=== PATIENT | male | born 1955 | race African-American/Black ===

== ENCOUNTER 2016-09-05 10:52 | Emergency (ER) | payer MEDICAID ==
--- NOTE | 2016-09-05 11:24 | ER Document Report ---
ED Medical Screen (RME) - General Stated Complaint: HEADACHE Notes: Patient complains of intermittent headache for 2-3 weeks. Patient also reports cold symptoms. He is diabetic and states his sugars have been "okay". Last sugar when he checked was 97. states he has had sinus infections in the past. No vision disturbances, but does state his hearing is intermittently muffled. Patient states he has had sinus surgery in the past. I have greeted and performed a rapid initial assessment of this patient. A comprehensive ED assessment and evaluation of the patient, analysis of test results and completion of the medical decision making process will be conducted by additional ED providers. TRAVEL OUTSIDE OF THE [place] IN LAST 30 DAYS: No - Related Data Allergies/Adverse Reactions: Penicillins Allergy (Verified 09/05/16 11:18) Past Medical History - Social History Family history: DM, Malignancy - Past Medical History Cardiac Medical History: Reports: Hx Hypertension Neurological Medical History: Reports: Hx Seizures Endocrine Medical History: Reports: Hx Diabetes Mellitus Type 1 Past Surgical History: Reports: Hx Neurologic Surgery - craniotomy, Hx Nose Surgery - Immunizations Hx Diphtheria, Pertussis, Tetanus Vaccination: Yes Physical Exam - HEENT Head: Normocephalic Eyes: Normal Extraocular movements intact: Yes Pupils: PERRL
[2016-09-05] MEDS ORDERED: IBUPROFEN 800 MG TABLET PO ONE (11:25)
[2016-09-05 12:08] LABS: ABSOLUTE EOSINOPHILS # (AUTO) 0.1 10^3/uL (0.0-0.6); ABSOLUTE LYMPHOCYTES (AUTO) 2.4 10^3/uL (0.5-4.7); ABSOLUTE MONOCYTES (AUTO) 0.4 10^3/uL (0.1-1.4); ABSOLUTE NEUT (AUTO) 2.5 10^3/uL (1.7-8.2); BASOPHILS % (AUTO) 0.5 % (0-2); EOSINOPHILS % (AUTO) 1.4 % (0-6); HEMATOCRIT 43.8 % (37.9-51.0); HEMOGLOBIN 15.3 g/dL (13.5-17.0); HGB HCT DIFFERENCE 2.1; LYMPHOCYTES % (AUTO) 44.1 % (13-45); MEAN CORPUSCULAR HEMOGLOBIN 32.3 pg (27.0-33.4); MEAN CORPUSCULAR VOLUME 92 fl (80-97); RED BLOOD COUNT 4.74 10^6/uL (4.35-5.55); RED CELL DISTRIBUTION WIDTH 13.2 % (11.5-14.0); WHITE BLOOD COUNT 5.3 10^3/uL (4.0-10.5)
[2016-09-05 12:10] LABS: APPEARANCE,URINE CLEAR; BILIRUBIN,URINE NEGATIVE (NEGATIVE); GLUCOSE, URINE NEGATIVE (NEGATIVE); KETONES,URINE NEGATIVE (NEGATIVE); LEUKOCYTE ESTERASE,URINE NEGATIVE (NEGATIVE); NITRITE,URINE NEGATIVE (NEGATIVE); PROTEIN,URINE NEGATIVE (NEGATIVE); URINE SPECIFIC GRAVITY 1.025; UROBILINOGEN,URINE NEGATIVE mg/dL (<2.0)
[2016-09-05 12:23] LABS: ALANINE AMINOTRANSFERASE 90 U/L (21-72); ALBUMIN 4.2 g/dL (3.5-5.0); ALKALINE PHOSPHATASE 100 U/L (38-126); ANION GAP 15 (5-19); ASPARTATE AMINO TRANSFERASE 74 U/L (17-59); BILIRUBIN,DIRECT 0.3 mg/dL (0.0-0.4); BILIRUBIN,TOTAL 0.8 mg/dL (0.2-1.3); BLOOD UREA NITROGEN 17 mg/dL (7-20); CALCIUM 9.6 mg/dL (8.4-10.2); CARBON DIOXIDE 26 mmol/L (22-30); CHLORIDE 107 mmol/L (98-107); CREATININE RESULT 0.71 mg/dL (0.52-1.25); GLUCOSE 106 mg/dL (75-110); POTASSIUM 4.1 mmol/L (3.6-5.0); SODIUM 147.5 mmol/L (137-145); TOTAL PROTEIN 8.9 g/dL (6.3-8.2)
--- NOTE | 2016-09-05 16:00 | ER Document Report ---
ED Headache - General Chief Complaint: Headache Stated Complaint: HEADACHE Time seen by provider: 15:56 Mode of Arrival: Ambulatory Information source: Patient Notes: 61-year-old male presents to ED for intermittent headaches 2-3 weeks. Symptoms of cold. He is a diabetic but his sugars been okay left sugar was 97. Has a history of craniotomy and of no surgery does have a history of blood pressure seizures diabetes migraines. TRAVEL OUTSIDE OF THE [place] IN LAST 30 DAYS: No - HPI Patient complains to provider of: "Migraine" Onset: Other - Over 2 weeks Onset was: Gradual - Intermittent Timing: Still present Quality of pain: Achy Severity: Moderate Pain Level: 3 Exacerbated by: Movement, Position Similar symptoms previously: Yes Recently seen / treated by doctor: No - Related Data Allergies/Adverse Reactions: Penicillins Allergy (Verified 09/05/16 11:18) Past Medical History - General Information source: Patient - Social History Smoking Status: Unknown if Ever Smoked Cigarette use (# per day): No Chew tobacco use (# tins/day): No Smoking Education Provided: No Frequency of alcohol use: None Drug Abuse: None Lives with: Alone Family History: Reviewed & Not Pertinent Patient has suicidal ideation: No Patient has homicidal ideation: No - Past Medical History Cardiac Medical History: Reports: Hx Hypertension Pulmonary Medical History: Reports: None Neurological Medical History: Reports: Hx Migraine, Hx Seizures Endocrine Medical History: Reports: Hx Diabetes Mellitus Type 1 Renal/ Medical History: Reports: None Malignancy Medical History: Reports None GI Medical History: Reports: None Musculoskeltal Medical History: Reports None Skin Medical History: Reports None Psychiatric Medical History: Reports: None Traumatic Medical History: Reports: None Infectious Medical History: Reports: None Past Surgical History: Reports: Hx Neurologic Surgery - craniotomy, Hx Nose Surgery - Immunizations Immunizations up to date: Yes Hx Diphtheria, Pertussis, Tetanus Vaccination: Yes Review of Systems - Review of Systems Constitutional: Recent illness EENT: No symptoms reported, Nose discharge, Sinus discharge Cardiovascular: No symptoms reported Respiratory: No symptoms reported Gastrointestinal: No symptoms reported Genitourinary: No symptoms reported Male Genitourinary: No symptoms reported Musculoskeletal: No symptoms reported Skin: No symptoms reported Hematologic/Lymphatic: No symptoms reported Neurological/Psychological: Headaches -: Yes All other systems reviewed and negative Physical Exam - Vital signs Vitals: Temp Pulse Resp BP Pulse Ox 97.7 F 107 H 20 141/93 H 97 09/05/16 16:15 09/05/16 16:15 09/05/16 16:15 09/05/16 16:15 09/05/16 16:15 Interpretation: Normal - General General appearance: Appears well, Alert - HEENT Head: Normocephalic, Atraumatic, Other - Surgical scars to her head where patient had previous craniotomy and nasal surgery Eyes: Normal Pupils: PERRL Ears: Normal External canal: Normal Tympanic membrane: Normal Sinus: Normal Nasal: Purulent discharge, Swelling Mouth/Lips: Normal Mucous membranes: Normal Pharynx: Normal Neck: Normal - Respiratory Respiratory status: No respiratory distress Chest status: Nontender Breath sounds: Normal Chest palpation: Normal - Cardiovascular Rhythm: Regular Heart sounds: Normal auscultation Murmur: No - Abdominal Inspection: Normal Distension: No distension Bowel sounds: Normal Tenderness: Nontender Organomegaly: No organomegaly - Back Back: Normal, Nontender - Extremities General upper extremity: Normal inspection, Nontender, Normal color, Normal ROM , Normal temperature General lower extremity: Normal inspection, Nontender, Normal color, Normal ROM , Normal temperature, Normal weight bearing. No: Meet's sign - Neurological Neuro grossly intact: Yes Cognition: Normal Orientation: AAOx4 [place] Coma Scale Eye Opening: Spontaneous [place] Coma Scale Verbal: Oriented [place] Coma Scale Motor: Obeys Commands [place] Coma Scale Total: 15 Speech: Normal Motor strength normal: LUE, RUE, LLE, RLE Sensory: Normal - Psychological Associated symptoms: Normal affect, Normal mood - Skin Skin Temperature: Warm Skin Moisture: Dry Skin Color: Normal Course - Re-evaluation Re-evalutation: 09/05/16 20:49 Discussed history and evaluation with Dr. Avila he recommended a CT of the head which was completed. Results of CT discussed with Dr. Avila on the patient. Patient treated with clindamycin for his chronic and acute sinusitis. Patient discharged home with a prescription for clindamycin. - Vital Signs Vital signs: Temp Pulse Resp BP Pulse Ox 98.0 F 98 16 140/92 H 98 09/05/16 18:10 09/05/16 18:10 09/05/16 18:10 09/05/16 18:10 09/05/16 18:10 - Laboratory Result Diagrams: 09/05/16 11:46 09/05/16 11:46 Laboratory results interpreted by me: 09/05/16 11:46 Sodium 147.5 H AST 74 H ALT 90 H Total Protein 8.9 H - Diagnostic Test Radiology reviewed: Image reviewed, Reports reviewed Discharge - Discharge Clinical Impression: Sinusitis Qualifiers: Sinusitis location: unspecified location Chronicity: acute Recurrence: recurrent Qualified Code(s): J01.91 - Acute recurrent sinusitis, unspecified Condition: Stable Disposition: HOME, SELF-CARE Additional Instructions: Sinusitis You have sinusitis, an infection of the sinus cavities of the face. The sinuses are air-filled chambers which open into the inside of the nose. Bacteria and pus fill a sinus, causing pain, drainage, and fever. Sinusitis is treated with antibiotics. Often, expectorants (to thin the sinus mucous) or decongestants (to reduce swelling) are prescribed as well. Healing requires seven to 10 days. Avoid chemical fumes, pollens, dusts, and smoke (especially cigarette smoke ). Keep the air humidified in your bedroom and work area and take plenty of liquids by mouth. This condition can be serious if the infection spreads. If your symptoms worsen, or if you develop severe headache, high fever, stiff neck, or a rash, you must call the doctor or return for re-evaluation. Clindamycin You have been given a prescription for the antibiotic clindamycin. It is often prescribed for infections in the mouth, such as dental infections or abscesses, and for skin infections due to MRSA. It's important that you take all the medication, unless instructed otherwise by your physician. Failure to complete the entire course can result in relapse of your condition. Common side effects of antibiotics include nausea, intestinal cramping, or diarrhea. Women may develop vaginal yeast infections, and babies can get yeast (thrush) in the mouth following the use of antibiotics. Contact your physician if you develop significant side effects from this medication. Allergy to this antibiotic can result in hives, wheezing, faintness, or itching. If symptoms of allergy occur, stop the medication and call the doctor. Acetaminophen Acetaminophen may be taken for pain relief or fever control. It's much safer than aspirin, offering a wider range of "safe" dosages. It is safe during . Some brand names are Tylenol, Panadol, Datril, Anacin 3, Tempra, and Liquiprin. Acetaminophen can be repeated every four hours. The following are maximum recommended dosages: WEIGHT Dose Drops Elixir Chewable( 80mg) (LBS.) drprs=droppers tsp=teaspoon 6 40 mg .4 ml (1/2) 6-11 80 mg .8 ml (full) 1/2 tsp 1 tab 12-16 120 mg 1 1/2 drprs 3/4 tsp 1 1/2 tabs 17-23 160 mg 2 drprs 1 tsp 2 tabs 24-30 240 mg 3 drprs 1 1/2 tsp 3 tabs 30-35 320 mg 2 tsp 4 tabs 36-41 360 mg 2 1/4 tsp 4 1 /2 tabs 42-47 400 mg 2 1/2 tsp 5 tabs 48-53 480 mg 3 tsp 6 tabs 54-59 520 mg 3 1/4 tsp 6 1 /2 tabs 60-64 560 mg 3 1/2 tsp 7 tabs 65-70 600 mg 3 3/4 tsp 7 1 /2 tabs 71-76 640 mg 4 tsp 8 tabs 77-82 720 mg 4 1/2 tsp 9 tabs 83-88 800 mg 5 tsp 10 tabs >89 pounds or adults 650 mg to 900 mg Acetaminophen can be repeated every four hours. Maximum daily dose not to exceed 4000 mg. These maximum recommended dosages are slightly higher than the dosages written on the product container, but these dosages are very safe and well below the toxic dosage for acetaminophen. FOLLOW-UP CARE: If you have been referred to a physician for follow-up care, call the physician s office for an appointment as you were instructed or within the next two days. If you experience worsening or a significant change in your symptoms, notify the physician immediately or return to the Emergency Department at any time for re-evaluation. Prescriptions: Clindamycin HCl 300 mg PO QID 10 Days Forms: Elevated Blood Pressure Referrals: CHARLIE PETIT, [employer] [Primary Care Provider] - Follow up in 3-5 days
[2016-09-05 18:15] VITALS: BP 140/92
== END 2016-09-05 18:10 | disposition home or self-care (01) ==
LOC: ER 10:52
DX: J01.91 Acute recurrent sinusitis, unspecified (principal); R51 Headache; Z98.890 Other specified postprocedural states
CPT/HCPCS: 99284; 36415; 85025; 80053; 81001; 70450; J3490

== ENCOUNTER 2016-10-10 17:53 | Inpatient (IN) | payer MEDICAID ==
[2016-10-10 18:26] LABS: ABSOLUTE LYMPHOCYTES (AUTO) 1.4 10^3/uL (0.5-4.7); ABSOLUTE MONOCYTES (AUTO) 0.5 10^3/uL (0.1-1.4); ABSOLUTE NEUT (AUTO) 2.6 10^3/uL (1.7-8.2); BASOPHILS % (AUTO) 0.9 % (0-2); EOSINOPHILS % (AUTO) 0.1 % (0-6); HEMATOCRIT 45.7 % (37.9-51.0); HEMOGLOBIN 15.7 g/dL (13.5-17.0); HGB HCT DIFFERENCE 1.4; LYMPHOCYTES % (AUTO) 29.7 % (13-45); MEAN CORPUSCULAR HEMOGLOBIN 31.8 pg (27.0-33.4); MEAN CORPUSCULAR HGB CONC 34.4 g/dL (32.0-36.0); MEAN CORPUSCULAR VOLUME 93 fl (80-97); MONOCYTES % (AUTO) 11.2 % (3-13); RED BLOOD COUNT 4.94 10^6/uL (4.35-5.55); RED CELL DISTRIBUTION WIDTH 13.1 % (11.5-14.0); SEGMENTED NEUTROPHILS % (AUTO) 58.1 % (42-78); WHITE BLOOD COUNT 4.6 10^3/uL (4.0-10.5)
[2016-10-10 18:29] LABS: VENOUS BLOOD BASE EXCESS -0.9 mmol/L; VENOUS BLOOD HCO3 23.6 mmol/L (20-32); VENOUS BLOOD PCO2 39.2 mmHg (35-63); VENOUS BLOOD PH 7.4 (7.30-7.42)
[2016-10-10 18:45] LABS: ALANINE AMINOTRANSFERASE 107 U/L (21-72); ALBUMIN 4.1 g/dL (3.5-5.0); ALKALINE PHOSPHATASE 104 U/L (38-126); ANION GAP 15 (5-19); ASPARTATE AMINO TRANSFERASE 107 U/L (17-59); BILIRUBIN,DIRECT 0.5 mg/dL (0.0-0.4); BILIRUBIN,TOTAL 0.9 mg/dL (0.2-1.3); BLOOD UREA NITROGEN 9 mg/dL (7-20); CALCIUM 9.3 mg/dL (8.4-10.2); CARBON DIOXIDE 23 mmol/L (22-30); CHLORIDE 101 mmol/L (98-107); CREATININE RESULT 0.89 mg/dL (0.52-1.25); GLUCOSE 107 mg/dL (75-110); POTASSIUM 3.9 mmol/L (3.6-5.0); SODIUM 139.2 mmol/L (137-145); TOTAL PROTEIN 8.6 g/dL (6.3-8.2)
[2016-10-10] MEDS ORDERED: ACETAMINOPHEN 325 MG TABLET PO ONE (18:47)
[2016-10-10] MEDS ORDERED: OXYCODONE HCL SR 10 MG TABLET PO ONE (18:51)
--- NOTE | 2016-10-10 18:52 | ER Document Report ---
ED General - General Chief Complaint: General Weakness Stated Complaint: DIFFICULTY BREATHING Mode of Arrival: Medic Information source: Patient Notes: 61-year-old male history of sinusitis for which he is on clindamycin and Bactrim. Presents with complaints of generalized body aches fever . Patient denies any cough shortness of breath headaches nausea vomiting TRAVEL OUTSIDE OF THE [place] IN LAST 30 DAYS: No - HPI Onset: Other - Three-day duration Onset/Duration: Persistent Quality of pain: Achy Severity: Mild Pain Level: 1 Associated symptoms: Body/muscle aches, Fever Exacerbated by: Denies Relieved by: Denies Similar symptoms previously: Yes Recently seen / treated by doctor: Yes - Related Data Allergies/Adverse Reactions: Penicillins Allergy (Verified 09/05/16 11:18) Past Medical History - Social History Smoking Status: Never Smoker Cigarette use (# per day): No Chew tobacco use (# tins/day): No Smoking Education Provided: No Frequency of alcohol use: None Drug Abuse: None Family History: Reviewed & Not Pertinent - Past Medical History Cardiac Medical History: Reports: Hx Hypertension Neurological Medical History: Reports: Hx Migraine, Hx Seizures Endocrine Medical History: Reports: Hx Diabetes Mellitus Type 1 Renal/ Medical History: Denies: Hx Peritoneal Dialysis Past Surgical History: Reports: Hx Neurologic Surgery - craniotomy, Hx Nose Surgery - Immunizations Immunizations up to date: Yes Hx Diphtheria, Pertussis, Tetanus Vaccination: Yes Review of Systems - Review of Systems Notes: REVIEW OF SYSTEMS: CONSTITUTIONAL : Admits to fever and recent illness EENT: Denies eye, ear, throat, or mouth pain or symptoms. Denies nasal or sinus congestion or discharge. Denies throat, tongue, or mouth swelling or difficulty swallowing. CARDIOVASCULAR: Denies chest pain. Denies palpitations or racing or irregular heart beat. Denies ankle edema. RESPIRATORY: Denies cough, cold, or chest congestion. Denies shortness of breath, difficulty breathing, or wheezing. GASTROINTESTINAL: Denies abdominal pain or distention. Denies nausea, vomiting , or diarrhea. Denies blood in vomitus, stools, or per rectum. Denies black, tarry stools. Denies constipation. GENITOURINARY: Denies difficulty urinating, painful urination, burning, frequency, blood in urine, or discharge. MUSCULOSKELETAL: Denies back or neck pain or stiffness. Denies joint pain or swelling. SKIN: Denies rash, lesions or sores. HEMATOLOGIC : Denies easy bruising or bleeding. LYMPHATIC: Denies swollen, enlarged glands. NEUROLOGICAL: Denies confusion or altered mental status. Denies passing out or loss of consciousness. Denies dizziness or lightheadedness. Denies headache. Denies weakness or paralysis or loss of use of either side. Denies problems with gait or speech. Denies sensory loss, numbness, or tingling. Denies seizures. PSYCHIATRIC: Denies anxiety or stress. Denies depression, suicidal ideation, or homicidal ideation. ALL OTHER SYSTEMS REVIEWED AND NEGATIVE. Dictation was performed using [employer] voice recognition software PHYSICAL EXAMINATION: GENERAL: Well-appearing, well-nourished and in no acute distress. Febrile HEAD: Postsurgical changes noted EYES: Pupils equal round and reactive to light, extraocular movements intact, sclera anicteric, conjunctiva are normal. ENT: Nares patent, oropharynx clear without exudates. Moist mucous membranes. NECK: Normal range of motion, supple without lymphadenopathy LUNGS: Breath sounds clear to auscultation bilaterally and equal. No wheezes rales or rhonchi. HEART: Mildly tachycardic ABDOMEN: Soft, nontender, nondistended abdomen. No guarding, no rebound. No masses appreciated. Musculoskeletal: Normal range of motion, no pitting or edema. No cyanosis. NEUROLOGICAL: Cranial nerves grossly intact. Normal speech, normal gait. Normal sensory, motor exams PSYCH: Normal mood, normal affect. SKIN: Warm, Dry, normal turgor, no rashes or lesions noted. Physical Exam - Vital signs Vitals: Temp Pulse Resp BP Pulse Ox 100.5 F H 110 H 28 H 130/88 H 93 10/10/16 18:14 10/10/16 18:14 10/10/16 18:14 10/10/16 18:14 10/10/16 18:14 Course - Re-evaluation Re-evalutation: 10/10/16 18:51 Lab work notes no significant abnormality chest x-ray was normal. CT of the head and urinalysis are pending to locate the source of infection may be secondary to this sinusitis 10/10/16 22:15 I am not finding specific cause of the patient's fever at this time, 10/10/16 22:43 CT noted no acute abnormality I will discharge home for patient to follow-up with his own primary care physician After performing a Medical Screening Examination, I estimate there is LOW risk for ACUTE CORONARY SYNDROME, RESPIRATORY FAILURE, SEPSIS OR MENINGITIS, thus I consider the discharge disposition reasonable. I have reevaluated this patient multiple times and no significant life threatening changes are noted. The patient and I have discussed the diagnosis and risks, and we agree with discharging home with close follow-up. We also discussed returning to the Emergency Department immediately if new or worsening symptoms occur. We have discussed the symptoms which are most concerning (e.g., changing or worsening pain, trouble swallowing or breathing, neck stiffness, fever) that necessitate immediate return. - Vital Signs Vital signs: Temp Pulse Resp BP Pulse Ox 100.5 F H 110 H 19 105/74 91 L 10/10/16 18:14 10/10/16 18:14 10/10/16 22:01 10/10/16 22:01 10/10/16 22:01 - Laboratory Result Diagrams: 10/10/16 18:13 10/10/16 18:13 Laboratory results interpreted by me: 10/10/16 10/10/16 18:13 19:06 Direct Bilirubin 0.5 H AST 107 H ALT 107 H Total Protein 8.6 H Urine Protein 30 H Urine Ketones TRACE H Urine Blood MODERATE H Urine Urobilinogen 4.0 H - Diagnostic Test Radiology reviewed: Image reviewed, Reports reviewed Discharge - Discharge Clinical Impression: Body aches Fever Qualifiers: Fever type: unspecified Qualified Code(s): R50.9 - Fever, unspecified Condition: Stable Disposition: HOME, SELF-CARE Instructions: Fever ([facility]) Referrals: CHARLIE PETIT FNP-C [Primary Care Provider] - Follow up tomorrow
--- NOTE | 2016-10-10 19:08 | EKG REPORT ---
SEVERITY:- OTHERWISE NORMAL ECG - SINUS TACHYCARDIA BORDERLINE LEFT AXIS DEVIATION : Confirmed by: Jesus Waters MD 10-Oct-2016 19:07:57
[2016-10-10 19:50] LABS: APPEARANCE,URINE CLEAR; BILIRUBIN,URINE NEGATIVE (NEGATIVE); GLUCOSE, URINE NEGATIVE (NEGATIVE); KETONES,URINE TRACE mg/dL (NEGATIVE); LEUKOCYTE ESTERASE,URINE NEGATIVE (NEGATIVE); NITRITE,URINE NEGATIVE (NEGATIVE); PROTEIN,URINE 30 mg/dL (NEGATIVE); URINE SPECIFIC GRAVITY 1.016
[2016-10-10] MEDS ORDERED: NORMAL SALINE 1000 ML 1,000 ML IV PRN (23:13)
[2016-10-10] MEDS ORDERED: AZTREONAM INJ 1 GM VIAL IV ONE (23:24)
[2016-10-10] MEDS ORDERED: AZITHROMYCIN INJ 500 MG VIAL IV ONE (23:24)
[2016-10-11] MEDS ORDERED: DEXTROSE 40% GEL 15 GM TUBE PO PRN ×2 (01:05)
[2016-10-11] MEDS ORDERED: GLUCAGON,HUMAN RECOMB 1 MG INJ IM PRN (01:05)
[2016-10-11] MEDS ORDERED: INSULIN LISPRO 100 UNIT/ML 3 ML VIAL SUBCUT PRN (01:05)
[2016-10-11] MEDS ORDERED: DEXTROSE 50%-WATER 25 GM/50 ML DISP.SYRIN IV PRN ×2 (01:05)
[2016-10-11] MEDS ORDERED: IPRATROPIUM/ALBUTEROL 0.5-2.5 MG/3 ML AMPUL NEB PRN (01:06)
[2016-10-11] MEDS ORDERED: POTASSI CL 20 MEQ/NS 1L 1,000 ML IV PRN (01:08)
--- NOTE | 2016-10-11 01:30 | PDOC H&P ---
History of Present Illness Admission Date/PCP: 10/11/16 00:00 Ashlee Victoria, [place], [place] Patient complains of: fever, cough, body aches History of Present Illness: YUNI GARCIA is a 61 year old -Lao male with known chronic sinusitis , having undergone 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 Patient has been discussed with emergency room physician who evaluated the patient. Emergency room physician was actually in the process of discharging the patient. However, when he stood, systolic pressures were noted to be in the 60s , checked on 3 occasions. Fortunately, pressures have stabilized nicely after receiving almost 2 L of normal saline as a bolus. He describes "a little bit" of diarrhea over the past 24 hours. Cough productive of green sputum. Fever to 100.5 at home. No chest or abdominal pain, nausea vomiting. No "sore spots" anywhere on his body other than again feeling sore all over. Primary pain is in the area of his sinuses. No rash. No chronic pulmonary disease, including emphysema, COPD, or asthma no history of pneumonia.. He is currently resting quietly, primarily complaining of hurting "all over." Discomfort worsens with certain movements. Laboratory results are listed in [employer] and are reviewed. X-ray summary results are listed below, with full report(s) reviewed. . EKG reviewed. Social history/personal habits: Single. Lives alone. No children. Unemployed. No use of alcohol tobacco or illicit drugs. Allergies/adverse reactions are listed in [employer] and are reviewed. Penicillin causes "swelling." Uncertain if he can tolerate cephalosporins. Home medications Home medications initially autopopulated into [employer] may not accurately reflect patient's true medications, dosages, and/or frequencies. 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 Unfortunately, patient uncertain of medications/dosages/frequencies. REVIEW OF SYSTEMS: Constitutional: See history and present illness. Eyes: No current vision complaints. ENT: No swallowing problems or complaints. Partial hearing loss. See history and present illness. Pulmonary: See history and present illness. Cardiovascular: No current complaints, including chest pain. Gastrointestinal: See history and present illness. Skin: No current complaints, including rashes. Hematologic: No unusual easy bruising or bleeding. Neurologic: No current complaints, including numbness or tingling. Musculoskeletal: No current complaints, including painful joints. Psychiatric: No current complaints, including anxiety or depression. Endocrine: No current complaints, including polyuria. Genitourinary: No current complaints, including dysuria. PHYSICAL EXAMINATION: 5 feet 4 inches tall. 81.6 kg. BMI 30.9 kg/m. Blood pressure 111/74. Pulse 85 and regular. 99% saturation on 2 L oxygen per nasal cannula. Respirations are 23 and unlabored. Temperature 100.5 earlier; skin feels normothermic at present. Slightly obese otherwise well-developed -Lao male appearing a bit younger than his stated age. Pleasant awake alert and cooperative. No obvious distress other than perhaps mildly anxious. No agitation. Appears not to feel very well. Skin is warm and dry. No grossly obvious evidence of rash in areas of skin examined. No subcutaneous nodules palpated. ENT: Hearing grossly normal to normal conversation. Tongue midline on protrusion pink and slightly tacky. Eyes: No scleral icterus. Pupils equal and reactive to light at 4 mm. Coolin conjunctivae. Neck is supple and nontender to gentle active range of motion and palpation. Midline trachea. No palpable thyroid nodule mass enlargement or tenderness. Lymphatic: No palpable cervical or clavicular nodes. Neck and lymphatic exams limited by patient body habitus. Psychiatric: Reasonable insight into acute and chronic medical issues. Oriented to time location and why here. Lungs: Auscultation reveals clear and equal breath sounds bilaterally. No use of accessory respiratory muscles. Cardiovascular: Heart regular rate and rhythm, without gallop murmur or rub. No carotid or abdominal aortic bruits. No ankle or pedal edema. palpable dorsalis pedis pulses. Abdomen: soft, somewhat obese, nontender with positive bowel sounds. Unable to adequately evaluate abdomen for masses or organomegaly due to body habitus. Extremities: Feet are warm and dry. No calf tenderness to compression. No grossly obvious visual evidence of calf swelling. Gentle manipulation of lower extremities fails to reveal any obvious evidence of injury or instability to knees hips or ankles. Neurologic: Moves upper extremities grossly normally. Patellar reflexes absent. Absent Babinski. Light touch is intact at feet. Dorsiflexion and plantarflexion of feet 5 / 5 and symmetric. Past Medical History Cardiac Medical History: Reports: Hypertension Denies: Congestive Heart Failure, DVT, Myocardial Infarction, Hyperlipidema, Pulmonary Embolism Pulmonary Medical History: Denies: Asthma, Chronic Obstructive Pulmonary Disease (COPD), Pneumonia, Sleep Apnea EENT Medical History: Reports: Ears - Partial hearing loss, Other - Chronic sinusitis Denies: Eyes, Throat Neurological Medical History: Reports: Ischemic CVA - 2016; No residual after effects, Migraine, Seizures - Last episode 2016; uncertain current antiepileptic. Denies: Hemorrhagic CVA Endocrine Medical History: Reports: Diabetes Mellitus Type 1 Denies: Diabetes Mellitus Type 2, Hyperthyroidism, Hypothyroidism Renal/ Medical History: Denies: Chronic Kidney Disease, Nephrolithiasis GI Medical History: Denies: Cirrhosis, Gastroesophageal Reflux Disease, Hepatitis, Peptic Ulcer Disease Musculoskeltal Medical History: Denies: Arthritis Skin Medical History: Reports: None Psychiatric Medical History: Denies: Alcohol Dependency, Depression, General Anxiety Disorder, Substance Abuse, Tobacco Dependency Hematology: Reports: None Infectious Medical History: Denies: Clostridium Difficile, Hepatitis B, Hepatitis C, Methicillin- Resistant Staph Aureus Past Surgical History Past Surgical History: Reports: Other - Craniotomy for empyema from sinusitis; sinus surgery. No cardiac surgery. Social History Information Source: Patient, Emergency Med Personnel, [facility] Records Lives with: Alone Smoking Status: Never Smoker Frequency of Alcohol Use: None Hx Recreational Drug Use: No Drugs: None - Advance Directive Resuscitation Status: Full Code Surrogate healthcare decision maker:: Uncertain at this point in time. Family History Family History: Reviewed & Not Pertinent Parental Family History Reviewed: Yes - uncertain cause of parents' deaths. Children Family History Reviewed: NA Sibling(s) Family History Reviewed.: Yes - Healthy Medication/Allergy Home Medications: Amitriptyline HCl [Elavil 50 Mg Tablet] 50 mg PO QHS 10/11/16 Insulin Glargine,Hum.rec.anlog [Lantus Solostar] 20 unit SQ BID 10/11/16 Lisinopril [Prinivil] 20 mg PO DAILY 10/11/16 Allergies/Adverse Reactions: Penicillins Allergy (Verified 09/05/16 11:18) Physical Exam Vital Signs: Temp Pulse Resp BP Pulse Ox 100.5 F H 110 H 23 H 97/70 L 93 10/10/16 18:14 10/10/16 18:14 10/10/16 23:41 10/10/16 23:41 10/10/16 23:41 Results Impressions: Chest X-Ray 10/10/16 18:01 IMPRESSION: NO ACUTE RADIOGRAPHIC FINDING IN THE CHEST. Head CT 10/10/16 18:48 IMPRESSION: The previously described postsurgical changes in sinus changes appears stable. No acute changes are identified. Other findings as noted above Chest/Abdomen CTA 10/10/16 20:10 IMPRESSION: Somewhat limited study as noted above. No evidence for pulmonary embolic disease. No acute consolidations or pleural effusions are identified. Other findings as noted above Assessment & Plan - Diagnosis (1) Elevated LFTs Is this a current diagnosis for this admission?: YesPlan: Uncertain etiology; medications?? Denies underlying biliary disease. Follow- up chemistry. (2) Fever Qualifiers: Fever type: unspecified Qualified Code(s): R50.9 - Fever, unspecified Is this a current diagnosis for this admission?: YesPlan: Uncertain source, but feel more than likely this is pulmonary in origin. (3) Hypotension Qualifiers: Hypotension type: unspecified hypotension type Qualified Code(s): I95.9 - Hypotension, unspecified Is this a current diagnosis for this admission?: YesPlan: Resolved nicely with 2 L bolus of saline. Suspect pneumonia as the source, with negative imaging studies likely a result of antibiotics he has been on for the past several days.. Patient will be admitted under pneumonia protocol. Incentive spirometry twice a day. PRN DuoNeb's. Antibiotics will consist of aztreonam and intravenous Zithromax.. Patient is a full code. I have strongly encouraged patient not to get out of bed without notifying staff , , to avoid a fall with injury. Knee high SCDs for DVT prophylaxis, along with subcutaneous Lovenox Impression and plans were discussed with patient, who concurs. Time spent in evaluation and management of patient: 65 minutes. (4) Productive cough Is this a current diagnosis for this admission?: Yes (5) Chronic sinusitis Qualifiers: Sinusitis location: unspecified location Qualified Code(s): J32.9 - Chronic sinusitis, unspecified Is this a current diagnosis for this admission?: Yes (6) Diabetes mellitus type 1 Qualifiers: Diabetes mellitus complication status: without complication Qualified Code(s): E10.9 - Type 1 diabetes mellitus without complications Is this a current diagnosis for this admission?: YesPlan: Resume home medications as appropriate once these have been determined and reviewed.
[2016-10-11] MEDS ORDERED: AZITHROMYCIN 500 MG in DEXTROSE 5%-WATER 250 ML IV SCH ×2 (02:00→22:00)
[2016-10-11] MEDS ORDERED: AZITHROMYCIN INJ 500 MG VIAL IV PRN (02:00)
[2016-10-11] MEDS ORDERED: AZTREONAM INJ 1 GM VIAL IV PRN (06:00)
[2016-10-11] MEDS ORDERED: AZTREONAM 1 GM in DEXTROSE 5%-WATER 50 ML IV SCH ×2 (06:00→10:00)
[2016-10-11 08:08] LABS: ABSOLUTE MONOCYTES (AUTO) 0.5 10^3/uL (0.1-1.4); ABSOLUTE NEUT (AUTO) 2.2 10^3/uL (1.7-8.2); BASOPHILS % (AUTO) 1.1 % (0-2); HEMOGLOBIN 16.1 g/dL (13.5-17.0); HGB HCT DIFFERENCE 1.3; LYMPHOCYTES % (AUTO) 27.5 % (13-45); MEAN CORPUSCULAR HEMOGLOBIN 32.5 pg (27.0-33.4); MEAN CORPUSCULAR HGB CONC 34.4 g/dL (32.0-36.0); MEAN CORPUSCULAR VOLUME 95 fl (80-97); MONOCYTES % (AUTO) 12.9 % (3-13); RED BLOOD COUNT 4.96 10^6/uL (4.35-5.55); RED CELL DISTRIBUTION WIDTH 13.7 % (11.5-14.0); SEGMENTED NEUTROPHILS % (AUTO) 58.5 % (42-78); WHITE BLOOD COUNT 3.7 10^3/uL (4.0-10.5)
[2016-10-11 09:27] LABS: ALANINE AMINOTRANSFERASE 108 U/L (21-72); ALBUMIN 3.6 g/dL (3.5-5.0); ALKALINE PHOSPHATASE 90 U/L (38-126); ANION GAP 14 (5-19); ASPARTATE AMINO TRANSFERASE 118 U/L (17-59); BILIRUBIN,DIRECT 0.6 mg/dL (0.0-0.4); BILIRUBIN,TOTAL 0.9 mg/dL (0.2-1.3); BLOOD UREA NITROGEN 11 mg/dL (7-20); CALCIUM 8.4 mg/dL (8.4-10.2); CARBON DIOXIDE 23 mmol/L (22-30); CHLORIDE 102 mmol/L (98-107); CREATININE RESULT 0.93 mg/dL (0.52-1.25); GLUCOSE 108 mg/dL (75-110); POTASSIUM 4.1 mmol/L (3.6-5.0); SODIUM 139.3 mmol/L (137-145); TOTAL PROTEIN 7.8 g/dL (6.3-8.2)
[2016-10-11] MEDS: ENOXAPARIN SODIUM INJ 40 MG/0.4 ML DISP.SYRIN SUBCUT SCH (11:52)
[2016-10-11] MEDS ORDERED: LISINOPRIL 10 MG TABLET PO ONE (13:00)
[2016-10-11] MEDS ORDERED: LEVOFLOXACIN 750 MG/D5W RTU 750 MG/150 ML RTUPB IV SCH (13:00)
[2016-10-11] MEDS ORDERED: NORMAL SALINE 1000 ML 1,000 ML IV ONE (14:17)
[2016-10-11] MEDS: NORMAL SALINE 1000 ML 1,000 ML IV PRN ×2 (14:29→14:45)
[2016-10-11] MEDS ORDERED: VANCOMYCIN HCL 0 MG in DEXTROSE 5%-WATER 250 ML IV NR (14:45)
[2016-10-11 15:02] LABS: PROTHROMBIN TIME 14.4 SEC (11.4-15.4)
[2016-10-11 15:18] LABS: ALANINE AMINOTRANSFERASE 112 U/L (21-72); ALBUMIN 3.6 g/dL (3.5-5.0); ALKALINE PHOSPHATASE 86 U/L (38-126); ANION GAP 15 (5-19); ASPARTATE AMINO TRANSFERASE 126 U/L (17-59); BILIRUBIN,DIRECT 0.5 mg/dL (0.0-0.4); BILIRUBIN,TOTAL 0.9 mg/dL (0.2-1.3); BLOOD UREA NITROGEN 12 mg/dL (7-20); CALCIUM 8.8 mg/dL (8.4-10.2); CARBON DIOXIDE 21 mmol/L (22-30); CHLORIDE 101 mmol/L (98-107); CREATINE KINASE 167 U/L (55-170); GLUCOSE 171 mg/dL (75-110); MAGNESIUM 1.8 mg/dL (1.6-2.3); POTASSIUM 4.2 mmol/L (3.6-5.0); SODIUM 136.6 mmol/L (137-145); TOTAL PROTEIN 7.5 g/dL (6.3-8.2)
[2016-10-11 15:29] LABS: CREATINE KINASE MB 0.83 ng/mL (<4.55)
[2016-10-11 15:43] LABS: TROPONIN I 0.407 ng/mL
[2016-10-11 15:59] LABS: ADD HIVPANEL? NO; HIV (1 AND 2) ANTIBODY NEGATIVE (NEGATIVE)
[2016-10-11] MEDS ORDERED: VANCOMYCIN HCL 2,000 MG in DEXTROSE 5%-WATER 500 ML IV ONE (16:30)
[2016-10-11] MEDS: ACETAMINOPHEN 325 MG TABLET PO PRN (16:37)
[2016-10-11 16:52] LABS: APPEARANCE ALL TUBES CLEAR; RBC DILUENT USED NONE USED; RBC DILUTION FACTOR 1; RBC SIDE 1 0; RBC SIDE 2 0; TOTAL RBC SQUARES COUNTED 225
[2016-10-11 16:53] LABS: WHITE BLOOD CELL,CSF 4 /uL (0-5)
[2016-10-11 17:00] LABS: GLUCOSE,CSF 83 mg/dL (40-70)
[2016-10-11 17:36] LABS: CSF CULTURED REQUIRED CSF CULTURE ORDERED (CSFY); H. INFLUENZAE TYPE B AG NEGATIVE (NEGATIVE); S. PNEUMONIAE AG NEGATIVE (NEGATIVE); STREP. GROUP B AG NEGATIVE (NEGATIVE)
[2016-10-11 17:49] LABS: ARTERIAL BLOOD BASE EXCESS -3.5 mmol/L; ARTERIAL BLOOD O2 SATURATION 96.8 % (94-98)
[2016-10-11 18:14] LABS: APPEARANCE ALL TUBES CLEAR
[2016-10-11 18:15] LABS: RBC DILUENT USED NONE USED; RBC DILUTION FACTOR 1; RBC SIDE 1 0; RBC SIDE 2 0; TOTAL RBC SQUARES COUNTED 225; WHITE BLOOD CELL,CSF 3 /uL (0-5)
[2016-10-11] MEDS ORDERED: KETOROLAC TROMETHAMINE INJ/PF 30 MG/1 ML SDV IV PRN (18:41)
--- NOTE | 2016-10-11 19:03 | EKG REPORT ---
SEVERITY:- BORDERLINE ECG - SINUS TACHYCARDIA BORDERLINE LEFT AXIS DEVIATION CONSIDER ANTERIOR INFARCT : Confirmed by: Jesus Waters MD 11-Oct-2016 19:02:55
[2016-10-11] MEDS: ACYCLOVIR SODIUM 750 MG in NORMAL SALINE 250 ML IV SCH (19:58)
[2016-10-11] MEDS: CEFTRIAXONE 2 GM/D5W RTU 50 ML IV SCH (22:54)
[2016-10-11] MEDS: AMITRIPTYLINE HCL 50 MG TABLET PO SCH (22:54)
[2016-10-11] MEDS: INSULIN GLARGINE,HUM.REC.ANLOG 300 UNIT/3 ML INSULN.PEN SUBCUT SCH (22:54)
[2016-10-11] MEDS ORDERED: CEFTRIAXONE INJ 1000 MG VIAL ONE (22:58)
[2016-10-12] MEDS: ACYCLOVIR SODIUM 750 MG in NORMAL SALINE 250 ML IV SCH (02:51)
[2016-10-12] MEDS: NORMAL SALINE 1000 ML 1,000 ML IV PRN ×2 (02:52→16:47)
[2016-10-12] MEDS: ACETAMINOPHEN 325 MG TABLET PO PRN ×2 (02:57→11:59)
[2016-10-12] MEDS ORDERED: VANCOMYCIN HCL 1,000 MG in DEXTROSE 5%-WATER 250 ML IV SCH (06:00)
[2016-10-12] MEDS ORDERED: OXYCODONE HCL IR 5 MG TABLET PO PRN (07:32)
[2016-10-12] MEDS: ENOXAPARIN SODIUM INJ 40 MG/0.4 ML DISP.SYRIN SUBCUT SCH (08:02)
--- NOTE | 2016-10-12 08:26 | EKG REPORT ---
SEVERITY:- ABNORMAL ECG - SINUS RHYTHM BORDERLINE LEFT AXIS DEVIATION CONSIDER ANTERIOR INFARCT NONSPECIFIC ST-T CHANGES- INFERIOR LEADS : Confirmed by: Jesus Waters MD 12-Oct-2016 08:25:42
[2016-10-12 09:57] LABS: HEMATOCRIT 38.5 % (37.9-51.0); HGB HCT DIFFERENCE 1.4; MEAN CORPUSCULAR HGB CONC 34.5 g/dL (32.0-36.0); MEAN CORPUSCULAR VOLUME 93 fl (80-97); RED BLOOD COUNT 4.15 10^6/uL (4.35-5.55); RED CELL DISTRIBUTION WIDTH 13.5 % (11.5-14.0); WHITE BLOOD COUNT 2.8 10^3/uL (4.0-10.5)
[2016-10-12] MEDS ORDERED: LISINOPRIL 10 MG TABLET PO SCH (10:00)
[2016-10-12 10:15] LABS: HEMOGLOBIN 13.3 g/dL (13.5-17.0)
[2016-10-12 10:16] LABS: ANION GAP 11 (5-19); BLOOD UREA NITROGEN 10 mg/dL (7-20); CALCIUM 8.3 mg/dL (8.4-10.2); CARBON DIOXIDE 23 mmol/L (22-30); CHLORIDE 106 mmol/L (98-107); CREATININE RESULT 0.79 mg/dL (0.52-1.25); GLUCOSE 134 mg/dL (75-110); SODIUM 139.6 mmol/L (137-145)
[2016-10-12] MEDS: DOCUSATE SODIUM 100 MG CAPSULE PO SCH ×2 (10:18→17:22)
[2016-10-12] MEDS: INSULIN GLARGINE,HUM.REC.ANLOG 300 UNIT/3 ML INSULN.PEN SUBCUT SCH ×2 (10:18→22:45)
[2016-10-12] MEDS: LISINOPRIL 10 MG TABLET PO SCH (10:19)
[2016-10-12] MEDS: CEFTRIAXONE 2 GM/D5W RTU 50 ML IV SCH (10:20)
[2016-10-12 10:23] LABS: BAND NEUTROPHILS % (MANUAL) 4 % (3-5); BASOPHILS % (MANUAL) 1 % (0-2); EOSINOPHILS % (MANUAL) 0 % (0-6); LYMPHOCYTES % (MANUAL) 12 % (13-45); TOTAL CELLS COUNTED 100
[2016-10-12 10:25] LABS: POIKILOCYTOSIS SLIGHT
--- NOTE | 2016-10-12 10:26 | PDOC CONSULTATION ---
Consultation Consult Date: 10/11/16 Attending physician:: BREANNA COX Consult reason:: Abnormal troponin I elevation History of Present Illness Admission Date/PCP: 10/11/16 17:05 REGINE NICHOLS Patient complains of: General fatigue and tiredness. Fever chills and diaphoresis History of Present Illness: YUNI GARCIA is a 61 year old -[place] male with known chronic sinusitis , having undergone 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 Patient was noted to have generalized body ache, marked fatigue and tiredness. He has also noted some fever with chills. Patient has noted a productive cough with greenish sputum production. Patient also describes an episode of diarrhea. He denied any chest pain as such or any shortness of breath, palpitations, syncope, near syncope. Patient subsequently was noted to have elevated troponin I. I was therefore asked to evaluate patient. His 12-lead EKG did not show any acute ST-T wave changes. Patient denied any prior history of myocardial infarction, angina, congestive heart failure. Patient has a history of chronic sinus infection. Past Medical History Cardiac Medical History: Reports: Hypertension Denies: Congestive Heart Failure, DVT, Myocardial Infarction, Hyperlipidema, Pulmonary Embolism Pulmonary Medical History: Denies: Asthma, Chronic Obstructive Pulmonary Disease (COPD), Pneumonia, Sleep Apnea EENT Medical History: Reports: Ears - Partial hearing loss, Other - Chronic sinusitis Denies: Eyes, Throat Neurological Medical History: Reports: Ischemic CVA - 2016; No residual after effects, Migraine, Seizures - Last episode 2016; uncertain current antiepileptic. Denies: Hemorrhagic CVA Endocrine Medical History: Reports: Diabetes Mellitus Type 1 Denies: Diabetes Mellitus Type 2, Hyperthyroidism, Hypothyroidism Renal/ Medical History: Denies: Chronic Kidney Disease, Nephrolithiasis GI Medical History: Denies: Cirrhosis, Gastroesophageal Reflux Disease, Hepatitis, Peptic Ulcer Disease Musculoskeltal Medical History: Denies: Arthritis Skin Medical History: Reports: None Psychiatric Medical History: Denies: Alcohol Dependency, Depression, General Anxiety Disorder, Substance Abuse, Tobacco Dependency Hematology: Reports: None, Other - Chronic sinusitis Infectious Medical History: Denies: Clostridium Difficile, Hepatitis B, Hepatitis C, Methicillin- Resistant Staph Aureus Past Surgical History Past Surgical History: Reports: Other - Craniotomy for empyema from sinusitis; sinus surgery. No cardiac surgery. Social History Information Source: Patient Lives with: Alone Smoking Status: Former Smoker Last Time Smoked: 2006 Frequency of Alcohol Use: None Hx Recreational Drug Use: No Drugs: None Hx Prescription Drug Abuse: No - Advance Directive Resuscitation Status: Full Code Family History Family History: Reviewed & Not Pertinent Parental Family History Reviewed: Yes Children Family History Reviewed: Yes Sibling(s) Family History Reviewed.: Yes Medication/Allergy Home Medications: Amitriptyline HCl [Elavil 50 Mg Tablet] 50 mg PO QHS 10/11/16 Insulin Glargine,Hum.rec.anlog [Lantus Solostar] 20 unit SQ BID 10/11/16 Lisinopril [Prinivil] 20 mg PO DAILY 10/11/16 Allergies/Adverse Reactions: Penicillins Allergy (Verified 09/05/16 11:18) Review of Systems Review of Systems: Please see history of present illness and past medical history as wall. Constitutional: Fever and chills reported. Head : No recent chronic headaches, recent head injury. History of craniotomy for sinus infection. Patient describes history of intermittent headaches. Eyes: No recent eye pain, diplopia, redness, discharge, acute visual changes. Ears: No recent chronic ear pain, acute hearing loss, ear discharge. Oral cavity: No recent ulcerations, bleeding, oral cavity discomfort. Neck: No recent acute neck pain reported. Hematologic: No recent easy bruising or bleeding or hematologic malignancy reported. Lymphatic: No recent lymphatic malignancy, chronic lymphadenopathy reported yet Cardiovascular system review: See history of present illness. No prior cardiac history. Respiratory system review: Noted cough with sputum production but no hemoptysis , blood clots in the lungs reported. Mild Shortness of breath on exertion Gastrointestinal system review: Negative for any recent acute or chronic abdominal pain, hematemesis, melena, patient does report one episode of diarrhea. Genitourinary system review: No recent acute or chronic hematuria, flank pain, UTI etc. reported. Skin system review: Negative for any recent abnormal bruising, no rash, no pruritus reported. Neurologic: History of prior strokes, seizure disorder. Psychologic: No history of major psychosis or major depression reported. Musculoskeletal: Minor aches and pains reported. No acute joint swelling reported. Endocrine: No recent polyuria, polydipsia, recent heat or cold intolerance. Physical Exam Vital Signs: Temp Pulse Resp BP Pulse Ox 98.0 F 90 20 111/66 95 10/11/16 19:52 10/11/16 19:52 10/11/16 19:52 10/11/16 19:52 10/11/16 19:52 Exam: GENERAL: well-nourished and in no acute distress. Alert and oriented x3 HEAD: Atraumatic, normocephalic. Craniotomy scar noted EYES: Pupils equal round and reactive to light, extraocular movements intact, sclera anicteric, conjunctiva are normal. ENT: TMs normal, nares patent, oropharynx clear without exudates. Moist mucous membranes. No oral ulcerations or bleeding gums noted NECK: supple without lymphadenopathy. Trachea is central. No cervical or axillary lymphadenopathy noted. Carotids are 2+, JVD WNL LUNGS: Respiration seems nonlabored, no significant accessory muscle action noted. Breath sounds clear to auscultation bilaterally and equal noted. No wheezes rales or rhonchi noted. No significant dullness noted on percussion. CHEST: Palpation of the chest wall shows no significant chest wall tenderness. No other significant abnormalities noted. 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 ABDOMEN: Soft, no significant tenderness appreciated, normoactive bowel sounds. No guarding, no rebound. No rigidity noted . No masses appreciated. EXTREMITIES: Pedal pulses are 1-2+, no calf tenderness noted. No clubbing or cyanosis.trace to 1+ pedal edema noted NEUROLOGICAL: Focused neurological exam showed no significant neurologic deficit. Normal speech, no focal weakness appreciated. PSYCH: Normal mood, normal affect. Judgment and insight within normal limits. SKIN: No significant ecchymosis, rash, ulcerations or signs of pruritus noted. Some generalized shining of the skin noted. MUSCULOSKELETAL EXAM: No significant joint swelling noted. Results Laboratory Results: 10/11/16 17:33 Carbonic Acid 0.78 L HCO3/H2CO3 Ratio 23:1 ABG pH 7.47 H ABG pCO2 26.0 L ABG pO2 82.0 ABG HCO3 18.5 L ABG O2 Saturation 96.8 ABG Base Excess -3.5 FiO2 21% EKG Comments: Showed sinus rhythm, no acute ST-T wave changes noted. Impressions: Head CT 10/10/16 18:48 IMPRESSION: The previously described postsurgical changes in sinus changes appears stable. No acute changes are identified. Other findings as noted above Chest/Abdomen CTA 10/10/16 20:10 IMPRESSION: Somewhat limited study as noted above. No evidence for pulmonary embolic disease. No acute consolidations or pleural effusions are identified. Other findings as noted above Chest X-Ray 10/11/16 00:00 IMPRESSION: NO SIGNIFICANT RADIOGRAPHIC FINDING IN THE CHEST. Facial Bones CT 10/11/16 00:00 IMPRESSION: EXTENSIVE SINUS DISEASE AND SURGICAL CHANGES. RELATIVELY STABLE APPEARANCE COMPARED TO THE PRIOR STUDY. NO SIGNIFICANT CHANGE. Guidance Fluoroscopy 10/11/16 00:00 IMPRESSION: LUMBAR PUNCTURE UNDER FLUOROSCOPY. NO IMMEDIATE COMPLICATION. Lumbar Puncture 10/11/16 00:00 IMPRESSION: LUMBAR PUNCTURE UNDER FLUOROSCOPY. NO IMMEDIATE COMPLICATION. Assessment & Plan - Diagnosis (1) Fever Qualifiers: Fever type: unspecified Qualified Code(s): R50.9 - Fever, unspecified Is this a current diagnosis for this admission?: Yes (2) HTN (hypertension) Is this a current diagnosis for this admission?: Yes (3) Elevated troponin I level Is this a current diagnosis for this admission?: Yes (4) Elevated LFTs Is this a current diagnosis for this admission?: Yes - Notes Notes: Patient's presents with fever and chills. He does have some generalized body ache. His troponin I has come back in the suggestive range but he really does not have any chest discomfort nor has an EKG changes. Therefore he does not satisfy criteria for acute [place] and troponin I elevation could be just related to viremia, bacteremia, hypoglycemia, possible vasculitis from allergic reaction to drugs etc. At this point to evaluate patient's condition will order a 2-D echo. Once patient is stabilized will consider a nuclear stress test since patient has some cardiac risk factors. Will continue to follow patient. Since patient had lumbar puncture, do not feel anticoagulation is indicated at this time. Will continue to follow patient closely. - Time Time Spent: 30 to 50 Minutes Medications reviewed and adjusted accordingly: Yes - CODE STATUS was discussed, patient remains full code.
--- NOTE | 2016-10-12 10:50 | PDOC PROGRESS REPORT ---
Subjective Progress Note for:: 10/12/16 Subjective:: Patient continues to have body aches. Patient continues to denies any specific chest discomfort. He had electrocardiogram this morning which is basically unchanged from yesterday. Did not show any acute ST-T wave changes. Patient does however have nonprogression of R-wave and left axis deviation, left anterior hemiblock. Physical Exam Vital Signs: Temp Pulse Resp BP Pulse Ox 100.1 F 101 H 22 H 130/79 H 95 10/12/16 07:54 10/12/16 07:54 10/12/16 07:54 10/12/16 07:54 10/12/16 07:54 Intake & Output 10/11/16 10/12/16 10/13/16 06:59 06:59 06:59 Intake Total 2750 Output Total 2150 Balance 600 Exam: GENERAL: well-nourished and in no acute distress. Alert and oriented x3 HEAD: Atraumatic, normocephalic. Craniotomy scar noted. EYES: Pupils equal round and reactive to light, extraocular movements intact, sclera anicteric, conjunctiva are normal. ENT: TMs normal, nares patent, oropharynx clear without exudates. Moist mucous membranes. No oral ulcerations or bleeding gums noted NECK: supple without lymphadenopathy. Trachea is central. No cervical or axillary lymphadenopathy noted. Carotids are 2+, JVD WNL LUNGS: Respiration seems nonlabored, no significant accessory muscle action noted. Breath sounds clear to auscultation bilaterally and equal noted. No wheezes rales or rhonchi noted. No significant dullness noted on percussion. CHEST: Palpation of the chest wall shows no significant chest wall tenderness. No other significant abnormalities noted. 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 ABDOMEN: Soft, no significant tenderness appreciated, normoactive bowel sounds. No guarding, no rebound. No rigidity noted . No masses appreciated. EXTREMITIES: Pedal pulses are 1-2+, no calf tenderness noted. No clubbing or cyanosis.trace to 1+ pedal edema noted NEUROLOGICAL: Focused neurological exam showed no significant neurologic deficit. Normal speech, no focal weakness appreciated. PSYCH: Normal mood, normal affect. Judgment and insight within normal limits. SKIN: No significant ecchymosis, rash, ulcerations or signs of pruritus noted. Patient noted to have somewhat tight skin which is a little bit shiny. MUSCULOSKELETAL EXAM: No significant joint swelling noted. Results Laboratory Results: 10/12/16 05:10 10/12/16 05:10 10/11/16 10/12/16 10/12/16 17:33 05:10 05:10 WBC 2.8 L RBC 4.15 L Hgb 13.3 L D Hct 38.5 MCV 93 MCH 32.0 MCHC 34.5 RDW 13.5 Plt Count 127 L Seg Neutrophils % Not Reportable Lymphocytes % Not Reportable Monocytes % Not Reportable Eosinophils % Not Reportable Basophils % Not Reportable Absolute Neutrophils Not Reportable Absolute Lymphocytes Not Reportable Absolute Monocytes Not Reportable Absolute Eosinophils Not Reportable Absolute Basophils Not Reportable Carbonic Acid 0.78 L HCO3/H2CO3 Ratio 23:1 ABG pH 7.47 H ABG pCO2 26.0 L ABG pO2 82.0 ABG HCO3 18.5 L ABG O2 Saturation 96.8 ABG Base Excess -3.5 FiO2 21% Sodium 139.6 Potassium 4.0 Chloride 106 Carbon Dioxide 23 Anion Gap 11 BUN 10 Creatinine 0.79 Est GFR ( Amer) > 60 Est GFR (Non-Af Amer) > 60 Glucose 134 H Calcium 8.3 L 10/11/16 10/12/16 22:22 05:10 Troponin I 0.044 0.615 Impressions: Head CT 10/10/16 18:48 IMPRESSION: The previously described postsurgical changes in sinus changes appears stable. No acute changes are identified. Other findings as noted above Chest/Abdomen CTA 10/10/16 20:10 IMPRESSION: Somewhat limited study as noted above. No evidence for pulmonary embolic disease. No acute consolidations or pleural effusions are identified. Other findings as noted above Chest X-Ray 10/11/16 00:00 IMPRESSION: NO SIGNIFICANT RADIOGRAPHIC FINDING IN THE CHEST. Facial Bones CT 10/11/16 00:00 IMPRESSION: EXTENSIVE SINUS DISEASE AND SURGICAL CHANGES. RELATIVELY STABLE APPEARANCE COMPARED TO THE PRIOR STUDY. NO SIGNIFICANT CHANGE. Guidance Fluoroscopy 10/11/16 00:00 IMPRESSION: LUMBAR PUNCTURE UNDER FLUOROSCOPY. NO IMMEDIATE COMPLICATION. Lumbar Puncture 10/11/16 00:00 IMPRESSION: LUMBAR PUNCTURE UNDER FLUOROSCOPY. NO IMMEDIATE COMPLICATION. Assessment & Plan - Diagnosis (1) Fever Qualifiers: Fever type: unspecified Qualified Code(s): R50.9 - Fever, unspecified Is this a current diagnosis for this admission?: Yes (2) HTN (hypertension) Is this a current diagnosis for this admission?: Yes (3) Elevated troponin I level Is this a current diagnosis for this admission?: Yes (4) Elevated LFTs Is this a current diagnosis for this admission?: Yes - Notes Notes: Patient continues to have low-grade fever and generalized body aches. His troponins levels been fluctuating. EKG is unchanged. He remains free of any chest pain. Have ordered a stat 2-D echo to look for any wall motion abnormalities. I did review patient's CTA which shows enlarged right ventricle and no coronary calcification. Have ordered liver function tests again. I believe the troponin I elevation could be a false positive test. Have added total CK and CK-MB to troponin I. At this point continue to observe and treat patient clinically. May consider obtaining antinuclear antibody, ESR, heterophile antibody etc. Will discuss with Dr. Hunt. Next Addendum: Patient labs reviewed. Troponin I now trending down. CRP and ESR elevated. Patient was also noted to have intermittent fever. 2-D echo results reviewed. It was technically difficult but LVEF is noted to be relatively well preserved. No significant valvular regurgitation was noted. BNP came back within normal limits. - Time Time with patient: Greater than 35 minutes - CODE STATUS was discussed, patient remains full code. Surrogate decision-maker unchanged. Multiple medical problems were addressed.More than 50% of the time spent coordinating care, discussing management plans with involved caregivers. Management plans discussed with involved personnels. Medical decision making was of high complexity, patient's has multiple severe comorbidities. Medications reviewed and adjusted accordingly: Yes
[2016-10-12 12:17] LABS: PROTHROMBIN TIME 14.1 SEC (11.4-15.4)
[2016-10-12 12:18] LABS: PARTIAL THROMBOPLASTIN TIME 38.2 SEC (23.5-35.8)
[2016-10-12 12:43] LABS: CREATINE KINASE MB 1.7 ng/mL (<4.55); TROPONIN I 0.578 ng/mL
--- NOTE | 2016-10-12 13:01 | XCELERA REPORT ---
[address] [id number] Transthoracic Echocardiogram Report Name: YUNI GARCIA Age: 61 yrs Gender: Male : 1955 Patient Status: Inpatient Patient Location: [id number]\318\[id number] Study Date: 10/12/2016 11:23 AM Height: 64 in Weight: 180 lb BSA: 1.9 m2 Procedure: A complete two-dimensional transthoracic echocardiogram was performed (2D, M-mode, spectral and color flow Doppler). The study was technically difficult with many images being suboptimal in quality. Reason For Study: NSTEMI Ordering Physician: FARRAH PONCE Performed By: Elizabeth Wellington Interpretation Summary The study was technically difficult with many images being suboptimal in quality. The left ventricular ejection fraction is normal. Doppler measurements suggest pseudonormalized left ventricular relaxation, which is associated with grade II/IV or mild to moderate diastolic dysfunction Wall motion cannot be accurately commented on, but no definite regional wall motion abnormalities noted. There is mild concentric left ventricular hypertrophy. The left ventricle is grossly normal size. The right ventricle is mildly dilated. The right ventricular systolic function is normal. The left atrial size is normal. The right atrium is mildly dilated. There is a trace to mild amount of mitral regurgitation There is no mitral valve stenosis. No aortic regurgitation is present. There is no aortic valve stenosis There is a trace or physiologic amount of tricuspid regurgitation Tricuspid regurgitation jet envelope not well defined to measure RV systolic pressure accurately. The aortic root is not well visualized but is probably normal size. The inferior vena cava appeared normal and decreased > 50% with respiration (RAP 5-10 mmHg) There is no pericardial effusion. MMode/2D Measurements \T\ Calculations RVDd: 2.8 cm LVIDd: 4.3 cm FS: 20.8 % Ao root diam: 2.5 cm IVSd: 1.1 cm LVIDs: 3.4 cm EDV(Teich): 83.4 ml LVPWd: 1.1 cm ESV(Teich): 47.9 ml Ao root area: 4.8 cm2 EF(Teich): 42.6 % LA dimension: 3.0 cm Doppler Measurements \T\ Calculations MV E max dorian: MV P1/2t max dorian: Ao V2 max: LV V1 max P.8 cm/sec 54.8 cm/sec 161.8 cm/sec 5.4 mmHg MV A max dorian: MV P1/2t: 61.5 msec Ao max PG: LV V1 max: 74.0 cm/sec 10.5 mmHg 116.0 cm/sec MV E/A: 0.74 MVA(P1/2t): 3.6 cm2 MV dec slope: 261.0 cm/sec2 PA V2 max: TR max dorian: 116.0 cm/sec 252.5 cm/sec PA max PG: TR max P.5 mmHg 5.4 mmHg Left Ventricle The left ventricle is grossly normal size. There is mild concentric left ventricular hypertrophy. The left ventricular ejection fraction is normal. Doppler measurements suggest pseudonormalized left ventricular relaxation, which is associated with grade II/IV or mild to moderate diastolic dysfunction. Wall motion cannot be accurately commented on, but no definite regional wall motion abnormalities noted. Right Ventricle The right ventricle is mildly dilated. There is normal right ventricular wall thickness. The right ventricular systolic function is normal. Atria The right atrium is mildly dilated. The left atrial size is normal. Interarterial septum not well visualized and not well dopplered. Cannot comment on ASD/PFO presence. Mitral Valve The mitral valve leaflets are sclerotic and show some degree of functional abnormality. There is no mitral valve stenosis. There is a trace to mild amount of mitral regurgitation. Aortic Valve The aortic valve is not well visualized secondary to technical limitations. There is no aortic valve stenosis. No aortic regurgitation is present. Tricuspid Valve The tricuspid valve is not well visualized, but is grossly normal. There is no tricuspid stenosis. There is a trace or physiologic amount of tricuspid regurgitation. Tricuspid regurgitation jet envelope not well defined to measure RV systolic pressure accurately. Pulmonic Valve The pulmonic valve is not well visualized. Great Vessels The aortic root is not well visualized but is probably normal size. The inferior vena cava appeared normal and decreased > 50% with respiration (RAP 5-10 mmHg). Effusions There is no pericardial effusion. : FARRAH PONCE > Farrah Ponce
[2016-10-12] MEDS: METRONIDAZOLE 500 MG/NS RTU 100 ML IV SCH ×2 (17:22→22:42)
--- NOTE | 2016-10-12 19:45 | PDOC PROGRESS REPORT ---
Subjective Progress Note for:: 10/12/16 Subjective:: Patient complains of headache frontal. He complains of generalized joint pain and pain all over. He feels and general fatigue. Patient denies chest pain, shortness of breath, abdominal pain, nausea, vomiting, chills, diarrhea, constipation. Physical Exam Vital Signs: Temp Pulse Resp BP Pulse Ox 99.6 F 95 24 H 114/69 96 10/12/16 06:13 10/12/16 06:41 10/12/16 06:13 10/12/16 06:13 10/12/16 06:13 Intake & Output 10/11/16 10/12/16 10/13/16 06:59 06:59 06:59 Intake Total 2750 Output Total 2150 Balance 600 Exam: General: Awake alert and oriented x3, no acute respiratory distress HEENT: Large craniotomy scar, PERRL, oropharynx is moist, pink, no scleral icterus, no conjunctival injection Neck: No JVD, trachea midline Chest: Clear to auscultation bilaterally, no wheezes rhonchi or rales CV: Regular rate and rhythm, normal S1 and S2, no murmur, rub, or gallop Abdomen: Soft, nontender to palpation, nondistended, active bowel sounds; no rebound, rigidity, or guarding Extremities: No cyanosis, clubbing or edema Neuro: Cranial nerves II through XII are grossly intact without focal deficits Psych: Normal mood and affect Results Laboratory Results: 10/11/16 17:33 Carbonic Acid 0.78 L HCO3/H2CO3 Ratio 23:1 ABG pH 7.47 H ABG pCO2 26.0 L ABG pO2 82.0 ABG HCO3 18.5 L ABG O2 Saturation 96.8 ABG Base Excess -3.5 FiO2 21% 10/11/16 10/12/16 22:22 05:10 Troponin I 0.044 0.615 Impressions: Head CT 10/10/16 18:48 IMPRESSION: The previously described postsurgical changes in sinus changes appears stable. No acute changes are identified. Other findings as noted above Chest/Abdomen CTA 10/10/16 20:10 IMPRESSION: Somewhat limited study as noted above. No evidence for pulmonary embolic disease. No acute consolidations or pleural effusions are identified. Other findings as noted above Chest X-Ray 10/11/16 00:00 IMPRESSION: NO SIGNIFICANT RADIOGRAPHIC FINDING IN THE CHEST. Facial Bones CT 10/11/16 00:00 IMPRESSION: EXTENSIVE SINUS DISEASE AND SURGICAL CHANGES. RELATIVELY STABLE APPEARANCE COMPARED TO THE PRIOR STUDY. NO SIGNIFICANT CHANGE. Guidance Fluoroscopy 10/11/16 00:00 IMPRESSION: LUMBAR PUNCTURE UNDER FLUOROSCOPY. NO IMMEDIATE COMPLICATION. Lumbar Puncture 10/11/16 00:00 IMPRESSION: LUMBAR PUNCTURE UNDER FLUOROSCOPY. NO IMMEDIATE COMPLICATION. Assessment & Plan - Diagnosis (1) Thrombocytopenia Is this a current diagnosis for this admission?: YesPlan: We'll check rickettsial diseases. (2) Elevated LFTs Is this a current diagnosis for this admission?: YesPlan: Have placed orders for rickettsial as well as hepatitis antibodies. (3) Elevated troponin I level Is this a current diagnosis for this admission?: YesPlan: Have consulted cardiology. Have concern for underlying rheumatologic disease. Have sent HEIKE, scleroderma antibodies. Also concern for amyloid pending echo. (4) Fever Qualifiers: Fever type: unspecified Qualified Code(s): R50.9 - Fever, unspecified Is this a current diagnosis for this admission?: YesPlan: At this time, have discussed case with Dr. Parker of [facility]. At this time I plan to hold antibiotics and resume if patient developed fever at which time we will reculture. (5) Hypotension Qualifiers: Hypotension type: unspecified hypotension type Qualified Code(s): I95.9 - Hypotension, unspecified Is this a current diagnosis for this admission?: YesPlan: Resolved continue IV fluids. (6) Chronic sinusitis Qualifiers: Sinusitis location: unspecified location Qualified Code(s): J32.9 - Chronic sinusitis, unspecified Is this a current diagnosis for this admission?: YesPlan: Chronic pansinusitis. Patient may need aspiration of this by ENT. (7) Diabetes mellitus type 1 Qualifiers: Diabetes mellitus complication status: without complication Qualified Code(s): E10.9 - Type 1 diabetes mellitus without complications Is this a current diagnosis for this admission?: YesPlan: Continue sliding scale in addition to his normal home insulin. (8) HTN (hypertension) Is this a current diagnosis for this admission?: Yes (9) History of craniotomy Is this a current diagnosis for this admission?: Yes - Time Time Spent with patient: 35 or more minutes Medications reviewed and adjusted accordingly: Yes
[2016-10-12] MEDS: AMITRIPTYLINE HCL 50 MG TABLET PO SCH (22:41)
[2016-10-12] MEDS: OXYCODONE HCL IR 5 MG TABLET PO PRN (22:41)
[2016-10-13 05:36] LABS: HEMATOCRIT 37.4 % (37.9-51.0); HEMOGLOBIN 12.8 g/dL (13.5-17.0); MEAN CORPUSCULAR HEMOGLOBIN 31.9 pg (27.0-33.4); MEAN CORPUSCULAR HGB CONC 34.1 g/dL (32.0-36.0); MEAN CORPUSCULAR VOLUME 93 fl (80-97); RED BLOOD COUNT 4.01 10^6/uL (4.35-5.55); RED CELL DISTRIBUTION WIDTH 13.1 % (11.5-14.0)
[2016-10-13 05:52] LABS: ALANINE AMINOTRANSFERASE 109 U/L (21-72); ALBUMIN 2.8 g/dL (3.5-5.0); ALKALINE PHOSPHATASE 87 U/L (38-126); ANION GAP 10 (5-19); ASPARTATE AMINO TRANSFERASE 125 U/L (17-59); BILIRUBIN,DIRECT 0.5 mg/dL (0.0-0.4); BILIRUBIN,TOTAL 0.7 mg/dL (0.2-1.3); BLOOD UREA NITROGEN 7 mg/dL (7-20); CALCIUM 8.2 mg/dL (8.4-10.2); CARBON DIOXIDE 22 mmol/L (22-30); CHLORIDE 107 mmol/L (98-107); CREATININE RESULT 0.72 mg/dL (0.52-1.25); GLUCOSE 105 mg/dL (75-110); MAGNESIUM 1.9 mg/dL (1.6-2.3); PHOSPHORUS 2.8 mg/dL (2.5-4.5); POTASSIUM 3.6 mmol/L (3.6-5.0); SODIUM 139.4 mmol/L (137-145); TOTAL PROTEIN 6.4 g/dL (6.3-8.2)
[2016-10-13 05:59] LABS: PREALBUMIN 4.1 mg/dL (17.6-36.0)
[2016-10-13 06:03] LABS: BAND NEUTROPHILS % (MANUAL) 2 % (3-5); BASOPHILS % (MANUAL) 0 % (0-2); EOSINOPHILS % (MANUAL) 0 % (0-6); LYMPHOCYTES % (MANUAL) 37 % (13-45); TOTAL CELLS COUNTED 100
[2016-10-13 06:04] LABS: CREATINE KINASE MB 1.17 ng/mL (<4.55); RBC MORPHOLOGY COMMENT NORMO-CYTIC/CHROMIC
[2016-10-13 06:13] LABS: TROPONIN I 0.136 ng/mL
[2016-10-13] MEDS: METRONIDAZOLE 500 MG/NS RTU 100 ML IV SCH ×4 (06:15→23:40)
[2016-10-13 07:49] LABS: APPEARANCE,URINE CLEAR; BILIRUBIN,URINE NEGATIVE (NEGATIVE); GLUCOSE, URINE NEGATIVE (NEGATIVE); KETONES,URINE TRACE mg/dL (NEGATIVE); LEUKOCYTE ESTERASE,URINE NEGATIVE (NEGATIVE); NITRITE,URINE NEGATIVE (NEGATIVE); PROTEIN,URINE NEGATIVE (NEGATIVE); URINE SPECIFIC GRAVITY 1.006; UROBILINOGEN,URINE NEGATIVE mg/dL (<2.0)
--- NOTE | 2016-10-13 08:12 | EKG REPORT ---
SEVERITY:- BORDERLINE ECG - SINUS RHYTHM PROBABLE LEFT ATRIAL ABNORMALITY BORDERLINE LEFT AXIS DEVIATION : Confirmed by: Jesus Waters MD 13-Oct-2016 08:11:33
[2016-10-13] MEDS ORDERED: POTASSIUM CHLORIDE 10 MEQ TABLET.SA PO ONE (08:30)
[2016-10-13] MEDS: LISINOPRIL 10 MG TABLET PO SCH (09:14)
[2016-10-13] MEDS: DOCUSATE SODIUM 100 MG CAPSULE PO SCH ×2 (09:14→17:21)
[2016-10-13] MEDS: INSULIN GLARGINE,HUM.REC.ANLOG 300 UNIT/3 ML INSULN.PEN SUBCUT SCH ×2 (09:15→22:09)
[2016-10-13] MEDS: LEVOFLOXACIN 750 MG/D5W RTU 150 ML IV SCH (09:16)
[2016-10-13 11:40] LABS: JO-1 ANTIBODY (ANACOMP) <0.2 AI (0.0-0.9)
--- NOTE | 2016-10-13 12:05 | PDOC PROGRESS REPORT ---
Subjective Progress Note for:: 10/13/16 Subjective:: Patient continues to have body aches. Patient continues to denies any specific chest discomfort. He had electrocardiogram this morning which is basically unchanged from yesterday and is negative for any acute ST-T wave changes. Patient is feeling somewhat better but still has headaches. Patient's troponin I is now trending down. 2-D echo results shows normal LVEF. No evidence of cardiac amyloid noted based on echo appearance of myocardium. Physical Exam Vital Signs: Temp Pulse Resp BP Pulse Ox 98.7 F 92 20 123/75 97 10/13/16 11:30 10/13/16 11:30 10/13/16 11:30 10/13/16 11:30 10/13/16 11:30 Intake & Output 10/12/16 10/13/16 10/14/16 06:59 06:59 06:59 Intake Total 2750 3935 200 Output Total 2150 1250 1450 Balance 600 2685 -1250 Exam: GENERAL: well-nourished and in no acute distress. Alert and oriented x3 HEAD: Atraumatic, normocephalic. Craniotomy scars noted. EYES: Pupils equal round and reactive to light, extraocular movements intact, sclera anicteric, conjunctiva are normal. ENT: TMs normal, nares patent, oropharynx clear without exudates. Moist mucous membranes. No oral ulcerations or bleeding gums noted NECK: supple without lymphadenopathy. Trachea is central. No cervical or axillary lymphadenopathy noted. Carotids are 2+, JVD WNL LUNGS: Respiration seems nonlabored, no significant accessory muscle action noted. Breath sounds clear to auscultation bilaterally and equal noted. No wheezes rales or rhonchi noted. No significant dullness noted on percussion. CHEST: Palpation of the chest wall shows no significant chest wall tenderness. No other significant abnormalities noted. 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 ABDOMEN: Soft, no significant tenderness appreciated, normoactive bowel sounds. No guarding, no rebound. No rigidity noted . No masses appreciated. EXTREMITIES: Pedal pulses are 1-2+, no calf tenderness noted. No clubbing or cyanosis.trace pedal edema noted NEUROLOGICAL: Focused neurological exam showed no significant neurologic deficit. Normal speech, no focal weakness appreciated. PSYCH: Normal mood, normal affect. Judgment and insight within normal limits. SKIN: No significant ecchymosis, rash, ulcerations or signs of pruritus noted. MUSCULOSKELETAL EXAM: No significant joint swelling noted. Results Laboratory Results: 10/13/16 05:10 10/13/16 05:10 10/12/16 10/12/16 10/12/16 12:02 12:02 12:02 WBC RBC Hgb Hct MCV MCH MCHC RDW Plt Count Seg Neutrophils % Lymphocytes % Monocytes % Eosinophils % Basophils % Absolute Neutrophils Absolute Lymphocytes Absolute Monocytes Absolute Eosinophils Absolute Basophils Retic Count (auto) 1.23 Absolute Retic 0.055 Sodium Potassium Chloride Carbon Dioxide Anion Gap BUN Creatinine Est GFR ( Amer) Est GFR (Non-Af Amer) Glucose Calcium Phosphorus Magnesium Iron 32.8 L TIBC 287 % Saturation 11 Ferritin 334.00 Total Bilirubin AST ALT Alkaline Phosphatase C-Reactive Protein 46.2 H Total Protein Albumin Prealbumin Vitamin B12 590.0 Folate 12.30 Urine Color Urine Appearance Urine pH Ur Specific [place] Urine Protein Urine Glucose (UA) Urine Ketones Urine Blood Urine Nitrite Ur Leukocyte Esterase Urine WBC (Auto) Urine RBC (Auto) Stool Occult Blood 10/12/16 10/13/16 10/13/16 20:00 05:10 05:10 WBC 3.0 L RBC 4.01 L Hgb 12.8 L Hct 37.4 L MCV 93 MCH 31.9 MCHC 34.1 RDW 13.1 Plt Count 138 L Seg Neutrophils % Not Reportable Lymphocytes % Not Reportable Monocytes % Not Reportable Eosinophils % Not Reportable Basophils % Not Reportable Absolute Neutrophils Not Reportable Absolute Lymphocytes Not Reportable Absolute Monocytes Not Reportable Absolute Eosinophils Not Reportable Absolute Basophils Not Reportable Retic Count (auto) Absolute Retic Sodium 139.4 Potassium 3.6 Chloride 107 Carbon Dioxide 22 Anion Gap 10 BUN 7 Creatinine 0.72 Est GFR ( Amer) > 60 Est GFR (Non-Af Amer) > 60 Glucose 105 Calcium 8.2 L Phosphorus 2.8 Magnesium 1.9 Iron TIBC % Saturation Ferritin Total Bilirubin 0.7 AST 125 H ALT 109 H Alkaline Phosphatase 87 C-Reactive Protein Total Protein 6.4 Albumin 2.8 L Prealbumin 4.1 L Vitamin B12 Folate Urine Color Cancelled Urine Appearance Cancelled Urine pH Cancelled Ur Specific [place] Cancelled Urine Protein Cancelled Urine Glucose (UA) Cancelled Urine Ketones Cancelled Urine Blood Cancelled Urine Nitrite Cancelled Ur Leukocyte Esterase Cancelled Urine WBC (Auto) Cancelled Urine RBC (Auto) Cancelled Stool Occult Blood 10/13/16 10/13/16 07:08 07:40 WBC RBC Hgb Hct MCV MCH MCHC RDW Plt Count Seg Neutrophils % Lymphocytes % Monocytes % Eosinophils % Basophils % Absolute Neutrophils Absolute Lymphocytes Absolute Monocytes Absolute Eosinophils Absolute Basophils Retic Count (auto) Absolute Retic Sodium Potassium Chloride Carbon Dioxide Anion Gap BUN Creatinine Est GFR ( Amer) Est GFR (Non-Af Amer) Glucose Calcium Phosphorus Magnesium Iron TIBC % Saturation Ferritin Total Bilirubin AST ALT Alkaline Phosphatase C-Reactive Protein Total Protein Albumin Prealbumin Vitamin B12 Folate Urine Color YELLOW Urine Appearance CLEAR Urine pH 6.0 Ur Specific [place] 1.006 Urine Protein NEGATIVE Urine Glucose (UA) NEGATIVE Urine Ketones TRACE H Urine Blood NEGATIVE Urine Nitrite NEGATIVE Ur Leukocyte Esterase NEGATIVE Urine WBC (Auto) 0 Urine RBC (Auto) 1 Stool Occult Blood NEGATIVE 10/11/16 10/12/16 10/12/16 22:22 05:10 12:02 Creatine Kinase CK-MB (CK-2) 1.70 Troponin I 0.044 0.615 0.578 NT-Pro-B Natriuret Pep 563 10/12/16 10/12/16 10/12/16 12:02 17:15 20:55 Creatine Kinase 242 H 244 H CK-MB (CK-2) Troponin I 0.288 NT-Pro-B Natriuret Pep 10/12/16 10/13/16 23:06 05:10 Creatine Kinase CK-MB (CK-2) 1.17 Troponin I 0.213 0.136 NT-Pro-B Natriuret Pep Impressions: Head CT 10/10/16 18:48 IMPRESSION: The previously described postsurgical changes in sinus changes appears stable. No acute changes are identified. Other findings as noted above Chest/Abdomen CTA 10/10/16 20:10 IMPRESSION: Somewhat limited study as noted above. No evidence for pulmonary embolic disease. No acute consolidations or pleural effusions are identified. Other findings as noted above Facial Bones CT 10/11/16 00:00 IMPRESSION: EXTENSIVE SINUS DISEASE AND SURGICAL CHANGES. RELATIVELY STABLE APPEARANCE COMPARED TO THE PRIOR STUDY. NO SIGNIFICANT CHANGE. Guidance Fluoroscopy 10/11/16 00:00 IMPRESSION: LUMBAR PUNCTURE UNDER FLUOROSCOPY. NO IMMEDIATE COMPLICATION. Lumbar Puncture 10/11/16 00:00 IMPRESSION: LUMBAR PUNCTURE UNDER FLUOROSCOPY. NO IMMEDIATE COMPLICATION. Chest X-Ray 10/12/16 00:00 IMPRESSION: NO SIGNIFICANT RADIOGRAPHIC FINDING IN THE CHEST. Assessment & Plan - Diagnosis (1) Fever Qualifiers: Fever type: unspecified Qualified Code(s): R50.9 - Fever, unspecified Is this a current diagnosis for this admission?: Yes (2) HTN (hypertension) Is this a current diagnosis for this admission?: Yes (3) Elevated troponin I level Is this a current diagnosis for this admission?: Yes (4) Elevated LFTs Is this a current diagnosis for this admission?: Yes - Notes Notes: Elevated troponin I are now trending down. Therefore feel that troponin I elevation was true elevation but secondary to systemic inflammatory response syndrome rather than a false elevation. However the elevation is related to fever, systemic inflammatory response syndrome, rather than acute coronary syndrome. 2-D echo although technically difficult did not show any significant wall motion abnormalities. Also CTA chest did not show any coronary calcification. Patient would benefit from a stress test but I believe this can be arranged as an outpatient once patient infection is under control. Hypertension: This is under satisfactory control. Blood pressure goal 135/85 in this patient. Abnormal liver function test: It seems patient now has hepatitis C antibody positive. Febrile illness: Seems most likely related to sinusitis. Hospitalist has been in touch with ID and antibiotics are being continued and adjusted as needed. - Time Time with patient: 15-25 minutes - CODE STATUS was discussed, patient remains full code. Surrogate decision-maker unchanged. Multiple medical problems were addressed.More than 50% of the time spent coordinating care, discussing management plans with involved caregivers. Management plans discussed with involved personnels. Medical decision making was of moderate to high complexity , patient's has multiple severe comorbidities. Medications reviewed and adjusted accordingly: Yes
[2016-10-13] MEDS ORDERED: FUROSEMIDE 20 MG TABLET PO ONE (13:45)
[2016-10-13] MEDS: OXYCODONE HCL IR 5 MG TABLET PO PRN (17:50)
--- NOTE | 2016-10-13 18:39 | PDOC PROGRESS REPORT ---
Subjective Progress Note for:: 10/13/16 Subjective:: Patient complains of headache frontal. He complains of generalized joint pain and pain all over. Patient complains of leg weakness. He does admit to some slight abdominal distention. Patient denies chest pain, shortness of breath, abdominal pain, nausea, vomiting, chills, diarrhea, constipation. Physical Exam Vital Signs: Temp Pulse Resp BP Pulse Ox 98.7 F 93 17 123/75 97 10/13/16 11:30 10/13/16 12:56 10/13/16 12:56 10/13/16 11:30 10/13/16 11:30 Intake & Output 10/12/16 10/13/16 10/14/16 06:59 06:59 06:59 Intake Total 2750 3935 200 Output Total 2150 1250 1450 Balance 600 2685 -1250 Exam: General: Awake alert and oriented x3, mild respiratory distress, tachypnea HEENT: Large craniotomy scar, PERRL, oropharynx is moist, pink, no scleral icterus, no conjunctival injection Neck: No JVD, trachea midline Chest: Diminished bilateral bases CV: Regular rate and rhythm, normal S1 and S2, no murmur, rub, or gallop Abdomen: Soft, nontender to palpation, mildly, active bowel sounds; no rebound, rigidity, or guarding Extremities: No cyanosis, clubbing; 1+edema Neuro: Cranial nerves II through XII are grossly intact without focal deficits Psych: Flat mood and affect Results Laboratory Results: 10/13/16 05:10 10/13/16 05:10 10/12/16 10/12/16 10/12/16 12:02 12:02 20:00 WBC RBC Hgb Hct MCV MCH MCHC RDW Plt Count Seg Neutrophils % Lymphocytes % Monocytes % Eosinophils % Basophils % Absolute Neutrophils Absolute Lymphocytes Absolute Monocytes Absolute Eosinophils Absolute Basophils Retic Count (auto) 1.23 Absolute Retic 0.055 Sodium Potassium Chloride Carbon Dioxide Anion Gap BUN Creatinine Est GFR ( Amer) Est GFR (Non-Af Amer) Glucose Calcium Phosphorus Magnesium Iron 32.8 L TIBC 287 % Saturation 11 Ferritin 334.00 Total Bilirubin AST ALT Alkaline Phosphatase Total Protein Albumin Prealbumin Vitamin B12 590.0 Folate 12.30 Urine Color Cancelled Urine Appearance Cancelled Urine pH Cancelled Ur Specific [place] Cancelled Urine Protein Cancelled Urine Glucose (UA) Cancelled Urine Ketones Cancelled Urine Blood Cancelled Urine Nitrite Cancelled Ur Leukocyte Esterase Cancelled Urine WBC (Auto) Cancelled Urine RBC (Auto) Cancelled Stool Occult Blood 10/13/16 10/13/16 10/13/16 05:10 05:10 07:08 WBC 3.0 L RBC 4.01 L Hgb 12.8 L Hct 37.4 L MCV 93 MCH 31.9 MCHC 34.1 RDW 13.1 Plt Count 138 L Seg Neutrophils % Not Reportable Lymphocytes % Not Reportable Monocytes % Not Reportable Eosinophils % Not Reportable Basophils % Not Reportable Absolute Neutrophils Not Reportable Absolute Lymphocytes Not Reportable Absolute Monocytes Not Reportable Absolute Eosinophils Not Reportable Absolute Basophils Not Reportable Retic Count (auto) Absolute Retic Sodium 139.4 Potassium 3.6 Chloride 107 Carbon Dioxide 22 Anion Gap 10 BUN 7 Creatinine 0.72 Est GFR ( Amer) > 60 Est GFR (Non-Af Amer) > 60 Glucose 105 Calcium 8.2 L Phosphorus 2.8 Magnesium 1.9 Iron TIBC % Saturation Ferritin Total Bilirubin 0.7 AST 125 H ALT 109 H Alkaline Phosphatase 87 Total Protein 6.4 Albumin 2.8 L Prealbumin 4.1 L Vitamin B12 Folate Urine Color YELLOW Urine Appearance CLEAR Urine pH 6.0 Ur Specific [place] 1.006 Urine Protein NEGATIVE Urine Glucose (UA) NEGATIVE Urine Ketones TRACE H Urine Blood NEGATIVE Urine Nitrite NEGATIVE Ur Leukocyte Esterase NEGATIVE Urine WBC (Auto) 0 Urine RBC (Auto) 1 Stool Occult Blood 10/13/16 07:40 WBC RBC Hgb Hct MCV MCH MCHC RDW Plt Count Seg Neutrophils % Lymphocytes % Monocytes % Eosinophils % Basophils % Absolute Neutrophils Absolute Lymphocytes Absolute Monocytes Absolute Eosinophils Absolute Basophils Retic Count (auto) Absolute Retic Sodium Potassium Chloride Carbon Dioxide Anion Gap BUN Creatinine Est GFR ( Amer) Est GFR (Non-Af Amer) Glucose Calcium Phosphorus Magnesium Iron TIBC % Saturation Ferritin Total Bilirubin AST ALT Alkaline Phosphatase Total Protein Albumin Prealbumin Vitamin B12 Folate Urine Color Urine Appearance Urine pH Ur Specific [place] Urine Protein Urine Glucose (UA) Urine Ketones Urine Blood Urine Nitrite Ur Leukocyte Esterase Urine WBC (Auto) Urine RBC (Auto) Stool Occult Blood NEGATIVE 10/11/16 10/12/16 10/12/16 22:22 05:10 12:02 Creatine Kinase CK-MB (CK-2) 1.70 Troponin I 0.044 0.615 0.578 NT-Pro-B Natriuret Pep 563 10/12/16 10/12/16 10/12/16 12:02 17:15 20:55 Creatine Kinase 242 H 244 H CK-MB (CK-2) Troponin I 0.288 NT-Pro-B Natriuret Pep 10/12/16 10/13/16 23:06 05:10 Creatine Kinase CK-MB (CK-2) 1.17 Troponin I 0.213 0.136 NT-Pro-B Natriuret Pep Impressions: Head CT 10/10/16 18:48 IMPRESSION: The previously described postsurgical changes in sinus changes appears stable. No acute changes are identified. Other findings as noted above Chest/Abdomen CTA 10/10/16 20:10 IMPRESSION: Somewhat limited study as noted above. No evidence for pulmonary embolic disease. No acute consolidations or pleural effusions are identified. Other findings as noted above Facial Bones CT 10/11/16 00:00 IMPRESSION: EXTENSIVE SINUS DISEASE AND SURGICAL CHANGES. RELATIVELY STABLE APPEARANCE COMPARED TO THE PRIOR STUDY. NO SIGNIFICANT CHANGE. Guidance Fluoroscopy 10/11/16 00:00 IMPRESSION: LUMBAR PUNCTURE UNDER FLUOROSCOPY. NO IMMEDIATE COMPLICATION. Lumbar Puncture 10/11/16 00:00 IMPRESSION: LUMBAR PUNCTURE UNDER FLUOROSCOPY. NO IMMEDIATE COMPLICATION. Chest X-Ray 10/12/16 00:00 IMPRESSION: NO SIGNIFICANT RADIOGRAPHIC FINDING IN THE CHEST. Assessment & Plan - Diagnosis (1) Sepsis Qualifiers: Sepsis type: sepsis due to unspecified organism Qualified Code(s): A41.9 - Sepsis, unspecified organism Is this a current diagnosis for this admission?: YesPlan: Patient meets sepsis criteria with fever, leukopenia, and tachypnea. However, clear source is unavailable at this time. Suspect sinus infection. Currently on Levaquin and Flagyl. Concern for underlying rheumatologic disorder. (2) Hepatitis C antibody positive in blood Is this a current diagnosis for this admission?: YesPlan: We'll send a hepatitis C RNA PCR. Patient is unaware that he is positive for this. This may Patient's elevated LFTs. Patient also reports a history of alcoholism. (3) Thrombocytopenia Is this a current diagnosis for this admission?: Yes (4) Elevated troponin I level Is this a current diagnosis for this admission?: YesPlan: Have consulted cardiology. Have concern for underlying rheumatologic disease. Have sent HEIKE, scleroderma antibodies. Likely secondary to sepsis (5) Fever Qualifiers: Fever type: unspecified Qualified Code(s): R50.9 - Fever, unspecified Is this a current diagnosis for this admission?: YesPlan: At this time, have discussed case with Dr. Parker of [facility]. Patient has been recultured. All cultures are currently negative. (6) Chronic sinusitis Qualifiers: Sinusitis location: unspecified location Qualified Code(s): J32.9 - Chronic sinusitis, unspecified Is this a current diagnosis for this admission?: YesPlan: Chronic pansinusitis. Patient may need aspiration of this by ENT. (7) Diabetes mellitus type 1 Qualifiers: Diabetes mellitus complication status: without complication Qualified Code(s): E10.9 - Type 1 diabetes mellitus without complications Is this a current diagnosis for this admission?: YesPlan: Continue sliding scale in addition to his normal home insulin. (8) HTN (hypertension) Is this a current diagnosis for this admission?: Yes (9) History of craniotomy Is this a current diagnosis for this admission?: Yes - Time Time Spent with patient: 35 or more minutes Medications reviewed and adjusted accordingly: Yes Anticipated discharge: Other - Recommend assisted living
[2016-10-13] MEDS: AMITRIPTYLINE HCL 50 MG TABLET PO SCH (22:08)
[2016-10-13] MEDS: GABAPENTIN 300 MG CAPSULE PO SCH (22:08)
[2016-10-13 23:36] LABS: Q FEVER PHASE I AB Negative (Neg:<1:16); ROCKY MTN SPOTTED FEV IGG EIA Negative (Negative)
[2016-10-14] MEDS: METRONIDAZOLE 500 MG/NS RTU 100 ML IV SCH ×3 (05:30→17:47)
[2016-10-14 08:49] LABS: ABSOLUTE EOSINOPHILS # (AUTO) 0.1 10^3/uL (0.0-0.6); ABSOLUTE MONOCYTES (AUTO) 0.8 10^3/uL (0.1-1.4); ABSOLUTE NEUT (AUTO) 1.9 10^3/uL (1.7-8.2); BASOPHILS % (AUTO) 0.3 % (0-2); EOSINOPHILS % (AUTO) 1.2 % (0-6); HEMOGLOBIN 12.7 g/dL (13.5-17.0); HGB HCT DIFFERENCE 1.1; LYMPHOCYTES % (AUTO) 41.7 % (13-45); MEAN CORPUSCULAR HEMOGLOBIN 31.8 pg (27.0-33.4); MEAN CORPUSCULAR HGB CONC 34.4 g/dL (32.0-36.0); MEAN CORPUSCULAR VOLUME 92 fl (80-97); MONOCYTES % (AUTO) 16.2 % (3-13); RED BLOOD COUNT 4.01 10^6/uL (4.35-5.55); RED CELL DISTRIBUTION WIDTH 13.3 % (11.5-14.0); SEGMENTED NEUTROPHILS % (AUTO) 40.6 % (42-78); WHITE BLOOD COUNT 4.7 10^3/uL (4.0-10.5)
[2016-10-14 09:08] LABS: ANION GAP 11 (5-19); BLOOD UREA NITROGEN 7 mg/dL (7-20); CALCIUM 8.9 mg/dL (8.4-10.2); CARBON DIOXIDE 24 mmol/L (22-30); CHLORIDE 106 mmol/L (98-107); CREATININE RESULT 0.72 mg/dL (0.52-1.25); GLUCOSE 81 mg/dL (75-110); POTASSIUM 3.9 mmol/L (3.6-5.0); SODIUM 141.4 mmol/L (137-145)
[2016-10-14] MEDS: LISINOPRIL 10 MG TABLET PO SCH (09:28)
[2016-10-14] MEDS: INSULIN GLARGINE,HUM.REC.ANLOG 300 UNIT/3 ML INSULN.PEN SUBCUT SCH ×2 (09:28→21:41)
[2016-10-14] MEDS: LEVOFLOXACIN 750 MG/D5W RTU 150 ML IV SCH (09:29)
[2016-10-14] MEDS: DOCUSATE SODIUM 100 MG CAPSULE PO SCH ×2 (09:29→17:47)
[2016-10-14] MEDS ORDERED: IBUPROFEN 600 MG TABLET PO PRN (09:38)
--- NOTE | 2016-10-14 12:26 | PDOC PROGRESS REPORT ---
Subjective Progress Note for:: 10/14/16 Subjective:: Patient feels much better today. Patient denies any chest discomfort. Patient' s troponin I is now trending down. 2-D echo results shows normal LVEF. No evidence of cardiac amyloid noted based on echo appearance of myocardium. Patient claims to be feeling much improved. Physical Exam Vital Signs: Temp Pulse Resp BP Pulse Ox 97.6 F 103 H 16 133/85 H 98 10/14/16 11:17 10/14/16 11:17 10/14/16 11:17 10/14/16 11:17 10/14/16 11:17 Intake & Output 10/13/16 10/14/16 10/15/16 06:59 06:59 06:59 Intake Total 3935 1756 Output Total 1250 5475 Balance 5635 -8697 Exam: GENERAL: well-nourished and in no acute distress. Alert and oriented x3 HEAD: Atraumatic, normocephalic. Craniotomy scar noted. EYES: Pupils equal round and reactive to light, extraocular movements intact, sclera anicteric, conjunctiva are normal. ENT: TMs normal, nares patent, oropharynx clear without exudates. Moist mucous membranes. No oral ulcerations or bleeding gums noted NECK: supple without lymphadenopathy. Trachea is central. No cervical or axillary lymphadenopathy noted. Carotids are 2+, JVD WNL LUNGS: Respiration seems nonlabored, no significant accessory muscle action noted. Breath sounds clear to auscultation bilaterally and equal noted. No wheezes rales or rhonchi noted. No significant dullness noted on percussion. CHEST: Palpation of the chest wall shows no significant chest wall tenderness. No other significant abnormalities noted. 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 ABDOMEN: Soft, no significant tenderness appreciated, normoactive bowel sounds. No guarding, no rebound. No rigidity noted . No masses appreciated. EXTREMITIES: Pedal pulses are 1-2+, no calf tenderness noted. No clubbing or cyanosis.trace + pedal edema noted NEUROLOGICAL: Focused neurological exam showed no significant neurologic deficit. Normal speech, no focal weakness appreciated. PSYCH: Normal mood, normal affect. Judgment and insight within normal limits. SKIN: No significant ecchymosis, rash, ulcerations or signs of pruritus noted. MUSCULOSKELETAL EXAM: No significant joint swelling noted. Results Laboratory Results: 10/14/16 08:00 10/14/16 08:00 10/14/16 10/14/16 08:00 08:00 WBC 4.7 RBC 4.01 L Hgb 12.7 L Hct 37.0 L MCV 92 MCH 31.8 MCHC 34.4 RDW 13.3 Plt Count 171 Seg Neutrophils % 40.6 L Lymphocytes % 41.7 Monocytes % 16.2 H Eosinophils % 1.2 Basophils % 0.3 Absolute Neutrophils 1.9 Absolute Lymphocytes 2.0 Absolute Monocytes 0.8 Absolute Eosinophils 0.1 Absolute Basophils 0.0 Sodium 141.4 Potassium 3.9 Chloride 106 Carbon Dioxide 24 Anion Gap 11 BUN 7 Creatinine 0.72 Est GFR ( Amer) > 60 Est GFR (Non-Af Amer) > 60 Glucose 81 Calcium 8.9 10/11/16 10/12/16 10/12/16 22:22 05:10 12:02 Creatine Kinase CK-MB (CK-2) 1.70 Troponin I 0.044 0.615 0.578 NT-Pro-B Natriuret Pep 563 10/12/16 10/12/16 10/12/16 12:02 17:15 20:55 Creatine Kinase 242 H 244 H CK-MB (CK-2) Troponin I 0.288 NT-Pro-B Natriuret Pep 10/12/16 10/13/16 23:06 05:10 Creatine Kinase CK-MB (CK-2) 1.17 Troponin I 0.213 0.136 NT-Pro-B Natriuret Pep Impressions: Head CT 10/10/16 18:48 IMPRESSION: The previously described postsurgical changes in sinus changes appears stable. No acute changes are identified. Other findings as noted above Chest/Abdomen CTA 10/10/16 20:10 IMPRESSION: Somewhat limited study as noted above. No evidence for pulmonary embolic disease. No acute consolidations or pleural effusions are identified. Other findings as noted above Facial Bones CT 10/11/16 00:00 IMPRESSION: EXTENSIVE SINUS DISEASE AND SURGICAL CHANGES. RELATIVELY STABLE APPEARANCE COMPARED TO THE PRIOR STUDY. NO SIGNIFICANT CHANGE. Guidance Fluoroscopy 10/11/16 00:00 IMPRESSION: LUMBAR PUNCTURE UNDER FLUOROSCOPY. NO IMMEDIATE COMPLICATION. Lumbar Puncture 10/11/16 00:00 IMPRESSION: LUMBAR PUNCTURE UNDER FLUOROSCOPY. NO IMMEDIATE COMPLICATION. Chest X-Ray 10/12/16 00:00 IMPRESSION: NO SIGNIFICANT RADIOGRAPHIC FINDING IN THE CHEST. Assessment & Plan - Diagnosis (1) Fever Qualifiers: Fever type: unspecified Qualified Code(s): R50.9 - Fever, unspecified Is this a current diagnosis for this admission?: Yes (2) HTN (hypertension) Is this a current diagnosis for this admission?: Yes (3) Elevated troponin I level Is this a current diagnosis for this admission?: Yes (4) Elevated LFTs Is this a current diagnosis for this admission?: Yes - Notes Notes: Troponin I elevation: Elevated troponin I are now trending down. Therefore feel that troponin I elevation was secondary to systemic inflammatory response syndrome rather than a false elevation. Do not feel patient had acute coronary syndrome. 2-D echo did not show any significant wall motion abnormalities. Also CTA chest did not show any coronary calcification. Patient would benefit from a stress test but I believe this can be arranged as an outpatient once patient infection is under control. Hypertension: This is under satisfactory control. Blood pressure goal 135/85 in this patient. Abnormal liver function test: It seems patient now has hepatitis C antibody positive. Febrile illness: Seems most likely related to sinusitis. Patient has low-grade fever yesterday but so far temperatures been under normal range. Patient has been encouraged to ambulate. - Time Time with patient: 15-25 minutes - CODE STATUS was discussed, patient remains full code. Surrogate decision-maker unchanged. Multiple medical problems were addressed.More than 50% of the time spent coordinating care, discussing management plans with involved caregivers. Management plans discussed with involved personnels. Medical decision making was of moderate complexity.
[2016-10-14 13:32] LABS: Q FEVER PHASE II AB Negative (Neg:<1:16)
--- NOTE | 2016-10-14 15:15 | PDOC PROGRESS REPORT ---
Subjective Progress Note for:: 10/14/16 Subjective:: Patient reports his headache is improved. Reports he slept well last night. Patient denies chest pain, shortness of breath, abdominal pain, nausea, vomiting , chills, diarrhea, constipation. Physical Exam Vital Signs: Temp Pulse Resp BP Pulse Ox 97.6 F 87 16 133/85 H 98 10/14/16 11:17 10/14/16 14:00 10/14/16 11:17 10/14/16 11:17 10/14/16 11:17 Intake & Output 10/13/16 10/14/16 10/15/16 06:59 06:59 06:59 Intake Total 3935 8716 Output Total 1254 9990 Balance 3168 -6079 Exam: General: Awake alert and oriented x3, mild respiratory distress HEENT: Large craniotomy scar, PERRL, oropharynx is moist, pink, no scleral icterus, no conjunctival injection Neck: No JVD, trachea midline Chest: CTAB CV: Regular rate and rhythm, normal S1 and S2, no murmur, rub, or gallop Abdomen: Soft, nontender to palpation, mildly, active bowel sounds; no rebound, rigidity, or guarding Extremities: No cyanosis, clubbing; trace edema Neuro: Cranial nerves II through XII are grossly intact without focal deficits Psych: Flat mood and affect Results Laboratory Results: 10/14/16 08:00 10/14/16 08:00 10/14/16 10/14/16 08:00 08:00 WBC 4.7 RBC 4.01 L Hgb 12.7 L Hct 37.0 L MCV 92 MCH 31.8 MCHC 34.4 RDW 13.3 Plt Count 171 Seg Neutrophils % 40.6 L Lymphocytes % 41.7 Monocytes % 16.2 H Eosinophils % 1.2 Basophils % 0.3 Absolute Neutrophils 1.9 Absolute Lymphocytes 2.0 Absolute Monocytes 0.8 Absolute Eosinophils 0.1 Absolute Basophils 0.0 Sodium 141.4 Potassium 3.9 Chloride 106 Carbon Dioxide 24 Anion Gap 11 BUN 7 Creatinine 0.72 Est GFR ( Amer) > 60 Est GFR (Non-Af Amer) > 60 Glucose 81 Calcium 8.9 10/12/16 13:40 Nasophary (Mrs[facility] Only) MRSA Surveillance Culture - Final NO MRSA RECOVERED 10/11/16 10/12/16 10/12/16 22:22 05:10 12:02 Creatine Kinase CK-MB (CK-2) 1.70 Troponin I 0.044 0.615 0.578 NT-Pro-B Natriuret Pep 563 10/12/16 10/12/16 10/12/16 12:02 17:15 20:55 Creatine Kinase 242 H 244 H CK-MB (CK-2) Troponin I 0.288 NT-Pro-B Natriuret Pep 10/12/16 10/13/16 23:06 05:10 Creatine Kinase CK-MB (CK-2) 1.17 Troponin I 0.213 0.136 NT-Pro-B Natriuret Pep Impressions: Head CT 10/10/16 18:48 IMPRESSION: The previously described postsurgical changes in sinus changes appears stable. No acute changes are identified. Other findings as noted above Chest/Abdomen CTA 10/10/16 20:10 IMPRESSION: Somewhat limited study as noted above. No evidence for pulmonary embolic disease. No acute consolidations or pleural effusions are identified. Other findings as noted above Facial Bones CT 10/11/16 00:00 IMPRESSION: EXTENSIVE SINUS DISEASE AND SURGICAL CHANGES. RELATIVELY STABLE APPEARANCE COMPARED TO THE PRIOR STUDY. NO SIGNIFICANT CHANGE. Guidance Fluoroscopy 10/11/16 00:00 IMPRESSION: LUMBAR PUNCTURE UNDER FLUOROSCOPY. NO IMMEDIATE COMPLICATION. Lumbar Puncture 10/11/16 00:00 IMPRESSION: LUMBAR PUNCTURE UNDER FLUOROSCOPY. NO IMMEDIATE COMPLICATION. Chest X-Ray 10/12/16 00:00 IMPRESSION: NO SIGNIFICANT RADIOGRAPHIC FINDING IN THE CHEST. Assessment & Plan - Diagnosis (1) Sepsis Qualifiers: Sepsis type: sepsis due to unspecified organism Qualified Code(s): A41.9 - Sepsis, unspecified organism Is this a current diagnosis for this admission?: YesPlan: Patient meets severe sepsis criteria with fever, hypotension, leukopenia, and tachypnea. Suspect sinus infection. Currently on Levaquin and Flagyl. (2) Hepatitis C antibody positive in blood Is this a current diagnosis for this admission?: YesPlan: We'll send a hepatitis C RNA PCR. Patient is unaware that he is positive for this. Explains elevated LFTs. Patient also reports a history of alcoholism. (3) Thrombocytopenia Is this a current diagnosis for this admission?: YesPlan: Rickettsial diseases are negative. Likely secondary to sepsis (4) Elevated troponin I level Is this a current diagnosis for this admission?: YesPlan: Have consulted cardiology. Have concern for underlying rheumatologic disease. Have sent HEIKE, scleroderma antibodies. Likely secondary to sepsis (5) Chronic sinusitis Qualifiers: Sinusitis location: unspecified location Qualified Code(s): J32.9 - Chronic sinusitis, unspecified Is this a current diagnosis for this admission?: Yes (6) Diabetes mellitus type 1 Qualifiers: Diabetes mellitus complication status: without complication Qualified Code(s): E10.9 - Type 1 diabetes mellitus without complications Is this a current diagnosis for this admission?: YesPlan: Continue sliding scale in addition to his normal home insulin. (7) HTN (hypertension) Qualifiers: Hypertension type: essential hypertension Qualified Code(s): I10 - Essential (primary) hypertension Is this a current diagnosis for this admission?: YesPlan: Continue lisinopril with hold parameters - Time Time Spent with patient: 25-34 minutes Medications reviewed and adjusted accordingly: Yes Anticipated discharge: Home Within: within 48 hours
[2016-10-14] MEDS: OXYCODONE HCL IR 5 MG TABLET PO PRN (19:47)
[2016-10-14] MEDS: AMITRIPTYLINE HCL 50 MG TABLET PO SCH (21:33)
[2016-10-14] MEDS: GABAPENTIN 300 MG CAPSULE PO SCH (21:33)
[2016-10-15] MEDS: METRONIDAZOLE 500 MG/NS RTU 100 ML IV SCH ×4 (00:33→17:24)
[2016-10-15 08:45] LABS: ABSOLUTE EOSINOPHILS # (AUTO) 0.2 10^3/uL (0.0-0.6); ABSOLUTE MONOCYTES (AUTO) 0.6 10^3/uL (0.1-1.4); ABSOLUTE NEUT (AUTO) 1.7 10^3/uL (1.7-8.2); BASOPHILS % (AUTO) 0.9 % (0-2); EOSINOPHILS % (AUTO) 3.4 % (0-6); HEMATOCRIT 37.6 % (37.9-51.0); HEMOGLOBIN 13.3 g/dL (13.5-17.0); HGB HCT DIFFERENCE 2.3; LYMPHOCYTES % (AUTO) 45.3 % (13-45); MEAN CORPUSCULAR HEMOGLOBIN 32.3 pg (27.0-33.4); MEAN CORPUSCULAR HGB CONC 35.2 g/dL (32.0-36.0); MEAN CORPUSCULAR VOLUME 92 fl (80-97); MONOCYTES % (AUTO) 12.8 % (3-13); RED CELL DISTRIBUTION WIDTH 13.3 % (11.5-14.0); SEGMENTED NEUTROPHILS % (AUTO) 37.6 % (42-78); WHITE BLOOD COUNT 4.4 10^3/uL (4.0-10.5)
[2016-10-15] MEDS ORDERED: MECLIZINE HCL 25 MG TABLET PO PRN ×2 (08:58→21:08)
[2016-10-15 09:24] LABS: ANION GAP 11 (5-19); BLOOD UREA NITROGEN 10 mg/dL (7-20); CALCIUM 9.3 mg/dL (8.4-10.2); CARBON DIOXIDE 26 mmol/L (22-30); CHLORIDE 101 mmol/L (98-107); CREATININE RESULT 0.77 mg/dL (0.52-1.25); GLUCOSE 139 mg/dL (75-110); POTASSIUM 3.5 mmol/L (3.6-5.0); SODIUM 138.2 mmol/L (137-145)
[2016-10-15] MEDS: DOCUSATE SODIUM 100 MG CAPSULE PO SCH ×2 (09:49→17:21)
[2016-10-15] MEDS: LISINOPRIL 10 MG TABLET PO SCH (09:49)
[2016-10-15] MEDS: LEVOFLOXACIN 750 MG/D5W RTU 150 ML IV SCH (09:50)
[2016-10-15] MEDS: INSULIN GLARGINE,HUM.REC.ANLOG 300 UNIT/3 ML INSULN.PEN SUBCUT SCH ×2 (09:51→21:59)
[2016-10-15] MEDS ORDERED: FUROSEMIDE 20 MG TABLET PO ONE (10:00)
--- NOTE | 2016-10-15 12:11 | PDOC PROGRESS REPORT ---
Subjective Progress Note for:: 10/15/16 Subjective:: Patient reports his headache is improved. Reports he slept well last night. Patient reports dizziness which has been chronic since his craniotomy. Orthostatics are negative. Patient denies chest pain, shortness of breath, abdominal pain, nausea, vomiting , chills, diarrhea, constipation. Physical Exam Vital Signs: Temp Pulse Resp BP Pulse Ox 97.9 F 74 20 126/76 H 96 10/15/16 04:32 10/15/16 04:32 10/15/16 04:32 10/15/16 04:32 10/15/16 04:32 Intake & Output 10/14/16 10/15/16 10/16/16 06:59 06:59 06:59 Intake Total 1756 1779 Output Total 5467 Balance -3719 1779 Weight 87.4 kg Exam: General: Awake alert and oriented x3, no acute respiratory distress HEENT: Large craniotomy scar, PERRL, oropharynx is moist, pink, no scleral icterus, no conjunctival injection Neck: No JVD, trachea midline Chest: CTAB CV: Regular rate and rhythm, normal S1 and S2, no murmur, rub, or gallop Abdomen: Soft, nontender to palpation, mildly, active bowel sounds; no rebound, rigidity, or guarding Extremities: No cyanosis, clubbing; 2+ edema Neuro: Cranial nerves II through XII are grossly intact without focal deficits Psych: Flat mood and affect Results Laboratory Results: 10/14/16 08:00 10/14/16 08:00 10/12/16 10/14/16 10/14/16 12:02 08:00 08:00 WBC 4.7 RBC 4.01 L Hgb 12.7 L Hct 37.0 L MCV 92 MCH 31.8 MCHC 34.4 RDW 13.3 Plt Count 171 Seg Neutrophils % 40.6 L Lymphocytes % 41.7 Monocytes % 16.2 H Eosinophils % 1.2 Basophils % 0.3 Absolute Neutrophils 1.9 Absolute Lymphocytes 2.0 Absolute Monocytes 0.8 Absolute Eosinophils 0.1 Absolute Basophils 0.0 Sodium 141.4 Potassium 3.9 Chloride 106 Carbon Dioxide 24 Anion Gap 11 BUN 7 Creatinine 0.72 Est GFR ( Amer) > 60 Est GFR (Non-Af Amer) > 60 Glucose 81 Calcium 8.9 Transferrin 198 L 10/12/16 13:40 Nasophary (Mrsa Only) MRSA Surveillance Culture - Final NO MRSA RECOVERED 10/11/16 10/12/16 10/12/16 22:22 05:10 12:02 Creatine Kinase CK-MB (CK-2) 1.70 Troponin I 0.044 0.615 0.578 NT-Pro-B Natriuret Pep 563 10/12/16 10/12/16 10/12/16 12:02 17:15 20:55 Creatine Kinase 242 H 244 H CK-MB (CK-2) Troponin I 0.288 NT-Pro-B Natriuret Pep 10/12/16 10/13/16 23:06 05:10 Creatine Kinase CK-MB (CK-2) 1.17 Troponin I 0.213 0.136 NT-Pro-B Natriuret Pep Impressions: Head CT 10/10/16 18:48 IMPRESSION: The previously described postsurgical changes in sinus changes appears stable. No acute changes are identified. Other findings as noted above Chest/Abdomen CTA 10/10/16 20:10 IMPRESSION: Somewhat limited study as noted above. No evidence for pulmonary embolic disease. No acute consolidations or pleural effusions are identified. Other findings as noted above Facial Bones CT 10/11/16 00:00 IMPRESSION: EXTENSIVE SINUS DISEASE AND SURGICAL CHANGES. RELATIVELY STABLE APPEARANCE COMPARED TO THE PRIOR STUDY. NO SIGNIFICANT CHANGE. Guidance Fluoroscopy 10/11/16 00:00 IMPRESSION: LUMBAR PUNCTURE UNDER FLUOROSCOPY. NO IMMEDIATE COMPLICATION. Lumbar Puncture 10/11/16 00:00 IMPRESSION: LUMBAR PUNCTURE UNDER FLUOROSCOPY. NO IMMEDIATE COMPLICATION. Chest X-Ray 10/12/16 00:00 IMPRESSION: NO SIGNIFICANT RADIOGRAPHIC FINDING IN THE CHEST. Assessment & Plan - Diagnosis (1) Sepsis Qualifiers: Sepsis type: sepsis due to unspecified organism Qualified Code(s): A41.9 - Sepsis, unspecified organism Is this a current diagnosis for this admission?: YesPlan: Patient meets severe sepsis criteria with fever, hypotension, leukopenia, and tachypnea. Suspect sinus infection. Currently on Levaquin and Flagyl. Improving. (2) Hepatitis C antibody positive in blood Is this a current diagnosis for this admission?: YesPlan: We'll send a hepatitis C RNA PCR. Patient is unaware that he is positive for this. Explains elevated LFTs. Patient also reports a history of alcoholism. (3) Thrombocytopenia Is this a current diagnosis for this admission?: YesPlan: Rickettsial diseases are negative. Likely secondary to sepsis (4) Elevated troponin I level Is this a current diagnosis for this admission?: YesPlan: Have consulted cardiology. Have concern for underlying rheumatologic disease. Currently negative HEIKE, scleroderma antibodies. Likely secondary to sepsis (5) Chronic sinusitis Qualifiers: Sinusitis location: unspecified location Qualified Code(s): J32.9 - Chronic sinusitis, unspecified Is this a current diagnosis for this admission?: YesPlan: Chronic pansinusitis. Patient may need aspiration of this by ENT. He reports having a follow-up appointment within 2 weeks. (6) Diabetes mellitus type 1 Qualifiers: Diabetes mellitus complication status: without complication Qualified Code(s): E10.9 - Type 1 diabetes mellitus without complications Is this a current diagnosis for this admission?: YesPlan: Continue sliding scale in addition to his normal home insulin. 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 Will begin on meclizine. - Time Time Spent with patient: 25-34 minutes Anticipated discharge: Home with Homehealth Within: within 24 hours - Inpatient Certification Based on my medical assessment, after consideration of the patient's comorbidities, presenting symptoms, or acuity I expect that the services needed warrant INPATIENT care.: Yes I certify that my determination is in accordance with my understanding of Medicare's requirements for reasonable and necessary INPATIENT services [42 CFR 412.3e].: Yes Medical Necessity: Need For IV Fluids, Need For Continuous Telemetry Monitoring Post Hospital Care: D/C Mule Tender Documentation
--- NOTE | 2016-10-15 12:34 | PDOC PROGRESS REPORT ---
Subjective Progress Note for:: 10/15/16 Subjective:: Patient feels remarkably improved. He has ambulated. Patient's headaches have improved. Patient has had no fever or chills. Patient claims that he is expecting to be discharged tomorrow. Patient currently on IV antibiotics. Physical Exam Vital Signs: Temp Pulse Resp BP Pulse Ox 97.4 F 85 16 134/87 H 97 10/15/16 07:31 10/15/16 07:31 10/15/16 07:31 10/15/16 07:46 10/15/16 07:31 Intake & Output 10/14/16 10/15/16 10/16/16 06:59 06:59 06:59 Intake Total 1756 1779 Output Total 5475 Balance -3719 1779 Weight 87.4 kg Exam: GENERAL: well-nourished and in no acute distress. Alert and oriented x3 HEAD: Atraumatic, normocephalic. Craniotomy scar noted. EYES: Pupils equal round and reactive to light, extraocular movements intact, sclera anicteric, conjunctiva are normal. ENT: TMs normal, nares patent, oropharynx clear without exudates. Moist mucous membranes. No oral ulcerations or bleeding gums noted NECK: supple without lymphadenopathy. Trachea is central. No cervical or axillary lymphadenopathy noted. Carotids are 2+, JVD WNL LUNGS: Respiration seems nonlabored, no significant accessory muscle action noted. Breath sounds clear to auscultation bilaterally and equal noted. No wheezes rales or rhonchi noted. No significant dullness noted on percussion. CHEST: Palpation of the chest wall shows no significant chest wall tenderness. No other significant abnormalities noted. 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 ABDOMEN: Soft, no significant tenderness appreciated, normoactive bowel sounds. No guarding, no rebound. No rigidity noted . No masses appreciated. EXTREMITIES: Pedal pulses are 1-2+, no calf tenderness noted. No clubbing or cyanosis.trace to 1+ pedal edema noted NEUROLOGICAL: Focused neurological exam showed no significant neurologic deficit. Normal speech, no focal weakness appreciated. PSYCH: Normal mood, normal affect. Judgment and insight within normal limits. SKIN: No significant ecchymosis, rash, ulcerations or signs of pruritus noted. MUSCULOSKELETAL EXAM: No significant joint swelling noted. Results Laboratory Results: 10/15/16 08:03 10/15/16 09:00 10/12/16 10/15/16 10/15/16 12:02 08:03 08:03 WBC 4.4 RBC 4.10 L Hgb 13.3 L Hct 37.6 L MCV 92 MCH 32.3 MCHC 35.2 RDW 13.3 Plt Count 189 Seg Neutrophils % 37.6 L Lymphocytes % 45.3 H Monocytes % 12.8 Eosinophils % 3.4 Basophils % 0.9 Absolute Neutrophils 1.7 Absolute Lymphocytes 2.0 Absolute Monocytes 0.6 Absolute Eosinophils 0.2 Absolute Basophils 0.0 Sodium Cancelled Potassium Cancelled Chloride Cancelled Carbon Dioxide Cancelled Anion Gap Cancelled BUN Cancelled Creatinine Cancelled Est GFR ( Amer) Cancelled Est GFR (Non-Af Amer) Cancelled Glucose Cancelled Calcium Cancelled Transferrin 198 L 10/15/16 09:00 WBC RBC Hgb Hct MCV MCH MCHC RDW Plt Count Seg Neutrophils % Lymphocytes % Monocytes % Eosinophils % Basophils % Absolute Neutrophils Absolute Lymphocytes Absolute Monocytes Absolute Eosinophils Absolute Basophils Sodium 138.2 Potassium 3.5 L Chloride 101 Carbon Dioxide 26 Anion Gap 11 BUN 10 Creatinine 0.77 Est GFR ( Amer) > 60 Est GFR (Non-Af Amer) > 60 Glucose 139 H Calcium 9.3 Transferrin 10/12/16 13:40 Nasophary (Mrsa Only) MRSA Surveillance Culture - Final NO MRSA RECOVERED 10/11/16 10/12/16 10/12/16 22:22 05:10 12:02 Creatine Kinase CK-MB (CK-2) 1.70 Troponin I 0.044 0.615 0.578 NT-Pro-B Natriuret Pep 563 10/12/16 10/12/16 10/12/16 12:02 17:15 20:55 Creatine Kinase 242 H 244 H CK-MB (CK-2) Troponin I 0.288 NT-Pro-B Natriuret Pep 10/12/16 10/13/16 23:06 05:10 Creatine Kinase CK-MB (CK-2) 1.17 Troponin I 0.213 0.136 NT-Pro-B Natriuret Pep Impressions: Head CT 10/10/16 18:48 IMPRESSION: The previously described postsurgical changes in sinus changes appears stable. No acute changes are identified. Other findings as noted above Chest/Abdomen CTA 10/10/16 20:10 IMPRESSION: Somewhat limited study as noted above. No evidence for pulmonary embolic disease. No acute consolidations or pleural effusions are identified. Other findings as noted above Facial Bones CT 10/11/16 00:00 IMPRESSION: EXTENSIVE SINUS DISEASE AND SURGICAL CHANGES. RELATIVELY STABLE APPEARANCE COMPARED TO THE PRIOR STUDY. NO SIGNIFICANT CHANGE. Guidance Fluoroscopy 10/11/16 00:00 IMPRESSION: LUMBAR PUNCTURE UNDER FLUOROSCOPY. NO IMMEDIATE COMPLICATION. Lumbar Puncture 10/11/16 00:00 IMPRESSION: LUMBAR PUNCTURE UNDER FLUOROSCOPY. NO IMMEDIATE COMPLICATION. Chest X-Ray 10/12/16 00:00 IMPRESSION: NO SIGNIFICANT RADIOGRAPHIC FINDING IN THE CHEST. Assessment & Plan - Diagnosis (1) Fever Qualifiers: Fever type: unspecified Qualified Code(s): R50.9 - Fever, unspecified Is this a current diagnosis for this admission?: Yes (2) HTN (hypertension) Qualifiers: Hypertension type: essential hypertension Qualified Code(s): I10 - Essential (primary) hypertension Is this a current diagnosis for this admission?: Yes (3) Elevated troponin I level Is this a current diagnosis for this admission?: Yes (4) Elevated LFTs Is this a current diagnosis for this admission?: Yes - Notes Notes: Troponin I elevation: Elevated troponin I are now trending down. Therefore feel that troponin I elevation was secondary to systemic inflammatory response syndrome rather than a false elevation. Do not feel patient had acute coronary syndrome. 2-D echo did not show any significant wall motion abnormalities. Also CTA chest did not show any coronary calcification. Patient would benefit from a stress test but I believe this can be arranged as an outpatient once patient infection is under control. Patient is agreeable to follow up with me regarding this. Hypertension: This is under satisfactory control. Blood pressure goal 135/85 in this patient. Abnormal liver function test: It seems patient now has hepatitis C antibody positive. These are stable. Febrile illness: Seems most likely related to sinusitis. Patient has been afebrile for last 48 hours. Patient has been encouraged to ambulate. Will repeat an EKG in the morning to get a predischarge EKG. - Time Time with patient: 15-25 minutes - CODE STATUS was discussed, patient remains full code. Surrogate decision-maker unchanged. Multiple medical problems were addressed.More than 50% of the time spent coordinating care, discussing management plans with involved caregivers. Management plans discussed with involved personnels. Medical decision making was of moderate to high complexity , patient's has multiple severe comorbidities.
[2016-10-15] MEDS: AMITRIPTYLINE HCL 50 MG TABLET PO SCH (21:58)
[2016-10-15] MEDS: GABAPENTIN 300 MG CAPSULE PO SCH (21:59)
[2016-10-16] MEDS: METRONIDAZOLE 500 MG/NS RTU 100 ML IV SCH ×2 (00:23→05:30)
[2016-10-16] MEDS: OXYCODONE HCL IR 5 MG TABLET PO PRN (08:04)
--- NOTE | 2016-10-16 08:33 | EKG REPORT ---
SEVERITY:- BORDERLINE ECG - SINUS TACHYCARDIA BORDERLINE LEFT AXIS DEVIATION BORDERLINE T WAVE ABNORMALITIES : Confirmed by: Farrah Brown 16-Oct-2016 08:33:01
[2016-10-16] MEDS: LISINOPRIL 10 MG TABLET PO SCH (09:29)
[2016-10-16] MEDS ORDERED: LEVOFLOXACIN 750 MG TABLET PO ONE (09:29)
[2016-10-16] MEDS: INSULIN GLARGINE,HUM.REC.ANLOG 300 UNIT/3 ML INSULN.PEN SUBCUT SCH (09:30)
[2016-10-16] MEDS: DOCUSATE SODIUM 100 MG CAPSULE PO SCH (09:30)
[2016-10-16] MEDS ORDERED: FUROSEMIDE 20 MG TABLET PO ONE (10:00)
[2016-10-16] MEDS ORDERED: LEVOFLOXACIN 750 MG TABLET PO SCH (10:00)
[2016-10-16 10:51] VITALS: BP 130/88
[2016-10-16] MEDS ORDERED: METRONIDAZOLE 500 MG TABLET PO SCH (12:00)
--- NOTE | 2016-10-16 13:58 | PDOC DISCHARGE SUMMARY ---
General - Admit/Disc Date/PCP Admission Date/Primary Care Provider: 10/11/16 17:05 REGINE NICHOLS Discharge Date: 10/16/16 - Discharge Diagnosis (1) Sepsis Is this a current diagnosis for this admission?: Yes (2) Sinusitis Is this a current diagnosis for this admission?: Yes (3) Hepatitis C antibody positive in blood Is this a current diagnosis for this admission?: Yes (4) Thrombocytopenia Is this a current diagnosis for this admission?: Yes (5) Elevated troponin I level Is this a current diagnosis for this admission?: Yes (6) Diabetes mellitus type 1 Is this a current diagnosis for this admission?: Yes (7) HTN (hypertension) Is this a current diagnosis for this admission?: Yes (8) 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 Is this a current diagnosis for this admission?: Yes - Additional Information Resuscitation Status: Full Code Discharge Diet: Cardiac, Diabetic Discharge Activity: Activity As Tolerated, Supervised Activity Home Medications: Amitriptyline HCl [Elavil 50 mg Tablet] 50 mg PO QHS 10/11/16 Insulin Glargine,Hum.rec.anlog [Lantus Solostar] 20 unit SQ BID 10/11/16 Lisinopril [Prinivil] 20 mg PO DAILY 10/11/16 Gabapentin [Neurontin 300 mg Capsule] 300 mg PO QHS #30 capsule 10/16/16 Levofloxacin [Levaquin 750 mg Tablet] 750 mg PO DAILY #10 tab 10/16/16 Meclizine HCl [Antivert 25 mg Tablet] 25 mg PO Q8HP PRN #10 tablet 10/16/16 Metronidazole [Flagyl 500 mg Tablet] 500 mg PO TID #30 tablet 10/16/16 Oxycodone HCl [Oxy-Ir 5 mg Tablet] 5 mg PO Q4HP PRN #10 tablet 10/16/16 History of Present Illness History of Present Illness: YUNI GARCIA is a 61 year old male a 61 year old -French male with known chronic sinusitis, having undergone 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 Patient has been discussed with emergency room physician who evaluated the patient. Emergency room physician was actually in the process of discharging the patient. However, when he stood, systolic pressures were noted to be in the 60s , checked on 3 occasions. Fortunately, pressures have stabilized nicely after receiving almost 2 L of normal saline as a bolus. He describes "a little bit" of diarrhea over the past 24 hours. Cough productive of green sputum. Fever to 100.5 at home. No chest or abdominal pain, nausea vomiting. No "sore spots" anywhere on his body other than again feeling sore all over. Primary pain is in the area of his sinuses. No rash. No chronic pulmonary disease, including emphysema, COPD, or asthma no history of pneumonia.. He is currently resting quietly, primarily complaining of hurting "all over." Discomfort worsens with certain movements. Hospital Course Hospital Course: Patient was found to be lethargic and a poor historian on admission. He was overtly septic and an LP was performed which was negative for any acute infection. CT scan had been done prior to LP. This was also negative except for chronic changes. CT scan of the nasal bones reveal sinusitis, , but this was felt to be chronic. Patient had been prescribed clindamycin and Bactrim as an outpatient at the end of August but did not take these medicines to completion. Patient continued to complain of multiple vague symptoms and was evaluated extensively for rheumatologic as well as unusual infection. Patient was found to have elevated LFTs and his hepatitis C antibody was positive. Patient is advised to follow-up with GI as an outpatient to have this evaluated. He denied any history of tattoo or drug abuse. Patient does admit to history of alcohol abuse. Patient was started on Levaquin and Flagyl with improvement of his symptoms. Patient complained of headache that was present since his craniotomy and he was started on Neurontin with improvement of this. Patient also complained of dizziness since his craniotomy in 2013, and was given meclizine with results. Patient was doing well and reported that he was ready for discharge. Home health was set up for patient prior to discharge. Physical Exam Vital Signs: Temp Pulse Resp BP Pulse Ox 98.0 F 71 16 131/82 H 97 10/16/16 04:44 10/16/16 04:44 10/16/16 04:44 10/16/16 04:44 10/16/16 04:44 Intake & Output 10/15/16 10/16/16 10/17/16 06:59 06:59 06:59 Intake Total 1978 2054 Balance 1978 2054 Weight 87.4 kg 90.1 kg Exam: General: Awake alert and oriented x3, no acute respiratory distress HEENT: Large craniotomy scar, PERRL, oropharynx is moist, pink, no scleral icterus, no conjunctival injection Neck: No JVD, trachea midline Chest: CTAB CV: Regular rate and rhythm, normal S1 and S2, no murmur, rub, or gallop Abdomen: Soft, nontender to palpation, mildly distended, active bowel sounds; no rebound, rigidity, or guarding Extremities: No cyanosis, clubbing; 1+ edema Neuro: Cranial nerves II through XII are grossly intact without focal deficits Psych: Flat mood and affect Results Laboratory Results: 10/15/16 08:03 10/15/16 09:00 10/15/16 10/15/16 10/15/16 08:03 08:03 09:00 WBC 4.4 RBC 4.10 L Hgb 13.3 L Hct 37.6 L MCV 92 MCH 32.3 MCHC 35.2 RDW 13.3 Plt Count 189 Seg Neutrophils % 37.6 L Lymphocytes % 45.3 H Monocytes % 12.8 Eosinophils % 3.4 Basophils % 0.9 Absolute Neutrophils 1.7 Absolute Lymphocytes 2.0 Absolute Monocytes 0.6 Absolute Eosinophils 0.2 Absolute Basophils 0.0 Sodium Cancelled 138.2 Potassium Cancelled 3.5 L Chloride Cancelled 101 Carbon Dioxide Cancelled 26 Anion Gap Cancelled 11 BUN Cancelled 10 Creatinine Cancelled 0.77 Est GFR ( Amer) Cancelled > 60 Est GFR (Non-Af Amer) Cancelled > 60 Glucose Cancelled 139 H Calcium Cancelled 9.3 10/11/16 10/12/16 10/12/16 22:22 05:10 12:02 Creatine Kinase CK-MB (CK-2) 1.70 Troponin I 0.044 0.615 0.578 NT-Pro-B Natriuret Pep 563 10/12/16 10/12/16 10/12/16 12:02 17:15 20:55 Creatine Kinase 242 H 244 H CK-MB (CK-2) Troponin I 0.288 NT-Pro-B Natriuret Pep 10/12/16 10/13/16 23:06 05:10 Creatine Kinase CK-MB (CK-2) 1.17 Troponin I 0.213 0.136 NT-Pro-B Natriuret Pep Impressions: Head CT 10/10/16 18:48 IMPRESSION: The previously described postsurgical changes in sinus changes appears stable. No acute changes are identified. Other findings as noted above Chest/Abdomen CTA 10/10/16 20:10 IMPRESSION: Somewhat limited study as noted above. No evidence for pulmonary embolic disease. No acute consolidations or pleural effusions are identified. Other findings as noted above Facial Bones CT 10/11/16 00:00 IMPRESSION: EXTENSIVE SINUS DISEASE AND SURGICAL CHANGES. RELATIVELY STABLE APPEARANCE COMPARED TO THE PRIOR STUDY. NO SIGNIFICANT CHANGE. Guidance Fluoroscopy 10/11/16 00:00 IMPRESSION: LUMBAR PUNCTURE UNDER FLUOROSCOPY. NO IMMEDIATE COMPLICATION. Lumbar Puncture 10/11/16 00:00 IMPRESSION: LUMBAR PUNCTURE UNDER FLUOROSCOPY. NO IMMEDIATE COMPLICATION. Chest X-Ray 10/12/16 00:00 IMPRESSION: NO SIGNIFICANT RADIOGRAPHIC FINDING IN THE CHEST. Status: Imported from PACS Qualifiers [facility] BEING DISCHARGED WITH ANY OF THE FOLLOWING DIAGNOSIS?: No Plan Time Spent: Less than 30 Minutes
--- NOTE | 2016-10-16 19:47 | PDOC PROGRESS REPORT ---
Subjective Progress Note for:: 10/16/16 Subjective:: Patient feels remarkably improved. He has ambulated. Patient's headaches have improved. Patient has had no fever or chills. Patient claims that he is being discharged today. Patient wishes to follow up with me. Discussed that we probably need to consider a stress test as an outpatient and possibly also a sleep study. Patient was seen prior to discharge. Physical Exam Vital Signs: Temp Pulse Resp BP Pulse Ox 97.5 F 110 H 16 130/88 H 98 10/16/16 10:48 10/16/16 10:48 10/16/16 10:48 10/16/16 10:48 10/16/16 10:48 Intake & Output 10/15/16 10/16/16 10/17/16 06:59 06:59 06:59 Intake Total 1978 2054 Balance 1978 2054 Weight 87.4 kg 90.1 kg Exam: GENERAL: well-nourished and in no acute distress. Alert and oriented x3 HEAD: Atraumatic, normocephalic. Craniotomy scar noted EYES: Pupils equal round and reactive to light, extraocular movements intact, sclera anicteric, conjunctiva are normal. ENT: TMs normal, nares patent, oropharynx clear without exudates. Moist mucous membranes. No oral ulcerations or bleeding gums noted NECK: supple without lymphadenopathy. Trachea is central. No cervical or axillary lymphadenopathy noted. Carotids are 2+, JVD WNL LUNGS: Respiration seems nonlabored, no significant accessory muscle action noted. Breath sounds clear to auscultation bilaterally and equal noted. No wheezes rales or rhonchi noted. No significant dullness noted on percussion. CHEST: Palpation of the chest wall shows no significant chest wall tenderness. No other significant abnormalities noted. 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 ABDOMEN: Soft, no significant tenderness appreciated, normoactive bowel sounds. No guarding, no rebound. No rigidity noted . No masses appreciated. EXTREMITIES: Pedal pulses are 1-2+, no calf tenderness noted. No clubbing or cyanosis.trace pedal edema noted NEUROLOGICAL: Focused neurological exam showed no significant neurologic deficit. Normal speech, no focal weakness appreciated. PSYCH: Normal mood, normal affect. Judgment and insight within normal limits. SKIN: No significant ecchymosis, rash, ulcerations or signs of pruritus noted. MUSCULOSKELETAL EXAM: No significant joint swelling noted. Results Laboratory Results: 10/15/16 08:03 10/15/16 09:00 10/11/16 10/12/16 10/12/16 22:22 05:10 12:02 Creatine Kinase CK-MB (CK-2) 1.70 Troponin I 0.044 0.615 0.578 NT-Pro-B Natriuret Pep 563 10/12/16 10/12/16 10/12/16 12:02 17:15 20:55 Creatine Kinase 242 H 244 H CK-MB (CK-2) Troponin I 0.288 NT-Pro-B Natriuret Pep 10/12/16 10/13/16 23:06 05:10 Creatine Kinase CK-MB (CK-2) 1.17 Troponin I 0.213 0.136 NT-Pro-B Natriuret Pep Impressions: Head CT 10/10/16 18:48 IMPRESSION: The previously described postsurgical changes in sinus changes appears stable. No acute changes are identified. Other findings as noted above Chest/Abdomen CTA 10/10/16 20:10 IMPRESSION: Somewhat limited study as noted above. No evidence for pulmonary embolic disease. No acute consolidations or pleural effusions are identified. Other findings as noted above Facial Bones CT 10/11/16 00:00 IMPRESSION: EXTENSIVE SINUS DISEASE AND SURGICAL CHANGES. RELATIVELY STABLE APPEARANCE COMPARED TO THE PRIOR STUDY. NO SIGNIFICANT CHANGE. Guidance Fluoroscopy 10/11/16 00:00 IMPRESSION: LUMBAR PUNCTURE UNDER FLUOROSCOPY. NO IMMEDIATE COMPLICATION. Lumbar Puncture 10/11/16 00:00 IMPRESSION: LUMBAR PUNCTURE UNDER FLUOROSCOPY. NO IMMEDIATE COMPLICATION. Chest X-Ray 10/12/16 00:00 IMPRESSION: NO SIGNIFICANT RADIOGRAPHIC FINDING IN THE CHEST. Assessment & Plan - Diagnosis (1) Fever Qualifiers: Fever type: unspecified Qualified Code(s): R50.9 - Fever, unspecified Is this a current diagnosis for this admission?: Yes (2) HTN (hypertension) Qualifiers: Hypertension type: essential hypertension Qualified Code(s): I10 - Essential (primary) hypertension Is this a current diagnosis for this admission?: Yes (3) Elevated troponin I level Is this a current diagnosis for this admission?: Yes (4) Elevated LFTs Is this a current diagnosis for this admission?: Yes - Notes Notes: Febrile illness: This has resolved. Hypertension: This is under good control. Elevated troponin I: Related to systemic inflammatory response syndrome. Discussed that it will be worthwhile to consider a nuclear stress test. Patient is agreeable to schedule this. Elevated liver function test: Patient tested positive for hepatitis C. Patient will benefit from GI referral and assessment. Sleep disorder: Patient gives history of sleep disorder. Will consider scheduling a sleep study as an outpatient. - Time Time with patient: 15-25 minutes - More than 50% of the time spent coordinating care, discussing management plans with involved caregivers. Management plans discussed with involved personnels. Medical decision making was of moderate to high complexity, patient's has multiple severe comorbidities. Medications reviewed and adjusted accordingly: Yes
[2016-10-17 14:41] LABS: CYTOPLASMIC (C-ANCA) <1:20 titer (Neg:<1:20)
== END 2016-10-16 11:43 | disposition home health service (06) | DRG 864 ==
LOC: ER 17:53 → INTOOBSV 23:33 → EH 23:33 → UNDOADMOB 23:33 → EH 23:45 → OBSVTOIN 10-11 17:05 → 3W 10-11 18:47
PROVIDERS: ADMIT Family Medicine; ATTEND Family Medicine
PROC: 009U3ZX Drainage of Spinal Canal, Percutaneous Approach, Diagnostic (ICD-10-PCS; principal; 2016-10-11)
PROC: B01B1ZZ Fluoroscopy of Spinal Cord using Low Osmolar Contrast (ICD-10-PCS; 2016-10-11)
DX: R50.9 Fever, unspecified (principal); J32.9 Chronic sinusitis, unspecified; B19.20 Unspecified viral hepatitis C without hepatic coma; D69.6 Thrombocytopenia, unspecified; E10.9 Type 1 diabetes mellitus without complications; I10 Essential (primary) hypertension; R94.5 Abnormal results of liver function studies; R42 Dizziness and giddiness; Z79.4 Long term (current) use of insulin; Z79.899 Other long term (current) drug therapy; Z86.73 Personal history of transient ischemic attack (TIA), and cerebral infarction without residual deficits; Z87.891 Personal history of nicotine dependence
CPT/HCPCS: 36415; 36600; 62270; 70450; 70486; 71010; 71020; 71275; 77003; 80048; 80053; 80074; 80202; 81001; 82164; 82272; 82533; 82550; 82553; 82607; 82728; 82746; 82803; 82945; 82962; 83540; 83550; 83605; 83735; 83880; 84100; 84134; 84157; 84466; 84484; 85025; 85045; 85610; 85652; 85730; 86021; 86038; 86140; 86225; 86235; 86403; 86480; 86701; 86757; 87040; 87070; 87086; 87205; 87210; 87252; 87804; 89050; 93005; 93010; 93306; 94799; 99285; G0378; J0133; J0456; J0696; J1650; J1815; J1885; J1956; J3370; J3480; J3490; J7030; J7050; J7060; J7620

== ENCOUNTER 2016-12-08 09:56 | Emergency (ER) | payer MEDICAID ==
[2016-12-08] MEDS ORDERED: KETOROLAC TROMETHAMINE INJ/PF 30 MG/1 ML SDV IV ONE (10:11)
[2016-12-08] MEDS ORDERED: NORMAL SALINE 1000 ML 1,000 ML IV ONE ×4 (10:11→12:06)
--- NOTE | 2016-12-08 10:11 | ER Document Report ---
ED Medical Screen (RME) - General Mode of Arrival: Ambulatory Information source: Patient TRAVEL OUTSIDE OF THE [place] IN LAST 30 DAYS: No - HPI Patient complains to provider of: Headache Onset: Last week Associated Symptoms: Other - see notes above - Related Data Smoking: Non-smoker Frequency of alcohol use: None Drug Abuse: None <KATIE CARBONE - Last Filed: 12/08/16 10:25> <YON BOUDREAUX - Last Filed: 12/08/16 16:40> - General Chief Complaint: Headache Stated Complaint: HEAD PAIN/POSSIBLE WITHDRAWL Time Seen by Provider: 12/08/16 10:03 Notes: 61 year old male with history of sinus surgery (January 2016) presents to the ED complaining of headache that starts at the bilateral ears and wraps posteriorly which started 1 week ago and diaphoresis that started this morning. Patient reports that he is on Oxycodone as needed (since January 2016) and states that he ran out of medication 4 weeks ago and has not taken anything since. Patient states that he 'is unable to function without pain medication.' Patient reports similar pain and symptoms to previous episodes when he was without pain medication for an extended period of time. Patient is also complaining of diarrhea and tremors, but no abdominal pain. Patient's old physician in [place] was prescribing the Oxycodone, but his new physician has not replied to his call. (KATIE CARBONE) - Related Data Allergies/Adverse Reactions: Penicillins Allergy (Verified 09/05/16 11:18) Past Medical History - General Information source: Patient - Social History Family history: DM, Malignancy - Past Medical History Cardiac Medical History: Reports: Hx Hypertension Neurological Medical History: Reports: Hx Migraine, Hx Seizures - Last episode 2015; uncertain current antiepileptic. Endocrine Medical History: Reports: Hx Diabetes Mellitus Type 1 Past Surgical History: Reports: Hx Neurologic Surgery - craniotomy, Hx Nose Surgery, Other - Craniotomy for empyema from sinusitis; sinus surgery. No cardiac surgery. - Immunizations Immunizations up to date: Yes Hx Diphtheria, Pertussis, Tetanus Vaccination: Yes <KATIE CARBONE - Last Filed: 12/08/16 10:25> Review of Systems - Review of Systems Constitutional: See HPI, Diaphoresis EENT: No symptoms reported Cardiovascular: No symptoms reported Respiratory: No symptoms reported Gastrointestinal: See HPI, Diarrhea. denies: Abdominal pain Genitourinary: No symptoms reported Male Genitourinary: No symptoms reported Musculoskeletal: No symptoms reported Skin: No symptoms reported Hematologic/Lymphatic: No symptoms reported Neurological/Psychological: See HPI, Headaches, Tremor -: Yes All other systems reviewed and negative <TONAKATIE - Last Filed: 12/08/16 10:25> Physical Exam - General General appearance: Alert - Respiratory Respiratory status: Tachypnea Breath sounds: Normal - Cardiovascular Rhythm: Regular, Tachycardia Heart sounds: Normal auscultation - Skin Skin Moisture: Diaphoretic <CARBONEKATIE - Last Filed: 12/08/16 10:25> Course <CARBONEKATIE - Last Filed: 12/08/16 10:25> - Laboratory Result Diagrams: 12/08/16 10:37 12/08/16 10:37 <YON BOUDREAUX - Last Filed: 12/08/16 16:40> - Re-evaluation Re-evalutation: 12/08/16 10:13 Upgraded to yellow due to the diaphoresis and tachycardia which is typical of withdrawal however this patient has not had any narcotic pain medication in 3 weeks to a month per patient history. It would be quite unusual for the patient to still be having withdrawal symptoms at this time particularly because he states the only started a week ago. I am concerned that we may be seeing sepsis that is masquerading as narcotic withdrawal. Patient has been upgraded to yellow and sent to the main emergency department (YON BOUDREAUX) - Vital Signs Vital signs: Temp Pulse Resp BP Pulse Ox 97.3 F 140 H 15 140/86 H 99 12/08/16 09:58 12/08/16 09:58 12/08/16 14:31 12/08/16 14:31 12/08/16 14:31 - Laboratory Laboratory results interpreted by me: 12/08/16 12/08/16 12/08/16 10:35 10:37 10:37 VBG pH 7.49 H VBG pCO2 29.3 L Sodium 145.7 H Glucose 131 H POC Glucose 129 H Direct Bilirubin 0.5 H AST 215 H ALT 223 H Alkaline Phosphatase 128 H Total Protein 9.3 H Urine Ketones Salicylates < 1.0 L Acetaminophen < 10 L 12/08/16 13:10 VBG pH VBG pCO2 Sodium Glucose POC Glucose Direct Bilirubin AST ALT Alkaline Phosphatase Total Protein Urine Ketones TRACE H Salicylates Acetaminophen Doctor's Discharge <KATIE CARBONE - Last Filed: 12/08/16 10:25> <YON BOUDREAUX - Last Filed: 12/08/16 16:40> - Discharge Clinical Impression: Chronic sinusitis, Elevated LFTs Condition: Good Disposition: HOME, SELF-CARE Instructions: Dehydration ([facility]), Liver Function Abnormality ([facility]), Sinusitis ( [facility]) Additional Instructions: Your evaluation today did not show any critical pathology. Your head CT does show still chronic sinusitis. I highly recommend she follow-up with your primary care physician and your ENT specialist. Vital signs have improved more likely you are experiencing some dehydration. Please make sure that she drink plenty water to stay hydrated. Follow-up take antibiotics as prescribed Prescriptions: Levofloxacin 500 mg PO DAILY #7 tablet Prochlorperazine Maleate [Compazine] 5 mg PO Q6 #20 tablet Scribe Documentation - Scribe Written by Danae:: Danae Crain, 12/08/2016 1047 acting as scribe for :: Lucio <KATIE CARBONE - Last Filed: 12/08/16 10:25>
[2016-12-08] MEDS ORDERED: PROCHLORPERAZINE EDISYLATE INJ 10 MG/2 ML VIAL IV ONE (10:38)
[2016-12-08] MEDS ORDERED: ONDANSETRON HCL INJ/PF 4 MG/2 ML SDV IV ONE (10:38)
[2016-12-08 11:00] LABS: VENOUS BLOOD BASE EXCESS -0.5 mmol/L; VENOUS BLOOD HCO3 21.6 mmol/L (20-32); VENOUS BLOOD PCO2 29.3 mmHg (35-63); VENOUS BLOOD PH 7.49 (7.30-7.42)
[2016-12-08 11:06] LABS: ABSOLUTE BASOPHILS # (AUTO) 0.1 10^3/uL (0.0-0.2); ABSOLUTE LYMPHOCYTES (AUTO) 1.8 10^3/uL (0.5-4.7); ABSOLUTE MONOCYTES (AUTO) 0.4 10^3/uL (0.1-1.4); ABSOLUTE NEUT (AUTO) 2.5 10^3/uL (1.7-8.2); BASOPHILS % (AUTO) 1.1 % (0-2); EOSINOPHILS % (AUTO) 0.9 % (0-6); HEMATOCRIT 47.3 % (37.9-51.0); HEMOGLOBIN 15.6 g/dL (13.5-17.0); HGB HCT DIFFERENCE -0.5; LYMPHOCYTES % (AUTO) 37.9 % (13-45); MEAN CORPUSCULAR HEMOGLOBIN 31.1 pg (27.0-33.4); MEAN CORPUSCULAR VOLUME 94 fl (80-97); MONOCYTES % (AUTO) 8.8 % (3-13); RED BLOOD COUNT 5.01 10^6/uL (4.35-5.55); RED CELL DISTRIBUTION WIDTH 13.2 % (11.5-14.0); SEGMENTED NEUTROPHILS % (AUTO) 51.3 % (42-78); WHITE BLOOD COUNT 4.8 10^3/uL (4.0-10.5)
--- NOTE | 2016-12-08 11:09 | RADIOLOGY REPORT (SQ) ---
EXAM DESCRIPTION: CT HEAD WITHOUT COMPLETED DATE/TIME: 12/08/2016 10:55 am REASON FOR STUDY: headache COMPARISON: 10/10/2016 TECHNIQUE: Axial images acquired through the brain without intravenous contrast. Images reviewed wi th bone, brain and subdural windows. Images stored on PACS. All CT scanners at this facility use dose modulation, iterative reconstruction, and/or weight based d osing when appropriate to reduce radiation dose to as low as reasonably achievable (ALARA). [facility]: Dose Right [facility]: CareDose [facility]: Dose Right [facility]: Teradose 4D [facility]: [employer] RADIATION DOSE: Up-to-date CT equipment and radiation dose reduction techniques were employed. CTDIv ol: 64.6 mGy. DLP: 1163 mGy-cm. mGy. LIMITATIONS: None. FINDINGS: VENTRICLES: Normal size and contour. CEREBRUM: No masses. No hemorrhage. No midline shift. Normal peacock/white matter differentiation. N o evidence for acute infarction. CEREBELLUM: No masses. No hemorrhage. No alteration of density. No evidence for acute infarction. EXTRAAXIAL SPACES: No fluid collections. No masses. ORBITS AND GLOBE: No intra- or extraconal masses. Normal contour of globe without masses. CALVARIUM: No fracture. Craniotomy changes are present in the frontal region with a metallic mesh in position. PARANASAL SINUSES: Air-fluid levels are present in both maxillary sinuses. Surgical changes seen in the maxillary sinuses. There is complete opacification of the left ethmoid air cells. SOFT TISSUES: No mass or hematoma. OTHER: No other significant finding. IMPRESSION: Chronic sinus disease and surgical changes as described. TECHNICAL DOCUMENTATION: JOB ID: [id number] Quality ID # [id number]: Final reports with documentation of one or more dose reduction techniques (e.g., Au tomated exposure control, adjustment of the mA and/or kV according to patient size, use of iterative reconstruction technique) 2010 [employer]- All Rights Reserved
--- NOTE | 2016-12-08 11:20 | RADIOLOGY REPORT (SQ) ---
EXAM DESCRIPTION: CHEST SINGLE VIEW COMPLETED DATE/TIME: 12/08/2016 11:07 am REASON FOR STUDY: tachycardia, diaphoresis COMPARISON: 10/12/2016 EXAM PARAMETERS: NUMBER OF VIEWS: One view. TECHNIQUE: Single frontal radiographic view of the chest acquired. RADIATION DOSE: NA LIMITATIONS: None. FINDINGS: LUNGS AND PLEURA: No opacities, masses or pneumothorax. No pleural effusion. MEDIASTINUM AND HILAR STRUCTURES: No masses. Contour normal. HEART AND VASCULAR STRUCTURES: Heart normal in size. Normal vasculature. BONES: No acute findings. HARDWARE: None in the chest. OTHER: No other significant finding. IMPRESSION: NO ACUTE RADIOGRAPHIC FINDING IN THE CHEST. TECHNICAL DOCUMENTATION: JOB ID: [id number]
[2016-12-08 11:21] LABS: ALANINE AMINOTRANSFERASE 223 U/L (21-72); ALBUMIN 4.7 g/dL (3.5-5.0); ALKALINE PHOSPHATASE 128 U/L (38-126); ANION GAP 17 (5-19); ASPARTATE AMINO TRANSFERASE 215 U/L (17-59); BILIRUBIN,DIRECT 0.5 mg/dL (0.0-0.4); BLOOD UREA NITROGEN 16 mg/dL (7-20); CALCIUM 10.1 mg/dL (8.4-10.2); CARBON DIOXIDE 22 mmol/L (22-30); CHLORIDE 107 mmol/L (98-107); CREATININE RESULT 0.82 mg/dL (0.52-1.25); GLUCOSE 131 mg/dL (75-110); POTASSIUM 4.1 mmol/L (3.6-5.0); SODIUM 145.7 mmol/L (137-145); TOTAL PROTEIN 9.3 g/dL (6.3-8.2)
[2016-12-08 11:26] LABS: ALCOHOL < 10 mg/dL (NONE DETECTED)
--- NOTE | 2016-12-08 13:17 | ER Document Report ---
ED General - General Chief Complaint: headache Stated Complaint: HEAD PAIN/POSSIBLE WITHDRAWL Time Seen by Provider: 12/08/16 10:03 Mode of Arrival: Ambulatory TRAVEL OUTSIDE OF THE [place] IN LAST 30 DAYS: No - HPI Patient complains to provider of: Headache tachycardia possible opiate withdrawal Notes: Patient coming in with a chronic sinusitis and chronic opiate use patient states he has not had any oxycodone for the last 10 days and thinks he is going through withdrawals. Patient states has been ongoing for the last 10 days. Patient states fevers at home however he does not have a thermometer therefore was not able to give a T-max. Denies any nausea vomiting. Patient denies any recent travel patient states he had antibiotics at home and took a dose yesterday. Patient is unaware of what the name of the antibiotic was. Patient is diaphoretic upon evaluation and tachycardic. Patient denies any drug use denies any alcohol use. Otherwise patient is maintaining his airway does not look to be obvious distress. States headache similar to previous - Related Data Allergies/Adverse Reactions: Penicillins Allergy (Verified 09/05/16 11:18) Past Medical History - General Information source: Patient - Social History Smoking Status: Never Smoker Chew tobacco use (# tins/day): No Frequency of alcohol use: None Drug Abuse: None Family History: Reviewed & Not Pertinent Patient has suicidal ideation: No Patient has homicidal ideation: No - Past Medical History Cardiac Medical History: Reports: Hx Hypertension Denies: Hx Congestive Heart Failure, Hx DVT, Hx Heart Attack, Hx Hypercholesterolemia, Hx Pulmonary Embolism Pulmonary Medical History: Denies: Hx Asthma, Hx COPD, Hx Pneumonia, Hx Sleep Apnea Neurological Medical History: Reports: Hx Migraine, Hx Seizures - Last episode 2015; uncertain current antiepileptic. Endocrine Medical History: Reports: Hx Diabetes Mellitus Type 1. Denies: Hx Diabetes Mellitus Type 2, Hx Hyperthyroidism, Hx Hypothyroidism Renal/ Medical History: Denies: Hx Peritoneal Dialysis GI Medical History: Denies: Hx Cirrhosis, Hx Gastroesophageal Reflux Disease, Hx Hepatitis Musculoskeltal Medical History: Denies Hx Arthritis Psychiatric Medical History: Denies: Hx Depression Infectious Medical History: Denies: Hx C-Diff, Hx Hepatitis, Hx MRSA Past Surgical History: Reports: Hx Neurologic Surgery - craniotomy, Hx Nose Surgery, Other - Craniotomy for empyema from sinusitis; sinus surgery. No cardiac surgery. - Immunizations Immunizations up to date: Yes Hx Diphtheria, Pertussis, Tetanus Vaccination: Yes Review of Systems - Review of Systems Constitutional: Other - Headache EENT: No symptoms reported Cardiovascular: No symptoms reported Respiratory: No symptoms reported Gastrointestinal: No symptoms reported Genitourinary: No symptoms reported Male Genitourinary: No symptoms reported Musculoskeletal: No symptoms reported Skin: No symptoms reported Hematologic/Lymphatic: No symptoms reported Neurological/Psychological: No symptoms reported Physical Exam - Vital signs Vitals: Temp Pulse Resp BP Pulse Ox 97.3 F 140 H 14 115/82 93 12/08/16 09:58 12/08/16 09:58 12/08/16 09:58 12/08/16 09:58 12/08/16 09:58 Interpretation: Tachycardic - General General appearance: Appears well, Alert - HEENT Head: Normocephalic, Atraumatic Eyes: Normal Pupils: PERRL - Respiratory Respiratory status: No respiratory distress Chest status: Nontender Breath sounds: Normal Chest palpation: Normal - Cardiovascular Rhythm: Regular Heart sounds: Normal auscultation Murmur: No - Abdominal Inspection: Normal Distension: No distension Bowel sounds: Normal Tenderness: Nontender Organomegaly: No organomegaly - Back Back: Normal, Nontender - Extremities General upper extremity: Normal inspection, Nontender, Normal color, Normal ROM , Normal temperature General lower extremity: Normal inspection, Nontender, Normal color, Normal ROM , Normal temperature, Normal weight bearing. No: Meet's sign - Neurological Neuro grossly intact: Yes Cognition: Normal Orientation: AAOx4 [place] Coma Scale Eye Opening: Spontaneous [place] Coma Scale Verbal: Oriented [place] Coma Scale Motor: Obeys Commands [place] Coma Scale Total: 15 Speech: Normal Motor strength normal: LUE, RUE, LLE, RLE Sensory: Normal - Psychological Associated symptoms: Normal affect, Normal mood - Skin Skin Temperature: Warm Skin Moisture: Dry Skin Color: Normal Course - Re-evaluation Re-evalutation: 12/08/16 13:16 12/08/16 19:10 Patient coming in for evaluation of tachycardia hip pain. CT of the head still shows chronic sinusitis. Patient's tachycardia actually did improve with IV hydration upon last evaluation patient's heart rate is now normal patient is no longer diaphoretic patient also resting comfortably sleeping. No signs of any serious infection lactic acid is negative leukocytosis is also normal. Patient will be discharged home with Levmayuruin explained the patient the importance that he follows up with his ENT specialist for further evaluation of his chronic sinusitis and his PCP. The patient presents with headache without signs of AGILE SCRUM COACH bleed, stroke, infection, or other serious etiology. The patient is neurologically intact. Given the extremely low risk of these diagnoses further testing and evaluation for these possibilities does not appear to be indicated at this time. The patient has been instructed to return if the symptoms worsen or change in any way.. 12/08/16 19:11 Chronic elevation the patient's LFTs ultrasound was performed showing no acute pathology. Patient also supposed to follow PCP for chronic outpatient LFTs - Vital Signs Vital signs: Temp Pulse Resp BP Pulse Ox 97.3 F 140 H 15 140/86 H 99 12/08/16 09:58 12/08/16 09:58 12/08/16 14:31 12/08/16 14:31 12/08/16 14:31 - Laboratory Result Diagrams: 12/08/16 10:37 12/08/16 10:37 Laboratory results interpreted by me: 12/08/16 12/08/16 12/08/16 10:35 10:37 10:37 VBG pH 7.49 H VBG pCO2 29.3 L Sodium 145.7 H Glucose 131 H POC Glucose 129 H Direct Bilirubin 0.5 H AST 215 H ALT 223 H Alkaline Phosphatase 128 H Total Protein 9.3 H Urine Ketones Salicylates < 1.0 L Acetaminophen < 10 L 12/08/16 13:10 VBG pH VBG pCO2 Sodium Glucose POC Glucose Direct Bilirubin AST ALT Alkaline Phosphatase Total Protein Urine Ketones TRACE H Salicylates Acetaminophen Critical Care Note - Critical Care Note Total time excluding time spent on procedures (mins): 35 Comments: multiple Evaluations for tachycardia Discharge - Discharge Clinical Impression: Chronic sinusitis, Elevated LFTs Condition: Good Disposition: HOME, SELF-CARE Instructions: Sinusitis ([facility]), Dehydration ([facility]), Liver Function Abnormality ( [facility]) Additional Instructions: Your evaluation today did not show any critical pathology. Your head CT does show still chronic sinusitis. I highly recommend she follow-up with your primary care physician and your ENT specialist. Vital signs have improved more likely you are experiencing some dehydration. Please make sure that she drink plenty water to stay hydrated. Follow-up take antibiotics as prescribed Prescriptions: Levofloxacin 500 mg PO DAILY #7 tablet Prochlorperazine Maleate [Compazine] 5 mg PO Q6 #20 tablet
[2016-12-08 13:27] LABS: APPEARANCE,URINE CLEAR; BILIRUBIN,URINE NEGATIVE (NEGATIVE); GLUCOSE, URINE NEGATIVE (NEGATIVE); KETONES,URINE TRACE mg/dL (NEGATIVE); LEUKOCYTE ESTERASE,URINE NEGATIVE (NEGATIVE); NITRITE,URINE NEGATIVE (NEGATIVE); PROTEIN,URINE NEGATIVE (NEGATIVE); URINE SPECIFIC GRAVITY 1.016; UROBILINOGEN,URINE NEGATIVE mg/dL (<2.0)
[2016-12-08 13:43] LABS: URINE BARBITURATES SCREEN NEGATIVE; URINE METHADONE SCREEN NEGATIVE; URINE OPIATES LOW NEGATIVE; URINE PHENCYCLIDINE SCREEN NEGATIVE
--- NOTE | 2016-12-08 13:47 | RADIOLOGY REPORT (SQ) ---
EXAM DESCRIPTION: U/S ABDOMEN LTD W/DOPPLER COMPLETED DATE/TIME: 12/08/2016 1:12 pm REASON FOR STUDY: elevated LFTs COMPARISON: None. TECHNIQUE: Dynamic and static grayscale images acquired of the abdomen and recorded on PACS. Additio nal selected color Doppler and spectral images recorded. LIMITATIONS: Midline bowel gas FINDINGS: PANCREAS: Not visualized LIVER: No masses. Echotexture normal. LIVER VASCULATURE: Normal directional flow of the main portal vein and hepatic veins. GALLBLADDER: No stones. Normal wall thickness. No pericholecystic fluid. ULTRASOUND-DETECTED AMIN'S SIGN: Negative. INTRAHEPATIC DUCTS AND COMMON DUCT: CBD and intrahepatic ducts normal caliber. No filling defects. D istal most common duct not well seen due to duodenum gas. INFERIOR VENA CAVA: Not well seen AORTA: Not well seen RIGHT KIDNEY: Normal size. Normal echogenicity. No solid or suspicious masses. No hydronephrosis. No calcifications. PERITONEAL AND RIGHT PLEURAL SPACE: No ascites or effusions. OTHER: No other significant findings. IMPRESSION: No gallstones, gallbladder wall thickening or pericholecystic fluid. No gross liver masses or biliary ductal dilatation. TECHNICAL DOCUMENTATION: JOB ID: [id number] [employer]- All Rights Reserved
[2016-12-08 14:35] VITALS: BP 140/86
--- NOTE | 2016-12-08 20:51 | EKG REPORT ---
SEVERITY:- ABNORMAL ECG - SINUS RHYTHM PROBABLE LEFT ATRIAL ABNORMALITY LEFT VENTRICULAR HYPERTROPHY CONSIDER ANTERIOR INFARCT : Confirmed by: Farrah Brown 08-Dec-2016 20:50:24
== END 2016-12-08 14:35 | disposition home or self-care (01) ==
LOC: ER 09:56
DX: J32.9 Chronic sinusitis, unspecified (principal); R79.89 Other specified abnormal findings of blood chemistry; R51 Headache; R00.0 Tachycardia, unspecified; R61 Generalized hyperhidrosis; Z88.0 Allergy status to penicillin; I10 Essential (primary) hypertension; E10.9 Type 1 diabetes mellitus without complications; Z98.890 Other specified postprocedural states
CPT/HCPCS: 93005; 99285; 96361; 96374; 96375; 36415; 87040; 87086; 82962; 80307 ×4; 83690; 85025; 85610; 80053; 81001; 82803; 83605; 71010; 76705; 93976; 70450; 93010; J1885; J0780; J2405; J7030

== ENCOUNTER 2017-07-03 13:55 | Emergency (ER) | payer MEDICAID ==
--- NOTE | 2017-07-03 17:50 | ER Document Report ---
ED General - General Chief Complaint: Dizziness Stated Complaint: HEADACHE Time Seen by Provider: 07/03/17 17:43 Mode of Arrival: Ambulatory Information source: Patient Notes: Patient is a 62-year-old male with past medical history of hep C who presents with 3 week history of feeling "bad" which he describes as lightheadedness and dizziness with headache. He denies any changes in vision, chest pain, shortness of breath, abdominal pain, nausea, vomiting, diarrhea, fever. He also endorses rash to his anterior chest that is also present for the past 3 weeks that started after he changed his body soap to using zest. He is not taking any medications for this. TRAVEL OUTSIDE OF THE [place] IN LAST 30 DAYS: No - Related Data Allergies/Adverse Reactions: Penicillins Allergy (Verified 04/14/17 08:18) Past Medical History - Social History Smoking Status: Unknown if Ever Smoked Family History: Reviewed & Not Pertinent - Past Medical History Cardiac Medical History: Reports: Hx Hypertension Denies: Hx Congestive Heart Failure, Hx DVT, Hx Heart Attack, Hx Hypercholesterolemia, Hx Pulmonary Embolism Pulmonary Medical History: Denies: Hx Asthma, Hx COPD, Hx Pneumonia, Hx Sleep Apnea Neurological Medical History: Reports: Hx Migraine, Hx Seizures - Last episode 2015; uncertain current antiepileptic. Endocrine Medical History: Reports: Hx Diabetes Mellitus Type 1, Hx Diabetes Mellitus Type 2. Denies: Hx Hyperthyroidism, Hx Hypothyroidism Renal/ Medical History: Denies: Hx Peritoneal Dialysis GI Medical History: Denies: Hx Cirrhosis, Hx Gastroesophageal Reflux Disease, Hx Hepatitis Musculoskeltal Medical History: Denies Hx Arthritis Psychiatric Medical History: Denies: Hx Depression Infectious Medical History: Denies: Hx C-Diff, Hx Hepatitis, Hx MRSA Past Surgical History: Reports: Hx Neurologic Surgery - craniotomy, Hx Nose Surgery, Other - Craniotomy for empyema from sinusitis; sinus surgery. No cardiac surgery. - Immunizations Immunizations up to date: Yes Hx Diphtheria, Pertussis, Tetanus Vaccination: Yes Review of Systems - Review of Systems Constitutional: Diaphoresis. denies: Chills, Fever Cardiovascular: denies: Chest pain Respiratory: denies: Short of breath Physical Exam - Vital signs Vitals: Temp Pulse Resp BP Pulse Ox 97.6 F 124 H 18 118/83 97 07/03/17 14:05 07/03/17 14:05 07/03/17 14:05 07/03/17 14:05 07/03/17 14:05 - Notes Notes: General: Alert and oriented. Triage noted patient was very diaphoretic initially with HR of 124. My exam, no diaphoresis, HR 99 with BP 118/83. Ambulatory with steady gait. CV: RRR, normal S1 and S2 Skin: Erythematous urticarial rash to anterior chest wall. Course - Re-evaluation Re-evalutation: 07/03/17 17:49 I have greeted and performed a rapid initial assessment of this patient. A comprehensive ED assessment and evaluation of the patient, analysis of test results and completion of the medical decision making process will be conducted by additional ED providers. - Vital Signs Vital signs: Temp Pulse Resp BP Pulse Ox 97.6 F 124 H 18 118/83 97 07/03/17 14:05 07/03/17 14:05 07/03/17 14:05 07/03/17 14:05 07/03/17 14:05
[2017-07-03 18:30] LABS: APPEARANCE,URINE CLEAR; BILIRUBIN,URINE NEGATIVE (NEGATIVE); COLOR,URINE YELLOW; GLUCOSE, URINE NEGATIVE (NEGATIVE); KETONES,URINE NEGATIVE (NEGATIVE); LEUKOCYTE ESTERASE,URINE NEGATIVE (NEGATIVE); NITRITE,URINE NEGATIVE (NEGATIVE); PROTEIN,URINE NEGATIVE (NEGATIVE); URINE SPECIFIC GRAVITY 1.013; UROBILINOGEN,URINE NEGATIVE mg/dL (<2.0)
--- NOTE | 2017-07-03 18:34 | RADIOLOGY REPORT (SQ) ---
EXAM DESCRIPTION: CT HEAD WITHOUT COMPLETED DATE/TIME: 07/03/2017 6:23 pm REASON FOR STUDY: headache, dizziness COMPARISON: 12/08/2016 TECHNIQUE: Axial images acquired through the brain without intravenous contrast. Images reviewed wi th bone, brain and subdural windows. Images stored on PACS. All CT scanners at this facility use dose modulation, iterative reconstruction, and/or weight based d osing when appropriate to reduce radiation dose to as low as reasonably achievable (ALARA). [facility]: Dose Right [facility]: CareDose [facility]: Dose Right [facility]: Teradose 4D [facility]: Smart Inktd RADIATION DOSE: CT Rad equipment meets quality standard of care and radiation dose reduction techniq ues were employed. CTDIvol: 64.6 mGy. DLP: 1034 mGy-cm. mGy. LIMITATIONS: None. FINDINGS: VENTRICLES: Normal size and contour. CEREBRUM: No masses. No hemorrhage. No midline shift. No evidence for acute infarction. Normal gra y/white matter differentiation. No areas of low density in the white matter. CEREBELLUM: No masses. No hemorrhage. No alteration of density. No evidence for acute infarction. EXTRAAXIAL SPACES: No fluid collections. No masses. ORBITS AND GLOBE: No intra- or extraconal masses. Normal contour of globe without masses. CALVARIUM: Status post frontal craniotomy with mesh in place. PARANASAL SINUSES: Bilateral maxillary air-fluid levels. Mucosal thickening air-fluid level sphenoid . SOFT TISSUES: No mass or hematoma. OTHER: No other significant finding. IMPRESSION: NO ACUTE INTRACRANIAL IMAGING FINDINGS. Stable postop changes related to previous front al craniotomy. Chronic sinus disease essentially unchanged since the previous study of 12/08/2016. EVIDENCE OF ACUTE STROKE: NO. COMMENT: Quality ID # [id number]: Final reports with documentation of one or more dose reduction techniques (e.g., Automated exposure control, adjustment of the mA and/or kV according to patient size, use of iterative reconstruction technique) TECHNICAL DOCUMENTATION: JOB ID: [id number] [email or web address]- All Rights Reserved
--- NOTE | 2017-07-03 20:35 | ER Document Report ---
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 He denies any changes in vision, chest pain, shortness of breath, abdominal pain, nausea, vomiting, diarrhea, fever. He has not take any medication for this. He has not seen his primary care doctor for this. He is somewhat of a poor historian and difficulty to obtain full history from. He also endorses rash to his anterior chest that is also present for the past 3 weeks that started after he changed his body soap to using zest. He is not taking any medications for this. He has not tried changing the soap again. Denies any cough, SOB, or vomiting. TRAVEL OUTSIDE OF THE [place] IN LAST 30 DAYS: No - Related Data Allergies/Adverse Reactions: Penicillins Allergy (Verified 04/14/17 08:18) Past Medical History - General Information source: Patient - Social History Smoking Status: Never Smoker Chew tobacco use (# tins/day): No Frequency of alcohol use: None Drug Abuse: None Family History: Reviewed & Not Pertinent Patient has suicidal ideation: No Patient has homicidal ideation: No - Past Medical History Cardiac Medical History: Reports: Hx Hypertension Denies: Hx Congestive Heart Failure, Hx DVT, Hx Heart Attack, Hx Hypercholesterolemia, Hx Pulmonary Embolism Pulmonary Medical History: Denies: Hx Asthma, Hx COPD, Hx Pneumonia, Hx Sleep Apnea Neurological Medical History: Reports: Hx Migraine, Hx Seizures - Last episode 2015; uncertain current antiepileptic. Endocrine Medical History: Reports: Hx Diabetes Mellitus Type 1, Hx Diabetes Mellitus Type 2. Denies: Hx Hyperthyroidism, Hx Hypothyroidism Renal/ Medical History: Reports: Hx Peritoneal Dialysis GI Medical History: Denies: Hx Cirrhosis, Hx Gastroesophageal Reflux Disease, Hx Hepatitis Musculoskeltal Medical History: Denies Hx Arthritis Psychiatric Medical History: Denies: Hx Depression Infectious Medical History: Denies: Hx C-Diff, Hx Hepatitis, Hx MRSA Past Surgical History: Reports: Hx Neurologic Surgery - craniotomy, Hx Nose Surgery, Other - Craniotomy for empyema from sinusitis; sinus surgery. No cardiac surgery. - Immunizations Immunizations up to date: Yes Hx Diphtheria, Pertussis, Tetanus Vaccination: Yes Review of Systems - Review of Systems Constitutional: See HPI EENT: No symptoms reported Cardiovascular: No symptoms reported Respiratory: No symptoms reported Gastrointestinal: No symptoms reported Genitourinary: No symptoms reported Male Genitourinary: No symptoms reported Musculoskeletal: No symptoms reported Skin: See HPI Hematologic/Lymphatic: No symptoms reported Neurological/Psychological: See HPI Physical Exam - Vital signs Vitals: Temp Pulse Resp BP Pulse Ox 97.6 F 124 H 18 118/83 97 07/03/17 14:05 07/03/17 14:05 07/03/17 14:05 07/03/17 14:05 07/03/17 14:05 - Notes Notes: PHYSICAL EXAM: CONSTITUTIONAL: Alert and oriented, well-appearing and in no acute distress. HENT: Normocephalic, atraumatic. Trachea midline. Uvula midline. Moist mucous membranes. Old surgical scar without evidence of infection across scalp. EYES: Pupils equal round and reactive to light, EOM intact. Sclera anicteric, conjunctiva are normal. No entrapment. NECK: supple without lymphadenopathy. No midline tenderness or paraspinous muscle spasms. No step-offs or deformities. ROM intact. HEART: Regular rate and rhythm without murmurs. LUNGS: CTAB and equal. No wheezes, rales or rhonchi. BACK: nontender, no paraspinous spasm, 5+/5 strengths, DTRs 2+, SLR -. EXTREMITIES: Normal range of motion, no pitting edema. No cyanosis. Cap Refill < 3 seconds. NEURO: Cranial nerves grossly intact. Normal sensory/motor exams. PSYCH: Normal mood, normal affect. SKIN: Warm and dry. Normal turgor. Erythematous urticarial rash to anterior chest wall. Course - Re-evaluation Re-evalutation: 07/03/17 18:31 Patient seen and examined. No neuro deficits on exam. He is alert and oriented, HR recheck shows 99 and 97% on RA. Denies chest pain or SOB. Appears he had chronic headaches from previous TBI. Rash also consistent with contact dermatitis. Will obtain head CT and give benadryl for rash. 07/03/17 20:32 Reviewed imaging studies - head CT negative for acute findings, shows chronic sinusitis. Will advise tylenol for headaches and treat contact dermatitis with anti-histamine. Patient states he is feeling better and is ready to leave. At this time, will discharge with return precautions and follow-up recommendations. Verbal discharge instructions given at the bedside and opportunity for questions given. Medication warnings reviewed. Patient is in agreement with this plan and has verbalized understanding of return precautions and the need for primary care follow-up in the next 24-72 hours. - Vital Signs Vital signs: Temp Pulse Resp BP Pulse Ox 97.5 F 87 16 105/77 95 07/03/17 20:35 07/03/17 20:35 07/03/17 20:35 07/03/17 20:35 07/03/17 20:35 Discharge - Discharge Clinical Impression: 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 Chronic sinusitis Qualifiers: Sinusitis location: pansinusitis Qualified Code(s): J32.4 - Chronic pansinusitis Contact dermatitis Qualifiers: Contact dermatitis type: allergic Contact dermatitis trigger: unspecified trigger Qualified Code(s): L23.9 - Allergic contact dermatitis, unspecified cause Condition: Stable Disposition: HOME, SELF-CARE Instructions: Contact Dermatitis ([facility]), Dizziness ([facility]) Additional Instructions: Stop using the zest soap. Take medication as directed. FOLLOW-UP CARE: If you have been referred to a physician for follow-up care, call the physician s office for an appointment as you were instructed or within the next two days. If you experience worsening or a significant change in your symptoms, notify the physician immediately or return to the Emergency Department at any time for re-evaluation. Prescriptions: Meclizine HCl [Antivert 25 mg Tablet] 25 mg PO TID PRN #21 tablet PRN Reason: Methylprednisolone [Medrol Dosepack (4 mg/Tab) 21 Tab/Dosepak] 4 mg PO ASDIR PRN #21 tab.ds.pk PRN Reason: Referrals: CHARLIE PETIT FNP-C [Primary Care Provider] - Follow up as needed
[2017-07-03 20:36] VITALS: BP 105/77
== END 2017-07-03 20:36 | disposition home or self-care (01) ==
LOC: ER 13:55
DX: J32.4 Chronic pansinusitis (principal); L23.9 Allergic contact dermatitis, unspecified cause; R42 Dizziness and giddiness; R51 Headache; B19.20 Unspecified viral hepatitis C without hepatic coma; Z87.820 Personal history of traumatic brain injury
CPT/HCPCS: 70450; 81001; 99284

== ENCOUNTER 2017-09-11 11:43 | Emergency (ER) | payer MEDICAID ==
--- NOTE | 2017-09-11 12:10 | ER Document Report ---
ED Medical Screen (RME) - General Chief Complaint: Headache >24 hrs old Stated Complaint: HEADACHE Notes: This 62-year-old male patient reports in the past week he has had 4 episodes of falling out onto the floor and not waking up until the following morning. 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 He complains of a frontal headache for the past week. He has had a frontal craniotomy many years ago. He has had 15 CT scans of his head or facial bones at this facility in the past 4-1/2 years. The only significant findings are chronic sinus disease. I have greeted and performed a rapid initial assessment of this patient. A comprehensive ED assessment and evaluation of the patient, analysis of test results and completion of the medical decision making process will be conducted by additional ED providers. TRAVEL OUTSIDE OF THE [place] IN LAST 30 DAYS: No - Related Data Allergies/Adverse Reactions: Penicillins Allergy (Verified 09/11/17 11:44) Past Medical History - Social History Family history: DM, Malignancy - Past Medical History Cardiac Medical History: Reports: Hx Hypertension Denies: Hx Congestive Heart Failure, Hx DVT, Hx Heart Attack, Hx Hypercholesterolemia, Hx Pulmonary Embolism Pulmonary Medical History: Denies: Hx Asthma, Hx COPD, Hx Pneumonia, Hx Sleep Apnea Neurological Medical History: Reports: Hx Migraine, Hx Seizures - Last episode 2015; uncertain current antiepileptic. Endocrine Medical History: Reports: Hx Diabetes Mellitus Type 1, Hx Diabetes Mellitus Type 2. Denies: Hx Hyperthyroidism, Hx Hypothyroidism Renal/ Medical History: Reports: Hx Peritoneal Dialysis GI Medical History: Denies: Hx Cirrhosis, Hx Gastroesophageal Reflux Disease, Hx Hepatitis Musculoskeltal Medical History: Denies Hx Arthritis Psychiatric Medical History: Denies: Hx Depression Infectious Medical History: Denies: Hx C-Diff, Hx Hepatitis, Hx MRSA Past Surgical History: Reports: Hx Neurologic Surgery - craniotomy, Hx Nose Surgery, Other - Craniotomy for empyema from sinusitis; sinus surgery. No cardiac surgery. - Immunizations Immunizations up to date: Yes Hx Diphtheria, Pertussis, Tetanus Vaccination: Yes Physical Exam - Vital signs Vitals: Temp Pulse Resp BP Pulse Ox 97.7 F 113 H 18 123/96 H 98 09/11/17 11:48 09/11/17 11:48 09/11/17 11:48 09/11/17 11:48 09/11/17 11:48 Course - Vital Signs Vital signs: Temp Pulse Resp BP Pulse Ox 97.7 F 113 H 18 123/96 H 98 09/11/17 11:48 09/11/17 11:48 09/11/17 11:48 09/11/17 11:48 09/11/17 11:48
[2017-09-11 12:31] LABS: ABSOLUTE EOSINOPHILS # (AUTO) 0.1 10^3/uL (0.0-0.6); ABSOLUTE LYMPHOCYTES (AUTO) 2.2 10^3/uL (0.5-4.7); ABSOLUTE MONOCYTES (AUTO) 0.4 10^3/uL (0.1-1.4); ABSOLUTE NEUT (AUTO) 2.3 10^3/uL (1.7-8.2); BASOPHILS % (AUTO) 0.7 % (0-2); EOSINOPHILS % (AUTO) 1.8 % (0-6); HEMATOCRIT 45.1 % (37.9-51.0); HEMOGLOBIN 15.3 g/dL (13.5-17.0); LYMPHOCYTES % (AUTO) 43.4 % (13-45); MEAN CORPUSCULAR HEMOGLOBIN 31.9 pg (27.0-33.4); MEAN CORPUSCULAR HGB CONC 33.9 g/dL (32.0-36.0); MEAN CORPUSCULAR VOLUME 94 fl (80-97); MONOCYTES % (AUTO) 8.6 % (3-13); PLATELET COUNT 243 10^3/uL (150-450); RED BLOOD COUNT 4.79 10^6/uL (4.35-5.55); RED CELL DISTRIBUTION WIDTH 13.3 % (11.5-14.0); SEGMENTED NEUTROPHILS % (AUTO) 45.5 % (42-78); TOTAL CELLS COUNTED % (AUTO) 100 %
[2017-09-11 12:49] LABS: ALANINE AMINOTRANSFERASE 64 U/L (21-72); ALBUMIN 4.5 g/dL (3.5-5.0); ALKALINE PHOSPHATASE 99 U/L (38-126); ANION GAP 11 (5-19); ASPARTATE AMINO TRANSFERASE 41 U/L (17-59); BILIRUBIN,DIRECT 0.2 mg/dL (0.0-0.4); BILIRUBIN,TOTAL 0.5 mg/dL (0.2-1.3); BLOOD UREA NITROGEN 14 mg/dL (7-20); CALCIUM 10.2 mg/dL (8.4-10.2); CARBON DIOXIDE 30 mmol/L (22-30); CHLORIDE 102 mmol/L (98-107); GLUCOSE 115 mg/dL (75-110); POTASSIUM 4.1 mmol/L (3.6-5.0); SODIUM 143.2 mmol/L (137-145)
--- NOTE | 2017-09-11 14:35 | RADIOLOGY REPORT (SQ) ---
EXAM DESCRIPTION: CT HEAD WITH COMPLETED DATE/TIME: 09/11/2017 1:47 pm REASON FOR STUDY: headache , hx sinus surgeries COMPARISON: 07/03/2017 TECHNIQUE: Axial images acquired through the brain with intravenous contrast. Images reviewed with b one, brain and subdural windows. Additional sagittal and coronal reconstructions were generated. Lily ges stored on PACS. All CT scanners at this facility use dose modulation, iterative reconstruction, and/or weight based d osing when appropriate to reduce radiation dose to as low as reasonably achievable (ALARA). [facility]: Dose Right [facility]: CareDose [facility]: Dose Right [facility]: Teradose 4D [facility]: [employer] CONTRAST TYPE AND DOSE: contrast/concentration: Isovue 370.00 mg/ml; Total Contrast Delivered: 50.0 ml; Total Saline Delivered: 50.0 ml RENAL FUNCTION: BUN 14 creatinine 0.73 RADIATION DOSE: CT Rad equipment meets quality standard of care and radiation dose reduction techniq ues were employed. CTDIvol: 53.2 mGy. DLP: 991 mGy-cm.. LIMITATIONS: None. FINDINGS: VENTRICLES: Normal size and contour. CEREBRUM: No masses. No hemorrhage. No midline shift. There is what appears to be a small chronic subdural fluid collection in the frontal region at the site of a prior frontal craniotomy CEREBELLUM: No masses. No hemorrhage. No alteration of density. No evidence for acute infarction. No enhancing lesions. EXTRA-AXIAL SPACES: There is a chronic frontal subdural collection see above. ORBITS AND GLOBE: No intra- or extraconal masses. Normal contour of globe without masses. CALVARIUM: Prior frontal craniotomy PARANASAL SINUSES: Bilateral antral windows are present. There are mucoperiosteal changes in the lef t axillary, frontal and ethmoid sinuses. SOFT TISSUES: No mass or hematoma. OTHER: No other significant finding. IMPRESSION: Chronic sinus changes. Postsurgical changes. No acute intracranial imaging finding. EVIDENCE OF ACUTE STROKE: NO. TECHNICAL DOCUMENTATION: JOB ID: [id number] Quality ID # [id number]: Final reports with documentation of one or more dose reduction techniques (e.g., Au tomated exposure control, adjustment of the mA and/or kV according to patient size, use of iterative reconstruction technique) 2010 [employer]- All Rights Reserved Reading location - IP/workstation name: [email or web address]
[2017-09-11] MEDS ORDERED: KETOROLAC TROMETHAMINE INJ/PF 30 MG/1 ML SDV IV ONE (14:46)
--- NOTE | 2017-09-11 14:49 | ER Document Report ---
ED General - General Chief Complaint: Headache >24 hrs old Stated Complaint: HEADACHE Time Seen by Provider: 09/11/17 12:10 Mode of Arrival: Ambulatory Information source: Patient Notes: 62-year-old male presents with complaints of headache. Patient had sinus surgery in the past is noted to be here multiple times with similar complaint, he denies any fevers or chills denies any nausea vomiting or diarrhea She does note multiple syncopal episodes recently but denies any neurological deficits TRAVEL OUTSIDE OF THE [place] IN LAST 30 DAYS: No - HPI Onset: Other Onset/Duration: Persistent Quality of pain: Achy Severity: Mild Pain Level: 1 Associated symptoms: Headache Exacerbated by: Denies Relieved by: Denies Similar symptoms previously: Yes Recently seen / treated by doctor: Yes - Related Data Allergies/Adverse Reactions: Penicillins Allergy (Verified 09/11/17 11:44) Past Medical History - Social History Smoking Status: Former Smoker Cigarette use (# per day): No Chew tobacco use (# tins/day): No Smoking Education Provided: No Frequency of alcohol use: None Drug Abuse: None Family History: Reviewed & Not Pertinent Patient has suicidal ideation: No Patient has homicidal ideation: No - Past Medical History Cardiac Medical History: Reports: Hx Hypertension Denies: Hx Congestive Heart Failure, Hx DVT, Hx Heart Attack, Hx Hypercholesterolemia, Hx Pulmonary Embolism Pulmonary Medical History: Denies: Hx Asthma, Hx COPD, Hx Pneumonia, Hx Sleep Apnea Neurological Medical History: Reports: Hx Migraine, Hx Seizures - Last episode 2015; uncertain current antiepileptic. Endocrine Medical History: Reports: Hx Diabetes Mellitus Type 1, Hx Diabetes Mellitus Type 2. Denies: Hx Hyperthyroidism, Hx Hypothyroidism Renal/ Medical History: Reports: Hx Peritoneal Dialysis GI Medical History: Denies: Hx Cirrhosis, Hx Gastroesophageal Reflux Disease, Hx Hepatitis Musculoskeltal Medical History: Denies Hx Arthritis Psychiatric Medical History: Denies: Hx Depression Infectious Medical History: Denies: Hx C-Diff, Hx Hepatitis, Hx MRSA Past Surgical History: Reports: Hx Neurologic Surgery - craniotomy, Hx Nose Surgery, Other - Craniotomy for empyema from sinusitis; sinus surgery. No cardiac surgery. - Immunizations Immunizations up to date: Yes Hx Diphtheria, Pertussis, Tetanus Vaccination: Yes Review of Systems - Review of Systems Notes: REVIEW OF SYSTEMS: CONSTITUTIONAL : Denies fever, chills, or sweats. Denies recent illness. EENT: Denies eye, ear, throat, or mouth pain or symptoms. Denies nasal or sinus congestion or discharge. Denies throat, tongue, or mouth swelling or difficulty swallowing. CARDIOVASCULAR: Denies chest pain. Denies palpitations or racing or irregular heart beat. Denies ankle edema. RESPIRATORY: Denies cough, cold, or chest congestion. Denies shortness of breath, difficulty breathing, or wheezing. GASTROINTESTINAL: Denies abdominal pain or distention. Denies nausea, vomiting , or diarrhea. Denies blood in vomitus, stools, or per rectum. Denies black, tarry stools. Denies constipation. GENITOURINARY: Denies difficulty urinating, painful urination, burning, frequency, blood in urine, or discharge. MUSCULOSKELETAL: Denies back or neck pain or stiffness. Denies joint pain or swelling. SKIN: Denies rash, lesions or sores. HEMATOLOGIC : Denies easy bruising or bleeding. LYMPHATIC: Denies swollen, enlarged glands. NEUROLOGICAL: Admits to headache syncopal episodes PSYCHIATRIC: Denies anxiety or stress. Denies depression, suicidal ideation, or homicidal ideation. ALL OTHER SYSTEMS REVIEWED AND NEGATIVE. Dictation was performed using [employer] voice recognition software PHYSICAL EXAMINATION: GENERAL: Well-appearing, well-nourished and in no acute distress. HEAD: Postsurgical changes noted EYES: Pupils equal round and reactive to light, extraocular movements intact, sclera anicteric, conjunctiva are normal. ENT: Nares patent, oropharynx clear without exudates. Moist mucous membranes. NECK: Normal range of motion, supple without lymphadenopathy LUNGS: Breath sounds clear to auscultation bilaterally and equal. No wheezes rales or rhonchi. HEART: Regular rate and rhythm without murmurs ABDOMEN: Soft, nontender, nondistended abdomen. No guarding, no rebound. No masses appreciated. Musculoskeletal: Normal range of motion, no pitting or edema. No cyanosis. NEUROLOGICAL: Cranial nerves grossly intact. Normal speech, normal gait. Normal sensory, motor exams PSYCH: Flat effect SKIN: Warm, Dry, normal turgor, no rashes or lesions noted. Physical Exam - Vital signs Vitals: Temp Pulse Resp BP Pulse Ox 97.7 F 113 H 18 123/96 H 98 09/11/17 11:48 09/11/17 11:48 09/11/17 11:48 09/11/17 11:48 09/11/17 11:48 Course - Re-evaluation Re-evalutation: 09/11/17 14:48 CT with IV contrast was performed of the head, no acute abnormality was noted no masses noted no abscess noted, patient overall looks well, I believe that the pain is chronic in nature patient will be treated with Toradol Patient is very happy with this plan After performing a Medical Screening Examination, I estimate there is LOW risk for ACUTE GLAUCOMA, TEMPORAL ARTERITIS, MENINGITIS, INCRANIAL HEMORRHAGE, or ISCHEMIC STROKE thus I consider the discharge disposition reasonable. I have reevaluated this patient multiple times and no significant life threatening changes are noted. The patient and I have discussed the diagnosis and risks, and we agree with discharging home with close follow-up with the understanding that symptoms and presentations can change. We also discussed returning to the Emergency Department immediately if new or worsening symptoms occur. We have discussed the symptoms which are most concerning (e.g., changing or worsening symptoms, new numbness or weakness, vomiting, fever) that necessitate immediate return. - Vital Signs Vital signs: Temp Pulse Resp BP Pulse Ox 97.7 F 113 H 18 123/96 H 98 09/11/17 11:48 09/11/17 11:48 09/11/17 11:48 09/11/17 11:48 09/11/17 11:48 - Laboratory Result Diagrams: 09/11/17 12:20 09/11/17 12:20 Laboratory results interpreted by me: 09/11/17 12:20 Glucose 115 H Total Protein 9.0 H - Diagnostic Test Radiology reviewed: Image reviewed - Chronic sinus changes, Reports reviewed Discharge - Discharge Clinical Impression: Syncope and collapse Chronic headache Qualifiers: Headache type: tension-type Intractability: not intractable Qualified Code(s): G44.229 - Chronic tension-type headache, not intractable Condition: Stable Disposition: HOME, SELF-CARE Instructions: Syncopal Episode ([facility]) Referrals: CHARLIE PETIT FNP-C [Primary Care Provider] - Follow up tomorrow
[2017-09-11 15:06] VITALS: BP 132/91
== END 2017-09-11 15:06 | disposition home or self-care (01) ==
LOC: ER 11:43
DX: R55 Syncope and collapse (principal); G44.229 Chronic tension-type headache, not intractable; Z87.891 Personal history of nicotine dependence; I10 Essential (primary) hypertension; E11.9 Type 2 diabetes mellitus without complications
CPT/HCPCS: 99284; 96374; 36415; 85025; 80053; 70460; J1885

== ENCOUNTER 2017-10-14 10:58 | Emergency (ER) | payer MEDICAID ==
--- NOTE | 2017-10-14 11:16 | ER Document Report ---
ED Medical Screen (RME) - General Chief Complaint: Head Injury without LOC Stated Complaint: FALL/HEAD INJURY Time Seen by Provider: 10/14/17 11:11 Mode of Arrival: Ambulatory Information source: Patient Notes: 62 yo insulin diabetic, past CVA, non CAD, seizures, migraine, HTN was dropped off by friend after he woke up at 0800 on the floor in the kitchen. Last night he got dizzy 0300, legs gave out, and he lost consiousness. TRAVEL OUTSIDE OF THE [place] IN LAST 30 DAYS: No - Related Data Allergies/Adverse Reactions: Penicillins Allergy (Verified 10/14/17 11:03) Past Medical History - Social History Family history: DM, Malignancy - Past Medical History Cardiac Medical History: Reports: Hx Hypertension Denies: Hx Congestive Heart Failure, Hx DVT, Hx Heart Attack, Hx Hypercholesterolemia, Hx Pulmonary Embolism Pulmonary Medical History: Denies: Hx Asthma, Hx COPD, Hx Pneumonia, Hx Sleep Apnea Neurological Medical History: Reports: Hx Migraine, Hx Seizures - Last episode 2015; uncertain current antiepileptic. Endocrine Medical History: Reports: Hx Diabetes Mellitus Type 1, Hx Diabetes Mellitus Type 2. Denies: Hx Hyperthyroidism, Hx Hypothyroidism Renal/ Medical History: Reports: Hx Peritoneal Dialysis GI Medical History: Denies: Hx Cirrhosis, Hx Gastroesophageal Reflux Disease, Hx Hepatitis Musculoskeltal Medical History: Denies Hx Arthritis Psychiatric Medical History: Denies: Hx Depression Infectious Medical History: Denies: Hx C-Diff, Hx Hepatitis, Hx MRSA Past Surgical History: Reports: Hx Neurologic Surgery - craniotomy, Hx Nose Surgery, Other - Craniotomy for empyema from sinusitis; sinus surgery. No cardiac surgery. - Immunizations Immunizations up to date: Yes Hx Diphtheria, Pertussis, Tetanus Vaccination: Yes Physical Exam - Vital signs Vitals: Temp Pulse Resp BP Pulse Ox 98.4 F 108 H 18 125/81 94 10/14/17 11:03 10/14/17 11:03 10/14/17 11:03 10/14/17 11:03 10/14/17 11:03 Course - Vital Signs Vital signs: Temp Pulse Resp BP Pulse Ox 98.4 F 108 H 18 125/81 94 10/14/17 11:03 10/14/17 11:03 10/14/17 11:03 10/14/17 11:03 10/14/17 11:03
[2017-10-14 11:55] LABS: ABSOLUTE EOSINOPHILS # (AUTO) 0.1 10^3/uL (0.0-0.6); ABSOLUTE LYMPHOCYTES (AUTO) 2.3 10^3/uL (0.5-4.7); ABSOLUTE MONOCYTES (AUTO) 0.4 10^3/uL (0.1-1.4); ABSOLUTE NEUT (AUTO) 2.5 10^3/uL (1.7-8.2); BASOPHILS % (AUTO) 0.8 % (0-2); EOSINOPHILS % (AUTO) 1.4 % (0-6); HEMATOCRIT 42.3 % (37.9-51.0); HEMOGLOBIN 14.4 g/dL (13.5-17.0); LYMPHOCYTES % (AUTO) 42.8 % (13-45); MEAN CORPUSCULAR HEMOGLOBIN 32.3 pg (27.0-33.4); MEAN CORPUSCULAR HGB CONC 34.1 g/dL (32.0-36.0); MEAN CORPUSCULAR VOLUME 95 fl (80-97); MONOCYTES % (AUTO) 7.4 % (3-13); PLATELET COUNT 217 10^3/uL (150-450); RED BLOOD COUNT 4.47 10^6/uL (4.35-5.55); SEGMENTED NEUTROPHILS % (AUTO) 47.6 % (42-78); TOTAL CELLS COUNTED % (AUTO) 100 %; WHITE BLOOD COUNT 5.4 10^3/uL (4.0-10.5)
--- NOTE | 2017-10-14 12:00 | RADIOLOGY REPORT (SQ) ---
EXAM DESCRIPTION: CT HEAD WITHOUT COMPLETED DATE/TIME: 10/14/2017 11:50 am REASON FOR STUDY: headache COMPARISON: 09/11/2017 TECHNIQUE: Axial images acquired through the brain without intravenous contrast. Images reviewed wi th bone, brain and subdural windows. Images stored on PACS. All CT scanners at this facility use dose modulation, iterative reconstruction, and/or weight based d osing when appropriate to reduce radiation dose to as low as reasonably achievable (ALARA). [facility]: Dose Right [facility]: CareDose [facility]: Dose Right [facility]: Teradose 4D [facility]: Smart [employer] RADIATION DOSE: CT Rad equipment meets quality standard of care and radiation dose reduction techniq ues were employed. CTDIvol: 53.2 mGy. DLP: 937 mGy-cm. mGy. LIMITATIONS: None. FINDINGS: VENTRICLES: Normal size and contour. CEREBRUM: No masses. No hemorrhage. No midline shift. No evidence for acute infarction. Normal gra y/white matter differentiation. No areas of low density in the white matter. CEREBELLUM: No masses. No hemorrhage. No alteration of density. No evidence for acute infarction. EXTRAAXIAL SPACES: No fluid collections. No masses. ORBITS AND GLOBE: No intra- or extraconal masses. Normal contour of globe without masses. CALVARIUM: Stable postsurgical change. PARANASAL SINUSES: Stable degree of paranasal sinus disease with complete opacification of the left e thmoid sinuses. SOFT TISSUES: No mass or hematoma. OTHER: No other significant finding. IMPRESSION: NO ACUTE INTRACRANIAL PROCESS. NO SIGNIFICANT CHANGE FROM MULTIPLE PRIOR CT EXAMINATION S WITH MOST RECENT 09/11/2017 EVIDENCE OF ACUTE STROKE: NO. COMMENT: Quality ID # [id number]: Final reports with documentation of one or more dose reduction techniques (e.g., Automated exposure control, adjustment of the mA and/or kV according to patient size, use of iterative reconstruction technique) TECHNICAL DOCUMENTATION: JOB ID: [id number] [employer]- All Rights Reserved Reading location - IP/workstation name: [email or web address]
--- NOTE | 2017-10-14 12:02 | RADIOLOGY REPORT (SQ) ---
EXAM DESCRIPTION: CT FACIAL AREA WITHOUT COMPLETED DATE/TIME: 10/14/2017 11:50 am REASON FOR STUDY: dizziness, fall, facial injury COMPARISON: 10/11/2016 TECHNIQUE: Noncontrasted images through the facial bones and orbits windowed for bone and soft tissu e. Additional coronal and sagittal reconstructed images reviewed. All images stored on PACS. All CT scanners at this facility use dose modulation, iterative reconstruction, and/or weight based d osing when appropriate to reduce radiation dose to as low as reasonably achievable (ALARA). [facility]: Dose Right [facility]: CareDose [facility]: Dose Right [facility]: Teradose 4D [facility]: Smart [employer] RADIATION DOSE: CT Rad equipment meets quality standard of care and radiation dose reduction techniq ues were employed. CTDIvol: 30.4 mGy. DLP: 587 mGy-cm. mGy. LIMITATIONS: None. FINDINGS: FACIAL BONES: Stable postsurgical change. No fracture or bone lesion. ORBITS: Intact. No fracture. Symmetric intact globes and retroorbital soft tissues. PARANASAL SINUSES: Stable degree paranasal sinus disease. SOFT TISSUES: No mass or edema. INFERIOR BRAIN: Limited view. No acute findings. OTHER: No other significant finding. IMPRESSION: NO ACUTE FINDINGS. NO SIGNIFICANT CHANGE FROM PRIOR CT. TECHNICAL DOCUMENTATION: JOB ID: [id number] Quality ID # [id number]: Final reports with documentation of one or more dose reduction techniques (e.g., Au tomated exposure control, adjustment of the mA and/or kV according to patient size, use of iterative reconstruction technique) 2010 [employer]- All Rights Reserved Reading location - IP/workstation name: [email or web address]
[2017-10-14 12:15] LABS: ALANINE AMINOTRANSFERASE 98 U/L (21-72); ALBUMIN 4.1 g/dL (3.5-5.0); ALKALINE PHOSPHATASE 110 U/L (38-126); ANION GAP 14 (5-19); ASPARTATE AMINO TRANSFERASE 72 U/L (17-59); BILIRUBIN,DIRECT 0.3 mg/dL (0.0-0.4); BILIRUBIN,TOTAL 0.3 mg/dL (0.2-1.3); BLOOD UREA NITROGEN 19 mg/dL (7-20); CALCIUM 9.4 mg/dL (8.4-10.2); CARBON DIOXIDE 25 mmol/L (22-30); CHLORIDE 108 mmol/L (98-107); CREATINE KINASE 166 U/L (55-170); GLUCOSE 209 mg/dL (75-110); POTASSIUM 4.2 mmol/L (3.6-5.0); TOTAL PROTEIN 8.5 g/dL (6.3-8.2)
[2017-10-14] MEDS ORDERED: NORMAL SALINE 1000 ML 1,000 ML IV ONE (12:18)
[2017-10-14 12:24] LABS: CREATINE KINASE MB 2.01 ng/mL (<4.55); TROPONIN I < 0.012 ng/mL
[2017-10-14 14:22] LABS: APPEARANCE,URINE SLIGHTLY-CLOUDY; BILIRUBIN,URINE NEGATIVE (NEGATIVE); CALCIUM OXALATE CRYSTALS,URINE MANY /HPF; COLOR,URINE YELLOW; GLUCOSE, URINE >=500 mg/dL (NEGATIVE); KETONES,URINE NEGATIVE (NEGATIVE); LEUKOCYTE ESTERASE,URINE NEGATIVE (NEGATIVE); NITRITE,URINE NEGATIVE (NEGATIVE); PROTEIN,URINE NEGATIVE (NEGATIVE); URINE SPECIFIC GRAVITY 1.021
--- NOTE | 2017-10-14 14:22 | ER Document Report ---
ED General - General Chief Complaint: Head Injury without LOC Stated Complaint: FALL/HEAD INJURY Time Seen by Provider: 10/14/17 11:11 Mode of Arrival: Ambulatory TRAVEL OUTSIDE OF THE [place] IN LAST 30 DAYS: No - HPI Patient complains to provider of: Fall with head injury and loss of consciousness Notes: Patient coming in for evaluation of fall is constant states happened day prior to arrival. Patient states he passed out in the kitchen unknown amount time states he did hit his head. Patient denies any chest pain abdominal pain fever chills nausea vomiting diarrhea prior to during or after this episode of passing out. Patient states this is the third time this happened month. Patient states he is hydrating adequately and eating normal meals. Patient resting comfortably upon my evaluation. - Related Data Allergies/Adverse Reactions: Penicillins Allergy (Verified 10/14/17 11:03) Past Medical History - General Information source: Patient - Social History Smoking Status: Former Smoker Frequency of alcohol use: None Drug Abuse: None Family History: Reviewed & Not Pertinent Patient has suicidal ideation: No Patient has homicidal ideation: No - Past Medical History Cardiac Medical History: Reports: Hx Hypertension Denies: Hx Congestive Heart Failure, Hx DVT, Hx Heart Attack, Hx Hypercholesterolemia, Hx Pulmonary Embolism Pulmonary Medical History: Denies: Hx Asthma, Hx COPD, Hx Pneumonia, Hx Sleep Apnea Neurological Medical History: Reports: Hx Migraine, Hx Seizures - Last episode 2015; uncertain current antiepileptic. Endocrine Medical History: Reports: Hx Diabetes Mellitus Type 1, Hx Diabetes Mellitus Type 2. Denies: Hx Hyperthyroidism, Hx Hypothyroidism Renal/ Medical History: Reports: Hx Peritoneal Dialysis GI Medical History: Denies: Hx Cirrhosis, Hx Gastroesophageal Reflux Disease, Hx Hepatitis Musculoskeltal Medical History: Denies Hx Arthritis Psychiatric Medical History: Denies: Hx Depression Infectious Medical History: Denies: Hx C-Diff, Hx Hepatitis, Hx MRSA Past Surgical History: Reports: Hx Neurologic Surgery - craniotomy, Hx Nose Surgery, Other - Craniotomy for empyema from sinusitis; sinus surgery. No cardiac surgery. - Immunizations Immunizations up to date: Yes Hx Diphtheria, Pertussis, Tetanus Vaccination: Yes Review of Systems - Review of Systems Constitutional: No symptoms reported EENT: No symptoms reported Cardiovascular: Syncope Respiratory: No symptoms reported Gastrointestinal: No symptoms reported Genitourinary: No symptoms reported Male Genitourinary: No symptoms reported Musculoskeletal: No symptoms reported Skin: No symptoms reported Hematologic/Lymphatic: No symptoms reported Neurological/Psychological: No symptoms reported -: Yes All other systems reviewed and negative Physical Exam - Vital signs Vitals: Temp Pulse Resp BP Pulse Ox 98.4 F 108 H 18 125/81 94 10/14/17 11:03 10/14/17 11:03 10/14/17 11:03 10/14/17 11:03 10/14/17 11:03 Interpretation: Normal - General General appearance: Appears well, Alert - HEENT Head: Normocephalic. No: Atraumatic - Postsurgical changes Eyes: Normal Conjunctiva: Normal Cornea: Normal Eyelashes: Normal Pupils: PERRL Mucous membranes: Dry Neck: Normal - Respiratory Respiratory status: No respiratory distress Chest status: Nontender Breath sounds: Normal Chest palpation: Normal - Cardiovascular Rhythm: Regular Heart sounds: Normal auscultation Murmur: No - Abdominal Inspection: Normal Distension: No distension Bowel sounds: Normal Tenderness: Nontender Organomegaly: No organomegaly - Back Back: Normal, Nontender - Extremities General upper extremity: Normal inspection, Nontender, Normal color, Normal ROM , Normal temperature General lower extremity: Normal inspection, Nontender, Normal color, Normal ROM , Normal temperature, Normal weight bearing. No: Meet's sign - Neurological Neuro grossly intact: Yes Cognition: Normal Orientation: AAOx4 [place] Coma Scale Eye Opening: Spontaneous [place] Coma Scale Verbal: Oriented Lion Coma Scale Motor: Obeys Commands [place] Coma Scale Total: 15 Speech: Normal Motor strength normal: LUE, RUE, LLE, RLE Sensory: Normal - Psychological Associated symptoms: Normal affect, Normal mood - Skin Skin Temperature: Warm Skin Moisture: Dry Skin Color: Normal Course - Re-evaluation Re-evalutation: 10/14/17 16:14 Patient orthostatics were positive patient does have slight hypernatremia. Patient was given IV fluids here patient more likely has orthostatic syncope and dizziness. Patient laboratory studies not reveal any other significant pathology. Patient is able to ambulate ER on his own power. Patient discharged home. - Vital Signs Vital signs: Temp Pulse Resp BP Pulse Ox 98.5 F 96 19 129/79 H 95 10/14/17 14:54 10/14/17 11:33 10/14/17 14:53 10/14/17 14:54 10/14/17 14:53 - Laboratory Result Diagrams: 10/14/17 11:40 10/14/17 11:40 Laboratory results interpreted by me: 10/14/17 10/14/17 11:40 13:30 Sodium 147.0 H Chloride 108 H Glucose 209 H AST 72 H ALT 98 H Total Protein 8.5 H Urine Glucose (UA) >=500 H Urine Urobilinogen 4.0 H Discharge - Discharge Clinical Impression: Orthostatic dizziness Syncope Qualifiers: Syncope type: unspecified Qualified Code(s): R55 - Syncope and collapse Condition: Good Disposition: HOME, SELF-CARE Instructions: Dehydration ([facility]), Orthostatic Hypotension ([facility]), Syncopal Episode ([facility]) Additional Instructions: Your laboratory studies today do not show any signs of significant pathology except for slight dehydration. Dehydration is also confirmed by your orthostatic vital signs. Please make sure you are drinking plenty water and fluids to stay hydrated. Red blood recommend follow-up with your primary care physician for further evaluation. Take her home medications as prescribed Referrals: CHARLIE PETIT, [employer]IAN[employer] [Primary Care Provider] - Follow up as needed
[2017-10-14 15:12] VITALS: BP 129/79
--- NOTE | 2017-10-14 19:08 | EKG REPORT ---
SEVERITY:- ABNORMAL ECG - SINUS TACHYCARDIA LEFT VENTRICULAR HYPERTROPHY : Confirmed by: Farrah Brown 14-Oct-2017 19:08:04
== END 2017-10-14 14:59 | disposition home or self-care (01) ==
LOC: ER 10:58
DX: I95.1 Orthostatic hypotension (principal); I10 Essential (primary) hypertension; E11.9 Type 2 diabetes mellitus without complications; Z87.891 Personal history of nicotine dependence
CPT/HCPCS: 93005; 99283; 96360; 36415; 82553; 82550; 85025; 80053; 81001; 84484; 70450; 70486; 93010; J7030

== ENCOUNTER 2018-02-20 08:40 | Emergency (ER) | payer MEDICAID ==
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
[2018-02-20] MEDS ORDERED: HYDROCODONE/ACETAMINOPHEN 5-325 MG (6 TAB/ER DISP) PO PRN (09:30)
[2018-02-20 09:33] VITALS: BP 123/84
== END 2018-02-20 09:38 | disposition home or self-care (01) ==
LOC: ER 08:40
DX: M54.2 Cervicalgia (principal); M43.6 Torticollis; E11.9 Type 2 diabetes mellitus without complications
CPT/HCPCS: 99283

== ENCOUNTER 2018-03-15 12:33 | Emergency (ER) | payer MEDICAID ==
--- NOTE | 2018-03-15 12:53 | ER Document Report ---
ED Medical Screen (RME) - General Chief Complaint: S/S of Possible Stroke Stated Complaint: LEFT SIDE FACIAL NUMBNESS Time Seen by Provider: 03/15/18 12:48 Notes: 8-year-old male patient reports onset about 10 AM 2 days ago of a throbbing pain to his left temporal forehead. He reports that his not really changed since it started and it is fairly constant. He is quite tender to palpate over that area and there seems to be bony prominences or metal or something related to prior surgery. He is noted to be tachycardic. I have greeted and performed a rapid initial assessment of this patient. A comprehensive ED assessment and evaluation of the patient, analysis of test results and completion of the medical decision making process will be conducted by additional ED providers. TRAVEL OUTSIDE OF THE [place] IN LAST 30 DAYS: No - Related Data Allergies/Adverse Reactions: Penicillins Allergy (Verified 02/20/18 08:40) Past Medical History - Social History Family history: DM, Malignancy - Past Medical History Cardiac Medical History: Reports: Hx Hypertension Denies: Hx Congestive Heart Failure, Hx DVT, Hx Heart Attack, Hx Hypercholesterolemia, Hx Pulmonary Embolism Pulmonary Medical History: Denies: Hx Asthma, Hx COPD, Hx Pneumonia, Hx Sleep Apnea Neurological Medical History: Reports: Hx Migraine, Hx Seizures - Last episode 2015; uncertain current antiepileptic. Endocrine Medical History: Reports: Hx Diabetes Mellitus Type 1, Hx Diabetes Mellitus Type 2. Denies: Hx Hyperthyroidism, Hx Hypothyroidism Renal/ Medical History: Reports: Hx Peritoneal Dialysis GI Medical History: Denies: Hx Cirrhosis, Hx Gastroesophageal Reflux Disease, Hx Hepatitis Musculoskeltal Medical History: Denies Hx Arthritis Psychiatric Medical History: Denies: Hx Depression Infectious Medical History: Denies: Hx C-Diff, Hx Hepatitis, Hx MRSA Past Surgical History: Reports: Hx Neurologic Surgery - craniotomy, Hx Nose Surgery, Other - Craniotomy for empyema from sinusitis; sinus surgery. No cardiac surgery. - Immunizations Immunizations up to date: Yes Hx Diphtheria, Pertussis, Tetanus Vaccination: Yes Physical Exam - Vital signs Vitals: Temp Pulse Resp BP Pulse Ox 97.6 F 114 H 18 130/86 H 97 03/15/18 12:46 03/15/18 12:46 03/15/18 12:46 03/15/18 12:46 03/15/18 12:46 Course - Vital Signs Vital signs: Temp Pulse Resp BP Pulse Ox 97.6 F 114 H 18 130/86 H 97 03/15/18 12:46 03/15/18 12:46 03/15/18 12:46 03/15/18 12:46 03/15/18 12:46 Doctor's Discharge - Discharge Referrals: CHARLIE PETIT, [employer] [Primary Care Provider] - Follow up as needed
--- NOTE | 2018-03-15 13:32 | RADIOLOGY REPORT (SQ) ---
EXAM DESCRIPTION: CT HEAD WITHOUT COMPLETED DATE/TIME: 03/15/2018 1:13 pm REASON FOR STUDY: Throbbing left temporal headache X 2 days COMPARISON: Multiple priors dating back 05/09/2013. TECHNIQUE: Axial images acquired through the brain without intravenous contrast. Images reviewed wi th bone, brain and subdural windows. Additional sagittal and coronal reconstructions were generated. Images stored on PACS. All CT scanners at this facility use dose modulation, iterative reconstruction, and/or weight based d osing when appropriate to reduce radiation dose to as low as reasonably achievable (ALARA). [facility]: Dose Right [facility]: CareDose [facility]: Dose Right [facility]: Teradose 4D [facility]: [employer] RADIATION DOSE: CT Rad equipment meets quality standard of care and radiation dose reduction techniq ues were employed. CTDIvol: 53.2 mGy. DLP: 964 mGy-cm. mGy. LIMITATIONS: None. FINDINGS: Status post bifrontal craniotomy with stable dural thickening and calcification adjacent t o the metal plate. No evidence of acute infarct, hemorrhage, mass or extra-axial fluid collection. Posterior fossa is normal. Chronic pansinusitis with defects in the posterior wall of the frontal sinuses. IMPRESSION: No acute findings in the brain. Chronic sinus disease. EVIDENCE OF ACUTE STROKE: NO. COMMENT: Quality ID # [id number]: Final reports with documentation of one or more dose reduction techniques (e.g., Automated exposure control, adjustment of the mA and/or kV according to patient size, use of iterative reconstruction technique) TECHNICAL DOCUMENTATION: JOB ID: [id number] [employer]- All Rights Reserved Reading location - IP/workstation name: [email or web address]
[2018-03-15] MEDS ORDERED: METOCLOPRAMIDE HCL INJ/PF 10 MG/2 ML SDV IV ONE (13:36)
[2018-03-15] MEDS ORDERED: DIPHENHYDRAMINE HCL 25 MG CAPSULE PO ONE (13:37)
[2018-03-15] MEDS ORDERED: NORMAL SALINE 1000 ML 1,000 ML IV ONE (13:38)
[2018-03-15 13:43] LABS: ABSOLUTE EOSINOPHILS # (AUTO) 0.1 10^3/uL (0.0-0.6); ABSOLUTE LYMPHOCYTES (AUTO) 1.9 10^3/uL (0.5-4.7); ABSOLUTE MONOCYTES (AUTO) 0.4 10^3/uL (0.1-1.4); ABSOLUTE NEUT (AUTO) 2.3 10^3/uL (1.7-8.2); BASOPHILS % (AUTO) 0.7 % (0-2); EOSINOPHILS % (AUTO) 1.2 % (0-6); HEMATOCRIT 47.3 % (37.9-51.0); HEMOGLOBIN 16.1 g/dL (13.5-17.0); LYMPHOCYTES % (AUTO) 41.3 % (13-45); MEAN CORPUSCULAR HEMOGLOBIN 32.2 pg (27.0-33.4); MEAN CORPUSCULAR HGB CONC 34.1 g/dL (32.0-36.0); MEAN CORPUSCULAR VOLUME 94 fl (80-97); MONOCYTES % (AUTO) 7.8 % (3-13); PLATELET COUNT 223 10^3/uL (150-450); RED BLOOD COUNT 5.01 10^6/uL (4.35-5.55); RED CELL DISTRIBUTION WIDTH 13.5 % (11.5-14.0); TOTAL CELLS COUNTED % (AUTO) 100 %; WHITE BLOOD COUNT 4.7 10^3/uL (4.0-10.5)
--- NOTE | 2018-03-15 13:44 | ER Document Report ---
ED General - General Chief Complaint: S/S of Possible Stroke Stated Complaint: LEFT SIDE FACIAL NUMBNESS Time Seen by Provider: 03/15/18 12:48 Mode of Arrival: Ambulatory Information source: Patient, [facility] Records Notes: 62-year-old male with hypertension, diabetes, migraine headaches, previous CVA presents with complaint of left-sided headache that started 2 days prior to arrival. Patient states that he thought he had a "minor stroke" because he felt as if his speech was slurred. He then states that his nurse told him that his speech is fine. Patient is a poor informant and consistently states that he just does not feel right. When asked to clarify he states that he does not feel like he is in the room with us. He is alert and oriented x3. He denies fever, chills, neck pain, chest pain, shortness of breath, abdominal pain, weakness, difficulty with ambulation, nausea, vomiting. Patient also reports sinus surgery this year. TRAVEL OUTSIDE OF THE [place] IN LAST 30 DAYS: No - HPI Onset: Other Onset/Duration: Gradual, Worse Quality of pain: Throbbing Associated symptoms: Headache. denies: Chest pain, Fever, Nausea, Vomiting, Shortness of breath Exacerbated by: Denies Relieved by: Denies Similar symptoms previously: Yes Recently seen / treated by doctor: Yes - Related Data Allergies/Adverse Reactions: Penicillins Allergy (Verified 02/20/18 08:40) Past Medical History - General Information source: Patient, [facility] Records - Social History Smoking Status: Unknown if Ever Smoked Chew tobacco use (# tins/day): No Frequency of alcohol use: None Drug Abuse: None Lives with: Family Family History: Reviewed & Not Pertinent Patient has suicidal ideation: No Patient has homicidal ideation: No - Past Medical History Cardiac Medical History: Reports: Hx Hypertension Denies: Hx Congestive Heart Failure, Hx DVT, Hx Heart Attack, Hx Hypercholesterolemia, Hx Pulmonary Embolism Pulmonary Medical History: Denies: Hx Asthma, Hx COPD, Hx Pneumonia, Hx Sleep Apnea Neurological Medical History: Reports: Hx Migraine, Hx Seizures - Last episode 2015; uncertain current antiepileptic. Endocrine Medical History: Reports: Hx Diabetes Mellitus Type 1, Hx Diabetes Mellitus Type 2. Denies: Hx Hyperthyroidism, Hx Hypothyroidism Renal/ Medical History: Reports: Hx Peritoneal Dialysis GI Medical History: Denies: Hx Cirrhosis, Hx Gastroesophageal Reflux Disease, Hx Hepatitis Musculoskeletal Medical History: Denies Hx Arthritis Psychiatric Medical History: Denies: Hx Depression Infectious Medical History: Denies: Hx C-Diff, Hx Hepatitis, Hx MRSA Past Surgical History: Reports: Hx Neurologic Surgery - craniotomy, Hx Nose Surgery, Other - Craniotomy for empyema from sinusitis; sinus surgery. No cardiac surgery. - Immunizations Immunizations up to date: Yes Hx Diphtheria, Pertussis, Tetanus Vaccination: Yes Review of Systems - Review of Systems Notes: REVIEW OF SYSTEMS: CONSTITUTIONAL : Denies fever, chills, or sweats. Denies recent illness. Denies weight loss, recent hospitalizations. EENT: Denies visual changes, eye pain. Denies sore throat, oral lesions, difficulty swallowing. CARDIOVASCULAR: Denies chest pain. Denies palpitations. Denies lower extremity edema. RESPIRATORY: Denies cough. Denies shortness of breath, wheezing. GASTROINTESTINAL: Denies abdominal pain or distention. Denies nausea, vomiting , or diarrhea. Denies blood in vomitus, stools, or per rectum. Denies black, tarry stools. Denies constipation. GENITOURINARY: Denies difficulty urinating, painful urination, frequency, blood in urine, testicular pain or penile discharge. MUSCULOSKELETAL: Denies back or neck pain or stiffness. Denies joint pain or swelling. SKIN: Denies rash, lesions or sores. HEMATOLOGIC : Denies easy bruising or bleeding. LYMPHATIC: Denies swollen glands. NEUROLOGICAL: Denies confusion or altered mental status. Denies loss of consciousness. Denies dizziness or lightheadedness. Denies weakness or paralysis. Denies problems difficulty with ambulation, slurred speech. Denies sensory loss, numbness, or tingling. Denies seizures. PSYCHIATRIC: Denies anxiety or stress. Denies depression, suicidal ideation, or Physical Exam - Vital signs Vitals: Temp Pulse Resp BP Pulse Ox 97.6 F 114 H 18 130/86 H 97 03/15/18 12:46 03/15/18 12:46 03/15/18 12:46 03/15/18 12:46 03/15/18 12:46 Interpretation: Tachycardic - Notes Notes: PHYSICAL EXAMINATION: GENERAL: Well-appearing, well-nourished and in no acute distress. HEAD: Atraumatic, normocephalic. EYES: Pupils equal round and reactive to light, extraocular movements intact, sclera anicteric, conjunctiva are normal. ENT: Nares patent, oropharynx clear without exudates. Moist mucous membranes. NECK: Normal range of motion, supple without lymphadenopathy LUNGS: Breath sounds clear to auscultation bilaterally and equal. No wheezes rales or rhonchi. HEART: Regular rate and rhythm without murmurs ABDOMEN: Soft, nontender, nondistended abdomen. No guarding, no rebound. No masses appreciated. Musculoskeletal: Normal range of motion, no pitting or edema. No cyanosis. NEUROLOGICAL: Cranial nerves grossly intact. Normal speech, normal gait. Normal sensory, motor exams. NIH-1 (inability to tell me the correct month) PSYCH: Normal mood, normal affect. SKIN: Warm, Dry, normal turgor, no rashes or lesions noted. Course - Re-evaluation Re-evalutation: Head CT 03/15/18 12:52 IMPRESSION: No acute findings in the brain. Chronic sinus disease. EVIDENCE OF ACUTE STROKE: NO. Head MRI 03/15/18 13:36 IMPRESSION: 1. No acute findings in the brain. 2. 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 EVIDENCE OF ACUTE STROKE: NO. Laboratory 03/15/18 03/15/18 03/15/18 13:27 13:27 16:29 WBC 4.7 RBC 5.01 Hgb 16.1 Hct 47.3 MCV 94 MCH 32.2 MCHC 34.1 RDW 13.5 Plt Count 223 Seg Neutrophils % 49.0 Lymphocytes % 41.3 Monocytes % 7.8 Eosinophils % 1.2 Basophils % 0.7 Absolute Neutrophils 2.3 Absolute Lymphocytes 1.9 Absolute Monocytes 0.4 Absolute Eosinophils 0.1 Absolute Basophils 0.0 Sodium 135.7 L Potassium 4.1 Chloride 97 L Carbon Dioxide 21 L Anion Gap 18 BUN 13 Creatinine 0.73 Est GFR ( Amer) > 60 Est GFR (Non-Af Amer) > 60 Glucose 470 H* POC Glucose Calcium 9.8 Total Bilirubin 0.8 Direct Bilirubin 0.5 H Neonat Total Bilirubin Not Reportable Neonat Direct Bilirubin Not Reportable Neonat Indirect Bili Not Reportable AST 169 H ALT 252 H Alkaline Phosphatase 133 H Total Protein 9.4 H Albumin 4.3 Urine Color YELLOW Urine Appearance CLEAR Urine pH 5.0 Ur Specific [place] 1.033 Urine Protein NEGATIVE Urine Glucose (UA) >=500 H Urine Ketones NEGATIVE Urine Blood NEGATIVE Urine Nitrite NEGATIVE Urine Bilirubin NEGATIVE Urine Urobilinogen NEGATIVE Ur Leukocyte Esterase NEGATIVE Urine WBC (Auto) 0 Squamous Epi Cells Auto <1 Urine Mucus (Auto) RARE Urine Ascorbic Acid NEGATIVE 03/15/18 03/15/18 17:02 17:52 WBC RBC Hgb Hct MCV MCH MCHC RDW Plt Count Seg Neutrophils % Lymphocytes % Monocytes % Eosinophils % Basophils % Absolute Neutrophils Absolute Lymphocytes Absolute Monocytes Absolute Eosinophils Absolute Basophils Sodium Potassium Chloride Carbon Dioxide Anion Gap BUN Creatinine Est GFR ( Amer) Est GFR (Non-Af Amer) Glucose POC Glucose 187 H 159 H Calcium Total Bilirubin Direct Bilirubin Neonat Total Bilirubin Neonat Direct Bilirubin Neonat Indirect Bili AST ALT Alkaline Phosphatase Total Protein Albumin Urine Color Urine Appearance Urine pH Ur Specific [place] Urine Protein Urine Glucose (UA) Urine Ketones Urine Blood Urine Nitrite Urine Bilirubin Urine Urobilinogen Ur Leukocyte Esterase Urine WBC (Auto) Squamous Epi Cells Auto Urine Mucus (Auto) Urine Ascorbic Acid 62-year-old male presents with complaint of left-sided headache and concern for possible stroke. He states that he thought he was having a stroke because he was having some difficulty speaking but when assessed by his nurse was told that his speech was normal. Upon arrival patient is alert, awake and in no acute distress. NIH was quickly performed and the patient scored a 1 for inability to tell me the correct month. Patient received Reglan, Benadryl for his headache. CT of the head was obtained and showed no evidence of acute stroke. MRI was also obtained and also negative for acute stroke. CBC is without leukocytosis or anemia. CMP does show a markedly elevated glucose of 470 without evidence of DKA. Patient did receive IV fluids and subcu insulin during his ED course. Repeat glucose prior to discharge was 159. On reevaluation patient does report an improvement of his headache and reported "funny feeling". Patient was evaluated and treated as appropriate for the patient's presenting symptoms and complaint, with consideration of any critical or life threatening conditions that may be associated with their obtained history and exam as noted above. All results were discussed with patient. Patient provided the opportunity to ask questions, and express concerns. He was also provided copies of his imaging were performed today. patient was educated on treatments based on their presumed diagnosis as noted above. At this time we will discharge the patient with return precautions and follow-up recommendations. Verbal discharge instructions given a the bedside. Medication warnings reviewed. Patient is in agreement with this plan and has verbalized understanding of return precautions. After careful consideration I feel that that patient can be safely discharged from the emergency department, they were advised to followup with a primary care physician in 2-3 days. Dictation on this chart was performed using voice recognition software and may result in unintended grammatical, spelling, syntax or errors. 03/15/18 16:56 Patient reports improvement of headache and "funny feeling". MRI and CAT scan negative for acute stroke. Repeat Accu-Chek shows improvement of glucose. No evidence of DKA. 03/15/18 17:07 03/15/18 21:04 03/16/18 09:23 03/16/18 09:23 - Vital Signs Vital signs: Temp Pulse Resp BP Pulse Ox 97.6 F 72 16 132/87 H 98 03/15/18 12:46 03/15/18 17:27 03/15/18 17:27 03/15/18 17:27 03/15/18 17:27 - Laboratory Result Diagrams: 03/15/18 13:27 03/15/18 13:27 Laboratory results interpreted by me: 03/15/18 03/15/18 03/15/18 13:27 16:29 17:02 Sodium 135.7 L Chloride 97 L Carbon Dioxide 21 L Glucose 470 H* POC Glucose 187 H Direct Bilirubin 0.5 H AST 169 H ALT 252 H Alkaline Phosphatase 133 H Total Protein 9.4 H Urine Glucose (UA) >=500 H 03/15/18 17:52 Sodium Chloride Carbon Dioxide Glucose POC Glucose 159 H Direct Bilirubin AST ALT Alkaline Phosphatase Total Protein Urine Glucose (UA) - Diagnostic Test Radiology reviewed: Image reviewed, Reports reviewed Discharge - Discharge Clinical Impression: Hyperglycemia due to type 1 diabetes mellitus Headache Qualifiers: Headache type: unspecified Headache chronicity pattern: unspecified pattern Intractability: not intractable Qualified Code(s): R51 - Headache Pansinusitis Qualifiers: Chronicity: unspecified Qualified Code(s): J32.4 - Chronic pansinusitis Sinusitis Qualifiers: Sinusitis location: pansinusitis Chronicity: unspecified Qualified Code(s): J32.4 - Chronic pansinusitis Condition: Good Disposition: HOME, SELF-CARE Instructions: Headache ([facility]), Hyperglycemia ([facility]), Sinusitis ([facility]) Additional Instructions: Your CAT scan and MRI did not show any evidence of stroke. It did show diffuse sinus disease. I recommend that you follow-up with the ENT surgeon who performed your sinus surgery. Your labs showed that your glucose was elevated but there was no evidence of DKA. Follow up with your [id number] hours for further care or return to the ED IMMEDIATELY if symptoms worsen or you have any concerns. If you cannot afford to follow up with your primary care physician a list of low cost clinics have been provided at the end of your discharge papers as well. Most prescribed medications have multiple side effects. The safest thing to do is when filling your prescription speak to your pharmacist regarding possible interactions with your normal home medications and over the counter medications such as Ibuprofen, Tylenol, Benadryl. If you experience any symptoms that cause you discomfort or concern you should discontinue the medication immediately and return to the emergency room or call your primary care physician. Forms: Elevated Blood Pressure Referrals: CHARLIE PETIT, REGINE [Primary Care Provider] - Follow up as needed ED NIH Stroke Scale - NIH Stroke Scale *: 1. NIH scale should be completed with appropriate accompanying assessment tools. *: 2. The NIH should reflect what the patient is capable of doing and should not be coached by the clinician. 1a. Level of Consciousness: 0=Alert;keenly responsive -: 1=Drowsy -: 2=Obtunded -: 3=Coma/unresponsive or reflex to noxious stimuli. 1a. Responses: 0 1b. Orientation Questions: a. What month is it? -: b. How old are you? -: 0=Answers both questions correctly. -: 1=Answers one question correctly or patient is intubated or has orotracheal trauma. -: 2=Answers neither question correctly. 1b. Responses: 1 1c. Response to commands: a. Open and close eyes? -: b. Certified Hearing Instrument Dispenser and release hand? -: Credit is given despite weakness. Demonstration of task is permitted. Substitute command if hands cannot be used. -: 0=Performs both tasks correctly -: 1=Performs one task correctly -: 2=Performs neither task correctly 1c. Responses: 0 2. Gaze: Establish eye contact and instruct patient to "Follow my finger" -: 0=Normal -: 1=Partial gaze palsy. Gaze is abnormal in one or both eyes, but where forced deviation or total gaze paresis is not present. -: 2=Forced deviation or total gaze paresis. 2. Responses: 0 3. Visual Lyons: Sees fingers in all four quadrants. -: 0=No visual loss. -: 1=Partial hemianopsia. -: 2=Complete hemianopsia. -: 3=Bilateral hemianopsia (including Cortical blindness) 3. Responses: 0 4. Facial Movement: Instruct patient to: -: a. Show me your teeth -: b. Raise your eyebrows -: c. Close your eyes -: d. Smile -: 0=Normal symmetrical movement -: 1=Minor paralysis (flattened nasolabial fold, asymmetry on smiling). -: 2=Partial paralysis (total or near total paralysis of lower face). -: 3=Complete paralysis of upper and lower face 4. Responses: 0 5. Motor functions (left arm): Alternate sides and extend each arm with palms down (90 degrees if sitting or 45 degrees for supine). -: 0=No drift;limb holds for full 10 seconds. -: 1=Drift; limb holds but drifts down before full 10 seconds, but does not hit bed. -: 2=Some effort against gravity; limb cannot get to or maintain position. -: 3=No effort against gravity; limb falls. -: 4=No movement. -: UN=Amputation, joint fusion, explain in comments. 5. Responses (left arm): 0 5. Motor Functions (right arm): Alternate sides and extend each arm with palms down (90 degrees if sitting or 45 degrees for supine). -: 0=No drift;limb holds for full 10 seconds. -: 1=Drift; limb holds but drifts down before full 10 seconds, but does not hit bed. -: 2=Some effort against gravity; limb cannot get to or maintain position. -: 3=No effort against gravity; limb falls. -: 4=No movement. -: UN=Amputation, joint fusion, explain in comments. 5. Responses (right arm): 0 6. Motor Functions (left leg): With patient lying supine, alternate sides and extend each leg (30 degrees always while supine). -: 0=No drift, leg holds position for full 5 seconds -: 1=Drift; leg falls before full 5 seconds but does not hit bed. -: 2=Some effort against gravity, leg falls to bed but some effort against gravity. -: 3=No effort against gravity, leg falls to bed immediately. -: 4=No movement. -: UN=Amputation, joint fusion; explain in comments. 6. Responses (left leg): 0 6. Motor Functions (right leg): With patient lying supine, alternate sides and extend each leg (30 degrees always while supine). -: 0=No drift, leg holds position for full 5 seconds -: 1=Drift; leg falls before full 5 seconds but does not hit bed. -: 2=Some effort against gravity, leg falls to bed but some effort against gravity. -: 3=No effort against gravity, leg falls to bed immediately. -: 4=No movement. -: UN=Amputation, joint fusion; explain in comments. 6. Responses (right leg): 0 7. Limb Ataxia: With eyes open instruct patient to: -: a. "Touch your finger to your nose". -: b. "Touch your heel to your humphries" -: 0=Absent -: 1=Present in one limb. -: 2=Present in two limbs. -: UN=Amputation or joint fusion; explain in comments. 7. Responses: 0 8. Sensory: Test sensation using pinprick or noxious stimuli. Test as many body parts as possible. -: 0=Normal;no sensory loss -: 1=Mile to moderate sensory loss (patient feels pin prick but is less sharp on affected side). -: 2=Severe or total sensory loss. 8. Responses: 0 9. Best Language: Instruct patient to: -: a. "Describe what you see in this picture." -: b. "Name the items in this picture." -: c. "Read these sentences." -: 0=No aphasia, normal -: 1=Mild to moderate aphasia. -: 2=Severe aphasia -: 3=Mute, global aphasia, no usable speech or auditory comprehension. 9. Responses: 0 10. Articulation, Dysarthia: Instruct patient to: -: "Read these words" or "Repeat these words" -: 0=Normal -: 1=Mild to moderate; patient may slur some words but can be understood without difficulty. -: 2=Severe; patients speech so slurred as to be unintelligible in the absence of dysphasia. -: UN=Intubated or other physical barrier, explain in comments. 10. Responses: 0 11. Extinction or inattention: 0=No abnormality -: 1= Visual, tactile, auditory, spatial, or personal inattention or extinction to bilateral simulation in one or the sensory modalities. -: 2=Profound raquel-inattention or raquel-inattention to more than one modality; does not recognize own hand. Total Score: 1
[2018-03-15 13:59] LABS: ALANINE AMINOTRANSFERASE 252 U/L (21-72); ALBUMIN 4.3 g/dL (3.5-5.0); ALKALINE PHOSPHATASE 133 U/L (38-126); ANION GAP 18 (5-19); ASPARTATE AMINO TRANSFERASE 169 U/L (17-59); BILIRUBIN,DIRECT 0.5 mg/dL (0.0-0.4); BILIRUBIN,TOTAL 0.8 mg/dL (0.2-1.3); BLOOD UREA NITROGEN 13 mg/dL (7-20); CALCIUM 9.8 mg/dL (8.4-10.2); CARBON DIOXIDE 21 mmol/L (22-30); CHLORIDE 97 mmol/L (98-107); POTASSIUM 4.1 mmol/L (3.6-5.0); SODIUM 135.7 mmol/L (137-145); TOTAL PROTEIN 9.4 g/dL (6.3-8.2)
[2018-03-15 14:08] LABS: GLUCOSE 470 mg/dL (75-110)
[2018-03-15] MEDS ORDERED: NORMAL SALINE 1000 ML 1,000 ML IV PRN (14:16)
--- NOTE | 2018-03-15 15:26 | RADIOLOGY REPORT (SQ) ---
EXAM DESCRIPTION: MRI HEAD COMBO COMPLETED DATE/TIME: 03/15/2018 2:55 pm REASON FOR STUDY: headache COMPARISON: 09/08/2015 TECHNIQUE: Multiplanar imaging includes noncontrasted T1, T2, FLAIR, and Diffusion with ADC map seq uences. Contrast enhanced T1 images. Images stored on PACS. CONTRAST TYPE AND DOSE: 15 mL Dotarem. RENAL FUNCTION: GFR > 60. LIMITATIONS: None. FINDINGS: Patient has history of chronic frontal sinusitis and intracranial abscess status post bifr ontal craniotomy. Chronic defects in the posterior wall of the frontal sinuses, chronic opacificatio n of the left frontal sinus and nasofrontal recess, chronic opacification of the left ethmoid and sph enoid sinuses. Chronic fluid levels in both maxillary sinuses. Expected dural enhancement along the craniotomy bed. ANATOMY: See above. CSF SPACES: See above. CEREBRUM: A few high-signal intensity lesions scattered throughout the white matter on FLAIR imaging with distribution suggesting chronic microvascular ischemic change. Sulci and gyri normal in size and contour. No evidence of hemorrhage, mass or extraaxial fluid collection. No enhancing lesions. POSTERIOR FOSSA: No signal alteration. No hemorrhage. No edema, masses or mass effect. Internal audit ory canals, cerebello-pontine angles, normal. Trace of fluid left mastoid. DIFFUSION: Negative for acute or subacute infarction. ORBITS: No masses. Globes normal. PARANASAL SINUSES: See above. OTHER: No other significant finding. IMPRESSION: 1. No acute findings in the brain. 2. 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 EVIDENCE OF ACUTE STROKE: NO. TECHNICAL DOCUMENTATION: JOB ID: [id number] [employer]- All Rights Reserved Reading location - IP/workstation name: [email or web address]
[2018-03-15 16:52] LABS: APPEARANCE,URINE CLEAR; BILIRUBIN,URINE NEGATIVE (NEGATIVE); COLOR,URINE YELLOW; GLUCOSE, URINE >=500 mg/dL (NEGATIVE); KETONES,URINE NEGATIVE (NEGATIVE); LEUKOCYTE ESTERASE,URINE NEGATIVE (NEGATIVE); NITRITE,URINE NEGATIVE (NEGATIVE); PROTEIN,URINE NEGATIVE (NEGATIVE); URINE SPECIFIC GRAVITY 1.033; UROBILINOGEN,URINE NEGATIVE mg/dL (<2.0)
[2018-03-15] MEDS ORDERED: INSULIN REG, HUMAN 100 UNIT/ML 3 ML VIAL (PYX) SUBCUT ONE (16:57)
[2018-03-15 17:28] VITALS: BP 132/87
== END 2018-03-15 17:53 | disposition home or self-care (01) ==
LOC: ER 12:33
DX: E10.65 Type 1 diabetes mellitus with hyperglycemia (principal); J32.4 Chronic pansinusitis; R51 Headache; I10 Essential (primary) hypertension; Z86.73 Personal history of transient ischemic attack (TIA), and cerebral infarction without residual deficits; Z98.890 Other specified postprocedural states; Z88.0 Allergy status to penicillin; Z86.69 Personal history of other diseases of the nervous system and sense organs
CPT/HCPCS: 99285; 96361; 96374; 36415; 82962; 85025; 80053; 81001; 70553; 70450; A9576; J3490; J2765; J1815; J7030

== ENCOUNTER 2018-05-21 18:12 | Emergency (ER) | payer MEDICAID ==
[2018-05-21 18:32] VITALS: BP 128/82
[2018-05-21] MEDS ORDERED: NORMAL SALINE 1000 ML 1,000 ML IV ONE (19:01)
--- NOTE | 2018-05-21 19:06 | ER Document Report ---
ED Medical Screen (RME) - General Chief Complaint: High Blood Sugar Stated Complaint: BLOOD SUGAR ISSUE Time Seen by Provider: 05/21/18 18:47 TRAVEL OUTSIDE OF THE [place] IN LAST 30 DAYS: No - HPI Notes: 05/21/18 19:05 Patient is a 63-year-old male that presents to the emergency department for chief complaint of hyoerglycemia. Patient is an insulin-dependent diabetic. He denies any missed doses of insulin or changes in his medication recently. He states today his glucometer read high on 2 separate occasions which is why he came to the emergency room. He reports some urinary frequency but denies any other symptoms. He is denying headache, vision changes, nausea, vomiting, abdominal pain, diarrhea, chest pain and shortness of breath. He denies history of DKA in the past. He states his glucose is usually in the 300s or 400s ROS: GENERAL: Denies fever of chills CV: Denies chest pain PHYSICAL EXAMINATION: GENERAL: Well-appearing, well-nourished and in no acute distress. HEAD: Atraumatic, normocephalic. EYES: Pupils equal round extraocular movements intact, conjunctiva are normal. ENT: Nares patent NECK: Normal range of motion LUNGS: No respiratory distress Musculoskeletal: Normal range of motion NEUROLOGICAL: Normal speech, normal gait. PSYCH: Normal mood, normal affect. MDM: Patient seen and examined for rapid initial assessment. Vital signs reviewed. A comprehensive ED assessment and evaluation of the patient, analysis of test results and completion of the medical decision making process will be conducted by additional ED providers. - Related Data Allergies/Adverse Reactions: morphine Allergy (Verified 05/21/18 18:46) Penicillins Allergy (Verified 02/20/18 08:40) Past Medical History - Social History Frequency of alcohol use: None Drug Abuse: None Family history: DM, Malignancy - Past Medical History Cardiac Medical History: Reports: Hx Hypertension Denies: Hx Congestive Heart Failure, Hx DVT, Hx Heart Attack, Hx Hypercholesterolemia, Hx Pulmonary Embolism Pulmonary Medical History: Denies: Hx Asthma, Hx COPD, Hx Pneumonia, Hx Sleep Apnea Neurological Medical History: Reports: Hx Migraine, Hx Seizures - Last episode 2015; uncertain current antiepileptic. Endocrine Medical History: Reports: Hx Diabetes Mellitus Type 1, Hx Diabetes Mellitus Type 2. Denies: Hx Hyperthyroidism, Hx Hypothyroidism Renal/ Medical History: Denies: Hx Peritoneal Dialysis GI Medical History: Denies: Hx Cirrhosis, Hx Gastroesophageal Reflux Disease, Hx Hepatitis Musculoskeltal Medical History: Denies Hx Arthritis Psychiatric Medical History: Denies: Hx Depression Infectious Medical History: Denies: Hx C-Diff, Hx Hepatitis, Hx MRSA Past Surgical History: Reports: Hx Neurologic Surgery - craniotomy, Hx Nose Surgery, Other - Craniotomy for empyema from sinusitis; sinus surgery. No cardiac surgery. - Immunizations Immunizations up to date: Yes Hx Diphtheria, Pertussis, Tetanus Vaccination: Yes Physical Exam - Vital signs Vitals: Temp Pulse Resp BP Pulse Ox 98.0 F 104 H 16 128/82 H 93 05/21/18 18:29 05/21/18 18:29 05/21/18 18:29 05/21/18 18:29 05/21/18 18:29 Course - Vital Signs Vital signs: Temp Pulse Resp BP Pulse Ox 98.0 F 104 H 16 128/82 H 93 05/21/18 18:29 05/21/18 18:29 05/21/18 18:29 05/21/18 18:29 05/21/18 18:29 Doctor's Discharge - Discharge Referrals: CHARLIE PETIT FNP-C [Primary Care Provider] - Follow up as needed
[2018-05-21 19:52] LABS: HEMATOCRIT 44.1 % (37.9-51.0); HEMOGLOBIN 15.4 g/dL (13.5-17.0); MEAN CORPUSCULAR HEMOGLOBIN 33.2 pg (27.0-33.4); MEAN CORPUSCULAR HGB CONC 34.9 g/dL (32.0-36.0); MEAN CORPUSCULAR VOLUME 95 fl (80-97); PLATELET COUNT 243 10^3/uL (150-450); RED BLOOD COUNT 4.63 10^6/uL (4.35-5.55); RED CELL DISTRIBUTION WIDTH 12.8 % (11.5-14.0); VENOUS BLOOD HCO3 27.5 mmol/L (20-32); VENOUS BLOOD PCO2 45.9 mmHg (35-63); VENOUS BLOOD PH 7.4 (7.30-7.42); WHITE BLOOD COUNT 5.3 10^3/uL (4.0-10.5)
[2018-05-21 19:56] LABS: APPEARANCE,URINE CLEAR; BILIRUBIN,URINE NEGATIVE (NEGATIVE); COLOR,URINE STRAW; GLUCOSE, URINE >=500 mg/dL (NEGATIVE); KETONES,URINE NEGATIVE (NEGATIVE); LEUKOCYTE ESTERASE,URINE NEGATIVE (NEGATIVE); NITRITE,URINE NEGATIVE (NEGATIVE); PROTEIN,URINE NEGATIVE (NEGATIVE); UROBILINOGEN,URINE NEGATIVE mg/dL (<2.0)
[2018-05-21 20:13] LABS: ALANINE AMINOTRANSFERASE 146 U/L (21-72); ALBUMIN 4.1 g/dL (3.5-5.0); ALKALINE PHOSPHATASE 131 U/L (38-126); ANION GAP 13 (5-19); ASPARTATE AMINO TRANSFERASE 110 U/L (17-59); BILIRUBIN,DIRECT 0.4 mg/dL (0.0-0.4); BILIRUBIN,TOTAL 0.6 mg/dL (0.2-1.3); BLOOD UREA NITROGEN 16 mg/dL (7-20); CALCIUM 9.9 mg/dL (8.4-10.2); CARBON DIOXIDE 26 mmol/L (22-30); CHLORIDE 98 mmol/L (98-107); LIPASE 134.8 U/L (23-300); POTASSIUM 4.1 mmol/L (3.6-5.0); SODIUM 137.3 mmol/L (137-145); TOTAL PROTEIN 8.7 g/dL (6.3-8.2)
[2018-05-21 20:21] LABS: GLUCOSE 477 mg/dL (75-110)
[2018-05-21] MEDS ORDERED: INSULIN REG, HUMAN 100 UNIT/ML 3 ML VIAL (PYX) SUBCUT ONE ×2 (20:27→20:57)
--- NOTE | 2018-05-21 20:29 | ER Document Report ---
ED Blood Sugar Problem - General Chief Complaint: High Blood Sugar Stated Complaint: BLOOD SUGAR ISSUE Time Seen by Provider: 05/21/18 18:47 Notes: Patient is a 63-year-old male that comes to the emergency department for chief complaint of high blood sugars and urinary frequency. He states that he is on Lantus 25 units in the morning and 30 units at night. He states he saw his primary care, was placed on a medication for diabetes by mouth, states that his insurance would not fill it. He denies nausea or vomiting, blurred vision, chest pain, dizziness. Denies any current complaints. Remaining medical history is hypertension. TRAVEL OUTSIDE OF THE [place] IN LAST 30 DAYS: No - Related Data Allergies/Adverse Reactions: morphine Allergy (Verified 05/21/18 18:46) Penicillins Allergy (Verified 02/20/18 08:40) Past Medical History - General Information source: Patient - Social History Smoking Status: Former Smoker Frequency of alcohol use: None Drug Abuse: None Lives with: Alone Family History: Reviewed & Not Pertinent Patient has suicidal ideation: No Patient has homicidal ideation: No - Past Medical History Cardiac Medical History: Reports: Hx Hypertension Denies: Hx Congestive Heart Failure, Hx DVT, Hx Heart Attack, Hx Hypercholesterolemia, Hx Pulmonary Embolism Pulmonary Medical History: Denies: Hx Asthma, Hx COPD, Hx Pneumonia, Hx Sleep Apnea Neurological Medical History: Reports: Hx Migraine, Hx Seizures - Last episode 2015; uncertain current antiepileptic. Endocrine Medical History: Reports: Hx Diabetes Mellitus Type 1, Hx Diabetes Mellitus Type 2. Denies: Hx Hyperthyroidism, Hx Hypothyroidism Renal/ Medical History: Denies: Hx Peritoneal Dialysis GI Medical History: Denies: Hx Cirrhosis, Hx Gastroesophageal Reflux Disease, Hx Hepatitis Musculoskeletal Medical History: Denies Hx Arthritis Psychiatric Medical History: Denies: Hx Depression Infectious Medical History: Denies: Hx C-Diff, Hx Hepatitis, Hx MRSA Past Surgical History: Reports: Hx Neurologic Surgery - craniotomy, Hx Nose Surgery, Other - Craniotomy for empyema from sinusitis; sinus surgery. No cardiac surgery. - Immunizations Immunizations up to date: Yes Hx Diphtheria, Pertussis, Tetanus Vaccination: Yes Review of Systems - Review of Systems Constitutional: No symptoms reported EENT: No symptoms reported Cardiovascular: No symptoms reported Respiratory: No symptoms reported Gastrointestinal: No symptoms reported Genitourinary: See HPI Male Genitourinary: No symptoms reported Musculoskeletal: No symptoms reported Skin: No symptoms reported Hematologic/Lymphatic: No symptoms reported Neurological/Psychological: No symptoms reported Physical Exam - Vital signs Vitals: Temp Pulse Resp BP Pulse Ox 98.0 F 104 H 16 128/82 H 93 05/21/18 18:29 05/21/18 18:29 05/21/18 18:29 05/21/18 18:29 05/21/18 18:29 - Notes Notes: GENERAL: Alert, interacts well. No acute distress. HEAD: Normocephalic, atraumatic. Old scar over the left frontal lobe. EYES: Pupils equal, round, and reactive to light. Extraocular movements intact. ENT: Oral mucosa moist, tongue midline. Oropharynx unremarkable. Airway patent. Nares patent, no nasal septal hematoma, TM's intact. NECK: Full range of motion. Supple. Trachea midline. LUNGS: Clear to auscultation bilaterally, no wheezes, rales, or rhonchi. No respiratory distress. HEART: Regular rate and rhythm. No murmur ABDOMEN: Soft, non-tender. Non-distended. Bowel sounds present in all 4 quadrants. GENITOURINARY: Deferred EXTREMITIES: Moves all 4 extremities spontaneously. No edema, normal radial and dorsalis pedis pulses bilaterally. No cyanosis. BACK: no cervical, thoracic, lumbar midline tenderness. No saddle anesthesia, normal distal neurovascular exam. NEUROLOGICAL: Alert and oriented x3. Normal speech. [cranial nerves II through XII grossly intact]. PSYCH: Normal affect, normal mood. SKIN: Warm, dry, normal turgor. No rashes or lesions noted. Course - Re-evaluation Re-evalutation: Patient is well-appearing and alert on my evaluation. He is not tachycardic on my evaluation. Soft abdomen, unremarkable exam. No fever. CBC unremarkable. Chemistry shows hyperglycemia but no acidosis, venous blood gas unremarkable. Urinalysis shows dehydration but no ketones or infection. Patient denying any complaints on my evaluation. Patient given IV fluids, insulin, blood glucose rechecked and is significantly improved. I discussed with patient that he does need better glucose control, he states that he can follow-up with his primary care and have them prescribe a different medication for him to use because he could not fill the last one. He asks for specific instructions on this. This was given a discharge instruction. Discussed return precautions in detail, patient states understanding and agreement. - Vital Signs Vital signs: Temp Pulse Resp BP Pulse Ox 98.0 F 104 H 16 128/82 H 93 05/21/18 18:29 05/21/18 18:29 05/21/18 18:29 05/21/18 18:29 05/21/18 18:29 - Laboratory Result Diagrams: 05/21/18 19:33 05/21/18 19:33 Laboratory results interpreted by me: 05/21/18 05/21/18 05/21/18 19:16 19:33 20:47 Glucose 477 H* POC Glucose 336 H AST 110 H ALT 146 H Alkaline Phosphatase 131 H Total Protein 8.7 H Urine Glucose (UA) >=500 H 05/21/18 21:57 Glucose POC Glucose 309 H AST ALT Alkaline Phosphatase Total Protein Urine Glucose (UA) Discharge - Discharge Clinical Impression: Hyperglycemia, Urinary symptom or sign Condition: Stable Disposition: HOME, SELF-CARE Additional Instructions: You have been treated for elevated blood sugars here in the emergency department. You do need additional blood sugar control, continue your Lantus, call your primary care provider tomorrow and inform them that you were unable to fill the prescription they provided because of insurance reasons, ask them for a substitute medication for diabetes that will be covered by your insurance. Return if you worsen in any way including nausea, vomiting, confusion, passing out, chest pain, fever, or any other concerning symptoms. Referrals: CHARLIE PETIT, BAG ADJUSTER-C [Primary Care Provider] - Follow up as needed
[2018-05-21] MEDS ORDERED: HYDROCODONE/ACETAMINOPHEN 5-325 MG TABLET PO ONE (22:52)
[2018-05-21] MEDS ORDERED: ONDANSETRON 4 MG TAB.RAPDIS PO ONE (22:52)
== END 2018-05-21 23:46 | disposition home or self-care (01) ==
LOC: ER 18:12
DX: E11.65 Type 2 diabetes mellitus with hyperglycemia (principal); T50.906A Underdosing of unspecified drugs, medicaments and biological substances, initial encounter; Z91.120 Patient's intentional underdosing of medication regimen due to financial hardship; Z91.14 Patient's other noncompliance with medication regimen; Z79.4 Long term (current) use of insulin; R35.0 Frequency of micturition; E86.0 Dehydration; I10 Essential (primary) hypertension; Z87.891 Personal history of nicotine dependence; Z88.5 Allergy status to narcotic agent; Z88.0 Allergy status to penicillin
CPT/HCPCS: 99285; 96360; 96361; 36415; 82962; 83690; 85027; 80053; 81001; 82803; S0119; J1815; J7030

== ENCOUNTER 2018-05-23 23:14 | Emergency (ER) | payer MEDICAID ==
[2018-05-24] MEDS ORDERED: INSULIN REG, HUMAN 100 UNIT/ML 3 ML VIAL (PYX) SUBCUT ONE ×2 (00:19→03:02)
[2018-05-24] MEDS ORDERED: NORMAL SALINE 1000 ML 1,000 ML IV PRN (00:19)
--- NOTE | 2018-05-24 00:19 | ER Document Report ---
ED Blood Sugar Problem - General Mode of Arrival: Medic Information source: Patient TRAVEL OUTSIDE OF THE [place] IN LAST 30 DAYS: No <KAITY LIEBERMAN - Last Filed: 05/24/18 03:14> <YON BOUDREAUX - Last Filed: 05/24/18 05:00> - General Chief Complaint: High Blood Sugar Stated Complaint: high blood sugar concerns Time Seen by Provider: 05/24/18 00:12 Notes: 63-year-old male who presents to the emergency department today with complaints of elevated blood sugars. Patient was seen here two days ago for the same complaint. His BGL was in the 400s two days ago and was discharged in the low 300s. Patient states today prior to arrival his BGL was 575. Patient states he has been taking 25 units of Lantus in the morning and 30 units of Lantus at night. Patient states he has had associated dizziness, blurry vision, diarrhea, excess thirst, and urinary frequency. (KAITY LIEBERMAN) - Related Data Allergies/Adverse Reactions: morphine Allergy (Verified 05/21/18 18:46) Penicillins Allergy (Verified 02/20/18 08:40) Past Medical History - General Information source: Patient - Social History Smoking Status: Never Smoker Cigarette use (# per day): No Frequency of alcohol use: None Drug Abuse: None Lives with: Family Family History: Reviewed & Not Pertinent - Past Medical History Cardiac Medical History: Reports: Hx Hypertension Neurological Medical History: Reports: Hx Migraine, Hx Seizures - Last episode 2015; uncertain current antiepileptic. Endocrine Medical History: Reports: Hx Diabetes Mellitus Type 1, Hx Diabetes Mellitus Type 2 Past Surgical History: Reports: Hx Neurologic Surgery - craniotomy, Hx Nose Surgery, Other - Craniotomy for empyema from sinusitis; sinus surgery. No cardiac surgery. - Immunizations Immunizations up to date: Yes Hx Diphtheria, Pertussis, Tetanus Vaccination: Yes <KAITY LIEBERMAN - Last Filed: 05/24/18 03:14> Review of Systems - Review of Systems Constitutional: See HPI, Other - elevated BGL. denies: Fever EENT: See HPI, Blurred vision Cardiovascular: See HPI, Dizziness. denies: Chest pain Respiratory: denies: Short of breath Gastrointestinal: See HPI, Diarrhea Genitourinary: See HPI, Frequency Male Genitourinary: No symptoms reported Musculoskeletal: No symptoms reported Skin: No symptoms reported Hematologic/Lymphatic: No symptoms reported Neurological/Psychological: No symptoms reported -: Yes All other systems reviewed and negative <KAITY LIEBERMAN - Last Filed: 05/24/18 03:14> Physical Exam <KAITY LIEBERMAN - Last Filed: 05/24/18 03:14> <YON BOUDREAUX - Last Filed: 05/24/18 05:00> - Vital signs Vitals: Temp Pulse Resp BP Pulse Ox 97.7 F 77 15 133/85 H 96 05/23/18 23:22 05/23/18 23:22 05/23/18 23:22 05/23/18 23:22 05/23/18 23:22 - Notes Notes: PHYSICAL EXAM GENERAL: Alert, interacts well. No acute distress. HEAD: Normocephalic, atraumatic. EYES: Pupils equal, round, and reactive to light. Extraocular movements intact. ENT: Oral mucosa moist, tongue midline. NECK: Full range of motion. Supple. Trachea midline. LUNGS: Clear to auscultation bilaterally, no wheezes, rales, or rhonchi. No respiratory distress. HEART: Regular rate and rhythm. No murmurs, gallops, or rubs. ABDOMEN: Soft, non-tender. Non-distended. Bowel sounds present in all 4 quadrants. No guarding, rigidity, or rebound. EXTREMITIES: Moves all 4 extremities spontaneously. NEUROLOGICAL: Alert and oriented x3. Normal speech. PSYCH: Normal affect, normal mood. SKIN: Warm, dry, normal turgor. No rashes or lesions noted. (KAITY LIEBERMAN) Course - Laboratory Result Diagrams: 05/24/18 00:55 05/24/18 00:55 <KAITY LIEBERMAN - Last Filed: 05/24/18 03:14> - Laboratory Result Diagrams: 05/24/18 00:55 05/24/18 00:55 <YON BOUDREAUX - Last Filed: 05/24/18 05:00> - Re-evaluation Re-evalutation: 05/24/18 03:53 CBC unremarkable, CMP shows slight low sodium at 136.9 this is likely pseudohyponatremia given that the glucose is 487, he was treated with came down to 333 and then after fluids finished infusing it was down to 207, AST and ALT are both approximately 3 times normal, alkaline phosphatase is normal, urinalysis shows glucose but no evidence of ketones. There is no evidence of DKA and there is no evidence of HHS. Patient will be instructed to increase his Lantus morning dose by 5 units and then after 2 days he is still having elevated blood sugars he should increase his evening Lantus by 5 units as well. Patient is to follow-up with his primary care physician as soon as possible. ( YON BOUDREAUX) - Vital Signs Vital signs: Temp Pulse Resp BP Pulse Ox 98.2 F 77 15 123/82 96 05/24/18 04:01 05/23/18 23:22 05/23/18 23:22 05/24/18 04:01 05/24/18 04:01 - Laboratory Laboratory results interpreted by me: 05/24/18 05/24/18 05/24/18 00:55 01:56 02:03 Sodium 136.9 L Glucose 487 H* POC Glucose 333 H Direct Bilirubin 0.6 H AST 129 H ALT 121 H Total Protein 8.6 H Urine Glucose (UA) >=500 H 05/24/18 03:35 Sodium Glucose POC Glucose 207 H Direct Bilirubin AST ALT Total Protein Urine Glucose (UA) Discharge <KAITY LIEBERMAN - Last Filed: 05/24/18 03:14> <YON BOUDREAUX - Last Filed: 05/24/18 05:00> - Discharge Clinical Impression: Hyperglycemia Type 2 diabetes mellitus Qualifiers: Diabetes mellitus care home insulin use: with care home use Diabetes mellitus complication status: with hyperglycemia Qualified Code(s): E11.65 - Type 2 diabetes mellitus with hyperglycemia Condition: Stable Disposition: HOME, SELF-CARE Additional Instructions: Today did not find an exact cause for why your blood sugar is elevated. It is very important that you follow-up with your primary care physician as an outpatient to further adjust her medications. Initially I would like you to increase your Lantus dose in the morning by 5 units. If after 2 days you are still having significantly elevated blood sugars please increase her evening Lantus dose by 5 units as well. Referrals: CHARLIE PETIT FNP-C [Primary Care Provider] - Follow up as needed Scribe Attestation: 05/24/18 05:00 I personally performed the services described in the documentation, reviewed and edited the documentation which was dictated to the scribe in my presence, and it accurately records my words and actions. (YON BOUDREAUX) Scribe Documentation - Scribe Written by Danae:: Danae Nunez, 05/24/2018 [id number] acting as scribe for :: Lucio <KAITY LIEBERMAN - Last Filed: 05/24/18 03:14>
[2018-05-24 01:05] LABS: ABSOLUTE EOSINOPHILS # (AUTO) 0.1 10^3/uL (0.0-0.6); ABSOLUTE LYMPHOCYTES (AUTO) 1.9 10^3/uL (0.5-4.7); ABSOLUTE MONOCYTES (AUTO) 0.5 10^3/uL (0.1-1.4); ABSOLUTE NEUT (AUTO) 2.3 10^3/uL (1.7-8.2); BASOPHILS % (AUTO) 0.7 % (0-2); EOSINOPHILS % (AUTO) 1.3 % (0-6); HEMATOCRIT 43.8 % (37.9-51.0); HEMOGLOBIN 14.8 g/dL (13.5-17.0); LYMPHOCYTES % (AUTO) 39.3 % (13-45); MEAN CORPUSCULAR HEMOGLOBIN 32.1 pg (27.0-33.4); MEAN CORPUSCULAR HGB CONC 33.9 g/dL (32.0-36.0); MEAN CORPUSCULAR VOLUME 95 fl (80-97); MONOCYTES % (AUTO) 10.8 % (3-13); PLATELET COUNT 201 10^3/uL (150-450); RED BLOOD COUNT 4.63 10^6/uL (4.35-5.55); RED CELL DISTRIBUTION WIDTH 12.9 % (11.5-14.0); SEGMENTED NEUTROPHILS % (AUTO) 47.9 % (42-78); TOTAL CELLS COUNTED % (AUTO) 100 %; WHITE BLOOD COUNT 4.7 10^3/uL (4.0-10.5)
[2018-05-24 01:19] LABS: ALANINE AMINOTRANSFERASE 121 U/L (21-72); ALKALINE PHOSPHATASE 123 U/L (38-126); ANION GAP 10 (5-19); ASPARTATE AMINO TRANSFERASE 129 U/L (17-59); BILIRUBIN,DIRECT 0.6 mg/dL (0.0-0.4); BILIRUBIN,TOTAL 0.7 mg/dL (0.2-1.3); BLOOD UREA NITROGEN 19 mg/dL (7-20); CALCIUM 9.4 mg/dL (8.4-10.2); CARBON DIOXIDE 29 mmol/L (22-30); CHLORIDE 98 mmol/L (98-107); POTASSIUM 4.3 mmol/L (3.6-5.0); SODIUM 136.9 mmol/L (137-145); TOTAL PROTEIN 8.6 g/dL (6.3-8.2)
[2018-05-24 01:30] LABS: GLUCOSE 487 mg/dL (75-110)
[2018-05-24 02:45] LABS: APPEARANCE,URINE CLEAR; BILIRUBIN,URINE NEGATIVE (NEGATIVE); COLOR,URINE COLORLESS; GLUCOSE, URINE >=500 mg/dL (NEGATIVE); KETONES,URINE NEGATIVE (NEGATIVE); LEUKOCYTE ESTERASE,URINE NEGATIVE (NEGATIVE); NITRITE,URINE NEGATIVE (NEGATIVE); PROTEIN,URINE NEGATIVE (NEGATIVE); URINE SPECIFIC GRAVITY 1.027; UROBILINOGEN,URINE NEGATIVE mg/dL (<2.0)
[2018-05-24 04:06] VITALS: BP 123/82
== END 2018-05-24 04:12 | disposition home or self-care (01) ==
LOC: ER 23:14
DX: E11.65 Type 2 diabetes mellitus with hyperglycemia (principal); Z79.4 Long term (current) use of insulin; R42 Dizziness and giddiness; H53.8 Other visual disturbances; R19.7 Diarrhea, unspecified; R35.0 Frequency of micturition; R63.1 Polydipsia; I10 Essential (primary) hypertension; Z88.5 Allergy status to narcotic agent; Z88.0 Allergy status to penicillin
CPT/HCPCS: 99285; 96360; 36415; 82962; 85025; 80053; 81001; J1815; J7030

== ENCOUNTER 2018-06-11 09:53 | Inpatient (IN) | payer MEDICAID ==
--- NOTE | 2018-06-11 10:16 | ER Document Report ---
ED Medical Screen (RME) - General Chief Complaint: Thigh Pain Stated Complaint: THIGH SWELLING Time Seen by Provider: 06/11/18 10:12 Notes: Patient is complaining of pain of the proximal inner thighs bilaterally is been present for a couple of days. He recalls no unusual activity and no injuries to the areas. He is never had this before. Denies any fever. Patient is an insulin-dependent diabetic who also has hypertension. Just recently started taking glymeperide in addition to his insulin. Patient has had a craniotomy for a sinus infection that got into his brain. He has seizures and is on medication for the same. TRAVEL OUTSIDE OF THE [place] IN LAST 30 DAYS: No - Related Data Allergies/Adverse Reactions: morphine Allergy (Verified 05/21/18 18:46) Penicillins Allergy (Verified 02/20/18 08:40) Past Medical History - Social History Family history: DM, Malignancy - Past Medical History Cardiac Medical History: Reports: Hx Hypertension Denies: Hx Congestive Heart Failure, Hx DVT, Hx Heart Attack, Hx Hypercholesterolemia, Hx Pulmonary Embolism Pulmonary Medical History: Denies: Hx Asthma, Hx COPD, Hx Pneumonia, Hx Sleep Apnea Neurological Medical History: Reports: Hx Migraine, Hx Seizures - Last episode 2015; uncertain current antiepileptic. Endocrine Medical History: Reports: Hx Diabetes Mellitus Type 1, Hx Diabetes Mellitus Type 2. 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 No cardiac surgery. - Immunizations Immunizations up to date: Yes Hx Diphtheria, Pertussis, Tetanus Vaccination: Yes Physical Exam - Vital signs Vitals: Temp Pulse Resp BP Pulse Ox 97.8 F 93 18 138/84 H 96 06/11/18 10:00 06/11/18 10:00 06/11/18 10:00 06/11/18 10:06/11/18 10:00 Course - Vital Signs Vital signs: Temp Pulse Resp BP Pulse Ox 97.8 F 93 18 138/84 H 96 06/11/18 10:00 06/11/18 10:00 06/11/18 10:00 06/11/18 10:00 06/11/18 10:00 Doctor's Discharge - Discharge Referrals: CHARLIE PETIT, [facility]END[facility] ROLL OPERATOR-C [Primary Care Provider] - Follow up as needed
[2018-06-11 10:46] LABS: ABSOLUTE EOSINOPHILS # (AUTO) 0.1 10^3/uL (0.0-0.6); ABSOLUTE LYMPHOCYTES (AUTO) 1.8 10^3/uL (0.5-4.7); ABSOLUTE MONOCYTES (AUTO) 0.4 10^3/uL (0.1-1.4); ABSOLUTE NEUT (AUTO) 1.9 10^3/uL (1.7-8.2); EOSINOPHILS % (AUTO) 1.6 % (0-6); HEMATOCRIT 44.1 % (37.9-51.0); HEMOGLOBIN 15.2 g/dL (13.5-17.0); MEAN CORPUSCULAR HEMOGLOBIN 32.5 pg (27.0-33.4); MEAN CORPUSCULAR HGB CONC 34.5 g/dL (32.0-36.0); MEAN CORPUSCULAR VOLUME 94 fl (80-97); MONOCYTES % (AUTO) 10.3 % (3-13); PLATELET COUNT 192 10^3/uL (150-450); RED BLOOD COUNT 4.68 10^6/uL (4.35-5.55); RED CELL DISTRIBUTION WIDTH 12.9 % (11.5-14.0); SEGMENTED NEUTROPHILS % (AUTO) 45.1 % (42-78); TOTAL CELLS COUNTED % (AUTO) 100 %; WHITE BLOOD COUNT 4.3 10^3/uL (4.0-10.5)
[2018-06-11 10:50] LABS: APPEARANCE,URINE CLEAR; BILIRUBIN,URINE NEGATIVE (NEGATIVE); COLOR,URINE STRAW; GLUCOSE, URINE >=500 mg/dL (NEGATIVE); KETONES,URINE NEGATIVE (NEGATIVE); LEUKOCYTE ESTERASE,URINE NEGATIVE (NEGATIVE); NITRITE,URINE NEGATIVE (NEGATIVE); PROTEIN,URINE NEGATIVE (NEGATIVE); URINE SPECIFIC GRAVITY 1.026; UROBILINOGEN,URINE NEGATIVE mg/dL (<2.0)
[2018-06-11 11:02] LABS: ALANINE AMINOTRANSFERASE 168 U/L (21-72); ALBUMIN 4.1 g/dL (3.5-5.0); ALKALINE PHOSPHATASE 127 U/L (38-126); ANION GAP 7 (5-19); ASPARTATE AMINO TRANSFERASE 196 U/L (17-59); BILIRUBIN,DIRECT 0.3 mg/dL (0.0-0.4); BILIRUBIN,TOTAL 0.4 mg/dL (0.2-1.3); BLOOD UREA NITROGEN 15 mg/dL (7-20); CALCIUM 9.6 mg/dL (8.4-10.2); CARBON DIOXIDE 29 mmol/L (22-30); CHLORIDE 103 mmol/L (98-107); GLUCOSE 336 mg/dL (75-110); POTASSIUM 4.3 mmol/L (3.6-5.0); SODIUM 139.2 mmol/L (137-145); TOTAL PROTEIN 8.8 g/dL (6.3-8.2)
[2018-06-11] MEDS ORDERED: FENTANYL CITRATE INJ/PF 100 MCG/2 ML AMPUL IV ONE (11:13)
--- NOTE | 2018-06-11 11:14 | ER Document Report ---
ED General - General Chief Complaint: Thigh Pain Stated Complaint: THIGH SWELLING Time Seen by Provider: 06/11/18 10:12 Notes: Patient presents with 2 days of bilateral thigh proximal medial inguinal pain nonradiating worse with palpation worse with walking. He thinks it swollen. No scrotal or penis involvement, no rectal or anal involvement. No pain on urination or defecation. Denies skin changes. Denies rash. Diabetic. Poorly controlled sugars. Insulin and omeprazole. TRAVEL OUTSIDE OF THE [place] IN LAST 30 DAYS: No - Related Data Allergies/Adverse Reactions: morphine Allergy (Verified 05/21/18 18:46) Penicillins Allergy (Verified 02/20/18 08:40) Past Medical History - Social History Smoking Status: Never Smoker Family History: Reviewed & Not Pertinent Patient has suicidal ideation: No Patient has homicidal ideation: No - Past Medical History Cardiac Medical History: Reports: Hx Hypertension Denies: Hx Congestive Heart Failure, Hx DVT, Hx Heart Attack, Hx Hypercholes terolemia, Hx Pulmonary Embolism Pulmonary Medical History: Denies: Hx Asthma, Hx COPD, Hx Pneumonia, Hx Sleep Apnea Neurological Medical History: Reports: Hx Migraine, Hx Seizures - Last episode 2015; uncertain current antiepileptic. Endocrine Medical History: Reports: Hx Diabetes Mellitus Type 1, Hx Diabetes Mellitus Type 2. 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 No cardiac surgery. - Immunizations Immunizations up to date: Yes Hx Diphtheria, Pertussis, Tetanus Vaccination: Yes Review of Systems - Review of Systems Notes: REVIEW OF SYSTEMS GEN: Denies fever, chills, weight loss ENT: Denies sore throat, nasal discharge, ear pain EYES: Denies blurry vision, eye pain, discharge CV: Denies chest pain, palpitations, edema RESP: Denies cough, shortness of breath, wheezing GI: Denies abdominal pain, nausea, vomiting, diarrhea MSK: Thigh and groin pain SKIN: Denies rash, skin lesions LYMPH: Denies swollen glands/lymph nodes NEURO: Denies headache, focal weakness or numbness, dizziness PSYCH: Denies depression, suicidal or homicidal ideation PHYSICAL EXAMINATION General: No acute distress, well-nourished Head: Atraumatic, normocephalic ENT: Mouth normal, oropharynx moist, no exudates or tonsillar enlargement Eyes: Conjunctiva normal, pupils equal, lids normal Neck: No JVD, supple, no guarding CVS: Normal rate, regular rhythm, no murmurs Resp: No resp distress, equal and normal breath sounds bilaterally GI: Nondistended, soft, no tenderness to palpation, no rebound or guarding Ext: Tenderness and mild edema of the inguinal fold bilaterally as well as the proximal thighs without redness, rash, crepitus, or fluctuance Back: No CVA or midline TTP Skin: No rash, warm Lymphatic: No lymphadeopathy noted Neuro: Awake, alert. Face symmetric. GCS 15. Physical Exam - Vital signs Vitals: Temp Pulse Resp BP Pulse Ox 97.8 F 93 18 138/84 H 96 06/11/18 10:06/11/18 10:06/11/18 10:06/11/18 10:06/11/18 10:00 Course - Re-evaluation Re-evalutation: 06/11/18 11:14 Bilateral groin and thigh pain in a diabetic patient without external signs of infection. Worrisome for necrotizing infection such as Sofia's gangrene as well as lymphadenopathy. We will do labs and CT scan. At this time he was medically quite stable. 06/11/18 13:35 Reassessed after pain medsfeels well. Labs normal except for mild elevation in LFTs, and a CK total in the 9000 range. Creatinine is normal. Infection or could be due to statins or other etiologies. I did do a CT pelvis with contrast which shows absolutely no signs of infection. My concern for Sofia's is now very minimal. I did speak with hospitalist to admit and hydrate this patient given his diabetes and the risk for developing infection although I did not give him antibiotics at this time. - Vital Signs Vital signs: Temp Pulse Resp BP Pulse Ox 97.8 F 93 18 138/84 H 96 06/11/18 10:06/11/18 10:00 06/11/18 10:00 06/11/18 10:00 06/11/18 10:00 - Laboratory Result Diagrams: 06/11/18 10:18 06/11/18 10:18 Laboratory results interpreted by me: 06/11/18 06/11/18 06/11/18 10:18 10:18 10:18 ESR 34 H Glucose 336 H AST 196 H ALT 168 H Alkaline Phosphatase 127 H Creatine Kinase 6858 H Total Protein 8.8 H Urine Glucose (UA) >=500 H Urine Blood MODERATE H - Diagnostic Test Radiology reviewed: Image reviewed, Reports reviewed Discharge - Discharge Clinical Impression: Rhabdomyolysis Qualifiers: Rhabdomyolysis type: non-traumatic Qualified Code(s): M62.82 - Rhabdomyolysis Condition: Fair Disposition: ADMITTED OBSERVATION Admitting Provider: Hospitalist Unit Admitted: Medical Floor Referrals: CHARLIE PETIT FNP-C [COMMUNITY BASED STAFF] - Follow up as needed
[2018-06-11 11:20] LABS: C-REACTIVE PROTEIN < 5.0 mg/L (<10.0); CREATINE KINASE 6858 U/L (55-170)
[2018-06-11 11:27] LABS: ERYTHROCYTE SEDIMENTATION RATE 34 mm/hr (0-20)
[2018-06-11] MEDS ORDERED: NORMAL SALINE 1000 ML 1,000 ML IV ONE ×2 (11:54)
--- NOTE | 2018-06-11 13:14 | RADIOLOGY REPORT (SQ) ---
EXAM DESCRIPTION: CT PELVIS WITH COMPLETED DATE/TIME: 06/11/2018 12:22 pm REASON FOR STUDY: Joint pain, diabetic, pls go to mid thigh, ?infxn COMPARISON: None. TECHNIQUE: CT scan of the pelvis performed following the uncomplicated IV administration of 93 mL Om nipaque 350 iodinated contrast IV. Images reviewed with soft tissue and bone windows. Reconstructed coronal and sagittal MPR images reviewed. All images stored on PACS. All CT scanners at this facility use dose modulation, iterative reconstruction, and/or weight based d osing when appropriate to reduce radiation dose to as low as reasonably achievable (ALARA). [facility]: Dose Right [facility]: CareDose [facility]: Dose Right [facility]: Teradose 4D [facility]: [employer] RADIATION DOSE: CT Rad equipment meets quality standard of care and radiation dose reduction techniq ues were employed. CTDIvol: 6.3 - 10.1 mGy. DLP: 621 mGy-cm. mGy. LIMITATIONS: None. FINDINGS: PELVIC BONES: No acute fracture. No worrisome bone lesions. VISUALIZED SPINE: No acute findings. HIP(S): No acute fracture or dislocation. No worrisome bone lesions. There is asphericity of the lizeth ateral femoral head neck junctions with associated degenerative change of the femur and acetabula. PELVIC SOFT TISSUES: No significant findings. EXTRAPELVIC SOFT TISSUES: No significant findings. OTHER: No other significant finding. IMPRESSION: 1. No acute abnormality of the pelvis or proximal thighs to explain hip pain. No evide nce of soft tissue abnormality or infection. 2. There is asphericity of the bilateral femoral head neck junctions with associated degenerative damaris nge of the femur and acetabula, findings which can be seen in cam type femoroacetabular impingement. TECHNICAL DOCUMENTATION: JOB ID: [id number] Quality ID # [id number]: Final reports with documentation of one or more dose reduction techniques (e.g., Au tomated exposure control, adjustment of the mA and/or kV according to patient size, use of iterative reconstruction technique) 2010 [employer]- All Rights Reserved Reading location - IP/workstation name: [email or web address]
[2018-06-11] MEDS ORDERED: ONDANSETRON 4 MG TAB.RAPDIS PO PRN (15:24)
[2018-06-11] MEDS ORDERED: ACETAMINOPHEN 325 MG TABLET PO PRN (15:24)
[2018-06-11] MEDS ORDERED: DEXTROSE 50%-WATER 25 GM/50 ML DISP.SYRIN IV PRN ×2 (15:36)
[2018-06-11] MEDS ORDERED: GLUCAGON,HUMAN RECOMB 1 MG INJ IM PRN (15:36)
[2018-06-11] MEDS ORDERED: DEXTROSE 40% GEL 15 GM TUBE PO PRN ×2 (15:36)
--- NOTE | 2018-06-11 16:03 | PDOC H&P ---
History of Present Illness Admission Date/PCP: 06/11/18 14:00 HAYLIE MILLER PA-C Patient complains of: Increased bilateral groin pain History of Present Illness: YUNI GARCIA is a 63 year old male with a history of diabetes mellitus. He states that approximately 1 week ago he had some discomfort when trying to get out of bed. It was in the upper inside thigh area. He denies any fever or chills. He states that he may have tried some [id number] medications for relief. None were effective. As the week progressed he states that the pain increased. It became bilateral. He does not recall any specific injury. He did start glimepiride for his diabetes approximately 1-2 weeks ago. Otherwise he has not had any other medication changes. Because the pain significantly limited his mobility he presented to the emergency department. He was found to have rhabdomyolysis. CT scan was negative for any evidence of Sofia's gangrene or abscess formation. His creatinine kinase was elevated. He was given pain medications and IV fluids. His transaminases were also elevated. He will be admitted to the hospitalist service. We will continue agg ressive fluids. We will monitor his creatinine kinase and transaminases as well as his renal function he states that his diabetes has been out of control. Some of his medications can cause rhabdo and so I will keep him on Lantus and a sliding scale but hold the sitagliptin and glimepiride. Past Medical History Cardiac Medical History: Reports: Hypertension Denies: Congestive Heart Failure, DVT, Myocardial Infarction, Hyperlipidema, Pulmonary Embolism Pulmonary Medical History: Denies: Asthma, Chronic Obstructive Pulmonary Disease (COPD), Pneumonia, Sleep Apnea Neurological Medical History: Reports: Migraine, Seizures - Last episode 2015; uncertain current antiepileptic. Endocrine Medical History: Reports: Diabetes Mellitus Type 1, Diabetes Mellitus Type 2 Denies: Hyperthyroidism, Hypothyroidism Renal/ Medical History: Denies: Chronic Kidney Disease Malignancy Medical History: Reports: None GI Medical History: Denies: Cirrhosis, Gastroesophageal Reflux Disease, Hepatitis Musculoskeltal Medical History: Denies: Arthritis Skin Medical History: Reports: None Psychiatric Medical History: Denies: Alcohol Dependency, Depression Traumatic Medical History: Reports: None Hematology: Reports: None Infectious Medical History: Denies: Clostridium Difficile, Methicillin-Resistant Staph Aureus Past Surgical History Past Surgical History: Reports: Other - Craniotomy for empyema from sinusitis; sinus surgery. No cardiac surgery. Social History Information Source: Patient Lives with: Alone Smoking Status: Former Smoker Frequency of Alcohol Use: None Hx Recreational Drug Use: No Drugs: None Hx Prescription Drug Abuse: No - Advance Directive Resuscitation Status: Do Not Intubate Surrogate healthcare decision maker:: After discussion with the patient he was very specific. He does not want to be intubated. He does wish to have cardiac resuscitation if necessary. There is no current documented decision-maker. Family History Family History: Reviewed & Not Pertinent Parental Family History Reviewed: Yes - Both parents . Cause of unknown. Children Family History Reviewed: NA Sibling(s) Family History Reviewed.: Yes Medication/Allergy Home Medications: Amitriptyline HCl [Elavil 50 mg Tablet] 50 mg PO QHS 06/11/18 Gabapentin [Neurontin 300 mg Capsule] 300 mg PO Q8 06/11/18 Glimepiride [Amaryl] 2 mg PO DAILY 06/11/18 Insulin Glargine,Hum.rec.anlog [Lantus Insulin 100 Unit/1 ml 10 ml] 25 units SQ QAM 06/11/18 Insulin Glargine,Hum.rec.anlog [Lantus Insulin 100 Unit/1 ml 10 ml] 30 units SQ QPM 06/11/18 Levetiracetam [Keppra] 1,000 mg PO Q12 06/11/18 Lisinopril [Zestril] 20 mg PO DAILY 06/11/18 Sitagliptin Phosphate [Januvia] 100 mg PO DAILY 06/11/18 Allergies/Adverse Reactions: morphine Allergy (Verified 05/21/18 18:46) Penicillins Allergy (Verified 02/20/18 08:40) Review of Systems Constitutional: PRESENT: as per HPI, headache(s) - Since craniotomy Eyes: ABSENT: visual disturbances Ears: ABSENT: hearing changes Nose, Mouth, and Throat: PRESENT: headache(s). ABSENT: mouth pain Cardiovascular: PRESENT: edema. ABSENT: chest pain, palpitations Respiratory: ABSENT: cough, dyspnea, hemoptysis Gastrointestinal: ABSENT: abdominal pain, constipation, diarrhea, heartburn, nausea, vomiting Genitourinary: ABSENT: dysuria, hematuria Musculoskeletal: PRESENT: as per HPI Integumentary: ABSENT: pruritus, rash, wounds Neurological: ABSENT: confusion, convulsions, tremor(s) Psychiatric: ABSENT: anxiety, depression Endocrine: ABSENT: cold intolerance, heat intolerance Hematologic/Lymphatic: ABSENT: easy bleeding, easy bruising Allergic/Immunologic: ABSENT: seasonal rhinorrhea Physical Exam Vital Signs: Temp Pulse Resp BP Pulse Ox 97.8 F 93 18 138/84 H 96 06/11/18 10:00 06/11/18 10:00 06/11/18 10:00 06/11/18 10:06/11/18 10:00 Intake & Output 06/10/18 06/11/18 06/12/18 06:59 06:59 06:59 Intake Total 1999 Balance 1999 Weight 81.6 kg General appearance: PRESENT: cooperative, well-developed, other - Significant discomfort is obvious with any movement. Head exam: PRESENT: other - Large scar across the convexity of the skull in the frontal area. Eye exam: PRESENT: conjunctival injection, scleral icterus. ABSENT: EOMI - He does have spontaneous extraocular muscle movement. It was difficult for him to track my finger. Ear exam: PRESENT: normal external ear exam Mouth exam: PRESENT: dry mucosa, neck supple Neck exam: ABSENT: carotid bruit, JVD, lymphadenopathy Respiratory exam: PRESENT: clear to auscultation lizeth, symmetrical, unlabored. ABSENT: accessory muscle use, crackles, rales, rhonchi, wheezes Cardiovascular exam: PRESENT: RRR, +S1, +S2. ABSENT: systolic murmur Pulses: PRESENT: normal radial pulses, normal dorsalis pedis pul GI/Abdominal exam: PRESENT: diminished bowel sounds, soft. ABSENT: guarding, tenderness Rectal exam: PRESENT: deferred Gentrourinary exam: ABSENT: lesions, scrotal swelling Extremities exam: PRESENT: pedal edema. ABSENT: calf tenderness, joint swelling Musculoskeletal exam: PRESENT: other - There is slight prominence of the proximal medial thigh area as it enters the groin. I did not appreciate any significant lymphadenopathy. There was faint erythema. The underlying tissue was slightly firm. It was clearly tender. I did not appreciate any fluctuance. Neurological exam: PRESENT: alert, awake, oriented to person, oriented to place, oriented to time, oriented to situation Psychiatric exam: PRESENT: flat affect. ABSENT: anxious Focused psych exam: ABSENT: restlessness Results Laboratory Results: 06/11/18 10:18 06/11/18 10:18 06/11/18 06/11/18 06/11/18 10:18 10:18 10:18 WBC 4.3 RBC 4.68 Hgb 15.2 Hct 44.1 MCV 94 MCH 32.5 MCHC 34.5 RDW 12.9 Plt Count 192 Seg Neutrophils % 45.1 Lymphocytes % 42.0 Monocytes % 10.3 Eosinophils % 1.6 Basophils % 1.0 Absolute Neutrophils 1.9 Absolute Lymphocytes 1.8 Absolute Monocytes 0.4 Absolute Eosinophils 0.1 Absolute Basophils 0.0 Sodium 139.2 Potassium 4.3 Chloride 103 Carbon Dioxide 29 Anion Gap 7 BUN 15 Creatinine 0.62 Est GFR ( Amer) > 60 Est GFR (Non-Af Amer) > 60 Glucose 336 H Calcium 9.6 Total Bilirubin 0.4 AST 196 H ALT 168 H Alkaline Phosphatase 127 H C-Reactive Protein < 5.0 Total Protein 8.8 H Albumin 4.1 Urine Color STRAW Urine Appearance CLEAR Urine pH 6.0 Ur Specific [place] 1.026 Urine Protein NEGATIVE Urine Glucose (UA) >=500 H Urine Ketones NEGATIVE Urine Blood MODERATE H Urine Nitrite NEGATIVE Ur Leukocyte Esterase NEGATIVE Urine WBC (Auto) 0 Urine RBC (Auto) 0 06/11/18 10:18 Creatine Kinase 6858 H Impressions: Pelvis CT 06/11/18 11:12 IMPRESSION: 1. No acute abnormality of the pelvis or proximal thighs to explain hip pain. No evidence of soft tissue abnormality or infection. 2. 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 Assessment & Plan - Diagnosis (1) Rhabdomyolysis Qualifiers: Rhabdomyolysis type: non-traumatic Qualified Code(s): M62.82 - Rhabdomyolysis Is this a current diagnosis for this admission?: Yes Plan: Unsure of the exact etiology. Several of the medications he is on (sitagliptin and gabapentin) can cause rhabdo. He is not on statin therapy. He was recently started on glimepiride. This is not indicated as a medicine that typically causes rhabdo. His sed rate was mildly elevated at 34. A CT scan of the pelvis did not reveal a marked inflammatory changes in the area of tenderness. He has good dorsalis pedis pulses. Despite not knowing the specific etiology we will utilize aggressive IV fluid. We will monitor his creatinine kinase levels as well as his renal and liver function. We will also provide analgesia. (2) Diabetes mellitus type 2, uncontrolled Qualifiers: Glycemic state: with hyperglycemia Qualified Code(s): E11.65 - Type 2 kristian gracie mellitus with hyperglycemia Is this a current diagnosis for this admission?: Yes Plan: As noted above so his medications can contribute/cause rhabdo. I am going to utilize Lantus and an aggressive sliding scale only at this time. We will continue his split Lantus dose that he was previously on. We will monitor his fingersticks at mealtime and bedtime. (3) Hepatitis C antibody positive in blood Is this a current diagnosis for this admission?: Yes Plan: The patient did not report any history of hepatitis C as part of his past medical history. This was obtained from old records. This could account for the elevated transaminases. I will confirm this and monitor his transaminases. (4) Elevated transaminase level Is this a current diagnosis for this admission?: Yes Plan: As noted above this could be due to history of hepatitis C. We will continue to monitor. - Time Time Spent: 50 to 70 Minutes Medications reviewed and adjusted accordingly: Yes Anticipated discharge: Home
[2018-06-11] MEDS: NORMAL SALINE 1000 ML 1,000 ML IV PRN ×2 (16:55→22:52)
[2018-06-11] MEDS: DOCUSATE SODIUM 100 MG CAPSULE PO PRN (17:41)
[2018-06-11] MEDS ORDERED: INSULIN GLARGINE,HUM.REC.ANLOG 1,000 UNIT/10 ML UNIT SUBCUT SCH (18:00)
[2018-06-11] MEDS: LEVETIRACETAM 500 MG TABLET PO SCH (22:50)
[2018-06-11] MEDS: FAMOTIDINE 20 MG TABLET PO SCH (22:51)
[2018-06-11] MEDS: AMITRIPTYLINE HCL 50 MG TABLET PO SCH (22:51)
[2018-06-11] MEDS: OXYCODONE HCL IR 5 MG TABLET PO PRN (22:57)
[2018-06-12 06:22] LABS: ABSOLUTE EOSINOPHILS # (AUTO) 0.1 10^3/uL (0.0-0.6); ABSOLUTE LYMPHOCYTES (AUTO) 1.8 10^3/uL (0.5-4.7); ABSOLUTE MONOCYTES (AUTO) 0.4 10^3/uL (0.1-1.4); ABSOLUTE NEUT (AUTO) 1.7 10^3/uL (1.7-8.2); BASOPHILS % (AUTO) 0.7 % (0-2); EOSINOPHILS % (AUTO) 2.5 % (0-6); HEMATOCRIT 38.7 % (37.9-51.0); HEMOGLOBIN 13.2 g/dL (13.5-17.0); MEAN CORPUSCULAR HEMOGLOBIN 32.4 pg (27.0-33.4); MEAN CORPUSCULAR HGB CONC 34.2 g/dL (32.0-36.0); MEAN CORPUSCULAR VOLUME 95 fl (80-97); MONOCYTES % (AUTO) 9.9 % (3-13); PLATELET COUNT 152 10^3/uL (150-450); RED BLOOD COUNT 4.08 10^6/uL (4.35-5.55); RED CELL DISTRIBUTION WIDTH 13.2 % (11.5-14.0); SEGMENTED NEUTROPHILS % (AUTO) 41.9 % (42-78); TOTAL CELLS COUNTED % (AUTO) 100 %
[2018-06-12 06:33] LABS: ALBUMIN 2.9 g/dL (3.5-5.0); ANION GAP 5 (5-19); BLOOD UREA NITROGEN 11 mg/dL (7-20); CALCIUM 8.5 mg/dL (8.4-10.2); CARBON DIOXIDE 25 mmol/L (22-30); CHLORIDE 110 mmol/L (98-107); GLUCOSE 144 mg/dL (75-110); POTASSIUM 4.2 mmol/L (3.6-5.0); SODIUM 140.4 mmol/L (137-145); TOTAL PROTEIN 6.7 g/dL (6.3-8.2)
[2018-06-12 06:34] LABS: ALANINE AMINOTRANSFERASE 141 U/L (21-72); ALKALINE PHOSPHATASE 87 U/L (38-126); ASPARTATE AMINO TRANSFERASE 206 U/L (17-59); BILIRUBIN,DIRECT 0.3 mg/dL (0.0-0.4); BILIRUBIN,TOTAL 0.5 mg/dL (0.2-1.3)
[2018-06-12 07:17] LABS: CREATINE KINASE 5543 U/L (55-170)
[2018-06-12] MEDS ORDERED: INSULIN GLARGINE,HUM.REC.ANLOG 1,000 UNIT/10 ML UNIT SUBCUT SCH (08:00)
--- NOTE | 2018-06-12 08:44 | PDOC PROGRESS REPORT ---
Subjective Progress Note for:: 06/12/18 Subjective:: Patient is resting in bed. The nurse reports that he has been having less pain. Patient is undecided about his pain level. He does tend to ask the same questions several times. I am not sure if this is a postoperative effect from his sinus abscess. He does appear more comfortable this morning however. Reason For Visit: RHABDOMYOLYSIS Physical Exam Vital Signs: Temp Pulse Resp BP Pulse Ox 97.4 F 60 16 121/73 94 06/12/18 07:35 06/12/18 07:35 06/12/18 07:35 06/12/18 07:35 06/12/18 07:35 Intake & Output 06/11/18 06/12/18 06/13/18 06:59 06:59 06:59 Intake Total 4569 Output Total 450 Balance 4119 Weight 82.7 kg General appearance: PRESENT: no acute distress, well-developed Head exam: PRESENT: other - Postsurgical scar over the frontoparietal area. Eye exam: PRESENT: conjunctiva pink. ABSENT: scleral icterus Respiratory exam: PRESENT: clear to auscultation lizeth, symmetrical, unlabored. ABSENT: rales, rhonchi, wheezes Cardiovascular exam: PRESENT: RRR, +S1, +S2, systolic murmur - 2/6 GI/Abdominal exam: PRESENT: normal bowel sounds, soft. ABSENT: distended, tenderness Gentrourinary exam: PRESENT: other - Still with some tenderness upper inner thigh near the groin bilaterally. Definitely improved from yesterday.. ABSENT: scrotal swelling Extremities exam: ABSENT: pedal edema Musculoskeletal exam: PRESENT: normal inspection - Outside of the inner thighs area Neurological exam: PRESENT: alert, awake, oriented to person, oriented to place, oriented to situation - Clearly a reasonable level of understanding. He did ask the same questions about the medications several times. Psychiatric exam: PRESENT: flat affect Results Laboratory Results: 06/12/18 05:03 06/12/18 05:03 06/11/18 06/11/18 06/11/18 10:18 10:18 10:18 WBC 4.3 RBC 4.68 Hgb 15.2 Hct 44.1 MCV 94 MCH 32.5 MCHC 34.5 RDW 12.9 Plt Count 192 Seg Neutrophils % 45.1 Lymphocytes % 42.0 Monocytes % 10.3 Eosinophils % 1.6 Basophils % 1.0 Absolute Neutrophils 1.9 Absolute Lymphocytes 1.8 Absolute Monocytes 0.4 Absolute Eosinophils 0.1 Absolute Basophils 0.0 Sodium 139.2 Potassium 4.3 Chloride 103 Carbon Dioxide 29 Anion Gap 7 BUN 15 Creatinine 0.62 Est GFR ( Amer) > 60 Est GFR (Non-Af Amer) > 60 Glucose 336 H Calcium 9.6 Magnesium Total Bilirubin 0.4 AST 196 H ALT 168 H Alkaline Phosphatase 127 H C-Reactive Protein < 5.0 Total Protein 8.8 H Albumin 4.1 Urine Color STRAW Urine Appearance CLEAR Urine pH 6.0 Ur Specific [place] 1.026 Urine Protein NEGATIVE Urine Glucose (UA) >=500 H Urine Ketones NEGATIVE Urine Blood MODERATE H Urine Nitrite NEGATIVE Ur Leukocyte Esterase NEGATIVE Urine WBC (Auto) 0 Urine RBC (Auto) 0 06/12/18 06/12/18 05:03 05:03 WBC 4.0 RBC 4.08 L Hgb 13.2 L Hct 38.7 MCV 95 MCH 32.4 MCHC 34.2 RDW 13.2 Plt Count 152 Seg Neutrophils % 41.9 L Lymphocytes % 45.0 Monocytes % 9.9 Eosinophils % 2.5 Basophils % 0.7 Absolute Neutrophils 1.7 Absolute Lymphocytes 1.8 Absolute Monocytes 0.4 Absolute Eosinophils 0.1 Absolute Basophils 0.0 Sodium 140.4 Potassium 4.2 Chloride 110 H Carbon Dioxide 25 Anion Gap 5 BUN 11 Creatinine 0.64 Est GFR ( Amer) > 60 Est GFR (Non-Af Amer) > 60 Glucose 144 H Calcium 8.5 Magnesium 1.7 Total Bilirubin 0.5 AST 206 H ALT 141 H Alkaline Phosphatase 87 C-Reactive Protein Total Protein 6.7 Albumin 2.9 L Urine Color Urine Appearance Urine pH Ur Specific [place] Urine Protein Urine Glucose (UA) Urine Ketones Urine Blood Urine Nitrite Ur Leukocyte Esterase Urine WBC (Auto) Urine RBC (Auto) 06/11/18 06/12/18 10:18 05:03 Creatine Kinase 6858 H 5543 H Impressions: Pelvis CT 06/11/18 11:12 IMPRESSION: 1. No acute abnormality of the pelvis or proximal thighs to explain hip pain. No evidence of soft tissue abnormality or infection. 2. 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 Assessment & Plan - Diagnosis (1) Rhabdomyolysis Qualifiers: Rhabdomyolysis type: non-traumatic Qualified Code(s): M62.82 - Rhabdomyolysis Is this a current diagnosis for this admission?: Yes Plan: Serum creatinine kinase slightly improved. Definitely less tender. Thus far the etiology seems most likely the [place]. I am compensating with increased insulin dosing. (2) Diabetes mellitus type 2, uncontrolled Qualifiers: Glycemic state: with hyperglycemia Qualified Code(s): E11.65 - Type 2 diabetes mellitus with hyperglycemia Is this a current diagnosis for this admission?: Yes Plan: On the new insulin regimen his Accu-Cheks are greatly improved. Most are under 150. We will likely use just insulin and glimepiride at discharge. (3) Hepatitis C antibody positive in blood Is this a current diagnosis for this admission?: Yes Plan: Awaiting confirmation. This could be contributing to the elevated liver en zymes. I am not sure if he has received any treatment for his hepatitis C. (4) Elevated transaminase level Is this a current diagnosis for this admission?: Yes Plan: As above. Continue to monitor. - Time Time Spent with patient: Less than 15 minutes Medications reviewed and adjusted accordingly: Yes Anticipated discharge: Home Within: within 72 hours
[2018-06-12] MEDS: LISINOPRIL 10 MG TABLET PO SCH (09:05)
[2018-06-12] MEDS: GLIMEPIRIDE 4 MG TABLET PO SCH (09:05)
[2018-06-12] MEDS: ENOXAPARIN SODIUM INJ 40 MG/0.4 ML DISP.SYRIN SUBCUT SCH (09:05)
[2018-06-12] MEDS: FAMOTIDINE 20 MG TABLET PO SCH ×2 (09:05→22:44)
[2018-06-12] MEDS: DOCUSATE SODIUM 100 MG CAPSULE PO PRN (09:05)
[2018-06-12] MEDS: LEVETIRACETAM 500 MG TABLET PO SCH ×2 (09:05→22:43)
[2018-06-12] MEDS: INSULIN LISPRO 100 UNIT/ML 3 ML VIAL SUBCUT PRN (12:22)
[2018-06-12] MEDS: INSULIN GLARGINE,HUM.REC.ANLOG 1,000 UNIT/10 ML UNIT SUBCUT SCH (17:07)
[2018-06-12] MEDS: AMITRIPTYLINE HCL 50 MG TABLET PO SCH (22:43)
[2018-06-12] MEDS: OXYCODONE HCL IR 5 MG TABLET PO PRN (22:44)
[2018-06-13] MEDS: GLIMEPIRIDE 4 MG TABLET PO SCH (09:42)
[2018-06-13] MEDS: LISINOPRIL 10 MG TABLET PO SCH (09:42)
[2018-06-13] MEDS: LEVETIRACETAM 500 MG TABLET PO SCH ×2 (09:42→21:52)
[2018-06-13] MEDS: FAMOTIDINE 20 MG TABLET PO SCH ×2 (09:42→21:51)
[2018-06-13] MEDS: DOCUSATE SODIUM 100 MG CAPSULE PO PRN (09:42)
[2018-06-13] MEDS: INSULIN GLARGINE,HUM.REC.ANLOG 1,000 UNIT/10 ML UNIT SUBCUT SCH ×2 (09:43→17:38)
[2018-06-13] MEDS: ENOXAPARIN SODIUM INJ 40 MG/0.4 ML DISP.SYRIN SUBCUT SCH (09:43)
--- NOTE | 2018-06-13 13:25 | Physician Advisory Note ---
Physician Advisor ProgressNote .: Pursuant to the plan for [facility], I have reviewed the medical record for this patient. Physician Advisor Statement: Please don't forget at time of d/c to state whether pt's abnormal lab indicates likely "hep C, chronic/carrier state" vs "hep C, acute infxn", to avoid a query. Thanks! CK
[2018-06-13] MEDS: NORMAL SALINE 1000 ML 1,000 ML IV PRN (17:59)
[2018-06-13] MEDS: OXYCODONE HCL IR 5 MG TABLET PO PRN (21:51)
[2018-06-13] MEDS: AMITRIPTYLINE HCL 50 MG TABLET PO SCH (21:51)
[2018-06-13] MEDS: INSULIN LISPRO 100 UNIT/ML 3 ML VIAL SUBCUT PRN (21:53)
[2018-06-14] MEDS: NORMAL SALINE 1000 ML 1,000 ML IV PRN ×5 (00:02→21:33)
[2018-06-14 07:06] LABS: ABSOLUTE EOSINOPHILS # (AUTO) 0.1 10^3/uL (0.0-0.6); ABSOLUTE MONOCYTES (AUTO) 0.4 10^3/uL (0.1-1.4); ABSOLUTE NEUT (AUTO) 1.7 10^3/uL (1.7-8.2); BASOPHILS % (AUTO) 0.6 % (0-2); EOSINOPHILS % (AUTO) 2.5 % (0-6); HEMATOCRIT 39.2 % (37.9-51.0); HEMOGLOBIN 13.4 g/dL (13.5-17.0); LYMPHOCYTES % (AUTO) 47.6 % (13-45); MEAN CORPUSCULAR HEMOGLOBIN 32.1 pg (27.0-33.4); MEAN CORPUSCULAR HGB CONC 34.2 g/dL (32.0-36.0); MEAN CORPUSCULAR VOLUME 94 fl (80-97); MONOCYTES % (AUTO) 9.2 % (3-13); PLATELET COUNT 153 10^3/uL (150-450); RED BLOOD COUNT 4.16 10^6/uL (4.35-5.55); RED CELL DISTRIBUTION WIDTH 12.8 % (11.5-14.0); SEGMENTED NEUTROPHILS % (AUTO) 40.1 % (42-78); TOTAL CELLS COUNTED % (AUTO) 100 %; WHITE BLOOD COUNT 4.1 10^3/uL (4.0-10.5)
[2018-06-14 07:32] LABS: ALANINE AMINOTRANSFERASE 158 U/L (21-72); ALKALINE PHOSPHATASE 94 U/L (38-126); ANION GAP 6 (5-19); ASPARTATE AMINO TRANSFERASE 247 U/L (17-59); BILIRUBIN,DIRECT 0.2 mg/dL (0.0-0.4); BILIRUBIN,TOTAL 0.3 mg/dL (0.2-1.3); BLOOD UREA NITROGEN 12 mg/dL (7-20); CALCIUM 8.5 mg/dL (8.4-10.2); CARBON DIOXIDE 27 mmol/L (22-30); CHLORIDE 109 mmol/L (98-107); GLUCOSE 139 mg/dL (75-110); POTASSIUM 3.9 mmol/L (3.6-5.0); SODIUM 141.5 mmol/L (137-145); TOTAL PROTEIN 6.9 g/dL (6.3-8.2)
[2018-06-14 08:01] LABS: ERYTHROCYTE SEDIMENTATION RATE 23 mm/hr (0-20)
[2018-06-14 08:07] LABS: CREATINE KINASE 4795 U/L (55-170)
[2018-06-14] MEDS: INSULIN GLARGINE,HUM.REC.ANLOG 1,000 UNIT/10 ML UNIT SUBCUT SCH ×2 (08:21→17:45)
[2018-06-14] MEDS: LISINOPRIL 10 MG TABLET PO SCH (09:45)
[2018-06-14] MEDS: DOCUSATE SODIUM 100 MG CAPSULE PO PRN (09:46)
[2018-06-14] MEDS: FAMOTIDINE 20 MG TABLET PO SCH ×2 (09:46→21:33)
[2018-06-14] MEDS: GLIMEPIRIDE 4 MG TABLET PO SCH (09:46)
[2018-06-14] MEDS: ENOXAPARIN SODIUM INJ 40 MG/0.4 ML DISP.SYRIN SUBCUT SCH (09:47)
[2018-06-14] MEDS: LEVETIRACETAM 500 MG TABLET PO SCH ×2 (09:47→21:33)
[2018-06-14] MEDS: INSULIN LISPRO 100 UNIT/ML 3 ML VIAL SUBCUT PRN ×2 (12:20→17:01)
[2018-06-14] MEDS ORDERED: FUROSEMIDE INJ/PF 20 MG/2 ML SDV IV ONE (12:55)
--- NOTE | 2018-06-14 13:01 | PDOC PROGRESS REPORT ---
Subjective Progress Note for:: 06/14/18 Subjective:: The patient appears comfortable. He is still having tenderness in the upper thigh/groin muscles bilaterally. He does report ambulating without significant pain like experienced prior to admission. Reason For Visit: RHABDOMYOLYSIS Physical Exam Vital Signs: Temp Pulse Resp BP Pulse Ox 97.8 F 76 16 138/83 H 97 06/14/18 08:12 06/14/18 08:12 06/14/18 08:12 06/14/18 08:12 06/14/18 08:12 Intake & Output 06/13/18 06/14/18 06/15/18 06:59 06:59 06:59 Intake Total 1530 3480 910 Output Total 3845 2400 Balance -2315 1080 910 Weight 84.3 kg 85.7 kg General appearance: PRESENT: no acute distress, cooperative Head exam: PRESENT: other - Scalp incision as previously noted Eye exam: PRESENT: conjunctiva pink Ear exam: PRESENT: normal external ear exam Mouth exam: PRESENT: moist, tongue midline Respiratory exam: PRESENT: clear to auscultation lizeth, symmetrical, unlabored. ABSENT: prolonged expiratory phas, rales, rhonchi, wheezes Cardiovascular exam: PRESENT: RRR, +S1, +S2, systolic murmur - 2/6 GI/Abdominal exam: PRESENT: normal bowel sounds, soft. ABSENT: distended, guarding, tenderness Neurological exam: PRESENT: alert, altered, oriented to person, oriented to place, oriented to situation, CN II-XII grossly intact Psychiatric exam: PRESENT: flat affect Results Laboratory Results: 06/14/18 06:37 06/14/18 06:37 06/14/18 06/14/18 06:37 06:37 WBC 4.1 RBC 4.16 L Hgb 13.4 L Hct 39.2 MCV 94 MCH 32.1 MCHC 34.2 RDW 12.8 Plt Count 153 Seg Neutrophils % 40.1 L Lymphocytes % 47.6 H Monocytes % 9.2 Eosinophils % 2.5 Basophils % 0.6 Absolute Neutrophils 1.7 Absolute Lymphocytes 2.0 Absolute Monocytes 0.4 Absolute Eosinophils 0.1 Absolute Basophils 0.0 Sodium 141.5 Potassium 3.9 Chloride 109 H Carbon Dioxide 27 Anion Gap 6 BUN 12 Creatinine 0.75 Est GFR ( Amer) > 60 Est GFR (Non-Af Amer) > 60 Glucose 139 H Calcium 8.5 Total Bilirubin 0.3 AST 247 H ALT 158 H Alkaline Phosphatase 94 Total Protein 6.9 Albumin 3.0 L 06/11/18 06/12/18 06/13/18 10:18 05:03 13:30 Creatine Kinase 6858 H 5543 H 8699 H 06/14/18 06:37 Creatine Kinase 4795 H Impressions: Pelvis CT 06/11/18 11:12 IMPRESSION: 1. No acute abnormality of the pelvis or proximal thighs to explain hip pain. No evidence of soft tissue abnormality or infection. 2. There is asphericity of the bilateral femoral head neck junctions with ass ociated degenerative change of the femur and acetabula, findings which can be seen in cam type femoroacetabular impingement. Assessment & Plan - Diagnosis (1) Rhabdomyolysis Qualifiers: Rhabdomyolysis type: non-traumatic Qualified Code(s): M62.82 - Rhabdomyolysis Is this a current diagnosis for this admission?: Yes Plan: I did increase his saline infusion to 200 mL an hour yesterday. His creatinine kinase is down to under 5000. I am going to add intermittent doses of furosemide to try and help flush the creatinine kinase from the patient. We did discuss that if his creatinine kinase was decreased in the 2000 or below range I would let him go home tomorrow and he would follow-up with his primary care physician for repeat blood work. We will continue to monitor renal function. (2) Diabetes mellitus type 2, uncontrolled Qualifiers: Glycemic state: with hyperglycemia Qualified Code(s): E11.65 - Type 2 diabetes mellitus with hyperglycemia Is this a current diagnosis for this admission?: Yes Plan: The patient is now on glimepiride and insulin. I did stop the sitagliptin as it can cause rhabdomyolysis. I will likely discharge him on his current regimen of increased Lantus with sliding scale and the glimepiride. We seem to have reasonable glucose control on this new regimen. (3) Hepatitis C antibody positive in blood Is this a current diagnosis for this admission?: Yes Plan: This is a chronic condition for the patient. He is stable and asymptomatic. It is unlikely that the elevated creatinine kinase has caused any adverse effect on the liver. (4) Elevated transaminase level Is this a current diagnosis for this admission?: Yes Plan: A direct result of his chronic hepatitis C. - Time Time Spent with patient: Less than 15 minutes Medications reviewed and adjusted accordingly: Yes Anticipated discharge: Home Within: within 24 hours
[2018-06-14] MEDS: AMITRIPTYLINE HCL 50 MG TABLET PO SCH (21:33)
[2018-06-14] MEDS: OXYCODONE HCL IR 5 MG TABLET PO PRN (21:40)
[2018-06-15] MEDS ORDERED: DIPHENHYDRAMINE HCL 25 MG CAPSULE PO PRN (01:45)
[2018-06-15 05:36] LABS: ANION GAP 5 (5-19); BLOOD UREA NITROGEN 12 mg/dL (7-20); CALCIUM 8.6 mg/dL (8.4-10.2); CARBON DIOXIDE 27 mmol/L (22-30); CHLORIDE 110 mmol/L (98-107); GLUCOSE 69 mg/dL (75-110); POTASSIUM 3.7 mmol/L (3.6-5.0); SODIUM 142.3 mmol/L (137-145)
[2018-06-15 05:50] LABS: CREATINE KINASE 2596 U/L (55-170)
[2018-06-15] MEDS: NORMAL SALINE 1000 ML 1,000 ML IV PRN (06:33)
[2018-06-15] MEDS: INSULIN LISPRO 100 UNIT/ML 3 ML VIAL SUBCUT PRN ×2 (07:55→13:07)
[2018-06-15] MEDS: INSULIN GLARGINE,HUM.REC.ANLOG 1,000 UNIT/10 ML UNIT SUBCUT SCH (07:56)
[2018-06-15] MEDS: DOCUSATE SODIUM 100 MG CAPSULE PO PRN (11:07)
[2018-06-15] MEDS: FAMOTIDINE 20 MG TABLET PO SCH (11:07)
[2018-06-15] MEDS: LISINOPRIL 10 MG TABLET PO SCH (11:07)
[2018-06-15] MEDS: LEVETIRACETAM 500 MG TABLET PO SCH (11:08)
[2018-06-15] MEDS: ENOXAPARIN SODIUM INJ 40 MG/0.4 ML DISP.SYRIN SUBCUT SCH (11:08)
[2018-06-15] MEDS: GLIMEPIRIDE 4 MG TABLET PO SCH (11:08)
--- NOTE | 2018-06-15 13:30 | PDOC DISCHARGE SUMMARY ---
General - Admit/Disc Date/PCP Admission Date/Primary Care Provider: 06/11/18 15:24 HAYLIE MILLER PA-C Discharge Date: 06/15/18 - Discharge Diagnosis (1) Rhabdomyolysis Is this a current diagnosis for this admission?: Yes Summary: With aggressive IV hydration his creatinine kinase is down from 8002 under 3000. I have asked him to continue drinking lots of water. I believe the Citikyle Seth may have contributed. He will hold this. I have made adjustments in his insulin accordingly. He will follow-up with his primary care next week and I have suggested repeat laboratory studies. (2) Diabetes mellitus type 2, uncontrolled Is this a current diagnosis for this admission?: Yes Summary: Despite stopping the sitagliptin the changes in his insulin regimen seem to have given good control. He will continue the new Lantus dosing and the sliding scale at home. (3) Hepatitis C antibody positive in blood Is this a current diagnosis for this admission?: Yes Summary: Chronic and stable. (4) Elevated transaminase level Is this a current diagnosis for this admission?: Yes Summary: These appear to be due to his hepatitis C and have been stable throughout his stay. - Additional Information Resuscitation Status: Do Not Intubate Discharge Diet: Cardiac, Diabetic Discharge Activity: Activity As Tolerated Prescriptions: Insulin Glargine,Hum.rec.anlog [Lantus Insulin 100 Unit/mL] 25 unit SUBCUT BID 30 Days #1 pen Insulin Lispro [Humalog Kwikpen U-100] 100 unit SQ ACHS 30 Days #1 insuln.pen Oxycodone HCl [Oxy-Ir 5 mg Tablet] 5 mg PO Q4HP PRN 7 Days #20 tablet PRN Reason: Home Medications: Amitriptyline HCl [Elavil 50 mg Tablet] 50 mg PO QHS 06/11/18 Gabapentin [Neurontin 300 mg Capsule] 300 mg PO Q8 06/11/18 Glimepiride [Amaryl] 2 mg PO DAILY 06/11/18 Levetiracetam [Keppra] 1,000 mg PO Q12 06/11/18 Lisinopril [Zestril] 20 mg PO DAILY 06/11/18 Docusate Sodium [Colace 100 mg Capsule] 100 mg PO BID PRN capsule 06/13/18 Insulin Glargine,Hum.rec.anlog [Lantus Insulin 100 Unit/mL] 25 unit SUBCUT BID 30 Days #1 pen 06/13/18 Oxycodone HCl [Oxy-Ir 5 mg Tablet] 5 mg PO Q4HP PRN 7 Days #20 tablet 06/13/18 Insulin Lispro [Humalog Kwikpen U-100] 100 unit SQ ACHS 30 Days #1 insuln.pen 06/15/18 History of Present Illness Patient complains of: Significant muscle pain medial upper thigh into the groin bilaterally History of Present Illness: YUNI GARCIA is a 63 year old male with a history of diabetes mellitus. He states that approximately 1 week ago he had some discomfort when trying to get out of bed. It was in the upper inside thigh area. He denies any fever or chills. He states that he may have tried some tqht-ray-ildpgns medications for relief. None were effective. As the week progressed he states that the pain increased. It became bilateral. He does not recall any specific injury. He did start glimepiride for his diabetes approximately 1-2 weeks ago. Otherwise he has not had any other medication changes. Because the pain significantly limited his mobility he presented to the emergency department. He was found to have rhabdomyolysis. CT scan was negative for any evidence of Sofia's gangrene or abscess formation. His creatinine kinase was elevated. He was given pain medications and IV fluids. His transaminases were also elevated. He will be admitted to the hospitalist service. We will continue aggressive fluids. We will monitor his creatinine kinase and transaminases as well as his renal function he states that his diabetes has been out of control. Some of his medications can cause rhabdo and so I will keep him on Lantus and a sliding scale but hold the sitagliptin and glimepiride. Hospital Course Hospital Course: The patient had a relatively benign hospital course. I stop the sitagliptin as this does have a potential for rhabdomyolysis. With aggressive IV hydration we are able to decrease the creatinine kinase to 2900 from over 8000. The patien t's pain has decreased significantly. I have asked him to continue to drink fluids at home we do have a follow-up appointment with his primary care provider for 1 week. He will need repeat laboratory studies including a creatinine kinase level. Physical Exam Vital Signs: Temp Pulse Resp BP Pulse Ox 97.4 F 68 17 138/76 H 96 06/15/18 07:58 06/15/18 07:58 06/15/18 07:58 06/15/18 07:58 06/15/18 07:58 Intake & Output 06/14/18 06/15/18 06/16/18 06:59 06:59 06:59 Intake Total 3480 5619 Output Total 2400 2225 Balance 1080 3394 Weight 85.7 kg 85.5 kg General appearance: PRESENT: no acute distress, cooperative, well-developed Head exam: PRESENT: other - Incision across the scalp Eye exam: PRESENT: conjunctiva pink. ABSENT: scleral icterus Mouth exam: PRESENT: moist, tongue midline Respiratory exam: PRESENT: clear to auscultation lizeth, symmetrical, unlabored. ABSENT: rales, rhonchi, wheezes Cardiovascular exam: PRESENT: RRR, +S1, +S2 Pulses: PRESENT: normal radial pulses, normal dorsalis pedis pul GI/Abdominal exam: PRESENT: normal bowel sounds, soft. ABSENT: tenderness Extremities exam: ABSENT: calf tenderness, pedal edema Musculoskeletal exam: PRESENT: ambulatory Neurological exam: PRESENT: alert, awake, oriented to person, oriented to place, oriented to time, oriented to situation, CN II-XII grossly intact Psychiatric exam: PRESENT: appropriate affect, normal mood. ABSENT: agitated, anxious Focused psych exam: ABSENT: restlessness Results Laboratory Results: 06/14/18 06:37 06/15/18 03:50 06/15/18 03:50 Sodium 142.3 Potassium 3.7 Chloride 110 H Carbon Dioxide 27 Anion Gap 5 BUN 12 Creatinine 0.70 Est GFR ( Amer) > 60 Est GFR (Non-Af Amer) > 60 Glucose 69 L Calcium 8.6 06/11/18 06/12/18 06/13/18 10:18 05:03 13:30 Creatine Kinase 6858 H 5543 H 8699 H 06/14/18 06/15/18 06:37 03:50 Creatine Kinase 4795 H 2596 H Impressions: Pelvis CT 06/11/18 11:12 IMPRESSION: 1. No acute abnormality of the pelvis or proximal thighs to explain hip pain. No evidence of soft tissue abnormality or infection. 2. 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 Qualifiers - * PATIENT BEING DISCHARGED WITH ANY OF THE FOLLOWING DIAGNOSIS: No Plan Discharge Plan: As outlined above. He will be given prescriptions for a small amount of oxycodone as well as prescriptions for the Lantus and Humalog. A copy of the sliding scale will be provided as well. Time Spent: Less than 30 Minutes
[2018-06-15 13:51] VITALS: BP 140/78
== END 2018-06-15 14:45 | disposition home or self-care (01) | DRG 558 ==
LOC: ER 09:53 → EH 14:00 → OBSVTOIN 15:24 → 5 15:56
PROVIDERS: ADMIT Hospitalist; ATTEND Hospitalist
DX: M62.82 Rhabdomyolysis (principal); I10 Essential (primary) hypertension; B18.2 Chronic viral hepatitis C; R74.0 Nonspecific elevation of levels of transaminase and lactic acid dehydrogenase [LDH]; E11.65 Type 2 diabetes mellitus with hyperglycemia; Z87.891 Personal history of nicotine dependence; Z88.0 Allergy status to penicillin; Z88.6 Allergy status to analgesic agent; Z79.4 Long term (current) use of insulin; Z98.890 Other specified postprocedural states
CPT/HCPCS: 36415; 72193; 80048; 80053; 81001; 82550; 82962; 83735; 85025; 85652; 86140; 87521; 96361; 96374; 99285; J1650; J1815; J1940; J3010; J3490; J7030

== ENCOUNTER 2018-08-17 10:30 | Emergency (ER) | payer MEDICAID ==
--- NOTE | 2018-08-17 10:48 | ER Document Report ---
ED Medical Screen (RME) - General Chief Complaint: Arm Pain Stated Complaint: ARM PAIN Time Seen by Provider: 08/17/18 10:39 Primary Care Provider: HAYLIE MILLER PA-C [Primary Care Provider] - Follow up as needed Mode of Arrival: Ambulatory Information source: Patient Notes: Patient presents complaining of right arm pain for the past 2-3 weeks. Patient denies any injury to the arm. Patient is right-hand dominant. Patient also is very diaphoretic. When asked patient does acknowledge that he has some shortness of breath. Patient is tachycardic as well. Patient denies any chest pain symptoms. I have greeted and performed a rapid initial assessment of this patient. A comprehensive ED assessment and evaluation of the patient, analysis of test results and completion of the medical decision making process will be conducted by additional ED providers. TRAVEL OUTSIDE OF THE [place] IN LAST 30 DAYS: No - Related Data Allergies/Adverse Reactions: morphine Allergy (Verified 05/21/18 18:46) Penicillins Allergy (Verified 02/20/18 08:40) Past Medical History - Social History Family history: DM, Malignancy - Past Medical History Cardiac Medical History: Reports: Hx Hypertension Denies: Hx Congestive Heart Failure, Hx DVT, Hx Heart Attack, Hx Hypercholesterolemia, Hx Pulmonary Embolism Pulmonary Medical History: Denies: Hx Asthma, Hx COPD, Hx Pneumonia, Hx Sleep Apnea Neurological Medical History: Reports: Hx Migraine, Hx Seizures - Last episode 2015; uncertain current antiepileptic. Endocrine Medical History: Reports: Hx Diabetes Mellitus Type 1, Hx Diabetes Mellitus Type 2. 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 No cardiac surgery. - Immunizations Immunizations up to date: Yes Hx Diphtheria, Pertussis, Tetanus Vaccination: Yes Physical Exam - Vital signs Vitals: Temp Pulse Resp BP Pulse Ox 97.8 F 114 H 16 121/85 98 08/17/18 10:34 08/17/18 10:34 08/17/18 10:34 08/17/18 10:34 08/17/18 10:34 - General Notes: Diaphoretic - Cardiovascular Rhythm: Tachycardia Heart sounds: S1 appreciated, S2 appreciated Course - Vital Signs Vital signs: Temp Pulse Resp BP Pulse Ox 97.8 F 114 H 16 121/85 98 08/17/18 10:34 08/17/18 10:34 08/17/18 10:34 08/17/18 10:34 08/17/18 10:34 Doctor's Discharge - Discharge Referrals: HAYLIE MILLER PAAdelinaC [Primary Care Provider] - Follow up as needed
--- NOTE | 2018-08-17 11:24 | RADIOLOGY REPORT (SQ) ---
EXAM DESCRIPTION: CHEST 2 VIEWS COMPLETED DATE/TIME: 08/17/2018 11:10 am REASON FOR STUDY: sob COMPARISON: None. TECHNIQUE: Frontal and lateral radiographic views of the chest acquired. NUMBER OF VIEWS: Two view. LIMITATIONS: None. FINDINGS: LUNGS AND PLEURA: No opacities, masses or pneumothorax. No pleural effusion. MEDIASTINUM AND HILAR STRUCTURES: No masses or contour abnormalities. HEART AND VASCULAR STRUCTURES: Heart normal size. No evidence for failure. BONES: No acute findings. HARDWARE: None in the chest. OTHER: No other significant finding. IMPRESSION: NO SIGNIFICANT RADIOGRAPHIC FINDING IN THE CHEST. TECHNICAL DOCUMENTATION: JOB ID: [id number] [employer]- All Rights Reserved Reading location - IP/workstation name: [email or web address]
--- NOTE | 2018-08-17 11:44 | RADIOLOGY REPORT (SQ) ---
EXAM DESCRIPTION: CT HEAD WITHOUT COMPLETED DATE/TIME: 08/17/2018 11:32 am REASON FOR STUDY: hx stroke, right arm n/t COMPARISON: 03/15/2018 TECHNIQUE: Axial images acquired through the brain without intravenous contrast. Images reviewed wi th bone, brain and subdural windows. Images stored on PACS. All CT scanners at this facility use dose modulation, iterative reconstruction, and/or weight based d osing when appropriate to reduce radiation dose to as low as reasonably achievable (ALARA). [facility]: Dose Right [facility]: CareDose [facility]: Dose Right [facility]: Teradose 4D [facility]: Smart [employer] RADIATION DOSE: CT Rad equipment meets quality standard of care and radiation dose reduction techniq ues were employed. CTDIvol: 53.2 mGy. DLP: 1017 mGy-cm. mGy. LIMITATIONS: None. FINDINGS: VENTRICLES: Prominent. CEREBRUM: Calcifications adjacent to bifrontal craniotomy stable. No masses. No hemorrhage. No mid line shift. Areas of low density in the white matter most likely due to chronic micro-vascular ische luke change. No evidence for acute infarction. CEREBELLUM: No masses. No hemorrhage. No alteration of density. No evidence for acute infarction. EXTRAAXIAL SPACES: Mild age-related involutional change. No fluid collections. No masses. ORBITS AND GLOBE: No intra- or extraconal masses. Normal contour of globe without masses. CALVARIUM: No fracture. PARANASAL SINUSES: Chronic marinelli sinusitis and postsurgical changes. SOFT TISSUES: No mass or hematoma. OTHER: No other significant finding. IMPRESSION: Stable, chronic changes. EVIDENCE OF ACUTE STROKE: NO. TECHNICAL DOCUMENTATION: JOB ID: [id number] Quality ID # [id number]: Final reports with documentation of one or more dose reduction techniques (e.g., Au tomated exposure control, adjustment of the mA and/or kV according to patient size, use of iterative reconstruction technique) 2010 [employer]- All Rights Reserved Reading location - IP/workstation name: [email or web address]
[2018-08-17] MEDS ORDERED: ACETAMINOPHEN 325 MG TABLET PO ONE (12:16)
--- NOTE | 2018-08-17 12:16 | ER Document Report ---
ED Extremity Problem, Upper - General Chief Complaint: Arm Pain Stated Complaint: ARM PAIN Time Seen by Provider: 08/17/18 10:39 Primary Care Provider: HAYLIE MILLER PA-C [Primary Care Provider] - Follow up as needed Mode of Arrival: Ambulatory Information source: Patient Notes: Patient is a 63-year-old male with a history of a stroke, diabetes, sinus surgery, hypertension who presents to the ER today for multiple months of right arm pain from his elbow to his fingertips that he describes as a tingling pins and needles sensation. Patient states "I think is just my neuropathy." He denies any neuropathy to his legs or feet however. Patient also reports some swelling to his right inner thigh that he noticed a few days ago, is not painful, not red, he denies history of blood clots. On initial evaluation by nurse practitioner in [facility] area he was apparently diaphoretic so a full workup was ordered for chest pain protocol as well as a Doppler of the right upper extremity was ordered at that time. When I evaluated patient he was not diaphoretic but mildly clammy. He denies any chest pain, shortness of breath, headache, blurred vision, weakness anywhere, facial droop. TRAVEL OUTSIDE OF THE [place] IN LAST 30 DAYS: No - Related Data Allergies/Adverse Reactions: morphine Allergy (Verified 05/21/18 18:46) Penicillins Allergy (Verified 02/20/18 08:40) Past Medical History - General Information source: Patient - Social History Smoking Status: Current Some Day Smoker Family History: Reviewed & Not Pertinent - Past Medical History Cardiac Medical History: Reports: Hx Hypertension Denies: Hx Congestive Heart Failure, Hx DVT, Hx Heart Attack, Hx Hypercholesterolemia, Hx Pulmonary Embolism Pulmonary Medical History: Denies: Hx Asthma, Hx COPD, Hx Pneumonia, Hx Sleep Apnea Neurological Medical History: Reports: Hx Migraine, Hx Seizures - Last episode 2016; uncertain current antiepileptic. Endocrine Medical History: Reports: Hx Diabetes Mellitus Type 1, Hx Diabetes Mellitus Type 2. 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 No cardiac surgery. - Immunizations Immunizations up to date: Yes Hx Diphtheria, Pertussis, Tetanus Vaccination: Yes Review of Systems - Review of Systems Constitutional: No symptoms reported EENT: No symptoms reported Cardiovascular: No symptoms reported Respiratory: No symptoms reported Gastrointestinal: No symptoms reported Genitourinary: No symptoms reported Male Genitourinary: No symptoms reported Musculoskeletal: See HPI Skin: No symptoms reported Hematologic/Lymphatic: No symptoms reported Neurological/Psychological: See HPI Physical Exam - Vital signs Vitals: Temp Pulse Resp BP Pulse Ox 97.8 F 114 H 16 121/85 98 08/17/18 10:34 08/17/18 10:34 08/17/18 10:34 08/17/18 10:34 08/17/18 10:34 - Notes Notes: PHYSICAL EXAMINATION: GENERAL: Chronically ill-appearing, but in no acute distress. HEAD: Large scar across patient's scalp, otherwise atraumatic, normocephalic. EYES: Pupils equal round and reactive to light, extraocular movements intact, sclera anicteric, conjunctiva are normal. ENT: ear canals without erythema or foreign body, TMs pearly chatman with good bony landmarks, nares patent, oropharynx clear without exudates. Moist mucous membranes. NECK: Normal range of motion, supple without lymphadenopathy LUNGS: CTAB and equal. No wheezes rales or rhonchi. HEART: Regular rate and rhythm without murmurs ABDOMEN: Soft, no tenderness. No guarding, no rebound BACK: no vertebral tenderness, normal ROM GI/: no CVA tenderness EXTREMITIES: Normal range of motion, no pitting edema. No cyanosis. NEUROLOGICAL: Cranial nerves grossly intact. Normal sensory/motor exams. PSYCH: Normal mood, normal affect. SKIN: Warm, Dry, normal turgor, no rashes or lesions noted Course - Re-evaluation Re-evalutation: 08/17/18 19:21 I do not find a reason for patient's pain to his right arm today, CT of the head was negative, chest x-ray was negative, Doppler of the right upper extremity was normal without evidence of clot, lab work is essentially unremarkable including negative cardiac workup today. Patient is to follow-up with his primary care provider. - Vital Signs Vital signs: Temp Pulse Resp BP Pulse Ox 98.5 F 114 H 16 123/84 95 08/17/18 15:01 08/17/18 10:34 08/17/18 15:01 08/17/18 15:01 08/17/18 15:01 - Laboratory Result Diagrams: 08/17/18 12:00 08/17/18 12:00 Laboratory results interpreted by me: 08/17/18 08/17/18 08/17/18 11:21 12:00 12:00 Seg Neutrophils % 38.5 L Lymphocytes % 47.1 H Absolute Neutrophils 1.6 L Glucose 174 H POC Glucose 165 H AST 70 H ALT 89 H Total Protein 9.3 H Discharge - Discharge Clinical Impression: Right arm pain Condition: Stable Disposition: HOME, SELF-CARE Additional Instructions: Return immediately for any new or worsening symptoms. Follow up with primary care provider, call tomorrow to make followup appointment. Prescriptions: Cyclobenzaprine HCl [Flexeril 10 mg Tablet] 10 mg PO TIDP PRN #15 tab PRN Reason: Referrals: HAYLIE MILLER PA-C [Primary Care Provider] - Follow up as needed
[2018-08-17 12:19] LABS: ABSOLUTE EOSINOPHILS # (AUTO) 0.1 10^3/uL (0.0-0.6); ABSOLUTE LYMPHOCYTES (AUTO) 1.9 10^3/uL (0.5-4.7); ABSOLUTE MONOCYTES (AUTO) 0.5 10^3/uL (0.1-1.4); ABSOLUTE NEUT (AUTO) 1.6 10^3/uL (1.7-8.2); BASOPHILS % (AUTO) 0.9 % (0-2); EOSINOPHILS % (AUTO) 2.1 % (0-6); HEMATOCRIT 43.6 % (37.9-51.0); HEMOGLOBIN 15.2 g/dL (13.5-17.0); LYMPHOCYTES % (AUTO) 47.1 % (13-45); MEAN CORPUSCULAR HEMOGLOBIN 32.8 pg (27.0-33.4); MEAN CORPUSCULAR HGB CONC 34.8 g/dL (32.0-36.0); MEAN CORPUSCULAR VOLUME 94 fl (80-97); MONOCYTES % (AUTO) 11.4 % (3-13); PLATELET COUNT 210 10^3/uL (150-450); RED BLOOD COUNT 4.62 10^6/uL (4.35-5.55); RED CELL DISTRIBUTION WIDTH 12.9 % (11.5-14.0); SEGMENTED NEUTROPHILS % (AUTO) 38.5 % (42-78); TOTAL CELLS COUNTED % (AUTO) 100 %; WHITE BLOOD COUNT 4.1 10^3/uL (4.0-10.5)
--- NOTE | 2018-08-17 12:35 | EKG REPORT ---
SEVERITY:- ABNORMAL ECG - SINUS TACHYCARDIA PROBABLE LEFT ATRIAL ABNORMALITY LEFT VENTRICULAR HYPERTROPHY : Confirmed by: Kia Cabrera MD 17-Aug-2018 12:35:14
[2018-08-17 12:37] LABS: ALANINE AMINOTRANSFERASE 89 U/L (21-72); ALBUMIN 4.5 g/dL (3.5-5.0); ALKALINE PHOSPHATASE 106 U/L (38-126); ANION GAP 12 (5-19); ASPARTATE AMINO TRANSFERASE 70 U/L (17-59); BILIRUBIN,DIRECT 0.2 mg/dL (0.0-0.4); BILIRUBIN,TOTAL 0.6 mg/dL (0.2-1.3); BLOOD UREA NITROGEN 19 mg/dL (7-20); CARBON DIOXIDE 25 mmol/L (22-30); CHLORIDE 101 mmol/L (98-107); CREATINE KINASE 102 U/L (55-170); GLUCOSE 174 mg/dL (75-110); POTASSIUM 4.2 mmol/L (3.6-5.0); SODIUM 137.5 mmol/L (137-145); TOTAL PROTEIN 9.3 g/dL (6.3-8.2)
--- NOTE | 2018-08-17 14:44 | RADIOLOGY REPORT (SQ) ---
EXAM DESCRIPTION: VENOUS UNILATERAL UPPER COMPLETED DATE/TIME: 08/17/2018 2:29 pm REASON FOR STUDY: RUE pain COMPARISON: None. TECHNIQUE: Dynamic and static peacock scale and color images acquired of the right arm venous system. S elected spectral images acquired with additional compression and augmentation maneuvers. The contrala teral subclavian vein and internal jugular vein were also imaged. Images stored on PACS. LIMITATIONS: None. FINDINGS: INTERNAL JUGULAR VEIN: Normal phasicity, compression, augmentation. No visualized echogeni c material on peacock scale. No defects on color images. Comparison opposite side normal. SUBCLAVIAN VEIN: Normal compression, augmentation. No visualized echogenic material on peacock scale. No defects on color images. AXILLARY VEIN: Normal compression, augmentation. No visualized echogenic material on peacock scale. No d efects on color images. BRACHIAL VEIN: Normal compression, augmentation. No visualized echogenic material on peacock scale. No d efects on color images. CEPHALIC VEIN: Normal compression, augmentation. No visualized echogenic material on peacock scale. No d efects on color images. OTHER: Normal compression with no visualized echogenic material at the radial vein and ulnar vein. CONTRALATERAL SUBCLAVIAN VEIN AND INTERNAL JUGULAR VEIN: Normal phasicity, compression and augmentation. No visualized echogenic material on peacock scale. No de fects on color images. IMPRESSION: No sonographic evidence for DVT at the visualized veins of the right upper extremity. TECHNICAL DOCUMENTATION: JOB ID: [id number] [place]-[id number] 2010 [employer]- All Rights Reserved Reading location - IP/workstation name: [email or web address]
[2018-08-17] MEDS ORDERED: KETOROLAC TROMETHAMINE INJ/PF 30 MG/1 ML SDV IV ONE (15:14)
[2018-08-17 15:30] LABS: URINE AMPHETAMINES SCREEN NEGATIVE; URINE BARBITURATES SCREEN NEGATIVE; URINE BENZODIAZEPINES SCREEN NEGATIVE; URINE COCAINE SCREEN NEGATIVE; URINE MARIJUANA (THC) SCREEN NEGATIVE; URINE METHADONE SCREEN NEGATIVE; URINE PHENCYCLIDINE SCREEN NEGATIVE
[2018-08-17 15:37] VITALS: BP 123/84
== END 2018-08-17 15:45 | disposition home or self-care (01) ==
LOC: ER 10:30
DX: M79.631 Pain in right forearm (principal); M79.641 Pain in right hand; M79.644 Pain in right finger(s); M25.521 Pain in right elbow; R20.2 Paresthesia of skin; E11.9 Type 2 diabetes mellitus without complications; I10 Essential (primary) hypertension; M79.89 Other specified soft tissue disorders; R61 Generalized hyperhidrosis; Z86.73 Personal history of transient ischemic attack (TIA), and cerebral infarction without residual deficits; Z88.5 Allergy status to narcotic agent; Z88.0 Allergy status to penicillin; F17.200 Nicotine dependence, unspecified, uncomplicated
CPT/HCPCS: 93005; 99284; 96374; 36415; 82962; 82550; 84443; 85025; 80053; 84484; 80307; 93971; 71046; 70450; 93010; J3490; J1885

== ENCOUNTER 2018-09-14 12:57 | Inpatient (IN) | payer MEDICAID ==
[2018-09-14] MEDS ORDERED: NORMAL SALINE 1000 ML 1,000 ML IV ONE (13:34)
[2018-09-14 13:53] LABS: ABSOLUTE LYMPHOCYTES (AUTO) 1.7 10^3/uL (0.5-4.7); ABSOLUTE MONOCYTES (AUTO) 0.8 10^3/uL (0.1-1.4); ABSOLUTE NEUT (AUTO) 4.7 10^3/uL (1.7-8.2); BASOPHILS % (AUTO) 0.4 % (0-2); EOSINOPHILS % (AUTO) 0.4 % (0-6); HEMATOCRIT 44.3 % (37.9-51.0); HEMOGLOBIN 15.1 g/dL (13.5-17.0); LYMPHOCYTES % (AUTO) 23.3 % (13-45); MEAN CORPUSCULAR HEMOGLOBIN 31.7 pg (27.0-33.4); MEAN CORPUSCULAR HGB CONC 34.2 g/dL (32.0-36.0); MEAN CORPUSCULAR VOLUME 93 fl (80-97); MONOCYTES % (AUTO) 10.6 % (3-13); PLATELET COUNT 227 10^3/uL (150-450); RED BLOOD COUNT 4.78 10^6/uL (4.35-5.55); RED CELL DISTRIBUTION WIDTH 12.8 % (11.5-14.0); SEGMENTED NEUTROPHILS % (AUTO) 65.3 % (42-78); TOTAL CELLS COUNTED % (AUTO) 100 %; WHITE BLOOD COUNT 7.2 10^3/uL (4.0-10.5)
[2018-09-14 14:20] LABS: ALANINE AMINOTRANSFERASE 46 U/L (21-72); ALBUMIN 4.4 g/dL (3.5-5.0); ALKALINE PHOSPHATASE 102 U/L (38-126); ANION GAP 12 (5-19); ASPARTATE AMINO TRANSFERASE 46 U/L (17-59); BILIRUBIN,DIRECT 0.4 mg/dL (0.0-0.4); BILIRUBIN,TOTAL 0.9 mg/dL (0.2-1.3); BLOOD UREA NITROGEN 12 mg/dL (7-20); CARBON DIOXIDE 28 mmol/L (22-30); CHLORIDE 101 mmol/L (98-107); CREATINE KINASE 178 U/L (55-170); GLUCOSE 146 mg/dL (75-110); POTASSIUM 3.9 mmol/L (3.6-5.0); SODIUM 141.4 mmol/L (137-145); TOTAL PROTEIN 9.5 g/dL (6.3-8.2)
--- NOTE | 2018-09-14 14:59 | RADIOLOGY REPORT (SQ) ---
EXAM DESCRIPTION: CT FACIAL AREA WITH COMPLETED DATE/TIME: 09/14/2018 2:42 pm REASON FOR STUDY: Facial swelling, yellow sinus drainage COMPARISON: CT head 08/17/2018 and earlier TECHNIQUE: Post contrast images through the facial bones and orbits windowed for bone and soft tissu e. Additional coronal and sagittal reconstructed images reviewed. All images stored on PACS. All CT scanners at this facility use dose modulation, iterative reconstruction, and/or weight based d osing when appropriate to reduce radiation dose to as low as reasonably achievable (ALARA). [facility]: Dose Right [facility]: CareDose [facility]: Dose Right [facility]: Teradose 4D [facility]: [employer] CONTRAST TYPE AND DOSE: contrast/concentration: Isovue 350.00 mg/ml; Total Contrast Delivered: 50.0 ml; Total Saline Delivered: 50.0 ml 50 mL IV of Omnipaque 350- low osmolar. RENAL FUNCTION: BUN 12 creatinine 0.8 RADIATION DOSE: CT Rad equipment meets quality standard of care and radiation dose reduction techniq ues were employed. CTDIvol: 30.4 mGy. DLP: 731 mGy-cm. . LIMITATIONS: None. FINDINGS: FACIAL BONES: Postsurgical changes of the frontal bone, similar to prior. No cortical ero sions. Unchanged cortical thickening of the intact frontal bone and multiple facial bones, unchanged from prior. No cortical erosions. No focal sclerotic or lytic osseous lesion. No acute fracture. ORBITS: Intact. No fracture. Symmetric intact globes and retroorbital soft tissues. PARANASAL SINUSES: Worsened mucoperiosteal thickening of the maxillary sinuses and right ethmoid air cells and sphenoid sinus. Unchanged appearance of complete opacification and expansion of the left e thmoid air cells. SOFT TISSUES: None visualized soft tissues are otherwise normal. No discrete enhancing fluid collect ion. INFERIOR BRAIN: Visualized intracranial structures are unchanged when compared to 08/17/2018 OTHER: No other significant finding. IMPRESSION: Worsening moderate paranasal sinus disease. TECHNICAL DOCUMENTATION: JOB ID: [id number] Quality ID # [id number]: Final reports with documentation of one or more dose reduction techniques (e.g., Au tomated exposure control, adjustment of the mA and/or kV according to patient size, use of iterative reconstruction technique) 2010 [employer]- All Rights Reserved Reading location - IP/workstation name: [email or web address]
--- NOTE | 2018-09-14 16:43 | ER Document Report ---
Entered by YANCI RICHARDS SCRIBE 09/14/18 [id number] Acting as scribe for:LUIS RAMOS MD ED General - General Chief Complaint: Facial Swelling Stated Complaint: FACE SWELLING Time Seen by Provider: 09/14/18 13:23 Primary Care Provider: HAYLIE MILLER PA-C [Primary Care Provider] - Follow up as needed Mode of Arrival: Ambulatory Information source: Patient Notes: Patient is a 63 year old male with type 2 diabetes, hepatitis c, seizures and history of CVA presents to the emergency department complaining of facial swelling onset 2 days ago. Patient states he has a history of sinus problems (sinus infection with subsequent empyema and craniotomy 2016) and states his symptoms feel similar. He describes the swelling as feeling like a pressure that is exacerbated with coughing. He also complains of a sore throat and sinus drainage which he describes the drainage as yellow in appearance. TRAVEL OUTSIDE OF THE [place] IN LAST 30 DAYS: No - Related Data Allergies/Adverse Reactions: morphine Allergy (Verified 09/14/18 12:58) Penicillins Allergy (Verified 09/14/18 12:58) Past Medical History - General Information source: Patient - Social History Smoking Status: Never Smoker Cigarette use (# per day): No Chew tobacco use (# tins/day): No Smoking Education Provided: No Frequency of alcohol use: None Family History: Reviewed & Not Pertinent - Past Medical History Cardiac Medical History: Reports: Hx Hypertension Neurological Medical History: Reports: Hx Migraine, Hx Seizures - Last episode 2016; uncertain current antiepileptic. Endocrine Medical History: Reports: Hx Diabetes Mellitus Type 2 Infectious Medical History: Reports: Hx Hepatitis Past Surgical History: Reports: Hx Neurologic Surgery - craniotomy d/t sinus infection spread to brain tissue, Hx Nose Surgery, Other - Craniotomy for empyema from sinusitis; sinus surgery. No cardiac surgery. - Immunizations Immunizations up to date: Yes Hx Diphtheria, Pertussis, Tetanus Vaccination: Yes Review of Systems - Review of Systems Constitutional: No symptoms reported EENT: See HPI Cardiovascular: No symptoms reported Respiratory: See HPI, Cough Gastrointestinal: No symptoms reported Male Genitourinary: No symptoms reported Musculoskeletal: See HPI Skin: See HPI Hematologic/Lymphatic: No symptoms reported Neurological/Psychological: No symptoms reported -: Yes All other systems reviewed and negative Physical Exam - Vital signs Vitals: Temp Pulse Resp BP Pulse Ox 97.4 F 112 H 16 134/77 H 99 09/14/18 13:06 09/14/18 13:06 09/14/18 13:06 09/14/18 13:06 09/14/18 13:06 - Notes Notes: GENERAL: Alert, interacts well. No acute distress. HEAD: Normocephalic. Gross swelling to the forehead, bridge of nose and on either side of old, well healed craniotomy scar. EYES: Pupils equal, round, and reactive to light. Extraocular movements intact. ENT: Oral mucosa moist, tongue midline. NECK: Full range of motion. Supple. Trachea midline. LUNGS: Clear to auscultation bilaterally, no wheezes, rales, or rhonchi. No re spiratory distress. HEART: Regular rate and rhythm. No murmurs, gallops, or rubs. ABDOMEN: Soft, non-tender. Non-distended. Bowel sounds present in all 4 quadrants. No guarding, rigidity, or rebound. EXTREMITIES: Moves all 4 extremities spontaneously. NEUROLOGICAL: Alert and oriented x3. Normal speech. PSYCH: Normal affect, normal mood. SKIN: Warm, dry, normal turgor. No rashes or lesions noted. Course - Vital Signs Vital signs: Temp Pulse Resp BP Pulse Ox 97.4 F 112 H 16 140/83 H 99 09/14/18 13:06 09/14/18 13:06 09/14/18 13:06 09/14/18 15:01 09/14/18 15:01 - Laboratory Result Diagrams: 09/14/18 13:28 09/14/18 13:28 Laboratory results interpreted by me: 09/14/18 13:28 Glucose 146 H Creatine Kinase 178 H Total Protein 9.5 H - Diagnostic Test Radiology reviewed: Image reviewed, Reports reviewed - Contrasted CT scan of the face shows paranasal sinus disease which is worsened since and done about 5 weeks ago. - Consults Dr. Martinez Time consulted: 16:23 Consulted provider: will come to ER - Will come to the emergency room and admit the patient. He requests that I contact the ENT doctor configuration management analyst and consult him fr management suggestions. Dr. Galeana Time consulted: 16:45 Consulted provider: will come to ER Discharge - Discharge Clinical Impression: Paranasal sinus disease, Facial swelling Condition: Stable Disposition: ADMITTED INPATIENT Admitting Provider: Juan (Hospitalist) Unit Admitted: Medical Floor Referrals: HAYLIE MILLER PA-C [Primary Care Provider] - Follow up as needed Scribe Attestation: 09/14/18 15:45 I personally performed the services described in the documentation, reviewed and edited the documentation which was dictated to the scribe in my presence, and it accurately records my words and actions. I personally performed the services described in the documentation, reviewed and edited the documentation which was dictated to the scribe in my presence, and it accurately records my words and actions.
[2018-09-14] MEDS ORDERED: DOCUSATE SODIUM 100 MG CAPSULE PO PRN (17:26)
[2018-09-14] MEDS ORDERED: PROMETHAZINE HCL 25 MG TABLET PO PRN (17:26)
[2018-09-14] MEDS ORDERED: MAG HYDROX/AL HYDROX/SIMETH SUSP 30 ML UDCUP PO PRN (17:26)
[2018-09-14] MEDS ORDERED: ACETAMINOPHEN 325 MG TABLET PO PRN (17:26)
[2018-09-14] MEDS ORDERED: OXYCODONE HCL IR 5 MG TABLET PO PRN ×2 (17:42→17:47)
[2018-09-14] MEDS ORDERED: GLUCAGON,HUMAN RECOMB 1 MG INJ IM PRN (17:44)
[2018-09-14] MEDS ORDERED: DEXTROSE 40% GEL 15 GM TUBE PO PRN ×2 (17:44)
[2018-09-14] MEDS ORDERED: DEXTROSE 50%-WATER 25 GM/50 ML DISP.SYRIN IV PRN ×2 (17:44)
[2018-09-14] MEDS ORDERED: FENTANYL CITRATE INJ/PF 100 MCG/2 ML AMPUL IV PRN (17:46)
[2018-09-14] MEDS ORDERED: INSULIN GLARGINE,HUM.REC.ANLOG 1,000 UNIT/10 ML VIAL (PYX) SUBCUT PRN (17:57)
[2018-09-14] MEDS ORDERED: LEVOFLOXACIN 750 MG/D5W RTU 750 MG/150 ML RTUPB IV ONE (18:00)
[2018-09-14] MEDS: NORMAL SALINE 1000 ML 1,000 ML IV PRN (19:01)
[2018-09-14] MEDS: INSULIN GLARGINE,HUM.REC.ANLOG 1,000 UNIT/10 ML VIAL SUBCUT SCH (20:48)
[2018-09-14] MEDS: HEPARIN SOD (PORCINE) 5,000 UNIT/ML 1 ML SYRINGE SUBCUT SCH (21:01)
[2018-09-14] MEDS: FAMOTIDINE 20 MG TABLET PO SCH (21:01)
[2018-09-14] MEDS: GABAPENTIN 300 MG CAPSULE PO SCH (21:01)
[2018-09-14] MEDS: INSULIN LISPRO 100 UNIT/ML 3 ML VIAL SUBCUT SCH (21:01)
[2018-09-14] MEDS: AMITRIPTYLINE HCL 50 MG TABLET PO SCH (21:02)
[2018-09-14] MEDS: LEVETIRACETAM 500 MG TABLET PO SCH (21:02)
[2018-09-14] MEDS: DEXAMETHASONE SOD PHOSPHATE INJ 4 MG/1 ML VIAL IV SCH (21:06)
--- NOTE | 2018-09-14 23:29 | CONSULTATION REPORT E ---
Consultation Report NAME: YUNI GARCIA : 1955 AGE: 63Y DATE: 09/14/2018 ROOM: ED02 A TO: ALYX SKELTON D.O. FROM: MICHAEL lima MD Requesting Physician ER/INPATIENT CONSULTATION FOR OTOLARYNGOLOGY, HEAD AND NECK SURGERY REASON FOR CONSULTATION: The ER request for consultation is for severe sinusitis with concern for intracranial complications. HISTORY OF PRESENT ILLNESS: This is a 63-year-old male patient with diabetes, hepatitis C, seizures, and history of CVA who presents to the [facility] ER today complaining of facial/forehead swelling that he has noted within the past 1 to 2 days. The patient states that he has noticed worsening sinus symptoms over the past 2 weeks. The patient has a history of acute recurrent and chronic sinus disease. The patient reports undergoing sinus surgery for severe sinusitis with complications in [address] [facility]. However, in the ER documentation it is reported that the patient had a severe sinus infection with complication with subsequent empyema and craniotomy in 2015, and he reports that his symptoms at present feel very similar to that time period. He describes the facial/forehead swelling as significant pressure and severe pain and feels it is exacerbated when he is coughing. He also complains of a longstanding history as well as at present of significant sinus drainage and postnasal drainage, which is yellowish in appearance. Travel outside the [facility] recently is none. ALLERGIES/ADVERSE REACTIONS: 1. MORPHINE. 2. PENICILLIN. PAST MEDICAL HISTORY: By patient the patient and same as above in the HPI. SOCIAL HISTORY: Smoking; none. Alcohol use; none. FAMILY HISTORY: Reviewed and not pertinent. PAST SURGICAL HISTORY: Reviewed with the patient and same as above. IMMUNIZATIONS: Up to date. REVIEW OF SYSTEMS: CONSTITUTIONAL: No symptoms reported. HEENT: See HPI. CARDIOVASCULAR: No symptoms reported. RESPIRATORY: See HPI and cough. GASTROINTESTINAL: No symptoms reported. GENITOURINARY: No symptoms reported. MUSCULOSKELETAL: See HPI. SKIN/DERMATOLOGIC: See HPI. HEMATOLOGIC/LYMPHATIC: No symptoms reported. NEUROLOGIC/PSYCHOLOGICAL: No symptoms reported. ALLERGY/IMMUNOLOGY: History of allergies and see HPI. PHYSICAL EXAMINATION: VITAL SIGNS: Temperature 97.4, pulse 112, respirations 16, blood pressure 134/77, pulse ox 99% on room air. GENERAL APPEARANCE: The patient is alert, in no apparent distress, but he is slow with interaction and verbal responses. HEAD: The patient is with gross swelling of the nose and forehead distribution. He is with a well-healed coronal craniotomy scar. EYES: Pupils are equal, round and reactive to light and extraocular muscles/movements are intact. The patient is with bilateral conjunctival injection and the patient is also noted to have findings consistent with conjunctivitis with mucus/mucopus discharge noted at the medial canthal punctum/lacrimal system. EARS: External auditory canals are patent and the tympanic membranes are intact and there are no middle ear effusions present. NOSE: With a broad bony nasal pyramid. Nasal passages are patent and there is significant yellowish mucus and crusting noted bilateral along with scattered polypoid changes. ORAL CAVITY/OROPHARYNX: Is with moist mucous membranes, the tongue is midline, soft palatal tissue are redundant in nature, and the posterior pharynx is with erythema and PND noted, and there is otherwise no exudate noted. NECK: Supple, with full range of motion, and the trachea is midline and there is no gross lymphadenopathy noted. LUNGS/CHEST: With equal symmetric rise and fall, and the patient was not coughing at any point during the consultation. EXTREMITIES: Moves all 4 extremities spontaneously. NEUROLOGICAL: The patient is alert, in no apparent distress, but his overall mentation is delayed, he is oriented to person and place but he was unsure of the date and time and had difficulty recalling medical history details. SKIN: Warm, dry, and no rashes or lesions noted. RADIOLOGY: CT facial/sinus imaging date 09/14/2018 with findings consisting of postsurgical changes of the frontal bone similar to prior studies. No cortical erosion and unchanged cortical thickening of the intact frontal bone. Orbit intact with symmetric intact globes and retro-orbital soft tissues. Paranasal sinuses are with worsening mucoperiosteal thickening of the maxillary sinuses, right ethmoid sinuses, and sphenoid sinuses. The patient is with complete opacification and expansion of the left ethmoid air cells and frontal sinuses with soft tissues. Soft tissues are normal in appearance with no discrete enhancing fluid collection or abscess present. Inferior brain is visualized intracranial with structures unchanged compared to the 08/17/2018 study. The overall impression is for worsening paranasal sinus disease. CT orbit/sella 06/09/2016 with findings notable for absent posterior wall/posterior sinus bony table of the bilateral frontal sinuses with bilateral frontal mucous membrane thickening and fluid, which displaces the partially calcified dura dorsally over the bifrontal region. LABORATORY: Glucose 146. CLINICAL IMPRESSION AND PLAN: The patient is with clinical and radiologic impression for worsening sinusitis with concern for potential intracranial complication. The patient is with a very complex and involved history of acute recurrent, chronic sinus disease, and severe sinus complications requiring craniotomy and hospitalization. The patient radiologically is noted to have no posterior frontal sinus table/bony wall. It is also unclear if there is an expansive frontal sinus obliteration extending into the left ethmoid sinuses with left medial lamina papyracea dehiscence with communication with the orbit versus expansive mucocele both of which are resting against the dura overlying the frontal lobe region. In discussion with the patient he has also had no ENT follow up and continues to have acute recurrent sinusitis episodes requiring antibiotics and chronic sinus disease. He reports that he has no means to follow up with ENT as he has to arrange rides anywhere he goes. The patient is also with slow mentation throughout the consultation. Recommendation and plan as discussed in detail with Dr. Lima is to transfer the patient to either [facility] or [facility] for definitive rhinology skull based surgical management. Neurosurgical services will also be readily available at either of these facilities as needed. DICTATING PHYSICIAN: ALYX SKELTON D.O. [id number] PHY#: [id number] 2019 ID: [id number] JOB#: [id number] ACCT: [id number] cc:ALYX SKELTON D.O. > SARAHI
[2018-09-15] MEDS: OXYCODONE HCL IR 5 MG TABLET PO PRN ×5 (00:19→21:42)
[2018-09-15] MEDS ORDERED: DIPHENHYDRAMINE HCL 50 MG/ML VIAL ONE (04:32)
[2018-09-15] MEDS: NORMAL SALINE 1000 ML 1,000 ML IV PRN ×3 (04:44→21:36)
[2018-09-15] MEDS: DEXAMETHASONE SOD PHOSPHATE INJ 4 MG/1 ML VIAL IV SCH (05:07)
[2018-09-15] MEDS: GABAPENTIN 300 MG CAPSULE PO SCH ×3 (05:09→21:30)
[2018-09-15] MEDS: HEPARIN SOD (PORCINE) 5,000 UNIT/ML 1 ML SYRINGE SUBCUT SCH ×3 (05:13→21:30)
[2018-09-15 06:19] LABS: ABSOLUTE LYMPHOCYTES (AUTO) 0.9 10^3/uL (0.5-4.7); ABSOLUTE MONOCYTES (AUTO) 0.1 10^3/uL (0.1-1.4); ABSOLUTE NEUT (AUTO) 4.3 10^3/uL (1.7-8.2); BASOPHILS % (AUTO) 0.1 % (0-2); HEMATOCRIT 39.9 % (37.9-51.0); HEMOGLOBIN 14.1 g/dL (13.5-17.0); LYMPHOCYTES % (AUTO) 16.3 % (13-45); MEAN CORPUSCULAR HEMOGLOBIN 32.9 pg (27.0-33.4); MEAN CORPUSCULAR HGB CONC 35.3 g/dL (32.0-36.0); MEAN CORPUSCULAR VOLUME 93 fl (80-97); PLATELET COUNT 214 10^3/uL (150-450); RED BLOOD COUNT 4.27 10^6/uL (4.35-5.55); RED CELL DISTRIBUTION WIDTH 12.5 % (11.5-14.0); SEGMENTED NEUTROPHILS % (AUTO) 81.6 % (42-78); TOTAL CELLS COUNTED % (AUTO) 100 %; WHITE BLOOD COUNT 5.3 10^3/uL (4.0-10.5)
[2018-09-15 06:38] LABS: ANION GAP 12 (5-19); BLOOD UREA NITROGEN 12 mg/dL (7-20); CALCIUM 9.6 mg/dL (8.4-10.2); CARBON DIOXIDE 24 mmol/L (22-30); CHLORIDE 103 mmol/L (98-107); CREATINE KINASE 145 U/L (55-170); GLUCOSE 233 mg/dL (75-110); POTASSIUM 4.4 mmol/L (3.6-5.0); SODIUM 138.7 mmol/L (137-145)
[2018-09-15] MEDS: INSULIN LISPRO 100 UNIT/ML 3 ML VIAL SUBCUT SCH ×4 (07:43→21:41)
--- NOTE | 2018-09-15 08:43 | PDOC H&P ---
History of Present Illness Admission Date/PCP: 09/14/18 16:54 HAYLIE MILLER PA-C Patient complains of: Pressure under his forehead and sinuses. Yellow-green discharge from his nose and purulent discharge in his eyes. History of Present Illness: YUNI GARCIA is a 63 year old male known to this provider. He was admitted on with rhabdomyolysis. 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 Today he presents with marked swelling of the forehead and face including periorbital region and bridge of the nose. There is green discharge in both eyes. He states that he developed the swelling over the last day or 2. He has sinus pressure. He denies fever or chills. He does have a very complex surgical history including craniotomy. Past Medical History Cardiac Medical History: Reports: Hypertension Denies: Congestive Heart Failure, DVT, Myocardial Infarction, Hyperlipidema, Pulmonary Embolism Pulmonary Medical History: Denies: Asthma, Chronic Obstructive Pulmonary Disease (COPD), Pneumonia, Sleep Apnea EENT Medical History: Reports: Other - Severe sinusitis requiring craniotomy Neurological Medical History: Reports: Migraine, Seizures - Last episode 2016; uncertain current antiepileptic. Endocrine Medical History: Reports: Diabetes Mellitus Type 1, Diabetes Mellitus Type 2 Denies: Hyperthyroidism, Hypothyroidism Renal/ Medical History: Denies: Chronic Kidney Disease Malignancy Medical History: Reports: None GI Medical History: Reports: Hepatitis Denies: Cirrhosis, Gastroesophageal Reflux Disease Musculoskeltal Medical History: Denies: Arthritis Skin Medical History: Denies: Eczema, Psoriasis Psychiatric Medical History: Denies: Depression Hematology: Denies: Anemia Infectious Medical History: Reports: Hepatitis C Denies: Clostridium Difficile, Methicillin-Resistant Staph Aureus Past Surgical History Past Surgical History: Reports: Other - Craniotomy for empyema from sinusitis; sinus surgery. No cardiac surgery. Social History Information Source: Patient, ON LICENSE OF [facility] Records Lives with: Alone Smoking Status: Never Smoker Frequency of Alcohol Use: None Hx Recreational Drug Use: No Drugs: None Hx Prescription Drug Abuse: No - Advance Directive Resuscitation Status: Do Not Intubate Surrogate healthcare decision maker:: This is consistent with his hospitalization in June. He does not have a completed healthcare proxy on file. I believe his next living relative is his sister Praveena who lives in [place]. Family History Family History: Reviewed & Not Pertinent Parental Family History Reviewed: Yes - Both parents cause unknown Children Family History Reviewed: Yes Sibling(s) Family History Reviewed.: Yes Medication/Allergy Home Medications: Amitriptyline HCl [Elavil 50 mg Tablet] 50 mg PO QHS 06/11/18 Gabapentin [Neurontin 300 mg Capsule] 300 mg PO Q8 06/11/18 Glimepiride [Amaryl] 2 mg PO DAILY 06/11/18 Levetiracetam [Keppra] 1,000 mg PO Q12 06/11/18 Lisinopril [Zestril] 20 mg PO DAILY 06/11/18 Docusate Sodium [Colace 100 mg Capsule] 100 mg PO BID PRN capsule 06/13/18 Insulin Glargine,Hum.rec.anlog [Lantus Insulin 100 Unit/mL] 25 unit SUBCUT BID 30 Days #1 pen 06/13/18 Oxycodone HCl [Oxy-Ir 5 mg Tablet] 5 mg PO Q4HP PRN 7 Days #20 tablet 06/13/18 Insulin Lispro [Humalog Kwikpen U-100] 100 unit SQ ACHS 30 Days #1 insuln.pen 06/15/18 Cyclobenzaprine HCl [Flexeril 10 mg Tablet] 10 mg PO TIDP PRN #15 tab 08/17/18 Allergies/Adverse Reactions: morphine Allergy (Verified 09/14/18 12:58) Penicillins Allergy (Verified 09/14/18 12:58) Review of Systems Constitutional: PRESENT: headache(s). ABSENT: chills, fever(s) Eyes: PRESENT: visual disturbances - Reports occasional change in vision, other - Green discharge both eyes Ears: ABSENT: hearing changes Nose, Mouth, and Throat: PRESENT: headache(s), other - Sinus pain with drainage Cardiovascular: ABSENT: chest pain, orthropnea, palpitations Respiratory: ABSENT: dyspnea, hemoptysis, sputum Gastrointestinal: ABSENT: abdominal pain, constipation, diarrhea, nausea, vomiting Genitourinary: ABSENT: difficulty urinating, dysuria, hematuria Musculoskeletal: ABSENT: joint swelling, muscle weakness Integumentary: ABSENT: erythema, rash Neurological: PRESENT: memory loss, other - Slow mentation. This is consistent with his June hospitalization.. ABSENT: abnormal speech, focal weakness Psychiatric: ABSENT: anxiety, depression Endocrine: PRESENT: other - Diabetes Hematologic/Lymphatic: ABSENT: easy bleeding, easy bruising Physical Exam Vital Signs: Temp Pulse Resp BP Pulse Ox 98.9 F 112 H 16 145/88 H 96 09/14/18 17:33 09/14/18 13:06 09/14/18 13:06 09/14/18 17:31 09/14/18 17:31 Intake & Output 09/13/18 09/14/18 09/15/18 06:59 06:59 06:59 Intake Total 1000 Balance 1000 Weight 83.1 kg General appearance: PRESENT: cooperative, mild distress, well-developed Head exam: ABSENT: normocephalic - Patient has history of craniotomy with a large coronal scar across the frontal scalp above the forehead. There is swelling on both sides of the old incision. The swelling spreads through the periorbital region, bridge of the nose and right side of the face. Eye exam: PRESENT: conjunctival injection, periorbital swelling, other - Green discharge in both eyes. Medial and lateral canthi and accumulating on the eyelashes. Ear exam: PRESENT: normal external ear exam Mouth exam: PRESENT: dry mucosa, tongue midline Neck exam: ABSENT: carotid bruit, JVD Respiratory exam: PRESENT: clear to auscultation lizeth, symmetrical, unlabored. ABSENT: rales, rhonchi, wheezes Cardiovascular exam: PRESENT: RRR, +S1, +S2 Pulses: PRESENT: normal radial pulses, normal dorsalis pedis pul Vascular exam: ABSENT: pallor GI/Abdominal exam: PRESENT: normal bowel sounds, soft. ABSENT: distended, tenderness Rectal exam: PRESENT: deferred Gentrourinary exam: ABSENT: indwelling catheter Extremities exam: ABSENT: pedal edema Musculoskeletal exam: PRESENT: ambulatory, normal inspection Neurological exam: PRESENT: alert, awake, oriented to person, oriented to place, oriented to time, oriented to situation, CN II-XII grossly intact, other - Slow mentation consistent with his June hospitalization. Psychiatric exam: PRESENT: flat affect. ABSENT: agitated, anxious, depressed Focused psych exam: ABSENT: delusional, restlessness Results Laboratory Results: 09/14/18 13:28 09/14/18 13:28 09/14/18 09/14/18 13:28 13:28 WBC 7.2 RBC 4.78 Hgb 15.1 Hct 44.3 MCV 93 MCH 31.7 MCHC 34.2 RDW 12.8 Plt Count 227 Seg Neutrophils % 65.3 Lymphocytes % 23.3 Monocytes % 10.6 Eosinophils % 0.4 Basophils % 0.4 Absolute Neutrophils 4.7 Absolute Lymphocytes 1.7 Absolute Monocytes 0.8 Absolute Eosinophils 0.0 Absolute Basophils 0.0 Sodium 141.4 Potassium 3.9 Chloride 101 Carbon Dioxide 28 Anion Gap 12 BUN 12 Creatinine 0.80 Est GFR ( Amer) > 60 Est GFR (Non-Af Amer) > 60 Glucose 146 H Calcium 10.0 Magnesium 1.9 Total Bilirubin 0.9 AST 46 ALT 46 Alkaline Phosphatase 102 Total Protein 9.5 H Albumin 4.4 09/14/18 13:28 Creatine Kinase 178 H Impressions: Facial Bones CT 09/14/18 13:34 IMPRESSION: Worsening moderate paranasal sinus disease. Assessment and Plan - Diagnosis (1) Disorder of paranasal sinus Is this a current diagnosis for this admission?: Yes Plan: The patient has a history of empyema requiring craniotomy. There is diffuse sin us disease. There is also question of a mucocele or other collection against the dura of the brain. There is no bone the sinus cavity from the cranial cavity. He also has marked swelling in the periorbital region and face. Because he is allergic to penicillin I placed him on intravenous levofloxacin. Dr. Cox also suggested steroid therapy. The patient will need transfer to a facility with rhinology skull base surgery and neurosurgical capabilities in the event of complication. I will discuss this with the patient and arrange transfer. (2) Swelling of face Is this a current diagnosis for this admission?: Yes Plan: Secondary to the sinus infection. Continue Levaquin and add steroid therapy. (3) Diabetes mellitus type 2, uncontrolled Qualifiers: Glycemic state: with hyperglycemia Qualified Code(s): E11.65 - Type 2 diabetes mellitus with hyperglycemia Is this a current diagnosis for this admission?: Yes Plan: The patient is on Lantus. This dose may need to be increased with steroid therapy. He will also be on a sliding scale. (4) Hepatitis C antibody positive in blood Is this a current diagnosis for this admission?: Yes Plan: The patient has hepatitis C. he has no abnormalities in his liver enzymes. This is chronic and stable. There is no active treatment at this time. (5) HTN (hypertension) Qualifiers: Hypertension type: essential hypertension Qualified Code(s): I10 - Essential (primary) hypertension Is this a current diagnosis for this admission?: Yes Plan: Continue lisinopril. Monitor blood pressures and adjust medications if indicated. - Time Time Spent with patient: 35 or more minutes Medications reviewed and adjusted accordingly: Yes Anticipated discharge: [facility] - Inpatient Certification Based on my medical assessment, after consideration of the patient's comorbidities, presenting symptoms, or acuity I expect that the services needed warrant INPATIENT care.: Yes I certify that my determination is in accordance with my understanding of Medicare's requirements for reasonable and necessary INPATIENT services [42 CFR 412.3e].: Yes Medical Necessity: Need Close Monitoring Due to Risk of Patient Decompensation, Need for Pain Control, Need for IV Antibiotics, Risk of Complication if Not Cared For in Hospital - Plan Summary Plan Summary: I discussed the case with Dr. Cox the ticket sorter. Because of the complexity of the case I will discussed with the patient and investigate transfer to a facility where rhinology skull base surgery and neurosurgery are available.
[2018-09-15] MEDS: LEVETIRACETAM 500 MG TABLET PO SCH ×2 (09:06→21:30)
[2018-09-15] MEDS: LISINOPRIL 10 MG TABLET PO SCH (09:06)
[2018-09-15] MEDS: FAMOTIDINE INJ/PF 20 MG/2 ML SDV IV SCH ×2 (09:06→21:31)
[2018-09-15] MEDS: FAMOTIDINE 20 MG TABLET PO SCH ×2 (09:07→21:30)
[2018-09-15] MEDS ORDERED: INSULIN GLARGINE,HUM.REC.ANLOG 1,000 UNIT/10 ML VIAL (PYX) SUBCUT ONE (10:16)
[2018-09-15] MEDS: GLIMEPIRIDE 1 MG TABLET PO SCH (10:18)
[2018-09-15] MEDS: INSULIN GLARGINE,HUM.REC.ANLOG 1,000 UNIT/10 ML VIAL SUBCUT SCH ×2 (10:19→17:20)
--- NOTE | 2018-09-15 13:21 | PDOC PROGRESS REPORT ---
Subjective Progress Note for:: 09/15/18 Subjective:: The patient is feeling better today. He has less of a headache. He still has some sinus drainage but there is no purulent discharge in his eyes. Reason For Visit: SINUSITIS Physical Exam Vital Signs: Temp Pulse Resp BP Pulse Ox 98.1 F 81 17 143/78 H 92 09/15/18 11:20 09/15/18 11:20 09/15/18 11:20 09/15/18 11:20 09/15/18 11:20 Intake & Output 09/14/18 09/15/18 09/16/18 06:59 06:59 06:59 Intake Total 2750 Output Total 1375 Balance 1375 Weight 83.1 kg General appearance: PRESENT: no acute distress, cooperative, well-developed Head exam: PRESENT: other - Still with swelling over the forehead and bridge of the nose. The right side of his face does not seem as swollen. Eye exam: PRESENT: conjunctiva pink, other - No purulent discharge. ABSENT: conjunctival injection - Conjunctival injection improved, scleral icterus Ear exam: PRESENT: normal external ear exam Mouth exam: PRESENT: neck supple Respiratory exam: PRESENT: clear to auscultation lizeth, symmetrical, unlabored. ABSENT: rales, rhonchi, tachypnea, wheezes Cardiovascular exam: PRESENT: RRR, +S1, +S2 GI/Abdominal exam: PRESENT: normal bowel sounds, soft. ABSENT: distended, tenderness Rectal exam: PRESENT: deferred Extremities exam: ABSENT: pedal edema Neurological exam: PRESENT: alert, awake, oriented to person, oriented to place, oriented to time, oriented to situation Psychiatric exam: PRESENT: appropriate affect, normal mood. ABSENT: agitated, anxious Focused psych exam: ABSENT: delusional, restlessness Results Laboratory Results: 09/15/18 05:17 09/15/18 05:17 09/14/18 09/14/18 09/15/18 13:28 13:28 05:17 WBC 7.2 5.3 RBC 4.78 4.27 L Hgb 15.1 14.1 Hct 44.3 39.9 MCV 93 93 MCH 31.7 32.9 MCHC 34.2 35.3 RDW 12.8 12.5 Plt Count 227 214 Seg Neutrophils % 65.3 81.6 H Lymphocytes % 23.3 16.3 Monocytes % 10.6 2.0 L Eosinophils % 0.4 0.0 Basophils % 0.4 0.1 Absolute Neutrophils 4.7 4.3 Absolute Lymphocytes 1.7 0.9 Absolute Monocytes 0.8 0.1 Absolute Eosinophils 0.0 0.0 Absolute Basophils 0.0 0.0 Sodium 141.4 Potassium 3.9 Chloride 101 Carbon Dioxide 28 Anion Gap 12 BUN 12 Creatinine 0.80 Est GFR ( Amer) > 60 Est GFR (Non-Af Amer) > 60 Glucose 146 H Calcium 10.0 Magnesium 1.9 Total Bilirubin 0.9 AST 46 ALT 46 Alkaline Phosphatase 102 Total Protein 9.5 H Albumin 4.4 09/15/18 05:17 WBC RBC Hgb Hct MCV MCH MCHC RDW Plt Count Seg Neutrophils % Lymphocytes % Monocytes % Eosinophils % Basophils % Absolute Neutrophils Absolute Lymphocytes Absolute Monocytes Absolute Eosinophils Absolute Basophils Sodium 138.7 Potassium 4.4 Chloride 103 Carbon Dioxide 24 Anion Gap 12 BUN 12 Creatinine 0.62 Est GFR ( Amer) > 60 Est GFR (Non-Af Amer) > 60 Glucose 233 H Calcium 9.6 Magnesium 2.0 Total Bilirubin AST ALT Alkaline Phosphatase Total Protein Albumin 09/14/18 09/15/18 13:28 05:17 Creatine Kinase 178 H 145 Impressions: Facial Bones CT 09/14/18 13:34 IMPRESSION: Worsening moderate paranasal sinus disease. Assessment and Plan - Diagnosis (1) Disorder of paranasal sinus Is this a current diagnosis for this admission?: Yes Plan: The patient is clearly improved on antibiotics and steroids. He did say that the Decadron caused itching and feeling warm. I discontinued the Decadron and will use Solu-Medrol. The patient's sister and [id number] came in and we had a family conference at the bedside. The patient is feeling better and we discussed several options. Because his white count is better and he is afebrile he may not be taken as an emergent transfer to a tertiary care facility. He would prefer to do it in a more orchestrated fashion. We are going to continue his levofloxacin. On Sunday we will schedule an appointment with a rhinology skull base surgeon at a tertiary care facility. I hope to fax records and investigate if we can push radiologic images to the facility for the physicians review and consideration when scheduling an ointment. I explained to the patient and his family that it is imperative that the keep the appointment as well as any follow-up appointments. They may wish to repeat surgery. The patient would rather not have another major surgery if he could avoid it. I explained that there were several anatomic issues in play and they may likely need to do more surgery but this is a decision that will be made once he can see the specialist. We also discussed the fact that if he does have a surgical procedure it is not good for him to live alone. His sister and [id number] are willing to have the patient lived with them not only for this acute episode but permanently. He does have a seizure disorder and slow mentation from his previous craniotomy. It certainly would be a safer issue and they could help with follow-up appointments. This is something he will think about but I strongly encouraged. The patient's sister and [id number] are in agreement and on board with this plan and would prefer that the patient lived with them. For now he will continue on the IV antibiotics. I will see if he tolerates the Solu-Medrol better than the Decadron. We will continue to follow his Accu-Cheks as they will likely increase with the steroids and I will need to adjust his medications. We will watch his blood pressure as steroid therapy can adversely affect that as well. (2) Swelling of face Is this a current diagnosis for this admission?: Yes Plan: Clearly improved today. At this point I do not feel we need a repeat CT scan. (3) Diabetes mellitus type 2, uncontrolled Qualifiers: Glycemic state: with hyperglycemia Qualified Code(s): E11.65 - Type 2 diabetes mellitus with hyperglycemia Is this a current diagnosis for this admission?: Yes Plan: Continue Lantus and sliding scale. Concerns with steroids and glucose levels as noted above. (4) Hepatitis C antibody positive in blood Is this a current diagnosis for this admission?: Yes Plan: Not clinically active at this point (5) HTN (hypertension) Qualifiers: Hypertension type: essential hypertension Qualified Code(s): I10 - Essential (primary) hypertension Is this a current diagnosis for this admission?: Yes Plan: Continue current medications. Continue to monitor blood pressure. Adjust if needed. (6) Seizure disorder Is this a current diagnosis for this admission?: Yes Plan: Secondary to his craniotomy/sinus surgery. Continue Keppra. - Time Time Spent with patient: 35 or more minutes - More than half of which was dedicated to the family meeting educating about his condition, prognosis and treatment options. Medications reviewed and adjusted accordingly: Yes
[2018-09-15] MEDS: METHYLPREDNISOLONE INJ 40 MG/1 ML SDV IV SCH ×2 (13:24→21:30)
[2018-09-15] MEDS: LEVOFLOXACIN 750 MG/D5W RTU 750 MG/150 ML RTUPB IV SCH (17:20)
[2018-09-15] MEDS: DIPHENHYDRAMINE HCL 50 MG/ML VIAL IV PRN ×2 (17:25→21:42)
[2018-09-15] MEDS: AMITRIPTYLINE HCL 50 MG TABLET PO SCH (21:31)
[2018-09-16] MEDS: DIPHENHYDRAMINE HCL 50 MG/ML VIAL IV PRN ×2 (06:24→14:04)
[2018-09-16] MEDS: OXYCODONE HCL IR 5 MG TABLET PO PRN ×2 (06:25→14:03)
[2018-09-16] MEDS: METHYLPREDNISOLONE INJ 40 MG/1 ML SDV IV SCH ×3 (06:25→22:40)
[2018-09-16] MEDS: GABAPENTIN 300 MG CAPSULE PO SCH ×3 (06:25→22:41)
[2018-09-16] MEDS: HEPARIN SOD (PORCINE) 5,000 UNIT/ML 1 ML SYRINGE SUBCUT SCH ×3 (06:25→22:40)
[2018-09-16] MEDS: INSULIN LISPRO 100 UNIT/ML 3 ML VIAL SUBCUT SCH ×4 (07:57→22:41)
[2018-09-16] MEDS: FAMOTIDINE 20 MG TABLET PO SCH ×2 (09:22→22:41)
[2018-09-16] MEDS: LEVETIRACETAM 500 MG TABLET PO SCH ×2 (09:22→22:41)
[2018-09-16] MEDS: LISINOPRIL 10 MG TABLET PO SCH (09:23)
[2018-09-16] MEDS: GLIMEPIRIDE 1 MG TABLET PO SCH (09:23)
[2018-09-16] MEDS: INSULIN GLARGINE,HUM.REC.ANLOG 1,000 UNIT/10 ML VIAL SUBCUT SCH ×2 (09:23→17:15)
[2018-09-16] MEDS: NORMAL SALINE 1000 ML 1,000 ML IV PRN ×2 (09:26→20:12)
[2018-09-16] MEDS: FAMOTIDINE INJ/PF 20 MG/2 ML SDV IV SCH ×2 (09:30→22:41)
[2018-09-16] MEDS: LEVOFLOXACIN 750 MG/D5W RTU 750 MG/150 ML RTUPB IV SCH (17:15)
[2018-09-16] MEDS: POLYETHYLENE GLYCOL 3350 POWDER 17 GM/1 PACKET PO SCH (17:15)
[2018-09-16] MEDS ORDERED: BISACODYL 5 MG TABEC PO ONE (17:30)
[2018-09-16] MEDS: AMITRIPTYLINE HCL 50 MG TABLET PO SCH (22:41)
[2018-09-17] MEDS: NORMAL SALINE 1000 ML 1,000 ML IV PRN ×2 (02:47→10:18)
[2018-09-17] MEDS: GABAPENTIN 300 MG CAPSULE PO SCH ×2 (05:29→13:52)
[2018-09-17] MEDS: METHYLPREDNISOLONE INJ 40 MG/1 ML SDV IV SCH ×2 (05:29→13:51)
[2018-09-17] MEDS: HEPARIN SOD (PORCINE) 5,000 UNIT/ML 1 ML SYRINGE SUBCUT SCH ×2 (05:29→13:52)
[2018-09-17] MEDS: INSULIN LISPRO 100 UNIT/ML 3 ML VIAL SUBCUT SCH ×2 (08:21→12:01)
[2018-09-17] MEDS: FAMOTIDINE INJ/PF 20 MG/2 ML SDV IV SCH (10:12)
[2018-09-17] MEDS: FAMOTIDINE 20 MG TABLET PO SCH (10:17)
[2018-09-17] MEDS: POLYETHYLENE GLYCOL 3350 POWDER 17 GM/1 PACKET PO SCH (10:17)
[2018-09-17] MEDS: LISINOPRIL 10 MG TABLET PO SCH (10:17)
[2018-09-17] MEDS: LEVETIRACETAM 500 MG TABLET PO SCH (10:17)
[2018-09-17] MEDS: GLIMEPIRIDE 1 MG TABLET PO SCH (10:18)
[2018-09-17] MEDS: INSULIN GLARGINE,HUM.REC.ANLOG 1,000 UNIT/10 ML VIAL SUBCUT SCH (10:18)
[2018-09-17] MEDS: OXYCODONE HCL IR 5 MG TABLET PO PRN (12:01)
[2018-09-17 15:04] VITALS: BP 127/68
--- NOTE | 2018-09-17 15:15 | PDOC PROGRESS REPORT ---
Subjective Progress Note for:: 09/16/18 Subjective:: The patient is resting comfortably but still complains of pressure in the frontal sinus area. Definite decrease in swelling in the face and forehead area. Reason For Visit: SINUSITIS Physical Exam Vital Signs: Temp Pulse Resp BP Pulse Ox 97.3 F 54 L 16 127/68 H 95 09/17/18 15:03 09/17/18 15:03 09/17/18 15:03 09/17/18 15:03 09/17/18 15:03 Intake & Output 09/16/18 09/17/18 09/18/18 06:59 06:59 06:59 Intake Total 5230 3537 1000 Output Total 3300 1975 Balance 1930 1562 1000 Weight 82.6 kg 89.7 kg General appearance: PRESENT: cooperative, mild distress, well-developed Head exam: PRESENT: other - Still some swelling across the front of the scalp including forehead. Swelling is definitely decreased. Periorbital swelling is almost resolved Eye exam: PRESENT: conjunctiva pink. ABSENT: conjunctival injection Ear exam: PRESENT: normal external ear exam Mouth exam: PRESENT: moist, tongue midline Respiratory exam: PRESENT: clear to auscultation lizeth, symmetrical, unlabored. ABSENT: accessory muscle use, rales, rhonchi, tachypnea, wheezes Cardiovascular exam: PRESENT: RRR, +S1, +S2 GI/Abdominal exam: PRESENT: normal bowel sounds, soft. ABSENT: distended, tenderness Rectal exam: PRESENT: deferred Extremities exam: ABSENT: pedal edema Neurological exam: PRESENT: alert, awake, oriented to person, oriented to place, oriented to time, oriented to situation, other - Slow mentation. Patient at baseline. Psychiatric exam: PRESENT: agitated, anxious, appropriate affect, flat affect, normal mood Focused psych exam: ABSENT: delusional, restlessness Results Laboratory Results: 09/15/18 05:17 09/15/18 05:17 09/14/18 09/15/18 13:28 05:17 Creatine Kinase 178 H 145 Impressions: Facial Bones CT 09/14/18 13:34 IMPRESSION: Worsening moderate paranasal sinus disease. Assessment and Plan - Diagnosis (1) Disorder of paranasal sinus Is this a current diagnosis for this admission?: Yes Plan: I have asked that appointment be set up with a rhinology skull base surgeon at a tertiary care center such as [facility] or [place]. We have been conservative as the family is making plans for transportation to initial appointment as well as follow-ups to ensure that the patient gets adequate care in the appropriate setting. He requires higher level of otolaryngology surgical service due to the complexity of his sinus history. We will continue the levofloxacin. (2) Swelling of face Is this a current diagnosis for this admission?: Yes Plan: Continues to improve with steroid therapy and antibiotics (3) Diabetes mellitus type 2, uncontrolled Qualifiers: Glycemic state: with hyperglycemia Qualified Code(s): E11.65 - Type 2 diabetes mellitus with hyperglycemia Is this a current diagnosis for this admission?: Yes Plan: Continue Lantus therapy adjusted for steroid regimen. (4) Hepatitis C antibody positive in blood Is this a current diagnosis for this admission?: Yes Plan: The patient is not exhibiting signs of active hepatitis C. He is not on any [facility] antiretroviral program at this time. This is clinically inactive. (5) HTN (hypertension) Qualifiers: Hypertension type: essential hypertension Qualified Code(s): I10 - Essential (primary) hypertension Is this a current diagnosis for this admission?: Yes Plan: Blood pressures exhibit good control. Continue current regimen. (6) Seizure disorder Is this a current diagnosis for this admission?: Yes Plan: Continue Keppra. I would defer to neurology although I believe his Keppra dose may be able to be decreased slightly. - Time Time Spent with patient: 15-24 minutes Medications reviewed and adjusted accordingly: Yes Anticipated discharge: Home, Other - With referral to tertiary care facility - Plan Summary Plan Summary: As noted before we have been somewhat conservative. The patient has been stable. I have asked that a referral appointment be made with a skull base rhinology social media director. The patient will need higher level of care due to the complexity of his case. We will continue antibiotic therapy and steroids as this seems to be effective. Once his appointment is established (I have asked that the appointment be made for within 2 weeks or so and that digital images be pushed to the facility where the patient will be seen) and the patient remained stable he can discharge on antibiotics and steroid therapy. After a long family discussion yesterday it was agreed that because he is stable, and because of the significant course that would have been incurred with transfer, the patient will see the ENT as an outpatient. Family knows that they need to ensure travel to and from the facility for all appointments for Cheko. Cheko is likely going to live with his sister and [id number] as well so that they can help with all of his care especially if he requires another major surgery.
--- NOTE | 2018-09-17 18:24 | PDOC DISCHARGE SUMMARY ---
General - Admit/Disc Date/PCP Admission Date/Primary Care Provider: 09/14/18 16:54 HAYLIE MILLER PA-C Discharge Date: 09/17/18 - Discharge Diagnosis (1) Disorder of paranasal sinus Is this a current diagnosis for this admission?: Yes Summary: He has a history of an empyema and had to have surgery and it has altered his sinus anatomy and he has recurrent sinus infections. We put him on some Levaquin and some prednisone here and he has improved. ENT saw him in consultation and thought he needed to be seen by a specialist and we have obtained options for him to seek referral. (2) Seizure disorder Is this a current diagnosis for this admission?: Yes Summary: Controlled on his home medication, no seizures here, these have occurred since his empyema that he had previously. - Additional Information Resuscitation Status: Do Not Intubate Discharge Diet: Diabetic Discharge Activity: Activity As Tolerated Prescriptions: Levofloxacin [Levaquin 750 mg Tablet] 750 mg PO DAILY #5 tablet Prednisone [Deltasone 20 mg Tablet] 40 mg PO DAILY #10 tablet Home Medications: Amitriptyline HCl [Elavil 50 mg Tablet] 50 mg PO Q12 06/11/18 Gabapentin [Neurontin 300 mg Capsule] 300 mg PO Q8 06/11/18 Glimepiride [Amaryl] 2 mg PO DAILY 06/11/18 Levetiracetam [Keppra] 1,000 mg PO Q12 06/11/18 Lisinopril [Zestril] 20 mg PO DAILY 06/11/18 Ibuprofen [Ibu] 600 mg PO Q4HP PRN 09/15/18 Insulin Glargine,Hum.rec.anlog [Lantus Insulin 100 Unit/1 ml 10 ml] 30 unit SQ BID 09/15/18 Insulin Lispro [Humalog Kwikpen U-100] See Protocol SQ ACHS 09/15/18 Levofloxacin [Levaquin 750 mg Tablet] 750 mg PO DAILY #5 tablet 09/17/18 Prednisone [Deltasone 20 mg Tablet] 40 mg PO DAILY #10 tablet 09/17/18 History of Present Illness History of Present Illness: YUNI GARCIA is a 63 year old male admitted on with rhabdomyolysis. 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 Today he presents with marked swelling of the forehead and face including periorbital region and bridge of the nose. There is green discharge in both eyes. He states that he developed the swelling over the last day or 2. He has sinus pressure. He denies fever or chills. He does have a very complex surgical history including craniotomy. Hospital Course Hospital Course: He was seen in consultation by ENT who recommended that he be transferred, because he was so clinically stable we decided to keep him here and try to open him find options to arrange outpatient follow-up, and we got 3 options for him with surgeons at either [facility] or [facility]. He was treated with antibiotics and steroids and responded very well. He will finish up a few more days of some Levaquin and prednisone at home. He has a seizure disorder ever since he had a craniotomy in the empyema but has not had any seizures here and was controlled with his home medications. His labs and examination were reassuring and he was discharged home in good condition. Physical Exam Vital Signs: Temp Pulse Resp BP Pulse Ox 97.3 F 54 L 16 127/68 H 95 09/17/18 15:03 09/17/18 15:03 09/17/18 15:03 09/17/18 15:03 09/17/18 15:03 Intake & Output 09/16/18 09/17/18 09/18/18 06:59 06:59 06:59 Intake Total 5230 3537 1000 Output Total 3300 1975 Balance 1930 1562 1000 Weight 82.6 kg 89.7 kg General appearance: PRESENT: cooperative, no apparent distress, well-developed Head exam: PRESENT: other -facial swelling has resolved Eye exam: PRESENT: conjunctiva pink. ABSENT: conjunctival injection Ear exam: PRESENT: normal external ear exam Mouth exam: PRESENT: moist, tongue midline Respiratory exam: PRESENT: clear to auscultation lizeth, symmetrical, unlabored. ABSENT: accessory muscle use, rales, rhonchi, tachypnea, wheezes Cardiovascular exam: PRESENT: RRR, +S1, +S2 GI/Abdominal exam: PRESENT: normal bowel sounds, soft. ABSENT: distended, tenderness Rectal exam: PRESENT: deferred Extremities exam: ABSENT: pedal edema Neurological exam: PRESENT: alert, awake, oriented to person, oriented to place, oriented to time, oriented to situation, other - Slow mentation. Patient at baseline. Results Laboratory Results: 09/15/18 05:17 09/15/18 05:17 09/14/18 09/15/18 13:28 05:17 Creatine Kinase 178 H 145 Impressions: Facial Bones CT 09/14/18 13:34 IMPRESSION: Worsening moderate paranasal sinus disease. Qualifiers - * PATIENT BEING DISCHARGED WITH ANY OF THE FOLLOWING DIAGNOSIS: No Plan Time Spent: Greater than 30 Minutes
== END 2018-09-17 16:13 | disposition home or self-care (01) | DRG 156 ==
LOC: ER 12:57 → EH 16:54 → 4S 18:15
PROVIDERS: ADMIT Hospitalist; ATTEND Hospitalist
DX: J34.89 Other specified disorders of nose and nasal sinuses (principal); E11.65 Type 2 diabetes mellitus with hyperglycemia; B19.20 Unspecified viral hepatitis C without hepatic coma; I10 Essential (primary) hypertension; G40.909 Epilepsy, unspecified, not intractable, without status epilepticus; R22.0 Localized swelling, mass and lump, head; Z60.2 Problems related to living alone; Z86.73 Personal history of transient ischemic attack (TIA), and cerebral infarction without residual deficits
CPT/HCPCS: 36415; 70487; 80048; 80053; 82550; 82962; 83735; 85025; 87040; 96360; 96361; 99284; J1100; J1200; J1644; J1815; J1956; J2920; J3490; J7030; S0028

== ENCOUNTER 2019-01-17 11:47 | Emergency (ER) | payer MEDICAID ==
[2019-01-17] MEDS ORDERED: NORMAL SALINE 1000 ML 1,000 ML IV ONE (12:16)
--- NOTE | 2019-01-17 12:19 | ER Document Report ---
ED General - General Chief Complaint: Dizziness Stated Complaint: DIZZINESS Time Seen by Provider: 01/17/19 12:12 Primary Care Provider: HAYLIE MILLER PA-C [Primary Care Provider] - Follow up as needed TRAVEL OUTSIDE OF THE [place] IN LAST 30 DAYS: No - HPI Notes: Patient is a 63-year-old male presents emergency department for evaluation of dizziness. He states he felt lightheaded, sweaty, hot all over. He states he believes his sugar went up. He states this happens often when his sugar goes up, he gets exactly the symptoms. He states he is taking his medications as p rescribed. On further questioning, however, he states that he checks his blood sugar "sometimes." He is supposed to be taking Humalog on a sliding scale, so I do have some concerns he is not actually taking his medications appropriately. He denies any chest pain. No difficulty breathing. States he is feeling improved. He said no nausea or vomiting. No changes in his diet as of late. He does have pain in his head. It is been a constant and aching pain since sinus surgery several years ago. He denies any urinary symptoms. - Related Data Allergies/Adverse Reactions: morphine Allergy (Verified 09/14/18 12:58) Penicillins Allergy (Verified 09/14/18 12:58) dexamethasone [From Decadron] Adverse Reaction (Mild, Verified 10/23/18 11:24) Pruritis Past Medical History - General Information source: Patient - Social History Smoking Status: Never Smoker Family History: Reviewed & Not Pertinent - Past Medical History Cardiac Medical History: Reports: Hx Hypertension Denies: Hx Congestive Heart Failure, Hx DVT, Hx Heart Attack, Hx Hypercholesterolemia, Hx Pulmonary Embolism Pulmonary Medical History: Denies: Hx Asthma, Hx COPD, Hx Pneumonia, Hx Sleep Apnea Neurological Medical History: Reports: Hx Migraine, Hx Seizures - Last episode 2016; uncertain current antiepileptic. Endocrine Medical History: Reports: Hx Diabetes Mellitus Type 2. Denies: Hx Hyperthyroidism, Hx Hypothyroidism Renal/ Medical History: Denies: Hx Peritoneal Dialysis GI Medical History: Reports: Hx Hepatitis. Denies: Hx Cirrhosis, Hx Gastroesophageal Reflux Disease Musculoskeletal Medical History: Denies Hx Arthritis Skin Medical History: Denies Hx Eczema, Denies Hx Psoriasis Psychiatric Medical History: Denies: Hx Depression Infectious Medical History: Reports: Hx Hepatitis. 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 No cardiac surgery. - Immunizations Immunizations up to date: Yes Hx Diphtheria, Pertussis, Tetanus Vaccination: Yes Review of Systems - Review of Systems Constitutional: See HPI EENT: No symptoms reported Cardiovascular: See HPI Respiratory: No symptoms reported Gastrointestinal: No symptoms reported Genitourinary: No symptoms reported Musculoskeletal: No symptoms reported Skin: No symptoms reported Neurological/Psychological: No symptoms reported Physical Exam - Vital signs Vitals: Temp Resp Pulse Ox 97.5 F 20 98 01/17/19 11:54 01/17/19 11:54 01/17/19 11:54 - Notes Notes: Vital signs reviewed, please refer to chart. Head is normocephalic, atraumatic. Patient has well-healed coronally oriented scar over the frontal parietal aspect of the skull. No signs of erythema, dehiscence, or induration. Pupils equal round, reactive to light. Neck is supple without meningismus. Heart is regular rate and rhythm. Lungs are clear to auscultation bilaterally. Abdomen is soft, nontender, normoactive bowel sounds throughout. Extremities without cyanosis, clubbing. Posterior calves are nontender. Peripheral pulses are equal. Skin is warm and dry. Patient is awake, alert, oriented x3. Cranial nerves II - XII are grossly intact without focal neurological deficits. Strength is plus 5 out of 5 bilateral upper and lower extremities. Sensation is intact. Reflexes symmetrical. Intact [id number], rapid alternating movements, [id number]. Course - Re-evaluation Re-evalutation: 01/17/19 12:19 Patient presents emergency department for evaluation. He has been here in the past for similar symptoms. He was initially markedly tachycardic, but this got better with vagal. He is given IV fluids. Laboratory investigations are pending. We will continue to monitor. - Vital Signs Vital signs: Temp Pulse Resp BP Pulse Ox 97.5 F 29 H 143/98 H 97 01/17/19 11:54 01/17/19 12:01 01/17/19 12:01 01/17/19 12:01 - Laboratory Result Diagrams: 01/17/19 12:59 01/17/19 12:59 Laboratory results interpreted by me: 01/17/19 01/17/19 11:59 12:59 Glucose 304 H POC Glucose 302 H Direct Bilirubin 0.5 H AST 89 H Alkaline Phosphatase 142 H Total Protein 9.4 H - EKG Interpretation by Me Additional EKG results interpreted by me: 01/17/19 13:33 Sinus tachycardia with a rate of 112 bpm. Normal axis and intervals. Nonspecific ST changes, but no acute changes concerning for ischemia or i nfarction. No significant change compared to prior study. Discharge - Discharge Clinical Impression: Dizziness, Tachycardia Condition: Stable Disposition: HOME, SELF-CARE Additional Instructions: Rest, stay well-hydrated. Follow-up with your primary care provider next week. You need to check your blood sugar frequently, take your insulin as directed. Return to the emergency department with worsening or new concerning symptoms of any sort. Referrals: HAYLIE MILLER PA-C [Primary Care Provider] - Follow up as needed
[2019-01-17 13:13] LABS: ABSOLUTE LYMPHOCYTES (AUTO) 2.1 10^3/uL (0.5-4.7); ABSOLUTE MONOCYTES (AUTO) 0.5 10^3/uL (0.1-1.4); BASOPHILS % (AUTO) 0.8 % (0-2); EOSINOPHILS % (AUTO) 0.6 % (0-6); HEMATOCRIT 45.9 % (37.9-51.0); HEMOGLOBIN 15.9 g/dL (13.5-17.0); LYMPHOCYTES % (AUTO) 36.8 % (13-45); MEAN CORPUSCULAR HGB CONC 34.6 g/dL (32.0-36.0); MEAN CORPUSCULAR VOLUME 92 fl (80-97); MONOCYTES % (AUTO) 8.2 % (3-13); PLATELET COUNT 190 10^3/uL (150-450); RED BLOOD COUNT 4.96 10^6/uL (4.35-5.55); RED CELL DISTRIBUTION WIDTH 12.6 % (11.5-14.0); SEGMENTED NEUTROPHILS % (AUTO) 53.6 % (42-78); TOTAL CELLS COUNTED % (AUTO) 100 %; WHITE BLOOD COUNT 5.7 10^3/uL (4.0-10.5)
--- NOTE | 2019-01-17 13:23 | EKG REPORT ---
SEVERITY:- BORDERLINE ECG - SINUS TACHYCARDIA BORDERLINE T ABNORMALITIES, INFERIOR LEADS : Confirmed by: Jesus Waters MD 17-Jan-2019 13:22:07
[2019-01-17 13:37] LABS: ALBUMIN 4.4 g/dL (3.5-5.0); ALKALINE PHOSPHATASE 142 U/L (38-126); ANION GAP 14 (5-19); ASPARTATE AMINO TRANSFERASE 89 U/L (17-59); BILIRUBIN,DIRECT 0.5 mg/dL (0.0-0.4); BILIRUBIN,TOTAL 0.8 mg/dL (0.2-1.3); BLOOD UREA NITROGEN 14 mg/dL (7-20); CALCIUM 9.7 mg/dL (8.4-10.2); CARBON DIOXIDE 25 mmol/L (22-30); CHLORIDE 101 mmol/L (98-107); GLUCOSE 304 mg/dL (75-110); POTASSIUM 3.7 mmol/L (3.6-5.0); TOTAL PROTEIN 9.4 g/dL (6.3-8.2)
[2019-01-17] MEDS ORDERED: INSULIN REG, HUMAN 100 UNIT/ML 3 ML VIAL (PYX) IV ONE (14:29)
[2019-01-17 15:21] LABS: APPEARANCE,URINE CLEAR; BILIRUBIN,URINE NEGATIVE (NEGATIVE); COLOR,URINE YELLOW; GLUCOSE, URINE >=500 mg/dL (NEGATIVE); KETONES,URINE 20 mg/dL (NEGATIVE); LEUKOCYTE ESTERASE,URINE NEGATIVE (NEGATIVE); NITRITE,URINE NEGATIVE (NEGATIVE); PROTEIN,URINE 30 mg/dL (NEGATIVE); URINE SPECIFIC GRAVITY 1.026; UROBILINOGEN,URINE NEGATIVE mg/dL (<2.0)
[2019-01-17 16:57] VITALS: BP 159/98
== END 2019-01-17 17:03 | disposition home or self-care (01) ==
LOC: ER 11:47
DX: R42 Dizziness and giddiness (principal); R00.0 Tachycardia, unspecified; R51 Headache; I10 Essential (primary) hypertension; E11.9 Type 2 diabetes mellitus without complications; Z98.890 Other specified postprocedural states; Z88.5 Allergy status to narcotic agent; Z88.0 Allergy status to penicillin; Z86.69 Personal history of other diseases of the nervous system and sense organs
CPT/HCPCS: 93005; 99284; 96360; 36415; 82962; 85025; 80053; 81001; 93010; J1815; J7030

== ENCOUNTER 2019-02-03 11:36 | Emergency (ER) | payer MEDICAID ==
[2019-02-03] MEDS ORDERED: ASPIRIN 81 MG TABLET, CHEWABLE PO ONE (11:57)
--- NOTE | 2019-02-03 11:58 | ER Document Report ---
ED Medical Screen (RME) - General Chief Complaint: High Blood Sugar Stated Complaint: BLOOD SUGAR PROBLEMS Time Seen by Provider: 02/03/19 11:51 Primary Care Provider: HAYLIE MILLER PA-C [Primary Care Provider] - Follow up as needed TRAVEL OUTSIDE OF THE [place] IN LAST 30 DAYS: No - HPI Notes: 02/03/19 12:01 63-year-old male with history of diabetes to the emergency department with complaints of hyperglycemia for the past week. He states that his blood sugar has been reading greater than 300 on his glucometer. He states that this morning he felt worse and awoke with chest pain and shortness of breath. He states that he is also been sweating this morning. He also admits to nausea but has not been vomiting. He states that his chest pain is midsternal and does not radiate. He has never had a heart attack before. He denies any family history of heart disease. He states that he is supposed to take insulin for his blood sugar but has not taken it since Sunday. He states that he attempted to try to take it this morning but he was "shaking so badly" that he decided not to take it and come seek medical attention. He does not take a blood thinner. He does not take a daily aspirin. On exam, patient is diaphoretic and pale. He has a heart rate in the 140s. He has no tenderness to palpation over the chest wall. His lungs are clear to auscultation. He has no leg edema. He has no tenderness to palpation over his abdomen. His abdomen is soft. May charge nurse and main side provider aware of patient. Have placed an order for aspirin as well as cardiac labs. Discussed further with me inside nurse he will be assuming his care and concerns for ACS in this patient. He has been placed into a bed for further management. - Related Data Allergies/Adverse Reactions: morphine Allergy (Verified 02/03/19 11:40) Penicillins Allergy (Verified 02/03/19 11:40) dexamethasone [From Decadron] Adverse Reaction (Mild, Verified 02/03/19 11:40) Pruritis Past Medical History - Social History Family history: DM, Malignancy - Past Medical History Cardiac Medical History: Reports: Hx Hypertension Denies: Hx Congestive Heart Failure, Hx DVT, Hx Heart Attack, Hx Hypercholesterolemia, Hx Pulmonary Embolism Pulmonary Medical History: Denies: Hx Asthma, Hx COPD, Hx Pneumonia, Hx Sleep Apnea Neurological Medical History: Reports: Hx Migraine, Hx Seizures - Last episode 2016; uncertain current antiepileptic. Endocrine Medical History: Reports: Hx Diabetes Mellitus Type 2. Denies: Hx Hyperthyroidism, Hx Hypothyroidism Renal/ Medical History: Denies: Hx Peritoneal Dialysis GI Medical History: Reports: Hx Hepatitis. Denies: Hx Cirrhosis, Hx Gastroesophageal Reflux Disease Musculoskeltal Medical History: Denies Hx Arthritis Skin Medical History: Denies Hx Eczema, Denies Hx Psoriasis Psychiatric Medical History: Denies: Hx Depression Infectious Medical History: Reports: Hx Hepatitis. 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 No cardiac surgery. - Immunizations Immunizations up to date: Yes Hx Diphtheria, Pertussis, Tetanus Vaccination: Yes Physical Exam - Vital signs Vitals: Temp Pulse Resp BP Pulse Ox 98.0 F 141 H 20 139/98 H 94 02/03/19 11:42 02/03/19 11:42 02/03/19 11:42 02/03/19 11:42 02/03/19 11:42 Course - Vital Signs Vital signs: Temp Pulse Resp BP Pulse Ox 98.0 F 141 H 20 139/98 H 94 02/03/19 11:42 02/03/19 11:42 02/03/19 11:42 02/03/19 11:42 02/03/19 11:42 Doctor's Discharge - Discharge Referrals: HAYLIE MILLER PAAdelinaC [Primary Care Provider] - Follow up as needed
--- NOTE | 2019-02-03 12:17 | ER Document Report ---
ED General - General Chief Complaint: High Blood Sugar Stated Complaint: BLOOD SUGAR PROBLEMS Time Seen by Provider: 02/03/19 11:51 Primary Care Provider: HAYLIE MILLER PA-C [Primary Care Provider] - Follow up as needed TRAVEL OUTSIDE OF THE [place] IN LAST 30 DAYS: No - HPI Notes: Patient presents for concern of hyperglycemia. His blood glucose was in the 300s at home. He states that over the last 2 to 3 days he has been having intermittent diarrhea, polyuria, and polydipsia. He also has had intermittent dizziness. He states that this occurs when his blood sugar is high. He denies any dysuria cough or congestion. Approximately 8 AM he had a brief episode of midsternal chest pain that lasted a minute or 2 and subsided in the absence of any radiation nausea vomiting. - Related Data Allergies/Adverse Reactions: morphine Allergy (Verified 02/03/19 11:40) Penicillins Allergy (Verified 02/03/19 11:40) dexamethasone [From Decadron] Adverse Reaction (Mild, Verified 02/03/19 11:40) Pruritis Past Medical History - Social History Smoking Status: Never Smoker Frequency of alcohol use: None Drug Abuse: None Family History: Reviewed & Not Pertinent Patient has suicidal ideation: No Patient has homicidal ideation: No - Past Medical History Cardiac Medical History: Reports: Hx Hypertension Denies: Hx Congestive Heart Failure, Hx DVT, Hx Heart Attack, Hx Hypercholesterolemia, Hx Pulmonary Embolism Pulmonary Medical History: Denies: Hx Asthma, Hx COPD, Hx Pneumonia, Hx Sleep Apnea Neurological Medical History: Reports: Hx Migraine, Hx Seizures - Last episode 2015; uncertain current antiepileptic. Endocrine Medical History: Reports: Hx Diabetes Mellitus Type 2. Denies: Hx Hyperthyroidism, Hx Hypothyroidism Renal/ Medical History: Denies: Hx Peritoneal Dialysis GI Medical History: Reports: Hx Hepatitis. Denies: Hx Cirrhosis, Hx Gastroesophageal Reflux Disease Musculoskeletal Medical History: Denies Hx Arthritis Skin Medical History: Denies Hx Eczema, Denies Hx Psoriasis Psychiatric Medical History: Denies: Hx Depression Infectious Medical History: Reports: Hx Hepatitis. 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 No cardiac surgery. - Immunizations Immunizations up to date: Yes Hx Diphtheria, Pertussis, Tetanus Vaccination: Yes Review of Systems - Review of Systems Constitutional: No symptoms reported EENT: No symptoms reported Cardiovascular: See HPI Respiratory: No symptoms reported Gastrointestinal: See HPI Genitourinary: No symptoms reported Male Genitourinary: No symptoms reported Musculoskeletal: No symptoms reported Skin: No symptoms reported Hematologic/Lymphatic: No symptoms reported Neurological/Psychological: See HPI Physical Exam - Vital signs Vitals: Temp Pulse Resp BP Pulse Ox 98.0 F 141 H 20 139/98 H 94 02/03/19 11:42 02/03/19 11:42 02/03/19 11:42 02/03/19 11:42 02/03/19 11:42 - General General appearance: Appears well, Alert - HEENT Head: Normocephalic, Atraumatic Eyes: Normal Conjunctiva: Normal Cornea: Normal Mucous membranes: Dry - Respiratory Respiratory status: No respiratory distress Chest status: Nontender Breath sounds: Normal Chest palpation: Normal - Cardiovascular Rhythm: Tachycardia Heart sounds: Normal auscultation Murmur: No - Abdominal Inspection: Normal Distension: No distension Bowel sounds: Normal Tenderness: Nontender - Extremities General upper extremity: Normal inspection General lower extremity: Normal inspection - Neurological Neuro grossly intact: Yes Cognition: Normal Orientation: AAOx4 Course - Re-evaluation Re-evalutation: 02/03/19 14:37 Labs with normal limits are nonsignificant with no concerning findings on EKG. Patient is not any chest pain emergency department. He did experience was greater than 4 hours from arrival. I did discuss with the careful about his glycemic index foods. He is to follow-up with primary care doctor if he continues to have elevated blood glucoses he may need to titrate his insulin regimen 02/03/19 14:38 Of note, on final evaluation patient's pulse was 101 telemetry seen by me - Vital Signs Vital signs: Temp Pulse Resp BP Pulse Ox 97.7 F 141 H 15 141/90 H 96 02/03/19 13:41 02/03/19 11:42 02/03/19 14:01 02/03/19 14:00 02/03/19 14:01 - Laboratory Result Diagrams: 02/03/19 12:28 02/03/19 12:28 Laboratory results interpreted by me: 02/03/19 02/03/19 02/03/19 11:42 12:25 12:28 Glucose 318 H POC Glucose 306 H 284 H AST 97 H Alkaline Phosphatase 149 H Total Protein 9.6 H - EKG Interpretation by Me EKG shows normal: Sinus rhythm Rate: Tachycardia Rhythm: NSR - Normal axis and normal intervals no concerning ST depressions or elevations Discharge - Discharge Clinical Impression: Hyperglycemia Disposition: HOME, SELF-CARE Instructions: Hyperglycemia ([facility]) Referrals: HAYLIE MILLER PA-C [Primary Care Provider] - Follow up as needed
[2019-02-03 12:45] LABS: ABSOLUTE LYMPHOCYTES (AUTO) 2.1 10^3/uL (0.5-4.7); ABSOLUTE MONOCYTES (AUTO) 0.4 10^3/uL (0.1-1.4); ABSOLUTE NEUT (AUTO) 3.1 10^3/uL (1.7-8.2); BASOPHILS % (AUTO) 0.6 % (0-2); EOSINOPHILS % (AUTO) 0.3 % (0-6); HEMOGLOBIN 16.2 g/dL (13.5-17.0); LYMPHOCYTES % (AUTO) 36.9 % (13-45); MEAN CORPUSCULAR HEMOGLOBIN 31.8 pg (27.0-33.4); MEAN CORPUSCULAR HGB CONC 34.5 g/dL (32.0-36.0); MEAN CORPUSCULAR VOLUME 92 fl (80-97); MONOCYTES % (AUTO) 7.7 % (3-13); PLATELET COUNT 192 10^3/uL (150-450); RED BLOOD COUNT 5.11 10^6/uL (4.35-5.55); RED CELL DISTRIBUTION WIDTH 12.7 % (11.5-14.0); SEGMENTED NEUTROPHILS % (AUTO) 54.5 % (42-78); TOTAL CELLS COUNTED % (AUTO) 100 %; WHITE BLOOD COUNT 5.7 10^3/uL (4.0-10.5)
[2019-02-03 12:50] LABS: INTERNATIONAL RATION (INR) 1.02; PROTHROMBIN TIME 13.4 SEC (11.4-15.4)
[2019-02-03 12:51] LABS: PARTIAL THROMBOPLASTIN TIME 28.5 SEC (23.5-35.8)
--- NOTE | 2019-02-03 12:56 | RADIOLOGY REPORT (SQ) ---
EXAM DESCRIPTION: CHEST SINGLE VIEW COMPLETED DATE/TIME: 02/03/2019 12:43 pm REASON FOR STUDY: chest pain, SOB, diaphoresis COMPARISON: 08/17/2018 EXAM PARAMETERS: NUMBER OF VIEWS: One view. TECHNIQUE: Single frontal radiographic view of the chest acquired. RADIATION DOSE: NA LIMITATIONS: None. FINDINGS: LUNGS AND PLEURA: No opacities, masses or pneumothorax. No pleural effusion. MEDIASTINUM AND HILAR STRUCTURES: No masses. Contour normal. HEART AND VASCULAR STRUCTURES: Heart normal in size. Normal vasculature. BONES: No acute findings. HARDWARE: None in the chest. OTHER: No other significant finding. IMPRESSION: NO ACUTE RADIOGRAPHIC FINDING IN THE CHEST. TECHNICAL DOCUMENTATION: JOB ID: [id number]- All Rights Reserved Reading location - IP/workstation name: [email or web address]
[2019-02-03] MEDS: RINGERS SOLUTION,LACTATED 1,000 ML IV PRN ×2 (12:59→13:06)
[2019-02-03 13:07] LABS: ALBUMIN 4.5 g/dL (3.5-5.0); ALKALINE PHOSPHATASE 149 U/L (38-126); ANION GAP 13 (5-19); ASPARTATE AMINO TRANSFERASE 97 U/L (17-59); BILIRUBIN,DIRECT 0.4 mg/dL (0.0-0.4); BILIRUBIN,TOTAL 0.9 mg/dL (0.2-1.3); BLOOD UREA NITROGEN 13 mg/dL (7-20); CALCIUM 9.9 mg/dL (8.4-10.2); CARBON DIOXIDE 25 mmol/L (22-30); CHLORIDE 102 mmol/L (98-107); CREATINE KINASE 102 U/L (55-170); GLUCOSE 318 mg/dL (75-110); POTASSIUM 3.7 mmol/L (3.6-5.0); TOTAL PROTEIN 9.6 g/dL (6.3-8.2)
--- NOTE | 2019-02-03 13:19 | EKG REPORT ---
SEVERITY:- ABNORMAL ECG - SINUS TACHYCARDIA NONSPECIFIC T ABNORMALITIES, LATERAL LEADS : Confirmed by: Jesus Waters MD 03-Feb-2019 13:19:14
[2019-02-03 13:28] LABS: CREATINE KINASE MB 1.32 ng/mL (<4.55)
[2019-02-03 13:49] LABS: TROPONIN I < 0.012 ng/mL
[2019-02-03 15:31] VITALS: BP 143/94
== END 2019-02-03 15:37 | disposition home or self-care (01) ==
LOC: ER 11:36
DX: E11.65 Type 2 diabetes mellitus with hyperglycemia (principal); R19.7 Diarrhea, unspecified; R35.8 Other polyuria; R63.1 Polydipsia; R42 Dizziness and giddiness; I10 Essential (primary) hypertension
CPT/HCPCS: 93005; 36415; 82553; 82962; 82550; 85025; 85610; 85730; 80053; 84484; 71045; 93010; J7120; 96360; 96361; 99285

== ENCOUNTER → 2019-05-22 | Outpatient (CLI) | payer MEDICAID ==
[2019-05-26 07:21] LABS: HEPATITS B SURFACE ANTIGEN Negative (Negative)
== END ==
LOC: LAB 15:44
PROVIDERS: ATTEND Internal Medicine Gastroenterology
DX: R94.5 Abnormal results of liver function studies (principal)
CPT/HCPCS: 36415; 81270; 82172; 82247; 82977; 83010; 83883; 84460; 86317; 86701; 87340

== ENCOUNTER → 2019-06-06 | Outpatient (CLI) | payer MEDICAID ==
--- NOTE | 2019-06-06 10:59 | RADIOLOGY REPORT (SQ) ---
EXAM DESCRIPTION: U/S ABDOMEN LIMITED W/O DOP COMPLETED DATE/TIME: 06/06/2019 8:42 am REASON FOR STUDY: CHRONIC VIRAL HEPATITIS C (B18.2) B18.2 CHRONIC VIRAL HEPATITIS C COMPARISON: Ultrasound of the abdomen from 12/08/2016. TECHNIQUE: Dynamic and static grayscale images acquired of the abdomen and recorded on PACS. Additio nal selected color Doppler and spectral images recorded. LIMITATIONS: None. FINDINGS: PANCREAS: The visualized portions of the pancreas appear normal. LIVER: Heterogeneous echotexture of the hepatic parenchyma. No contour abnormality or discernible ma ss. LIVER VASCULATURE: Normal hepatopetal flow within the portal veins. GALLBLADDER: The gallbladder wall measures 1.5 mm in thickness. There is no cholelithiasis, sludge o r pericholecystic fluid. ULTRASOUND-DETECTED AMIN'S SIGN: Negative. INTRAHEPATIC DUCTS AND COMMON DUCT: The common bile duct measures 6.5 mm in diameter. The intrahepat ic bile ducts are normal in caliber. AORTA: No aneurysm. RIGHT KIDNEY: The right kidney measures 10 cm in length. There is no hydronephrosis. PERITONEAL AND RIGHT PLEURAL SPACE: No ascites or effusions. OTHER: No other findings. IMPRESSION: 1. Heterogeneous echotexture of hepatic parenchyma without a contour abnormality or dis cernible mass. 2. Normal appearance of the gallbladder and bile ducts. TECHNICAL DOCUMENTATION: JOB ID: [id number]- All Rights Reserved Reading location - IP/workstation name: [email or web address]
== END ==
LOC: RAD 07:54
PROVIDERS: ATTEND Internal Medicine Gastroenterology
DX: B18.2 Chronic viral hepatitis C (principal)
CPT/HCPCS: 76705

== ENCOUNTER → 2019-09-10 | Outpatient (CLI) | payer MEDICAID ==
[2019-09-10 09:34] LABS: ALBUMIN 4.5 g/dL (3.5-5.0); ALKALINE PHOSPHATASE 96 U/L (38-126); ASPARTATE AMINO TRANSFERASE 20 U/L (17-59); BILIRUBIN,TOTAL 0.5 mg/dL (0.2-1.3); TOTAL PROTEIN 8.8 g/dL (6.3-8.2)
== END ==
LOC: OD 08:26
PROVIDERS: ATTEND Internal Medicine Gastroenterology
DX: B18.2 Chronic viral hepatitis C (principal)
CPT/HCPCS: 36415; 80076; 87521

== ENCOUNTER → 2019-12-05 | Outpatient (CLI) | payer MEDICAID | LOC: OD 12:37 | PROVIDERS: ATTEND Internal Medicine Gastroenterology | DX: B18.2 Chronic viral hepatitis C (principal) | CPT/HCPCS: 36415; 87521 ==

== ENCOUNTER 2019-12-19 11:31 | Emergency (ER) | payer MEDICAID ==
[2019-12-19 11:41] VITALS: BP 119/80
[2019-12-19] MEDS ORDERED: DEXAMETHASONE SOD PHOS INJ 10 MG/1 ML VIAL IM ONE (11:58)
[2019-12-19] MEDS ORDERED: FAMOTIDINE 20 MG TABLET PO ONE (11:58)
[2019-12-19] MEDS ORDERED: METHYLPREDNISOLONE ACETATE INJ 40 MG/1 ML ML IM ONE (11:58)
--- NOTE | 2019-12-19 12:02 | ER Document Report ---
HPI - HPI Patient complains to provider of: Allergic reaction Time Seen by Provider: 12/19/19 11:55 Onset: Yesterday Context: This 64-year-old male who states that he is been taking atorvastatin for about 5 days feels like he is having an allergic reaction he was developing a rash he stopped taking it yesterday morning was his last dose did have a little inflammation to his lips which is subsequently gotten better he is having no difficulty swallowing breathing or taking nourishment vital signs are within normal limits. Exacerbated by: Denies Relieved by: Denies Past Medical History - General Information source: Patient - Social History Smoking Status: Never Smoker Cigarette use (# per day): No Chew tobacco use (# tins/day): No Smoking Education Provided: No Frequency of alcohol use: None Drug Abuse: None Family History: Reviewed & Not Pertinent - Past Medical History Cardiac Medical History: Reports: Hx Hypertension Denies: Hx Congestive Heart Failure, Hx DVT, Hx Heart Attack, Hx Hypercholesterolemia, Hx Pulmonary Embolism Pulmonary Medical History: Denies: Hx Asthma, Hx COPD, Hx Pneumonia, Hx Sleep Apnea Neurological Medical History: Reports: Hx Migraine, Hx Seizures - Last episode 2015; uncertain current antiepileptic. Endocrine Medical History: Reports: Hx Diabetes Mellitus Type 2. Denies: Hx Hyperthyroidism, Hx Hypothyroidism Renal/ Medical History: Denies: Hx Peritoneal Dialysis GI Medical History: Reports: Hx Hepatitis. Denies: Hx Cirrhosis, Hx Gastroesophageal Reflux Disease Musculoskeletal Medical History: Denies Hx Arthritis Skin Medical History: Denies Hx Eczema, Denies Hx Psoriasis Psychiatric Medical History: Denies: Hx Depression Infectious Medical History: Reports: Hx Hepatitis. 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 No cardiac surgery. - Immunizations Immunizations up to date: Yes Hx Diphtheria, Pertussis, Tetanus Vaccination: Yes Vertical Provider Document - CONSTITUTIONAL Agree With Documented VS: Yes - INFECTION CONTROL TRAVEL OUTSIDE OF THE [place] IN LAST 30 DAYS: No - HEENT HEENT: Atraumatic, Conjuctival Injection, Normocephalic, PERRLA - NECK Neck: Normal Inspection, Supple - RESPIRATORY Respiratory: Breath Sounds Normal - CARDIOVASCULAR Cardiovascular: Regular Rate, Regular Rhythm - GI/ABDOMEN Gastrointestinal: Abdomen Soft, Abdomen Non-Tender - REPRODUCTIVE Male Genitalia: Normal Inspection - BACK Back: CVA Tenderness-Left - MUSCULOSKELETAL/EXTREMETIES Musculoskeletal/Extremeties: MAEW Course - Re-evaluation Re-evalutation: 12/19/19 12:00 No difficulty breathing no difficulty swallowing no oral floor induration no trismus saturation is 99% respirations are 16. Patient states that the inflammation to his lip is dissipated over the last 24 hours. - Vital Signs Vital signs: Temp Pulse Resp BP Pulse Ox 98.4 F 99 18 119/80 97 12/19/19 11:39 12/19/19 11:39 12/19/19 11:39 12/19/19 11:39 12/19/19 11:39 Discharge - Discharge Clinical Impression: Allergic reaction Qualifiers: Encounter type: initial encounter Qualified Code(s): T78.40XA - Allergy, unspecified, initial encounter Condition: Good Disposition: HOME, SELF-CARE Additional Instructions: Stop taking medication. Follow-up with PMD. Prescriptions: Diphenhydramine HCl [Benadryl 25 mg Capsule] 25 mg PO Q6 PRN #25 capsule PRN Reason: Prednisone [Deltasone 20 mg Tablet] 3 tab PO DAILY 5 Days tablet Referrals: BRIAN GUEVARA MD [Primary Care Provider] - Follow up as needed
== END 2019-12-19 12:37 | disposition home or self-care (01) ==
LOC: ER 11:31
DX: T78.40XA Allergy, unspecified, initial encounter (principal); X58.XXXA Exposure to other specified factors, initial encounter; I10 Essential (primary) hypertension; E11.9 Type 2 diabetes mellitus without complications
CPT/HCPCS: 96372; 99283

== ENCOUNTER 2020-02-05 11:17 | Emergency (ER) | payer MEDICAID ==
--- NOTE | 2020-02-05 11:57 | ER Document Report ---
ED Medical Screen (RME) - General Chief Complaint: Chest Pain Stated Complaint: CHEST PAIN Time Seen by Provider: 02/05/20 11:52 Mode of Arrival: Wheelchair Information source: Patient Notes: Patient presents with 5-day history of midsternal chest pain that occasionally radiates to left anterior chest area. Patient denies any shortness of breath nausea or vomiting. Patient does report occasional cough. Patient does report a history of diabetes and hypertension. Patient states pain is worse with exertion. I have greeted and performed a rapid initial assessment of this patient. A [facility] prehensive ED assessment and evaluation of the patient, analysis of test results and completion of the medical decision making process will be conducted by additional ED providers. TRAVEL OUTSIDE OF THE [place] IN LAST 30 DAYS: No - Related Data Allergies/Adverse Reactions: morphine Allergy (Verified 02/03/19 11:40) Penicillins Allergy (Verified 02/03/19 11:40) dexamethasone [From Decadron] Adverse Reaction (Mild, Verified 02/03/19 11:40) Pruritis Past Medical History - Social History Family history: DM, Malignancy - Past Medical History Cardiac Medical History: Reports: Hx Hypertension Denies: Hx Congestive Heart Failure, Hx DVT, Hx Heart Attack, Hx Hypercholesterolemia, Hx Pulmonary Embolism Pulmonary Medical History: Denies: Hx Asthma, Hx COPD, Hx Pneumonia, Hx Sleep Apnea Neurological Medical History: Reports: Hx Migraine, Hx Seizures - Last episode 2015; uncertain current antiepileptic. Endocrine Medical History: Reports: Hx Diabetes Mellitus Type 2. Denies: Hx Hyperthyroidism, Hx Hypothyroidism Renal/ Medical History: Denies: Hx Peritoneal Dialysis GI Medical History: Reports: Hx Hepatitis. Denies: Hx Cirrhosis, Hx Gastroesophageal Reflux Disease Musculoskeltal Medical History: Denies Hx Arthritis Skin Medical History: Denies Hx Eczema, Denies Hx Psoriasis Psychiatric Medical History: Denies: Hx Depression Infectious Medical History: Reports: Hx Hepatitis. 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 No cardiac surgery. - Immunizations Immunizations up to date: Yes Hx Diphtheria, Pertussis, Tetanus Vaccination: Yes Physical Exam - Vital signs Vitals: Temp Pulse Resp BP Pulse Ox 97.3 F 61 20 152/78 H 95 02/05/20 11:34 02/05/20 11:34 02/05/20 11:34 02/05/20 11:34 02/05/20 11:34 - General General appearance: Appears well, Alert In distress: None - Cardiovascular Rhythm: Regular Heart sounds: S1 appreciated, S2 appreciated Course - Vital Signs Vital signs: Temp Pulse Resp BP Pulse Ox 97.3 F 61 20 152/78 H 95 02/05/20 11:34 02/05/20 11:34 02/05/20 11:34 02/05/20 11:34 02/05/20 11:34
[2020-02-05 12:47] LABS: ABSOLUTE EOSINOPHILS # (AUTO) 0.1 10^3/uL (0.0-0.6); ABSOLUTE LYMPHOCYTES (AUTO) 2.4 10^3/uL (0.5-4.7); ABSOLUTE MONOCYTES (AUTO) 0.5 10^3/uL (0.1-1.4); ABSOLUTE NEUT (AUTO) 3.1 10^3/uL (1.7-8.2); BASOPHILS % (AUTO) 0.5 % (0-2); EOSINOPHILS % (AUTO) 1.3 % (0-6); HEMATOCRIT 41.9 % (37.9-51.0); HEMOGLOBIN 14.4 g/dL (13.5-17.0); LYMPHOCYTES % (AUTO) 39.9 % (13-45); MEAN CORPUSCULAR HEMOGLOBIN 32.3 pg (27.0-33.4); MEAN CORPUSCULAR HGB CONC 34.4 g/dL (32.0-36.0); MEAN CORPUSCULAR VOLUME 94 fl (80-97); MONOCYTES % (AUTO) 7.9 % (3-13); PLATELET COUNT 225 10^3/uL (150-450); RED BLOOD COUNT 4.47 10^6/uL (4.35-5.55); RED CELL DISTRIBUTION WIDTH 13.2 % (11.5-14.0); SEGMENTED NEUTROPHILS % (AUTO) 50.4 % (42-78); TOTAL CELLS COUNTED % (AUTO) 100 %; WHITE BLOOD COUNT 6.1 10^3/uL (4.0-10.5)
--- NOTE | 2020-02-05 13:03 | RADIOLOGY REPORT (SQ) ---
EXAM DESCRIPTION: CHEST SINGLE VIEW IMAGES COMPLETED DATE/TIME: 02/05/2020 12:51 pm REASON FOR STUDY: cp COMPARISON: 02/03/2019 EXAM PARAMETERS: NUMBER OF VIEWS: One view. TECHNIQUE: Single frontal radiographic view of the chest acquired. RADIATION DOSE: NA LIMITATIONS: None. FINDINGS: LUNGS AND PLEURA: Lower lung volumes than on the prior study. MEDIASTINUM AND HILAR STRUCTURES: No masses. Contour normal. HEART AND VASCULAR STRUCTURES: The heart size is prominent, likely accentuated by the low lung volume s. BONES: No acute findings. HARDWARE: None in the chest. OTHER: No other significant finding. IMPRESSION: NO ACUTE RADIOGRAPHIC FINDING IN THE CHEST. TECHNICAL DOCUMENTATION: JOB ID: [id number] 2010 [employer]- All Rights Reserved Reading location - IP/workstation name: [email or web address]
[2020-02-05 13:05] LABS: ALBUMIN 4.4 g/dL (3.5-5.0); ALKALINE PHOSPHATASE 95 U/L (38-126); ANION GAP 11 (5-19); ASPARTATE AMINO TRANSFERASE 20 U/L (17-59); BILIRUBIN,DIRECT 0.2 mg/dL (0.0-0.4); BILIRUBIN,TOTAL 0.4 mg/dL (0.2-1.3); BLOOD UREA NITROGEN 9 mg/dL (7-20); CALCIUM 9.6 mg/dL (8.4-10.2); CARBON DIOXIDE 26 mmol/L (22-30); CHLORIDE 103 mmol/L (98-107); GLUCOSE 200 mg/dL (75-110); POTASSIUM 3.9 mmol/L (3.6-5.0); TOTAL PROTEIN 8.1 g/dL (6.3-8.2)
[2020-02-05 13:11] LABS: NT PRO BNP 58 pg/mL (<125)
[2020-02-05 13:19] LABS: TROPONIN I < 0.012 ng/mL
[2020-02-05] MEDS ORDERED: MAG HYDROX/AL HYDROX/SIMETH SUSP 30 ML UDCUP PO ONE (13:50)
[2020-02-05] MEDS ORDERED: LIDOCAINE 2% VISCOUS SOLN 15 ML UDCUP PO ONE (13:50)
[2020-02-05] MEDS ORDERED: METOCLOPRAMIDE HCL ORAL SOLN 10 MG/10 ML UDCUP PO ONE (13:50)
--- NOTE | 2020-02-05 14:52 | ER Document Report ---
ED Cardiac - General Chief Complaint: Chest Pain Stated Complaint: CHEST PAIN Time Seen by Provider: 02/05/20 11:52 Mode of Arrival: Wheelchair Information source: Patient TRAVEL OUTSIDE OF THE [place] IN LAST 30 DAYS: No - HPI Notes: Patient states she has had 5 days of substernal chest pain. He states it is there all day long and has not gone away. Nothing makes it better or worse. No known radiation of the pain. He states he has had some sweating but no nausea or vomiting. No significant shortness of breath. No cough cold or congestion. He denies any previous history of cardiac disease. No previous cardiac evaluations. This pain is been sharp. Nothing makes it better or worse. - Related Data Allergies/Adverse Reactions: morphine Allergy (Verified 02/03/19 11:40) Penicillins Allergy (Verified 02/03/19 11:40) dexamethasone [From Decadron] Adverse Reaction (Mild, Verified 02/03/19 11:40) Pruritis Past Medical History - General Information source: Patient - Social History Smoking Status: Never Smoker Frequency of alcohol use: None Drug Abuse: None Family History: Reviewed & Not Pertinent - Past Medical History Cardiac Medical History: Reports: Hx Hypertension Denies: Hx Congestive Heart Failure, Hx DVT, Hx Heart Attack, Hx Hypercholesterolemia, Hx Pulmonary Embolism Pulmonary Medical History: Denies: Hx Asthma, Hx COPD, Hx Pneumonia, Hx Sleep Apnea Neurological Medical History: Reports: Hx Migraine, Hx Seizures - Last episode 2015; uncertain current antiepileptic. Endocrine Medical History: Reports: Hx Diabetes Mellitus Type 2. Denies: Hx Hyperthyroidism, Hx Hypothyroidism Renal/ Medical History: Denies: Hx Peritoneal Dialysis GI Medical History: Reports: Hx Hepatitis. Denies: Hx Cirrhosis, Hx Gastroesophageal Reflux Disease Musculoskeletal Medical History: Denies Hx Arthritis Skin Medical History: Denies Hx Eczema, Denies Hx Psoriasis Psychiatric Medical History: Denies: Hx Depression Infectious Medical History: Reports: Hx Hepatitis. 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 No cardiac surgery. - Immunizations Immunizations up to date: Yes Hx Diphtheria, Pertussis, Tetanus Vaccination: Yes Review of Systems - Review of Systems Constitutional: denies: Chills, Fever Cardiovascular: Chest pain. denies: Palpitations Respiratory: denies: Cough, Short of breath -: Yes All other systems reviewed and negative Physical Exam - Vital signs Vitals: Temp Pulse Resp BP Pulse Ox 97.3 F 61 20 152/78 H 95 02/05/20 11:34 02/05/20 11:34 02/05/20 11:34 02/05/20 11:34 02/05/20 11:34 Interpretation: Hypertensive - General General appearance: Appears well, Alert - HEENT Head: Atraumatic, Other - Patient has a large area bilaterally in the frontoparietal area consistent with a previous surgical wound. This area ap pears well-healed and is otherwise unremarkable. Eyes: Normal Pupils: PERRL - Respiratory Respiratory status: No respiratory distress Chest status: Nontender Breath sounds: Normal Chest palpation: Normal - Cardiovascular Rhythm: Regular Heart sounds: Normal auscultation Murmur: No - Abdominal Inspection: Normal Distension: No distension Bowel sounds: Normal Tenderness: Nontender Organomegaly: No organomegaly - Back Back: Normal, Nontender - Extremities General upper extremity: Normal inspection, Nontender, Normal color, Normal ROM, Normal temperature General lower extremity: Normal inspection, Nontender, Normal color, Normal ROM, Normal temperature, Normal weight bearing. No: Meet's sign - Neurological Neuro grossly intact: Yes Cognition: Normal Orientation: AAOx4 Lion Coma Scale Eye Opening: Spontaneous [place] Coma Scale Verbal: Oriented [place] Coma Scale Motor: Obeys Commands [place] Coma Scale Total: 15 Speech: Normal Motor strength normal: LUE, RUE, LLE, RLE Sensory: Normal - Psychological Associated symptoms: Normal affect, Normal mood - Skin Skin Temperature: Warm Skin Moisture: Dry Skin Color: Normal Course - Re-evaluation Re-evalutation: 02/05/20 15:32 Presents with centralized back pain. Patient had a CTA done which shows no evidence of intrathoracic abnormality neither cardiac pulmonary nor aortic. He does not have infectious symptoms. Patient's first troponin is unremarkable. He is awaiting a repeat troponin at this time. EKG shows no acute ischemic changes. Patient's HEART score is 3 making him low risk. I will turn pt over to Dr. Hdz. if second trop neg [id number] pt can be discharged to follow up as outpt. 02/05/20 15:33 - Vital Signs Vital signs: Temp Pulse Resp BP Pulse Ox 97.3 F 61 19 152/86 H 97 02/05/20 11:34 02/05/20 11:34 02/05/20 13:01 02/05/20 13:00 02/05/20 13:01 - Laboratory Result Diagrams: 02/05/20 12:05 02/05/20 12:05 Laboratory results interpreted by me: 02/05/20 02/05/20 12:05 14:08 Glucose 200 H POC Glucose 127 H - Diagnostic Test Radiology reviewed: Image reviewed, Reports reviewed - EKG Interpretation by Me EKG shows normal: Sinus rhythm Rate: Normal - 63 Rhythm: NSR Voltage: Consistent with LVH Discharge - Discharge Clinical Impression: Chest pain Qualifiers: Chest pain type: unspecified Qualified Code(s): R07.9 - Chest pain, unspecified Condition: Stable Disposition: OTHER
--- NOTE | 2020-02-05 15:23 | RADIOLOGY REPORT (SQ) ---
EXAM DESCRIPTION: CTA CHEST IMAGES COMPLETED DATE/TIME: 02/05/2020 3:08 pm REASON FOR STUDY: cp COMPARISON: 10/10/2016 TECHNIQUE: CT scan of the chest performed using helical scanning technique with dynamic intravenous contrast injection. Images reviewed with lung, soft tissue and bone windows. Reconstructed coronal and sagittal MPR images reviewed. Additional 3 dimensional post-processing performed to develop Maximal Intensity Projection images (MN P). All images stored on PACS. All CT scanners at this facility use dose modulation, iterative reconstruction, and/or weight based d osing when appropriate to reduce radiation dose to as low as reasonably achievable (ALARA). [facility]: Dose Right [facility]: CareDose [facility]: Dose Right [facility]: Teradose 4D [facility]: Convozine CONTRAST TYPE AND DOSE: contrast/concentration: Isovue 350.00 mmol/ml; Total Contrast Delivered: 65. 0 ml; Total Saline Delivered: 80.0 ml Contrast bolus adequate for pulmonary arteries and aorta. RENAL FUNCTION: BUN 9; creatinine 0.68 RADIATION DOSE: CT Rad equipment meets quality standard of care and radiation dose reduction techniq ues were employed. CTDIvol: 15.4 - 30.0 mGy. DLP: 714 mGy-cm. . LIMITATIONS: None. FINDINGS: LUNGS AND PLEURA: No masses, infiltrates, or pneumothorax. No pleural effusions or pleura l calcifications. AORTA AND GREAT VESSELS: No aneurysm. Contrast bolus not optimized for the aorta. HEART: No pericardial effusion. No significant coronary artery calcifications. PULMONARY ARTERIES: No emboli visualized in the main pulmonary arteries or the segmental branches. HILAR AND MEDIASTINAL STRUCTURES: No masses. Scattered partially calcified mediastinal lymph nodes. HARDWARE: None in the chest. UPPER ABDOMEN: No significant findings. Limited exam. THYROID AND OTHER SOFT TISSUES: No masses. No adenopathy. BONES: No acute or significant finding. 3D MIPS: Confirm above findings. OTHER: No other significant finding. IMPRESSION: No central or segmental pulmonary embolus. No evidence of acute cardiopulmonary abnorma lity. COMMENT: Quality ID # [id number]: Final reports with documentation of one or more dose reduction techniques (e.g., Automated exposure control, adjustment of the mA and/or kV according to patient size, use of iterative reconstruction technique) TECHNICAL DOCUMENTATION: JOB ID: [id number] 2010 [employer]- All Rights Reserved Reading location - IP/workstation name: [email or web address]
[2020-02-05 17:16] VITALS: BP 147/84
--- NOTE | 2020-02-06 11:18 | EKG REPORT ---
SEVERITY:- ABNORMAL ECG - SINUS RHYTHM LEFT VENTRICULAR HYPERTROPHY : Confirmed by: Kia Cabrera MD 06-Feb-2020 11:18:29
== END 2020-02-05 17:21 | disposition other institution (70) ==
LOC: ER 11:17
DX: R07.9 Chest pain, unspecified (principal); Z88.0 Allergy status to penicillin; Z88.8 Allergy status to other drugs, medicaments and biological substances; I10 Essential (primary) hypertension; E11.9 Type 2 diabetes mellitus without complications
CPT/HCPCS: 93005; 99285; 36415; 82962; 83690; 83735; 85025; 80053; 84484; 83880; 71045; 71275; 93010; J3490 ×3

== ENCOUNTER → 2020-02-17 | Outpatient (CLI) | payer MEDICAID ==
[2020-02-17 09:52] VITALS: BP 142/94
--- NOTE | 2020-02-17 09:52 | ER RDC ASSESSMENT REPORT ---
Intake - In the Last 14 days Have you traveled outside [place]?: No Have you been in close contact with someone CONFIRMED: No Worked in Healthcare?: No - Symptoms Subjective Fever([place] feverish): No Chills: No Muscule Aches: No Runny Nose: No Sore Throat: No Cough (New or worsening chronic cough): No Shortness of breath: No Nausea or Vomiting: No Headache: No Abdominal Pain: No Diarrhea(3 or more loose stools in last 24 hours): No - Do you have any of the following Chronic lung disease: Asthma or emphysema or COPD: No Cystic Fibrosis: No Diabetes: Yes High Blood Pressure: Yes Cardiovascular Disease: Yes Chronic Kidney Disease: No Chronic Liver Disease: No Chronic blood disorder like Sickle Cell Disease: No Weak immune system due to disease or medication: No Neurologic condition that limits movement: No Developmental delay - Moderate to Severe: No Morbid Obesity (>100 pounds over ideal weight): No - Objective Temperature: 98.6 F Pulse Rate: 107 Respiratory Rate: 18 Blood Pressure: 142/94 O2 Sat by Pulse Oximetry: 95 Objective: Given above, testing performed: covid Disposition: Home; Selfcare General - General Stated Complaint: asymptomatic, seeks covid testing Time Seen by Provider: 02/17/20 09:20 Mode of Arrival: Ambulatory Information source: Patient - HPI Notes: Patient presents to clinic for COVID-19 testing. No known contact with have a positive individual. Patient is asymptomatic. They deny any cough, shortness of breath, fever, chills, muscle aches, rhinorrhea, sore throat, nausea or vomiting, headache, abdominal pain or diarrhea. Patient has no acute medical concerns. - Related Data Allergies/Adverse Reactions: morphine Allergy (Verified 02/03/19 11:40) Penicillins Allergy (Verified 02/03/19 11:40) dexamethasone [From Decadron] Adverse Reaction (Mild, Verified 02/03/19 11:40) Pruritis Home Medications: Unspecified blood pressure meds and diabetes meds Past Medical History - General Information source: Patient - Social History Smoking Status: Never Smoker Family History: Reviewed & Not Pertinent - Past Medical History Cardiac Medical History: Reports: Hx Hypertension Denies: Hx Congestive Heart Failure, Hx DVT, Hx Heart Attack, Hx Hypercholesterolemia, Hx Pulmonary Embolism Pulmonary Medical History: Reports: None Denies: Hx Asthma, Hx COPD, Hx Pneumonia, Hx Sleep Apnea EENT Medical History: Reports: None Neurological Medical History: Reports: Hx Migraine, Hx Seizures - Last episode 2016; uncertain current antiepileptic. Endocrine Medical History: Reports: Hx Diabetes Mellitus Type 1, Hx Diabetes Mellitus Type 2. Denies: Hx Hyperthyroidism, Hx Hypothyroidism Renal/ Medical History: Reports: None. Denies: Hx Peritoneal Dialysis Malignancy Medical History: Reports None GI Medical History: Reports: Hx Hepatitis. Denies: Hx Cirrhosis, Hx Gastroesophageal Reflux Disease Musculoskeletal Medical History: Reports None, Denies Hx Arthritis Skin Medical History: Reports None, Denies Hx Eczema, Denies Hx Psoriasis Psychiatric Medical History: Reports: None Denies: Hx Depression Traumatic Medical History: Reports: None Infectious Medical History: Reports: Hx Hepatitis. 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 No cardiac surgery. Physical Exam - General General appearance: Appears well, Alert In distress: None Notes: PHYSICAL EXAMINATION: GENERAL: Well-appearing and in no acute distress. HEAD: Atraumatic, normocephalic. EYES: sclera anicteric, conjunctiva are normal. ENT: nares patent. Moist mucous membranes. NECK: Normal range of motion, supple without lymphadenopathy. LUNGS: No increased work of breathing. Lung sounds CTAB and equal. No wheezes rales or rhonchi. HEART: Regular rate and rhythm without murmurs. ABDOMEN: Soft, nontender, normal bowel sounds, no guarding. EXTREMITIES: Normal range of motion, no pitting edema. No cyanosis. NEUROLOGICAL: A&O x 3. Normal speech. PSYCH: Normal mood, normal affect. SKIN: Warm, Dry, normal turgor, no rashes or lesions noted Patient Education/Counseling Counseling/Education: Patient presents for COVID 19 testing. Patient has had no known contact with COVID positive individual and is asymptomatic at this time. Patient does not have emergency worrying symptoms such as difficulty breathing, shortness of breath, chest pain, pressure, confusion or cyanosis. Patient appears suitable for discharge as vital signs are stable and patient is nontoxic in appearance. Good return precautions have been discussed with patient, patient verbalized understanding and is agreeable with discharge plan of care at this time. Guidance for worsening S/SX: As a person under investigation for Covid 19, the [facility], division of public health advises you to adhere to the following guidance until your test results are reported to you. If your test result is positive, you will receive additional information from your provider and your local health department at that time. Remain at home until you are cleared by the health provider or public health authorities. Keep a log of visitors to your home, notify any visitors to your home of your isolation status. If you plan to move to a new address or leave the county, notify the local health department in your County. Call your doctor or seek care if you have an urgent medical need. Before seeking medical care, call ahead to get instructions from the provider before arriving at the medical office clinic or hospital. Notify them that you are being tested for the virus that causes Covid 19 so that arrangements can be made, as necessary, to prevent transmission to others in the healthcare setting. Next, notify the local health department in your county. If a medical emergency arises and you need to call 911, inform the first responders that you are being tested for the virus that causes Covid 19. Next, notify the local health department in your county. RDC Discharge - Discharge Clinical Impression: Encounter for screening laboratory testing for COVID-19 virus in asymptomatic patient Condition: Good Disposition: Home; Selfcare
== END ==
LOC: RDC 09:00
PROVIDERS: ATTEND Registered Nurse
DX: Z03.818 Encounter for observation for suspected exposure to other biological agents ruled out (principal)
CPT/HCPCS: 87635; C9803; 99201; 99211